=== PATIENT | female | born 1950 ===

== ENCOUNTER 2017-02-18 12:55 | Emergency (ER) | payer MEDICARE, MEDICAID ==
[2017-02-18 12:55] VITALS: PULSE 88
[2017-02-18 13:05] VITALS: BMI 23.8
[2017-02-18 13:07] VITALS: TEMP 98.1; O2SAT 98
--- NOTE | 2017-02-18 13:33 | ED PDOC ---
Arrival/HPI - History of Present Illness Time/Duration: < month Symptom Onset: Gradual Symptom Course: Unchanged Severity Level: Mild Activities at Onset: Light Context: Home <Ivana Chavez - Last Filed: 02/18/17 15:07> - General Historian: Patient <Arley Husainystal - Last Filed: 02/18/17 15:12> - General Chief Complaint: Lower Extremity Problem/Injury Time Seen by Provider: 02/18/17 13:12 - History of Present Illness Narrative History of Present Illness (Text): 02/18/17 13:30 This is a 66Y F with PMH HTN, Lupus, CKD, L DVT who was sent to ED by PMD Dr. Escalante for R leg pain x 2 weeks. Patient reports her R lower calf has been hurting for 2 weeks. It is worse with walking, but denies having any trauma. She reports erythema in the R mid calf, but denies SOB, CP, fever, chills, n/v/d , or vision changes. She is currently on Coumadin for her history of L leg DVT. (Kelsi Husain) Modifying Factors (Text): pain worse with walking (Ivana Chavez) Past Medical History - Provider Review Nursing Documentation Reviewed: Yes - Travel History If Yes, travel location?: [place] - Infectious Disease Hx of Infectious Diseases: None - Tetanus Immunization Tetanus Immunization: Unknown - Cardiac Hx Cardiac Disorders: Yes Hx Hypertension: Yes - Pulmonary Hx Respiratory Disorders: Yes Hx Asthma: Yes Hx Chronic Obstructive Pulmonary Disease (COPD): Yes - Neurological Hx Neurological Disorder: No - HEENT Hx HEENT Disorder: Yes (WEARS RX GLASSES) Other/Comment: decreased vision in left eye - Renal Hx Renal Disorder: Yes Hx Renal Failure: Yes - Endocrine/Metabolic Hx Endocrine Disorders: Yes Hx Hypothyroidism: Yes Hx Systemic Lupus Erythematosus: Yes - Hematological/Oncological Hx Blood Disorders: No - Integumentary Hx Dermatological Disorder: Yes - Musculoskeletal/Rheumatological Hx Musculoskeletal Disorders: Yes Hx Falls: Yes - Gastrointestinal Hx Gastrointestinal Disorders: Yes Hx Gastroesophageal Reflux: Yes Hx Pancreatitis: Yes - Genitourinary/Gynecological Hx Genitourinary Disorders: No - Psychiatric Hx Psychophysiologic Disorder: Yes Hx Anxiety: Yes Hx Substance Use: No - Surgical History Hx Cholecystectomy: Yes Hx Valve Replacement: Yes ("pericardial window") Other/Comment: bilateral breast lift - Anesthesia Hx Anesthesia: Yes Hx Anesthesia Reactions: No Hx Malignant Hyperthermia: No - Suicidal Assessment Feels Threatened In Home Enviroment: No <Kelsi Husain - Last Filed: 02/18/17 15:12> Family/Social History - Physician Review Nursing Documentation Reviewed: Yes Family/Social History: CAD/DC Smoking Status: Never Smoked Hx Alcohol Use: No Hx Substance Use: No Hx Substance Use Treatment: No <Kelsi Husain - Last Filed: 02/18/17 15:12> Allergies/Home Meds <Ivana Chavez - Last Filed: 02/18/17 15:07> <Kelsi Husain - Last Filed: 02/18/17 15:12> Allergies/Adverse Reactions: Allergies ciprofloxacin [From Cipro] Allergy (Verified 02/18/17 13:05) ANAPHYLAXIS ciprofloxacin HCl [From Cipro] Allergy (Verified 02/18/17 13:05) ANAPHYLAXIS IV Contrast Allergy (Uncoded 02/18/17 13:05) ANAPHYLAXIS Home Medications: Home Meds Medication Instructions Recorded Confirmed Digoxin [Lanoxin] 1 dose PO DAILY 11/08/15 09/13/16 Levothyroxine [Synthroid] 50 mcg PO DAILY 11/08/15 09/13/16 Lipase/Protease/Amylase [Creon Dr 1 tab PO TID 11/08/15 09/13/16 12,000 Units Capsule] Magnesium Oxide 500 mg PO DAILY 11/08/15 09/13/16 Omeprazole [Prilosec] 40 mg PO DAILY 11/08/15 09/13/16 Alendronate [Fosamax] 35 mg PO ONCE 04/29/16 09/13/16 Potassium Chloride [Klor-Con 10] 10 meq PO TID 04/29/16 09/13/16 Prednisone [Laura] 5 mg PO DAILY 04/29/16 09/13/16 Warfarin [Coumadin] 2.5 mg PO DAILY 04/29/16 09/13/16 amLODIPine [Norvasc] 10 mg PO DAILY 04/29/16 09/13/16 tiZANidine [Zanaflex] 2 mg PO PRN PRN 04/29/16 09/13/16 Review of Systems - Physician Review All systems were reviewed & negative as marked: Yes - Review of Systems Constitutional: Normal. absent: Fatigue Eyes: Normal. absent: Vision Changes Respiratory: Normal. absent: SOB, Cough, Wheezing Cardiovascular: Normal. absent: Chest Pain, Palpitations Gastrointestinal: Normal. absent: Abdominal Pain, Stool Changes, Nausea, Vomiting Genitourinary Female: Normal. absent: Dysuria, Frequency Musculoskeletal: Other (R leg pain ). absent: Arthralgias, Back Pain, Joint Swelling Skin: Normal. absent: Rash, Pruritis, Skin Lesions Neurological: Normal. absent: Headache, Dizziness <Kelsi Husain - Last Filed: 02/18/17 15:12> Physical Exam <Ivana Chavez - Last Filed: 02/18/17 15:07> Vital Signs Reviewed: Yes Temperature: Afebrile Blood Pressure: Hypertensive Pulse: Regular Respiratory Rate: Normal Appearance: Positive for: Well-Appearing, Non-Toxic, Comfortable Pain Distress: None Mental Status: Positive for: Alert and Oriented X 3 - Systems Exam Head: Present: Atraumatic, Normocephalic Mouth: Present: Moist Mucous Membranes Neck: Present: Normal Range of Motion Respiratory/Chest: Present: Clear to Auscultation, Good Air Exchange. No: Respiratory Distress, Accessory Muscle Use Cardiovascular: Present: Regular Rate and Rhythm, Normal S1, S2. No: Murmurs Abdomen: Present: Normal Bowel Sounds. No: Tenderness, Distention, Peritoneal Signs Back: Present: Normal Inspection Upper Extremity: Present: Normal Inspection. No: Cyanosis, Edema Lower Extremity: Present: Normal Inspection (on L leg), NORMAL PULSES, Erythema (Mid R calf ), Deformity (R mid calf superficial vein). No: Edema, CALF TENDERNESS Neurological: Present: GCS=15, CN II-XII Intact, Speech Normal Skin: Present: Warm, Dry, Normal Color. No: Rashes Psychiatric: Present: Alert, Oriented x 3, Normal Insight, Normal Concentration <Kelsi Husain - Last Filed: 02/18/17 15:12> Vital Signs Temp Pulse Resp BP Pulse Ox 02/18/17 13:06 98.1 F 87 16 157/83 H 98 Medical Decision Making <Ivana Chavez - Last Filed: 02/18/17 15:07> Re-evaluation Time: 15:00 Reassessment Condition: Improved - Lab Interpretations I have reviewed the lab results: Yes Interpretation: No sign. chg./baseline - RAD Interpretation Assurance Senior Manager: ED Physician <Kelsi Husain - Last Filed: 02/18/17 15:12> ED Course and Treatment: In agreement with resident note, which includes further HPI details. Patient was seen and evaluated with resident, came up with plan and treatment together. (Ivana Chavez) 02/18/17 13:37 Impression: This is a 66Y F with PMH HTN, Lupus, L leg DVT, CKD here for R leg pain x 2 weeks. DDX: R DVT, thrombophlebitis, venous insufficiency Plan: -- Duplex U/S -- Pt/PTT, INR -- Tibia/fibula XR --Reassess Prior Visits: Notes and results from previous visits were reviewed. Progress Note: XR tibia/fibula negative for fracture. Preliminary U/S showed no evidence of DVT. INR 2.1. Spoke with Dr. Escalante who reports patient should make and appointment to see him on . Discharge Instructions: Re-evaluation. Patient feels better. Discussed results and plan with patient who expresses understanding. All questions answered and there is agreement with the plan to discharge home with instructions. Patient stable for discharge. Return if symptoms persist or worsen. (Kelsi Husain) - Lab Interpretations Lab Results: Lab Results 02/18/17 14:30: PT 22.7 H, INR 2.10 H, APTT 36.6 H - RAD Interpretation Narrative RAD Interpretations (Text): 02/18/17 14:47 U/S negative for DVT. XR of tibia/fibula negative for fracture. Please see full report for more details. (Kelsi Husain) Radiology Orders: 02/18/17 13:20 TIBIA FIBULA RIGHT [RAD] Stat DUPLEX LOWER EXTRM VEIN RIGHT [US] Stat Disposition/Present on Arrival <Ivana Chavez - Last Filed: 02/18/17 15:07> - Present on Arrival Any Indicators Present on Arrival: No History of DVT/PE: Yes History of Uncontrolled Diabetes: No Urinary Catheter: No History of Decub. Ulcer: No History Surgical Site Infection Following: None - Disposition Have Diagnosis and Disposition been Completed?: Yes Disposition Time: 15:05 Patient Plan: Discharge <Kelsi Husain - Last Filed: 02/18/17 15:12> - Disposition Diagnosis: Right leg pain Disposition: HOME/ ROUTINE Patient Problems: Current Active Problems Problem Status Onset Right leg pain Acute Condition: GOOD Discharge Instructions (ExitCare): Varicose Veins (ED), Deep Venous Thrombosis (GEN) Print Language: FRISIAN Additional Instructions: Ms. Schuler, thank you for letting us take care of you today. Your provider was Dr. Husain and Dr. Chavez. You were treated for L leg pain. The emergency medical care you received today was directed at your acute symptoms. If you were prescribed any medication, please fill it and take as directed. It may take several days for your symptoms to resolve. Return to the Emergency Department if your symptoms worsen, do not improve, or if you have any other problems. Please follow up with Dr. Escalatne on . Call Lary at the office to make an appointment. Bring any paperwork you were given at discharge with you along with any medications you are taking to your follow up visit. Our treatment cannot replace ongoing medical care by a primary care provider (PCP) outside of the emergency department. Thank you for allowing the [facility] team to be part of your care today. If you had an X-Ray or CT scan: A Radiologist will review the ED reading if any change in treatment is needed we will contact you. Referrals: Cathy Escalante MD [Primary Care Provider] - Follow up with primary
--- NOTE | 2017-02-18 14:54 | RAD ---
PROCEDURE: Radiographs of the right tibia and fibula. HISTORY: RLE lump on the medial side mid shaft COMPARISON: None available. TECHNIQUE: Frontal and lateral views obtained. FINDINGS: BONES: No fracture or destructive lesion. JOINT SPACES: Unremarkable. OTHER FINDINGS: None. IMPRESSION: Unremarkable radiographs of the right tibia and fibula.
[2017-02-18 14:56] LABS: INR 2.1 (0.93-1.08); PARTIAL THROMBOPLASTIN TIME 36.6 Seconds (23.7-30.8)
[2017-02-18 15:28] VITALS: BP 136/69; PULSE 76; RESP 18
--- NOTE | 2017-02-18 16:06 | US ---
PROCEDURE: Right lower extremity venous US HISTORY: Leg pain and swelling. Evaluate for DVT. PHYSICIAN(S): Christopher Mitchell M.D. TECHNIQUE: Duplex sonography and color-flow Doppler with graded compression were used to evaluate the deep venous system of the right lower extremity. FINDINGS: The visualized deep venous system of the right lower extremity is sonographically normal and compressible. Normal waveforms and augmentation are seen. There is no sonographic evidence for deep venous thrombosis in the visualized segments of the right lower extremity. IMPRESSION: 1. No sonographic evidence for deep venous thrombosis in the visualized segments of the right lower extremity.
== END 2017-02-18 15:30 | disposition home or self-care (01) ==
LOC: ED 12:55
DX: M79.604 Pain in right leg (principal); I12.9 Hypertensive chronic kidney disease with stage 1 through stage 4 chronic kidney disease, or unspecified chronic kidney disease; N18.9 Chronic kidney disease, unspecified; M32.9 Systemic lupus erythematosus, unspecified

== ENCOUNTER 2017-06-09 13:50 | Inpatient (IN) | payer MEDICARE, MEDICAID ==
[2017-06-09 13:50] VITALS: BMI 23.8
[2017-06-09] MEDS ORDERED: Albuterol-Ipratrop 3 mg / 0.5 (3 ml) UD IH STA (14:26)
--- NOTE | 2017-06-09 14:38 | ED PDOC ---
Arrival/HPI <Gemini Roberts - Last Filed: 06/09/17 15:58> - General Historian: Patient - History of Present Illness Time/Duration: < week (4 days ) Symptom Onset: Gradual Symptom Course: Unchanged Quality: Aching Severity Level: Moderate Activities at Onset: Rest Context: Home <Kelsi Husain - Last Filed: 06/09/17 17:16> - General Chief Complaint: Cough, Cold, Congestion Time Seen by Provider: 06/09/17 14:15 - History of Present Illness Narrative History of Present Illness (Text): 06/09/17 14:43 This is a 66Y F with PMH HTN, Lupus, CKD, DVT, asthma and hypothyroidism here for cough and congestion x 4 days. She reports the cough is constant and coughs up clear and brown colored mucus. She also has subjective fevers and fatigue. She denies runny nose, sore throat, facial pain, ear pain or recent travel. She reports her sister was sick last week as well and they both have not had their flu shot. The patient has been using lemon and honey to help her cough. She does not know what makes it worse. She went to have her INR checked today and went home and continued to feel sick and decided to come the ED. Her PMD is Dr. Escalante who she called and he told her to come to the Ed. She has an appointment to see him tomorrow. (Kelsi Husain) Past Medical History - Provider Review Nursing Documentation Reviewed: Yes - Travel History Have you recently traveled outside [place] w/in the past 3 mons?: No - Infectious Disease Hx of Infectious Diseases: None - Tetanus Immunization Tetanus Immunization: Unknown - Cardiac Hx Cardiac Disorders: Yes Hx Hypertension: Yes - Pulmonary Hx Respiratory Disorders: Yes Hx Asthma: Yes Hx Chronic Obstructive Pulmonary Disease (COPD): Yes - Neurological Hx Neurological Disorder: No - HEENT Hx HEENT Disorder: Yes (WEARS RX GLASSES) Other/Comment: decreased vision in left eye - Renal Hx Renal Disorder: Yes Hx Renal Failure: Yes - Endocrine/Metabolic Hx Endocrine Disorders: Yes Hx Hypothyroidism: Yes Hx Systemic Lupus Erythematosus: Yes - Hematological/Oncological Hx Blood Disorders: No - Integumentary Hx Dermatological Disorder: Yes - Musculoskeletal/Rheumatological Hx Musculoskeletal Disorders: Yes Hx Falls: Yes - Gastrointestinal Hx Gastrointestinal Disorders: Yes Hx Gastroesophageal Reflux: Yes Hx Pancreatitis: Yes - Genitourinary/Gynecological Hx Genitourinary Disorders: No - Psychiatric Hx Psychophysiologic Disorder: Yes Hx Anxiety: Yes Hx Substance Use: No - Surgical History Hx Cholecystectomy: Yes Hx Valve Replacement: Yes ("pericardial window") Other/Comment: bilateral breast lift - Anesthesia Hx Anesthesia: Yes Hx Anesthesia Reactions: No Hx Malignant Hyperthermia: No - Suicidal Assessment Feels Threatened In Home Enviroment: No <Kelsi Husain - Last Filed: 06/09/17 17:16> Family/Social History - Physician Review Nursing Documentation Reviewed: Yes Family/Social History: Hypertension Smoking Status: Never Smoked Hx Alcohol Use: No Hx Substance Use: No Hx Substance Use Treatment: No <Kelsi Husain - Last Filed: 06/09/17 17:16> Allergies/Home Meds <Gemini Roberts - Last Filed: 06/09/17 15:58> <Kelsi Husain - Last Filed: 06/09/17 17:16> Allergies/Adverse Reactions: Allergies ciprofloxacin [From Cipro] Allergy (Verified 06/09/17 14:01) ANAPHYLAXIS ciprofloxacin HCl [From Cipro] Allergy (Verified 06/09/17 14:01) ANAPHYLAXIS IV Contrast Allergy (Uncoded 06/09/17 14:01) ANAPHYLAXIS Home Medications: Home Meds Medication Instructions Recorded Confirmed Levothyroxine [Synthroid] 50 mcg PO DAILY 11/08/15 06/09/17 Lipase/Protease/Amylase [Creon Dr 1 tab PO TID 11/08/15 06/09/17 12,000 Units Capsule] Magnesium Oxide 500 mg PO DAILY 11/08/15 06/09/17 Omeprazole [Prilosec] 40 mg PO DAILY 11/08/15 06/09/17 Alendronate [Fosamax] 70 mg PO ONCE 04/29/16 06/09/17 Potassium Chloride [Klor-Con 10] 10 tab-cap PO TID 04/29/16 06/09/17 Prednisone [Laura] 5 mg PO DAILY 04/29/16 06/09/17 Warfarin [Coumadin] 5 mg PO DAILY 04/29/16 06/09/17 amLODIPine [Norvasc] 10 mg PO DAILY 04/29/16 06/09/17 tiZANidine [Zanaflex] 2 mg PO PRN PRN 04/29/16 06/09/17 Digoxin [Digitek] 125 mcg PO DAILY 06/09/17 06/09/17 Gabapentin [Neurontin] 300 mg PO DAILY 06/09/17 06/09/17 tiZANidine [Zanaflex] 2 mg PO HS 06/09/17 06/09/17 Review of Systems - Physician Review All systems were reviewed & negative as marked: Yes - Review of Systems Constitutional: Fatigue, Fevers Eyes: absent: Vision Changes ENT: Normal. absent: Hearing Changes, Sore Throat, Rhinorrhea Respiratory: Cough. absent: SOB, Sputum, Wheezing Cardiovascular: Normal Gastrointestinal: Normal. absent: Abdominal Pain, Diarrhea, Nausea, Vomiting Genitourinary Female: Normal. absent: Dysuria, Frequency, Hematuria <Kelsi Husain - Last Filed: 06/09/17 17:16> Physical Exam <Gemini Roberts - Last Filed: 06/09/17 15:58> Vital Signs Reviewed: Yes Temperature: Febrile Blood Pressure: Normal Pulse: Tachycardic Respiratory Rate: Normal Appearance: Positive for: Well-Appearing, Non-Toxic, Comfortable Pain Distress: None Mental Status: Positive for: Alert and Oriented X 3 - Systems Exam Head: Present: Atraumatic, Normocephalic Pupils: Present: PERRL Extroacular Muscles: Present: EOMI Conjunctiva: Present: Normal Mouth: Present: Moist Mucous Membranes Pharnyx: Present: ERYTHEMA (mild with clear mucus in oropharynx ). No: EXUDATE , TONSILS ENLARGED, Uvular Deviation Neck: Present: Normal Range of Motion Respiratory/Chest: Present: Clear to Auscultation, Good Air Exchange. No: Respiratory Distress, Accessory Muscle Use Cardiovascular: Present: Regular Rate and Rhythm, Normal S1, S2. No: Murmurs Abdomen: Present: Normal Bowel Sounds. No: Tenderness, Distention, Peritoneal Signs Back: Present: Normal Inspection Upper Extremity: Present: Normal Inspection. No: Cyanosis, Edema Lower Extremity: Present: Normal Inspection. No: Edema Neurological: Present: GCS=15, CN II-XII Intact, Speech Normal Skin: Present: Warm, Dry, Normal Color. No: Rashes Psychiatric: Present: Alert, Oriented x 3, Normal Insight, Normal Concentration <Kelsi Husain - Last Filed: 06/09/17 17:16> Vital Signs Temp Pulse Resp BP Pulse Ox 06/09/17 15:51 100 F H 97 H 16 125/66 96 06/09/17 13:54 100.6 F H 99 H 18 143/76 95 Medical Decision Making <Gemini Roberts - Last Filed: 06/09/17 15:58> Re-evaluation Time: 15:15 Reassessment Condition: Improving,but remains with symptoms - Lab Interpretations I have reviewed the lab results: Yes Interpretation: All labs normal (elevated WBC) <Arley Husainystal - Last Filed: 06/09/17 17:16> ED Course and Treatment: A 66 year old female with cough and congestion. In agreement with resident note , which includes further HPI details. Patient was seen and evaluated with resident, came up with plan and treatment together. (Gemini Roberts) 06/09/17 14:55 Impression: This is a 66Y F with PMH HTN, Lupus, CKD, DVT, asthma and hypothyroidism here for cough and congestion x 4 days. Differential Diagnosis included but are not limited to: Bronchitis v. pneumonia v. influenza Plan: -- CBC, CMP, Influenza, U/A, Blood cultre/Urine Cultures, VBG -- CXR -- Pietro Douglas -- NS bolus -- Reassess and disposition Progress Notes: 06/09/17 15:18 Re-evaluation. Patient feels improved, but still fatigued. Discussed results and plan to admit with patient who expresses understanding. All questions answered and there is agreement with the plan. CBC showed elevated WBC. Lactate within normal limits. Influenza negative. INR subtherapeutic. U/A pending. Patient urinated in cup, but threw it down sink. Spoke with Dr. Escalante who would like this patient to be admitted for early pneumonia v. bronchitis with immunocompromised state secondary to lupus and chronic steroid use. Patient will be admitted under Dr. Reyes who is covering his service. Spoke with Dr. Reyes who accepted the patient. Patient given IV Rocephin and Zithromax. CXR Portable HISTORY: cough COMPARISON: 07/11/2016. FINDINGS: LUNGS: The lungs are well inflated. There are chronic changes in both lungs. No focal consolidation. PLEURA: No significant pleural effusion identified, no pneumothorax apparent. CARDIOVASCULAR: Normal. OSSEOUS STRUCTURES: No significant abnormalities. VISUALIZED UPPER ABDOMEN: Normal. OTHER FINDINGS: There are multiple surgical clips in the right axilla. IMPRESSION: Chronic changes in both lungs. No active pulmonary disease. (Kelsi Husain) - Lab Interpretations Lab Results: 06/09/17 14:30 06/09/17 14:45 Lab Results 06/09/17 14:52: Influenza Typ A,B (EIA) Negative for flu a/b 06/09/17 14:45: Sodium 138, Chloride 103, Potassium 4.0, Carbon Dioxide 25, Anion Gap 14, BUN 30 H, Creatinine 1.3, Est GFR ( Amer) 50, Est GFR (Non- Af Amer) 41, Random Glucose 90, Calcium 8.7, Total Bilirubin 0.6, AST 40 H, ALT 43, Alkaline Phosphatase 89, Total Protein 7.7, Albumin 3.6, Globulin 4.2, Albumin/Globulin Ratio 0.9 L 06/09/17 14:30: PT 17.8 H, INR 1.65 H 06/09/17 14:30: WBC 12.7 H D, RBC 3.70, Hgb 11.0 L, Hct 34.1 L, MCV 92.2, MCH 29.7, MCHC 32.3, RDW 14.3, Plt Count 222, MPV 9.8, Gran % 66.4, Lymph % (Auto) 21.8 L, Beadle % (Auto) 11.2 H, Eos % (Auto) 0.5 L, Baso % (Auto) 0.1, Gran # 8.47 H, Lymph # 2.8, Beadle # 1.4 H, Eos # 0.1, Baso # 0.01 06/09/17 14:05: pO2 45, VBG pH 7.44 H, VBG pCO2 40.0, VBG HCO3 27.2, VBG Total CO2 28.4 H, VBG O2 Sat (Calc) 86.1 H, VBG Base Excess 2.8 H, VBG Potassium 4.3, Sodium 136.0, Chloride 105.0, Glucose 96, Lactate 0.9, FiO2 21.0, Venous Blood Potassium 4.3 - RAD Interpretation Radiology Orders: 09/18/17 14:26 CHEST PORTABLE [RAD] Stat - Medication Orders Current Medication Orders: Discontinued Medications Albuterol/Ipratropium (Duoneb 3 Mg/0.5 Mg (3 Ml) Ud) 3 ml IH STAT STA Stop: 06/09/17 14:27 Last Admin: 06/09/17 14:56 Dose: 3 ml Benzonatate (Tessalon Perles) 100 mg PO ONCE STA Stop: 06/09/17 14:27 Last Admin: 06/09/17 14:56 Dose: 100 mg Sodium Chloride (Sodium Chloride 0.9%) 500 mls @ 999 mls/hr IV .Q31M STA Stop: 06/09/17 15:18 Last Admin: 06/09/17 14:57 Dose: 999 mls/hr Ceftriaxone Sodium (Rocephin 1 Gram Ivpb) 1 gm in 100 mls @ 200 mls/hr IVPB STAT STA PRN Reason: Protocol Stop: 06/09/17 16:12 Last Admin: 06/09/17 15:51 Dose: 200 mls/hr Azithromycin (Zithromax 500mg In Ns) 500 mg in 250 mls @ 167 mls/hr IVPB STAT STA PRN Reason: Protocol Stop: 06/09/17 17:12 Last Admin: 06/09/17 16:28 Dose: 167 mls/hr - PA / PROPOSITION PLAYER / Resident Statement MD/DO has reviewed & agrees with the documentation as recorded. MD/ has examined the patient and agrees with the treatment plan. - Scribe Statement The provider has reviewed the documentation as recorded by the Scribe <Gemini Roberts - Last Filed: 06/09/17 15:58> <Kelsi Husain - Last Filed: 06/09/17 17:16> - Scribe Statement Galina Noland Provider Scribe Attestation: All medical record entries made by the Scribe were at my direction and personally dictated by me. I have reviewed the chart and agree that the record accurately reflects my personal performance of the history, physical exam, medical decision making, and the department course for this patient. I have also personally directed, reviewed, and agree with the discharge instructions and disposition. (Gemini Roberts) Disposition/Present on Arrival <Gemini Roberts - Last Filed: 06/09/17 15:58> - Present on Arrival Any Indicators Present on Arrival: Yes History of DVT/PE: Yes History of Uncontrolled Diabetes: No Urinary Catheter: No History of Decub. Ulcer: No History Surgical Site Infection Following: None - Disposition Have Diagnosis and Disposition been Completed?: Yes Disposition Time: 15:45 Patient Plan: Admission <Kelsi Husain - Last Filed: 06/09/17 17:16> - Disposition Diagnosis: Cough, Leukocytosis Patient Problems: Current Active Problems Problem Status Onset Cough Acute Leukocytosis Acute Condition: FAIR
[2017-06-09] MEDS ORDERED: Sodium Chloride 0.9% 500 ML IV STA (14:48)
[2017-06-09 15:14] LABS: BASO # 0.01 K/mm3 (0.0-2.0); BASO % 0.1 % (0.0-3.0); EOS # 0.1 (0.0-0.7); EOS % 0.5 % (1.5-5.0); GRAN # 8.47 (1.4-6.5); GRAN % 66.4 % (50.0-68.0); HEMATOCRIT 34.1 % (36.0-48.0); LYMPH # 2.8 (1.2-3.4); LYMPH % 21.8 % (22.0-35.0); MEAN CELL VOLUME 92.2 fl (80.0-105.0); MEAN CORPUSCULAR HEMOGLOBIN 29.7 pg (25.0-35.0); MEAN CORPUSCULAR HGB CONC 32.3 g/dl (31.0-37.0); MEAN PLATELET VOLUME 9.8 fl (7.0-11.0); MONO # 1.4 (0.1-0.6); MONO % 11.2 % (1.0-6.0); RED CELL DISTRIBUTION WIDTH 14.3 % (11.5-14.5); WHITE BLOOD COUNT 12.7 10^3/ul (4.5-11.0)
[2017-06-09 15:15] LABS: VENOUS BLOOD GAS BASE EXCESS 2.8 mmol/L (0.0-2.0); VENOUS BLOOD PH 7.44 (7.32-7.43)
[2017-06-09 15:24] LABS: ALB/GLOB RATIO 0.9 (1.1-1.8); BILIRUBIN,TOTAL 0.6 mg/dL (0.2-1.3); CALCIUM 8.7 mg/dL (8.4-10.5); TOTAL PROTEIN 7.7 g/dL (5.8-8.3)
--- NOTE | 2017-06-09 15:25 | RAD ---
HISTORY: cough COMPARISON: 07/11/2016. FINDINGS: LUNGS: The lungs are well inflated. There are chronic changes in both lungs. No focal consolidation. PLEURA: No significant pleural effusion identified, no pneumothorax apparent. CARDIOVASCULAR: Normal. OSSEOUS STRUCTURES: No significant abnormalities. VISUALIZED UPPER ABDOMEN: Normal. OTHER FINDINGS: There are multiple surgical clips in the right axilla. IMPRESSION: Chronic changes in both lungs. No active pulmonary disease.
[2017-06-09] MEDS ORDERED: cefTRIAXone 1 gm 1 GM/100 ML BAG IVPB STA (15:43)
[2017-06-09] MEDS ORDERED: Azithromycin 500MG/NS 250ml 500 MG/250 ML BAG IVPB STA (15:43)
[2017-06-09 17:04] LABS: INR 1.65 (0.93-1.08)
[2017-06-09 17:36] LABS: PH,URINE 6.5 (4.7-8.0); URINE BILIRUBIN NEGATIVE (NEGATIVE); URINE BLOOD TRACE-INTACT (NEGATIVE); URINE GLUCOSE (UA) NEGATIVE (NEGATIVE); URINE KETONE NEGATIVE (NEGATIVE); URINE LEUKOCYTE ESTERASE TRACE Leu/uL (NEGATIVE); URINE PROTEIN NEGATIVE mg/dL (<30 mg/dL); URINE UROBILINOGEN 0.2 E.U./dL (<1 E.U./dL)
[2017-06-09 17:38] LABS: URINE APPEARANCE CLEAR (CLEAR); URINE COLOR STRAW (YELLOW)
[2017-06-09 17:51] LABS: URINE BACTERIA SMALL (NEG); URINE EPITHELIAL CELLS 0 - 2 /hpf (0-5); URINE RBC 0 - 2 /hpf (0-2); URINE WBC 0 - 2 /hpf (0-6)
[2017-06-10] MEDS ORDERED: cefTRIAXone 1 gm 1 GM/100 ML BAG IVPB ONE (05:44)
[2017-06-10] MEDS ORDERED: cefTRIAXone 1 gm 1 GM/100 ML BAG IVPB STA (05:45)
[2017-06-10 05:53] LABS: HEMATOCRIT 32.3 % (36.0-48.0); MEAN CELL VOLUME 91.2 fl (80.0-105.0); MEAN CORPUSCULAR HEMOGLOBIN 29.4 pg (25.0-35.0); MEAN CORPUSCULAR HGB CONC 32.2 g/dl (31.0-37.0); MEAN PLATELET VOLUME 10.1 fl (7.0-11.0); RED CELL DISTRIBUTION WIDTH 14.4 % (11.5-14.5); WHITE BLOOD COUNT 15.1 10^3/ul (4.5-11.0)
[2017-06-10 07:28] LABS: ALB/GLOB RATIO 0.7 (1.1-1.8); BILIRUBIN,TOTAL 0.6 mg/dL (0.2-1.3); CALCIUM 8.5 mg/dL (8.4-10.5); MAGNESIUM 1.8 mg/dL (1.7-2.2); PHOSPHOROUS 3.5 mg/dL (2.5-4.5); POTASSIUM 4.2 mmol/L (3.6-5.0); TOTAL PROTEIN 7.3 g/dL (5.8-8.3)
[2017-06-10] MEDS ORDERED: Albuterol-Ipratrop 3 mg / 0.5 (3 ml) UD IH PRN (08:49)
[2017-06-10] MEDS: MethylPREDNISolone 40 mg Vial IVP SCH ×2 (09:40→22:07)
[2017-06-10] MEDS: cefTRIAXone 1 gm 1 GM/100 ML BAG IVPB SCH (09:41)
[2017-06-10] MEDS: Amylase/Lipase/Protease 5,000 U ECC PO SCH ×3 (09:41→18:41)
[2017-06-10] MEDS: Levothyroxine 50 MCG TAB PO SCH (09:41)
[2017-06-10] MEDS: Digoxin 125 mcg (0.125 mg) Tab PO SCH (09:42)
[2017-06-10] MEDS: Azithromycin 500MG/NS 250ml 500 MG/250 ML BAG IVPB SCH (09:43)
--- NOTE | 2017-06-10 12:57 | CON ---
PULMONARY CONSULTATION DATE: 06/10/2017 REFERRING PHYSICIAN: Stalin Reyes MD REASON FOR CONSULTATION: Asthma. HISTORY OF PRESENT ILLNESS: The patient is a [id number], with past medical history significant for asthma, systemic lupus erythematosus, hypertension, chronic kidney disease, deep venous thrombosis in the past, and pancreatitis in the past, who presents to [facility] with increasing shortness of breath at rest, dyspnea on exertion, cough, and sputum production for the past 4 days. There is no history of chest pain, coughing up of blood, or chest pain - may worse with deep respirations. The patient did present to the emergency room with fevers. No history of chills or infectious exposure. No history of night sweats, weight loss or appetite change prior to the above events. No history of leg or calf pains. No history of syncope or diaphoresis. No history of recent travel or trauma. REVIEW OF SYSTEMS: No history of nausea, vomiting or diarrhea. No acute urinary symptoms. No new neurologic or musculoskeletal complaints. Rest of the review of systems is negative. ALLERGIES: CIPROFLOXACIN AND IV DYE. SOCIAL HISTORY: Negative for tobacco. Negative for alcohol. FAMILY HISTORY: No inheritable diseases. HOME MEDICATIONS: Include Zanaflex, Norvasc, Coumadin, prednisone, Prilosec, Synthroid, Advair, Fosamax, Neurontin, and Digitek. PHYSICAL EXAMINATION: GENERAL: The patient is not short of breath at rest. She is not using accessory muscles for breathing. VITAL SIGNS: Temperature is 102.2, pulse 93, respirations 18/20, and blood pressure 130/69. Oxygen saturation on room air is 95% to 96%. HEENT: Normocephalic and atraumatic. NECK: No JVD. CARDIOVASCULAR: Systolic ejection murmur at the lower left sternal border. No S3 or gallop. LUNGS: Decreased breath sounds at the bases. Scattered bilateral rhonchi and wheezing are appreciated. EXTREMITIES: No clubbing, cyanosis, or edema. Calves are nontender to palpation. GASTROINTESTINAL: Abdomen is soft, nontender, and nondistended. Bowel sounds are positive. SKIN: No acute rash. NEUROLOGIC: Limited at the present time. PERTINENT LABORATORY DATA: Chest x-ray was done yesterday and reviewed. There are chronic changes noted. CBC: White count 15.1, hemoglobin 10.4, hematocrit 32.3, and platelets of 226. INR 1.65. Complete metabolic profile: BUN 26 and AST 39. Rest of the metabolic profile is within normal limits. Urine leukocyte esterase - trace. IMPRESSION: 1. Acute bronchitis. 2. Asthma. 3. Fevers. 4. Lupus. 5. Mild anemia. PLAN: The patient presents to [facility] with a 4-day history of worsening pulmonary symptoms. In addition, the patient also presented with fevers. She was thus admitted for additional evaluation. I did review the chest x-ray as above. The chest x-ray only shows chronic changes. A CAT scan of the chest has been ordered for closer evaluation. I will check that when feasible. The patient has been pancultured and started on appropriate antibiotic therapy. Dr. Woods (infectious disease) has been called on the case for evaluation. On physical exam, the patient is in [id number] bronchospasm. I will increase the nebulizer treatments and start low-dose intravenous steroids this morning. I have also started inhaled Pulmicort. Repeat a.m. labs are pending. The patient does state she is feeling this morning, and is actually asking to go home. Additional pulmonary intervention will be based on the clinical status of the patient, as well as the above results. I did discuss the above with Dr. Reyes at length. Thank you very much for this pulmonary consultation. Cornell Silva MD ROBIN
--- NOTE | 2017-06-10 13:29 | CT ---
PROCEDURE: CT chest dated 06/10/2017 HISTORY: Elevated white blood cell count. Cough. COMPARISON: Comparison made with chest radiograph 06/09/2017. Comparison also made with CT scan of the thoracic spine dated 03/04/2016 which partially imaged both lung winters. Comparison also made with CT scan of the abdomen and pelvis dated 11/25/2014. TECHNIQUE: Contiguous axial images were obtained through the chest without intravenous contrast enhancement. Sagittal and coronal reconstructions were performed. Radiation dose (DLP): 210.95 mGy-cm. This CT exam was performed using one or more of the following dose reduction techniques: Automated exposure control, adjustment of the mA and/or kV according to patient size, and/or use of iterative reconstruction technique. FINDINGS: LUNGS: There are peripheral small cystic changes and scarring seen in the right upper and right lower lobes. . Rule out idiopathic pulmonary fibrosis Additionally,, there also appears to be some areas of cylindrical and questionable concomitant cystic bronchiectatic changes both lung bases right greater than left. . Chronic areas of atelectasis and or scarring both lung bases. There are areas of patchy opacity seen in the left lower, including the lingular region and left upper lobes which could represent pneumonitis versus developing alveolar-type infiltrates periods. Some vague at similar changes seen in the region of the right middle lobe. MEDIASTINUM: The heart size is upper limits of normal/mildly enlarged. There are coronary artery calcifications. Dense mitral valve calcification. No significant pericardial effusion. . Partially calcified atherosclerotic plaque seen along the aortic arch proximal great vessels. Ascending thoracic aorta measures approximately 3.2 cm and descending thoracic aorta measures approximately 2.56 cm. Pulmonary trunk measures approximately 3.3 cm; rule out underlying mild pulmonary arterial hypertension. There are several on mediastinal lymph nodes, the largest in the right paratracheal region measuring 17.6 mm though this does contain fatty eccentric center. Evaluation or hilar adenopathy is limited due to the lack of circulating intravenous contrast material. PLEURA: No evidence of pneumothorax or significant effusion. BONES: Chronic anterior wedge deformity T8 segment. There also appears to be some mild superior endplate deformity T9 segment with areas of sclerosis nonspecific. UPPER ABDOMEN: Metallic clips gallbladder fossa consistent with prior cholecystectomy unchanged. Small to medium size hiatal hernia with slight wall thickening of the distal esophagus likely to protrusion of gastric mucosa. OTHER FINDINGS: Central airways are midline patent. No large endoluminal lesions are identified. IMPRESSION: There are predominately peripheral cystic changes seen in the right upper ; rule out idiopathic pulmonary fibrosis. There are also cystic changes seen in the right lower lobes as well as left lung base consistent with a combination of cylindrical and cystic bronchiectasis. . There are also areas of chronic atelectasis and or scarring both lung bases. Patchy somewhat translucent opacity seen in the left lower and left upper lobes as well as to a lesser degree right middle lobe region. Findings may represent areas of pneumonitis versus developing alveolar-type infiltrates. Clinical correlation recommended. Small hiatal hernia with slight wall thickening of the distal esophagus as above. Postcholecystectomy changes. Mildly prominent pulmonary trunk ; rule out underlying mild pulmonary arterial hypertension. .
--- NOTE | 2017-06-10 13:53 | CP.PCM.CON ---
History of Present Illness - History of Present Illness History of Present Illness: 66 year old female with PMH of HTN, SLE, chronic renal failure, history of DVT, hypothyroidism, COPD, GERD, anxiety disorder, S/P cholecystectomy, S/P breast surgery came in to [facility] [place] because of worsening cough and chest tightness and congestion for the past 4 days, associated with cough productive of clear phlegm. The patient has also been having generalized weakness. She states that she was exposed to her sister who was apparently sick with cough and colds last week. She denies insect bites, no trips to outdoors in the past month, no animal contacts. She denies rhinorrhea, no sore throat, no body aches , no nausea or vomiting, no diarrhea, no dysuria, no abdominal pain, no dysphagia. She called her PMD who told her to go to the ER. Infectious diseases consult is requested to further evaluate and manage. The patient states she has not been in a hospital nor got antibiotics for the past 3 months. Review of Systems - Review of Systems All systems: reviewed and no additional remarkable complaints except (as per HPI ) Past Patient History - Infectious Disease Hx of Infectious Diseases: None - Tetanus Immunizations Tetanus Immunization: Unknown - Past Social History Smoking Status: Former Smoker - CARDIAC Hx Cardiac Disorders: Yes Hx Hypertension: Yes - PULMONARY Hx Respiratory Disorders: Yes Hx Asthma: Yes Hx Chronic Obstructive Pulmonary Disease (COPD): Yes - NEUROLOGICAL Hx Neurological Disorder: No - HEENT Hx HEENT Problems: Yes (WEARS RX GLASSES) Other/Comment: decreased vision in left eye - RENAL Hx Chronic Kidney Disease: Yes Hx Renal Failure: Yes - ENDOCRINE/METABOLIC Hx Endocrine Disorders: Yes Hx Hypothyroidism: Yes Hx Systemic Lupus Erythematosus: Yes - HEMATOLOGICAL/ONCOLOGICAL Hx Blood Disorders: No - INTEGUMENTARY Hx Dermatological Problems: Yes - MUSCULOSKELETAL/RHEUMATOLOGICAL Hx Musculoskeletal Disorders: Yes Hx Falls: Yes - GASTROINTESTINAL Hx Gastrointestinal Disorders: Yes Hx Gastroesophageal Reflux: Yes Hx Pancreatitis: Yes - GENITOURINARY/GYNECOLOGICAL Hx Genitourinary Disorders: No - PSYCHIATRIC Hx Psychophysiologic Disorder: Yes Hx Anxiety: Yes - SURGICAL HISTORY Hx Cholecystectomy: Yes Hx Valve Replacement: Yes ("pericardial window") Other/Comment: bilateral breast lift - ANESTHESIA Hx Anesthesia: Yes Hx Anesthesia Reactions: No Hx Malignant Hyperthermia: No Meds Allergies/Adverse Reactions: Allergies Allergy/AdvReac Type Severity Reaction Status Date / Time ciprofloxacin [From Cipro] Allergy ANAPHYLAXIS Verified 06/09/17 14:01 ciprofloxacin HCl Allergy ANAPHYLAXIS Verified 06/09/17 14:01 [From Cipro] IV Contrast Allergy ANAPHYLAXIS Uncoded 06/09/17 14:01 - Medications Medications: Current Medications Albuterol/Ipratropium (Duoneb 3 Mg/0.5 Mg (3 Ml) Ud) 3 ml IH [id number] TESHA Albuterol/Ipratropium (Duoneb 3 Mg/0.5 Mg (3 Ml) Ud) 3 ml IH Q2H PRN PRN Reason: Shortness of Breath Alendronate Sodium (Fosamax) 70 mg PO ONCE [facility] Last Admin: 06/09/17 22:06 Dose: Not Given Amlodipine Besylate (Norvasc) 10 mg PO DAILY TESHA Amylase (Pancrease 51997 U-5000 [id number] U) 5,000 u PO WM TESHA Benzonatate (Tessalon Perles) 100 mg PO TID TESHA Budesonide (Pulmicort Respules) 0.5 mg IH [id number] TESHA Cyclosporine (Sandimmune) 100 mg PO DAILY TESHA Digoxin (Lanoxin) 0.125 mg PO DAILY TESHA Gabapentin (Neurontin) 300 mg PO DAILY TESHA PRN Reason: Protocol Ceftriaxone Sodium (Rocephin 1 Gram Ivpb) 1 gm in 100 mls @ 100 mls/hr IVPB DAILY TESHA PRN Reason: Protocol Azithromycin (Zithromax 500mg In Ns) 500 mg in 250 mls @ 167 mls/hr IVPB DAILY TESHA PRN Reason: Protocol Levothyroxine Sodium (Synthroid) 50 mcg PO DAILY [facility] Methylprednisolone (Solu-Medrol) 40 mg IVP Q12 TESHA Tizanidine HCl (Zanaflex) 2 mg PO HS [facility] Last Admin: 06/09/17 22:07 Dose: 2 mg Warfarin Sodium (Coumadin) 6 mg PO HS TESHA PRN Reason: Protocol Last Admin: 06/09/17 22:06 Dose: 6 mg Physical Exam - Constitutional Appears: Non-toxic, No Acute Distress - Head Exam Head Exam: NORMAL INSPECTION - ENT Exam ENT Exam: Mucous Membranes Moist - Neck Exam Neck exam: Negative for: Lymphadenopathy, Meningismus - Respiratory Exam Respiratory Exam: Decreased Breath Sounds, Rhonchi (scattered, left greater than right) - Cardiovascular Exam Cardiovascular Exam: +S1, +S2 - GI/Abdominal Exam GI & Abdominal Exam: Soft. absent: Tenderness Results - Vital Signs Recent Vital Signs: Last Vital Signs Temp 102.2 F H 06/10/17 07:27 Pulse 93 H 06/10/17 07:27 Resp 20 06/10/17 07:27 BP 130/69 06/10/17 07:27 Pulse Ox 95 06/10/17 07:27 - Labs Result Diagrams: 06/10/17 05:30 06/10/17 05:30 Assessment & Plan - Assessment and Plan (Free Text) Plan: Assessment systemic inflammatory Response syndrome, R/O sepsis due to left-sided pneumonia , community-acquired HTN SLE chronic renal failure history of DVT hypothyroidism COPD GERD anxiety disorder S/P cholecystectomy S/P breast surgery Plan Started patient on Rocephin and Zithromax pending blood cx, sputum cx, PCT; reviewed CT chest which shows possible developing pneumonitis on top of chronic bronchiectasis will monitor clinically and trend WBC count
[2017-06-10] MEDS ORDERED: Albuterol-Ipratrop 3 mg / 0.5 (3 ml) UD IH SCH (14:00)
[2017-06-10] MEDS: Albuterol-Ipratrop 3 mg / 0.5 (3 ml) UD IH SCH ×2 (14:03→19:58)
[2017-06-10] MEDS: Budesonide 0.5 mg/2 ml Inhal Susp UD IH SCH (19:58)
[2017-06-11] MEDS: Albuterol-Ipratrop 3 mg / 0.5 (3 ml) UD IH SCH ×4 (01:01→19:50)
--- NOTE | 2017-06-11 01:57 | HP ---
HISTORY OF PRESENT ILLNESS: This is a 66-year-old female who is coming into the hospital with complaints of cough, congestion. She says that she started having some of these symptoms few days ago, approximately 5 days ago. She said yesterday she started having a fever, she measured it and it was 102 degrees. She has a history of lupus and has been on immunosuppression therapy with prednisone and cyclosporine. She also has a history of hypothyroidism, COPD, anxiety, GERD. The patient is having cough and said that she has been coughing. She was supposed to see Dr. Escalante, her primary care doctor, but her symptoms worsened, so she came into the ER for further evaluation. She has not recently had any antibiotics in the last few months nor has she been in a healthcare facility. She said when she had the fever she had chills. She has no dysuria or frequency. No nocturia. No weakness in the arms or the legs. No swelling in the joints of the hands, fingers, knees, elbows. REVIEW OF SYSTEMS: All other review of symptoms are within normal limits except as mentioned. ALLERGIES: CIPRO. HOME MEDICATIONS: The patient's home medications have been reviewed on the NOV. SOCIAL HISTORY: She never smoked. She denies any drugs or alcohol. FAMILY HISTORY: Noncontributory. PAST MEDICAL HISTORY: 1. Lupus. 2. Atrial fibrillation. 3. Hypertension. 4. Hypothyroidism. 5. Pancreatitis. PAST SURGICAL HISTORY: Cholecystectomy. PHYSICAL EXAMINATION: VITAL SIGNS: Temperature is 102.2, pulse is 93, blood pressure is 130/69, respirations 20 and O2 saturation 95%. Height is 5 feet 2 inches. Weight is 130 pounds, BMI is 23.8. GENERAL: The patient lying in bed, uncomfortable, and in no acute distress. HEENT: Atraumatic and normocephalic. Anicteric sclerae. Moist mucosa. Brinnon conjunctivae. No oral lesions. NECK: No JVD, anterior and posterior adenopathy, thyromegaly, or bruits. CARDIOVASCULAR: S1 and S2 regular. No murmur, rubs, or gallop. LUNGS: Good bilateral air entry, bilateral rhonchi. No rales or wheezing. ABDOMEN: Bowel sounds are positive. Soft, nontender and nondistended. No hepatosplenomegaly. No rebound and no guarding. EXTREMITIES: No cyanosis, clubbing, or edema. NEUROLOGIC: No facial asymmetry. Tongue is midline. No uvula deviation. Power is 5/5 upper extremity and lower extremity. Sensation intact in upper extremity and lower extremity. PSYCHIATRIC: She is awake, alert and oriented x3. No anxiety or depression. She has normal affect. GENITOURINARY: No CVA tenderness. VASCULAR: 2+ pulses in the carotid pulses and pedal pulses. SKIN: No erythema or nodules. SPINE: Shows normal curvature. EXTREMITIES: No Cyanosis and clubbing, no edema. LABORATORY DATA: White count of 12.7, repeat is 16.1; hemoglobin 10.4. INR is 1.65. Chemistry shows sodium 138, potassium is 4.0. Procalcitonin is 0.34. Urine shows nitrites are negative, bilirubin is negative. Serology done shows influenza that is negative. The patient's chest x-ray done shows no significant abnormalities and there are scar changes in both lungs winters. She had CT of the chest done, shows there are predominantly peripheral cystic changes in the right upper lung lesions, there is possible finding of cystic bronchiectasis. Rest of the CAT scan was reviewed. ASSESSMENT: 1. Systemic inflammatory response syndrome. 2. Hypertension. 3. Systemic lupus erythematosus. 4. Gastroesophageal reflux disease. 5. Anxiety. 6. Bronchitis. 7. Fevers. 8. Deep venous thrombosis, on anticoagulation. 9. Chronic kidney disease, stage III. PLAN: The patient is going to be admitted to the hospital. Blood cultures have been negative. She has high fevers. At this point, it is unclear what the etiology of the fevers is. I will get Dr. Silva to evaluate the patient, I did speak to Dr. Silva about this case. I will also get infectious disease evaluation. She is subtherapeutic on her INR. I will increase her Coumadin. I will also get renal consult with Dr. Tim, he is well-known to her. The patient's creatinine is at 1.3. She is on Neurontin for neuropathy. She is on Norvasc for hypertension. The patient is receiving Rocephin for antibiotics, she is going to continue with her cyclosporine and her steroids. The patient is on Zithromax for antibiotics as well. She is receiving oxygen therapy. She is going to need physical therapy. I did speak to Dr. Escalante regarding the case to update him that the patient is going to get repeat blood work tomorrow. Her white count remains elevated, concerned about sepsis; however, her procalcitonin level is low. Stalin Reyes MD
[2017-06-11 06:59] LABS: HEMATOCRIT 34.5 % (36.0-48.0); MEAN CELL VOLUME 91.8 fl (80.0-105.0); MEAN CORPUSCULAR HEMOGLOBIN 29.8 pg (25.0-35.0); MEAN CORPUSCULAR HGB CONC 32.5 g/dl (31.0-37.0); MEAN PLATELET VOLUME 10.1 fl (7.0-11.0); RED CELL DISTRIBUTION WIDTH 14.2 % (11.5-14.5); WHITE BLOOD COUNT 15.9 10^3/ul (4.5-11.0)
[2017-06-11 07:00] LABS: ALB/GLOB RATIO 0.8 (1.1-1.8); BILIRUBIN,TOTAL 0.2 mg/dL (0.2-1.3); CALCIUM 8.7 mg/dL (8.4-10.5); MAGNESIUM 2.2 mg/dL (1.7-2.2); POTASSIUM 3.9 mmol/L (3.6-5.0)
[2017-06-11] MEDS: Budesonide 0.5 mg/2 ml Inhal Susp UD IH SCH ×2 (07:17→19:50)
[2017-06-11 08:05] VITALS: RESP 20
--- NOTE | 2017-06-11 08:27 | PN ---
DATE: 06/11/2017 SUBJECTIVE: The patient appears comfortable this morning. She is not short of breath at rest. PHYSICAL EXAMINATION VITAL SIGNS: Temperature is 98.8, pulse 80, respirations 18, blood pressure 112/62, oxygen saturation on room air is 96%. HEENT: Normocephalic, atraumatic. NECK: No JVD. CARDIOVASCULAR: Systolic ejection murmur at the lower left sternal border. No S3 gallop. LUNGS: Improved breath sounds at the bases. Much less rhonchi, much less wheezing. EXTREMITIES: No clubbing, cyanosis, or edema. Calves are nontender to palpation. GI: Abdomen is soft, nontender, nondistended. Bowel sounds are positive. SKIN: No acute rash. NEUROLOGIC: Limited at the present time. PERTINENT LABORATORY DATA: CAT scan of the chest was done yesterday and reviewed. There is a patchy infiltrate noted in the left lower lobe. There are also chronic appearing fibrotic changes, as well as bronchiectatic changes at the lower lobes. IMPRESSION: 1. Left lower lobe pneumonia. 2. Acute bronchitis. 3. Asthma. 4. Lupus. 5. Mild anemia. PLAN: The patient appears much more comfortable this morning. She is not short of breath at rest. Her cough is much less. She does state to feeling much better overall. I did review the CAT scan of the chest - as above. There are chronic appearing fibrotic changes, as well as bronchiectasis at the lower lobes; however, there is a small patchy infiltrate noted in the left lower lobe - consistent with pneumonia. Berger cultures are pending. I would continue the current antibiotic therapy for now. Temperatures are resolving. Repeat a.m. labs are pending. Cultures are so far negative. On physical exam, there is significantly less bronchospasm noted. I will continue the current nebulizer treatments and decrease the intravenous steroids this morning. Clinical status of the patient is definitely improved. I will discuss the above the Dr. Reyes. Cornell Silva MD ROBIN
--- NOTE | 2017-06-11 08:28 | PN ---
SUBJECTIVE: The patient has no complaint of any chest pain or shortness of breath. She just continues to have a cough, and she does have congestion. PHYSICAL EXAMINATION VITAL SIGNS: Temperature is 98.8, pulse of 80, blood pressure is 112/62, and respiration 22. GENERAL: The patient is lying in bed, flat, comfortable. HEENT: No oral lesion. Anicteric sclerae. Moist mucosa. NECK: No JVD, adenopathy, or thyromegaly. CARDIOVASCULAR: S1 and S2, regular. No murmurs, rubs, or gallops. LUNGS: Clear to auscultation bilaterally. No wheeze, rales, or rhonchi. ABDOMEN: Bowel sounds are positive, soft, nontender, and nondistended. EXTREMITIES: No cyanosis, clubbing, or edema. LABORATORY DATA: Labs have been reviewed. ASSESSMENT: 1. Sepsis. 2. Hypertension. 3. Systemic lupus erythematosus. 4. Gastroesophageal reflux disease. 5. Anxiety. 6. Bronchitis. 7. Fevers. 8. Deep venous thrombosis, on anticoagulation. 9. Chronic kidney disease, stage III. PLAN: The patient is currently comfortable. She is on Coumadin for DVT. She is on nebulizer treatments for her cough and congestion. She is on Neurontin for neuropathy. She is on amlodipine for her hypertension. The patient is on Rocephin and Zithromax for antibiotics. She is on Synthroid for hypothyroidism. She is also getting cough medications of Tessalon Perles. She is on oxygen. She is going to continue with her regular diet. She was seen by physical therapy yesterday. She was able to ambulate fairly well. Recommendation is discharge home once the patient's medical issues are improved. Stalin Reyes MD
[2017-06-11] MEDS: Amylase/Lipase/Protease 5,000 U ECC PO SCH ×3 (08:36→16:46)
[2017-06-11] MEDS ORDERED: Sodium Chloride 0.9% 1,000 ML IV SCH (09:30)
[2017-06-11] MEDS: Digoxin 125 mcg (0.125 mg) Tab PO SCH (09:44)
[2017-06-11] MEDS: cefTRIAXone 1 gm 1 GM/100 ML BAG IVPB SCH ×2 (09:46→10:47)
[2017-06-11] MEDS: Azithromycin 500MG/NS 250ml 500 MG/250 ML BAG IVPB SCH (09:48)
[2017-06-11] MEDS: Levothyroxine 50 MCG TAB PO SCH (09:48)
[2017-06-11] MEDS: MethylPREDNISolone 40 mg Vial IVP SCH ×2 (10:01→21:13)
[2017-06-11] MEDS: Pantoprazole 40 mg EC Tab PO SCH (10:44)
--- NOTE | 2017-06-11 12:34 | CP.PCM.PN ---
Subjective - Date & Time of Evaluation Date of Evaluation: 06/11/17 Time of Evaluation: 11:55 - Subjective Subjective: Feeling better, still with cough but better, no fevers overnight, breathing better. Objective - Vital Signs/Intake and Output Vital Signs (last 24 hours): Temp Pulse Resp BP Pulse Ox 98 F 89 20 121/64 96 06/11/17 08:03 06/11/17 08:03 06/11/17 08:03 06/11/17 09:46 06/11/17 08:03 Intake and Output: 06/11/17 06/11/17 06:59 18:59 Intake Total 900 Balance 900 - Medications Medications: Current Medications Albuterol/Ipratropium (Duoneb 3 Mg/0.5 Mg (3 Ml) Ud) [id number] [facility] Last Admin: 06/11/17 07:17 Dose: 3 ml Albuterol/Ipratropium (Duoneb 3 Mg/0.5 Mg (3 Ml) Ud) 3 ml IH Q2H PRN PRN Reason: Shortness of Breath Alendronate Sodium (Fosamax) 70 mg PO Q7D@0600 [facility] Last Admin: 06/11/17 06:18 Dose: 70 mg Amlodipine Besylate (Norvasc) [address] [facility] Last Admin: 06/11/17 09:46 Dose: 10 mg Amylase (Pancrease 71833 U-5000 [id number] U) 5,[address] [facility] Last Admin: 06/11/17 08:36 Dose: 5,000 u Benzonatate (Tessalon Perles) [address] [facility] Last Admin: 06/11/17 09:48 Dose: 100 mg Budesonide (Pulmicort Respules) 0.[id number] [facility] Last Admin: 06/11/17 07:17 Dose: 0.5 mg Cyclosporine (Sandimmune) [address] [facility] Last Admin: 06/11/17 09:47 Dose: 100 mg Digoxin (Lanoxin) 0.[address] [facility] Last Admin: 06/11/17 09:44 Dose: 0.125 mg Gabapentin (Neurontin) [address] [facility] PRN Reason: Protocol Last Admin: 06/11/17 09:52 Dose: 300 mg Azithromycin (Zithromax 500mg In Ns) 500 mg in 250 mls @ 167 mls/hr IVPB DAILY [facility] PRN Reason: Protocol Last Admin: 06/11/17 09:48 Dose: 167 mls/hr Sodium Chloride (Sodium Chloride 0.9%) 1,000 mls @ 75 mls/hr IV .[id number] [facility] Last Admin: 06/11/17 09:43 Dose: 75 mls/hr Cefepime HCl (Maxipime 2gm) 2 gm in 100 mls @ 100 mls/hr IVPB Q12 [facility] PRN Reason: Protocol Stop: 06/16/17 10:46 Levothyroxine Sodium (Synthroid) [address] [facility] Last Admin: 06/11/17 09:48 Dose: 50 mcg Methylprednisolone (Solu-Medrol) [address] [facility] Last Admin: 06/11/17 10:01 Dose: 30 mg Pantoprazole Sodium (Protonix Ec Tab) 40 mg PO 0600 [facility] Tizanidine HCl (Zanaflex) [address] [facility] Last Admin: 06/10/17 22:07 Dose: 2 mg Warfarin Sodium (Coumadin) [address] [facility] PRN Reason: Protocol Last Admin: 06/10/17 22:06 Dose: 6 mg - Labs Labs: 06/11/17 06:30 06/11/17 06:30 PT 17.8 Seconds (9.9-11.8) H 06/09/17 14:30 INR 1.65 (0.93-1.08) H 06/09/17 14:30 - Constitutional Appears: Non-toxic, No Acute Distress - Head Exam Head Exam: NORMAL INSPECTION - ENT Exam ENT Exam: Mucous Membranes Moist - Neck Exam Neck Exam: absent: Meningismus - Respiratory Exam Respiratory Exam: Decreased Breath Sounds - Cardiovascular Exam Cardiovascular Exam: +S1, +S2 - GI/Abdominal Exam GI & Abdominal Exam: Soft. absent: Tenderness Assessment and Plan - Assessment and Plan (Free Text) Plan: Assessment sepsis due to left lower lobe pneumonia, community-acquired with chronic bronchiectasis HTN SLE chronic renal failure history of DVT hypothyroidism COPD GERD anxiety disorder S/P cholecystectomy S/P breast surgery Plan will change Rocephin to Cefepime (because of the bronchiectasis) and Zithromax ( day 2); cultures are negative so far; reviewed CT chest which shows possible developing pneumonitis on top of chronic bronchiectasis on the left side will continue to monitor clinically and trend WBC count Reviewed Dr. Silva's note
[2017-06-11] MEDS: Cefepime IV 2 gm in NS 2 GM/100 ML BAG IVPB SCH ×2 (13:24→21:12)
[2017-06-11] MEDS ORDERED: Alum-Mag Hydrox-Simethicone Susp (30 mL) PO PRN (22:18)
[2017-06-12] MEDS ORDERED: Alum-Mag Hydrox-Simethicone Susp (30 mL) PO SCH
[2017-06-12] MEDS: Albuterol-Ipratrop 3 mg / 0.5 (3 ml) UD IH SCH ×3 (01:07→14:02)
--- NOTE | 2017-06-12 02:43 | CON ---
DATE: 06/11/2017 REASON FOR CONSULTATION Acute kidney injury superimposed on chronic renal disease stage III, cough, shortness of breath. HISTORY OF PRESENT ILLNESS: A 66-year-old lady known to us from outpatient followup, hospital evaluations, presented to the emergency room yesterday with complaints of cough of 5 days' duration, associated with shortness of breath. Associated with clear phlegm. Low-grade fever at home. Although the patient reports that the temperature was 102 at home, she had a CT scan of the chest done in the emergency room. She does have bronchiectasis. There was a questionable pneumonitis/new alveolar infiltrate on the left side, hence the patient is admitted for pneumonia. She was also found to have an elevated creatinine. Her baseline creatinine is around 1.3 to 1.4. Her creatinine was found to be 1.7. PAST MEDICAL AND SURGICAL HISTORY: SLE, lupus nephritis, chronic kidney disease stage III, chronic immunosuppression, hypothyroidism, COPD, GERD, elevated LFTs intermittently, history of DVT, asthma, anemia, compression fractures. FAMILY HISTORY: Noncontributory. SOCIAL HISTORY: No smoking, no alcohol use, no IV drug abuse. ALLERGIES: CIPRO AND IV CONTRAST. MEDICATIONS AT HOME: Cyclosporine 100 mg daily, amlodipine 10 mg, Coumadin 5 mg, prednisone 5 mg, potassium 10 mEq t.i.d., Prilosec 40 mg, magnesium oxide 500 mg, Synthroid 50 mcg, Fosamax 70 mg, Zanaflex, Neurontin, and Digitek. REVIEW OF SYSTEMS: All systems are reviewed, pertinent positives as mentioned in the history of presenting illness, rest unremarkable. PHYSICAL EXAMINATION: GENERAL: An elderly lady, sitting in chair in mild distress. VITAL SIGNS: Blood pressure 121/64, heart rate 89, respiratory rate 20, temperature 98.4. HEENT: Normocephalic, atraumatic. NECK: Supple, no JVD. LUNGS: Bilateral rhonchi, inspiratory and expiratory wheeze, left mid zone, CARDIAC: S1, S2. Regular rate and rhythm, positive murmur, no rub. ABDOMEN: Obese, distended, soft, nontender. Bowel sounds present. EXTREMITIES: No lower extremity edema. INTAKE AND OUTPUT: Not charted. LABORATORY DATA: WBC 15.9, hemoglobin 11, hematocrit 34.5, and platelets 244. Sodium 145, potassium 3.9, chloride 108, CO2 of 24, BUN 40, creatinine 1.7, glucose 183, calcium 8.7, and albumin is 3.5. ASSESSMENT AND PLAN 1. Bronchitis versus left pneumonia. 2. Acute kidney injury superimposed on chronic kidney disease stage II/III. 3. Immunosuppressed state. 4. Lupus nephritis class 5. 5. Hypertension. 6. History of deep vein thrombosis. 7. Chronic anemia. PLAN 1. Push p.o. fluids. 2. Antibiotics as per ID recommendations. 3. Dose all antibiotics for creatinine clearance 30 to 50 mL per minute. 4. Monitor daily electrolytes. Thank you for the courtesy of this consultation. We will follow this patient closely with you. Beba Cintron MD
[2017-06-12] MEDS: Pantoprazole 40 mg EC Tab PO SCH (05:34)
[2017-06-12 07:22] LABS: HEMATOCRIT 32.7 % (36.0-48.0); MEAN CELL VOLUME 90.8 fl (80.0-105.0); MEAN PLATELET VOLUME 10.1 fl (7.0-11.0); RED CELL DISTRIBUTION WIDTH 14.1 % (11.5-14.5); WHITE BLOOD COUNT 22.1 10^3/ul (4.5-11.0)
[2017-06-12 07:28] LABS: INR 3.35 (0.93-1.08)
[2017-06-12 07:43] LABS: ALB/GLOB RATIO 0.8 (1.1-1.8); BILIRUBIN,TOTAL 0.2 mg/dL (0.2-1.3); CALCIUM 8.1 mg/dL (8.4-10.5); POTASSIUM 3.6 mmol/L (3.6-5.0); TOTAL PROTEIN 7.2 g/dL (5.8-8.3)
[2017-06-12 07:52] VITALS: BP 119/65; PULSE 79; TEMP 97.9; O2SAT 97
[2017-06-12] MEDS: Amylase/Lipase/Protease 5,000 U ECC PO SCH ×2 (08:02→11:36)
[2017-06-12] MEDS: Budesonide 0.5 mg/2 ml Inhal Susp UD IH SCH (08:29)
--- NOTE | 2017-06-12 09:12 | PN ---
HISTORY OF PRESENT ILLNESS: The patient is a 66-year-old female, admitted with cough, shortness of breath. She was found to have left lower lobe pneumonia with high fever 102. She has lupus, has been on immunosuppression with prednisone and cyclosporine. History of hypothyroidism, COPD, GERD. She has also leukocytosis on admission. Leukocytosis is progressively increasing. White count is 22,000 now, despite being on antibiotic for few days. REVIEW OF SYSTEMS: As per HPI. Rest of 12-point review of systems reviewed and negative. ALLERGIES: CIPRO. HOME MEDICATIONS: Reviewed. SOCIAL HISTORY: Never smoked. No history of alcohol abuse. FAMILY HISTORY: Noncontributory. PAST MEDICAL HISTORY: Lupus, atrial fibrillation, hypertension, hypothyroidism, and acute pancreatitis. PAST SURGICAL HISTORY: Cholecystectomy. PHYSICAL EXAMINATION GENERAL: Comfortable in bed, in no acute distress. VITAL SIGNS: Afebrile, temperature 98.5, heart rate is 80 per minute, blood pressure 130/50. HEENT: Normal. NECK: Supple. No lymphadenopathy. CHEST: Air entry present and equal bilaterally. No added sound. CARDIOVASCULAR: S1, S2 normal. No murmur. No gallop. ABDOMEN: Soft, nontender. No hepatosplenomegaly. EXTREMITIES: No edema. SPINE: Nontender. SKIN: No petechiae. No rash. LABORATORY DATA: White count 22,000, hemoglobin 10.8, hematocrit 32.7, platelets 280. Sodium 144, potassium 3.6, creatinine 1.6. Urine, trace leukocyte esterase. MEDICATIONS: DuoNeb p.r.n., Fosamax 70 mg daily, Norvasc 10 mg daily, pancreatic enzymes, Zithromax, cefepime, cyclosporine 100 mg daily, digoxin 0.125 mg daily, gabapentin 100 mg daily, Synthroid 50 mcg daily, Protonix 40 mg daily, IV fluids, and Coumadin 6 mg daily. ASSESSMENT AND PLAN: 1. Leukocytosis. 2. Anemia. 3. Left lower lobe pneumonia. 4. Chronic kidney disease. 5. Coagulopathy, elevated PT/INR. 6. Lupus. PLAN: INR is elevated 3.5. We will hold Coumadin. White count is elevated 22,000. Despite being on antibiotic, on admission it was 12,000. I will send and peripheral blood, and we will see are able to rule out chronic leukemia/lymphoma. She has been on immunosuppressive agent for lupus which increases the risk for non-Hodgkin lymphoma. We will continue IV antibiotic as per ID. Zithromax and meropenem. She is on prednisone 40 mg daily and cyclosporine. We will continue that. Continue cardiac medication, Norvasc. Continue pancreatic enzymes. Grace Martinez MD
--- NOTE | 2017-06-12 09:34 | PN ---
DATE: 06/12/2017 PULMONARY PROGRESS NOTE SUBJECTIVE: The patient appears very comfortable this morning. She is not short of breath at rest. PHYSICAL EXAMINATION VITAL SIGNS: Temperature is 98.4 pulse is 89, respirations are 18, and blood pressure is 132/58. Oxygen saturation on room air is 96%. HEENT: Normocephalic and atraumatic. NECK: No JVD. CARDIOVASCULAR: Systolic ejection murmur at the lower left sternal border. No S3 gallop. LUNGS: Very minimal/less rhonchi. Very minimal/less wheezing. EXTREMITIES: No clubbing, cyanosis, or edema. Calves are nontender to palpation. GASTROINTESTINAL: Abdomen is soft, nontender, and nondistended. Bowel sounds are positive. SKIN: No acute rash. NEUROLOGIC: Limited at the present time. IMPRESSION: 1. Left lower lobe pneumonia. 2. Acute bronchitis. 3. Asthma. 4. Lupus. 5. Mild anemia. PLAN: The patient appears very comfortable this morning. She is not short of breath at rest. The patient states her cough is much, much less. She also states to feeling much better overall. On physical exam, her bronchospasm is significantly less. I will continue with the current nebulizer treatments and change to oral steroids this morning. The patient remains on intravenous antibiotic therapy. Input by Dr. Parsons (infectious disease) is noted. The temperatures have now fully resolved. Repeat a.m. labs are pending. Clinical status of the patient is significantly improved overall. I will discuss the above with the attending physician. Cornell Silva MD MTDD
[2017-06-12] MEDS: Digoxin 125 mcg (0.125 mg) Tab PO SCH (09:51)
[2017-06-12] MEDS: Levothyroxine 50 MCG TAB PO SCH (09:53)
[2017-06-12] MEDS: Azithromycin 500MG/NS 250ml 500 MG/250 ML BAG IVPB SCH (09:53)
[2017-06-12 10:00] VITALS: PULSE 79
--- NOTE | 2017-06-12 13:30 | CP.PCM.PN ---
Subjective - Date & Time of Evaluation Date of Evaluation: 06/12/17 Time of Evaluation: 11:50 - Subjective Subjective: Comfortably eating her lunch, breathing much better, cough has improved, no fevers overnight. Objective - Vital Signs/Intake and Output Vital Signs (last 24 hours): Temp Pulse Resp BP Pulse Ox 97.9 F 79 20 119/65 97 06/12/17 07:30 06/12/17 07:30 06/12/17 07:30 06/12/17 09:51 06/12/17 07:30 Intake and Output: 06/12/17 06/12/17 06:59 18:59 Intake Total 880 Balance 880 - Medications Medications: Current Medications Al Hydrox/Mg Hydrox/Simethicone (Maalox Plus 30 Ml) 30 ml PO Q6 PRN PRN Reason: Heartburn Last Admin: 06/11/17 22:27 Dose: 30 ml Albuterol/Ipratropium (Duoneb 3 Mg/0.5 Mg (3 Ml) Ud) 3 ml IH [id number] [facility] Last Admin: 06/12/17 08:29 Dose: 3 ml Albuterol/Ipratropium (Duoneb 3 Mg/0.5 Mg (3 Ml) Ud) 3 ml IH Q2H PRN PRN Reason: Shortness of Breath Alendronate Sodium (Fosamax) 70 mg PO Q7D@0600 [facility] Last Admin: 06/11/17 06:18 Dose: 70 mg Amlodipine Besylate (Norvasc) 10 mg PO DAILY [facility] Last Admin: 06/12/17 09:51 Dose: 10 mg Amylase (Pancrease 22272 U-5000 [id number] U) 5,000 u PO WM [facility] Last Admin: 06/12/17 08:02 Dose: 5,000 u Benzonatate (Tessalon Perles) 100 mg PO TID [facility] Last Admin: 06/12/17 09:53 Dose: 100 mg Budesonide (Pulmicort Respules) 0.5 mg IH [id number] [facility] Last Admin: 06/12/17 08:29 Dose: 0.5 mg Cyclosporine (Sandimmune) 100 mg PO DAILY [facility] Last Admin: 06/12/17 09:52 Dose: 100 mg Digoxin (Lanoxin) 0.125 mg PO DAILY [facility] Last Admin: 06/12/17 09:51 Dose: 0.125 mg Gabapentin (Neurontin) 300 mg PO DAILY [facility] PRN Reason: Protocol Last Admin: 06/12/17 09:51 Dose: 300 mg Azithromycin (Zithromax 500mg In Ns) 500 mg in 250 mls @ 167 mls/hr IVPB DAILY [facility] PRN Reason: Protocol Last Admin: 06/12/17 09:53 Dose: 167 mls/hr Sodium Chloride (Sodium Chloride 0.9%) 1,000 mls @ 75 mls/hr IV .[id number] [facility] Last Admin: 06/11/17 09:43 Dose: 75 mls/hr Cefepime HCl (Maxipime 2gm) 2 gm in 100 mls @ 100 mls/hr IVPB Q12 [facility] PRN Reason: Protocol Stop: 06/16/17 10:46 Last Admin: 06/11/17 21:12 Dose: 100 mls/hr Levothyroxine Sodium (Synthroid) 50 mcg PO DAILY [facility] Last Admin: 06/12/17 09:53 Dose: 50 mcg Pantoprazole Sodium (Protonix Ec Tab) 40 mg PO 0600 [facility] Last Admin: 06/12/17 05:34 Dose: 40 mg Prednisone (Prednisone Tab) 40 mg PO DAILY [facility] Last Admin: 06/12/17 09:52 Dose: 40 mg Tizanidine HCl (Zanaflex) 2 mg PO HS [facility] Last Admin: 06/11/17 21:13 Dose: 2 mg - Labs Labs: 06/12/17 07:15 06/12/17 07:15 PT 36.2 Seconds (9.9-11.8) H* 06/12/17 07:15 INR 3.35 (0.93-1.08) H 06/12/17 07:15 - Constitutional Appears: Non-toxic, No Acute Distress - Head Exam Head Exam: NORMAL INSPECTION - ENT Exam ENT Exam: Mucous Membranes Moist - Neck Exam Neck Exam: absent: Meningismus - Respiratory Exam Respiratory Exam: Decreased Breath Sounds - Cardiovascular Exam Cardiovascular Exam: +S1, +S2 - GI/Abdominal Exam GI & Abdominal Exam: Soft. absent: Tenderness Assessment and Plan - Assessment and Plan (Free Text) Plan: Assessment sepsis due to left lower lobe pneumonia, community-acquired with chronic bronchiectasis, clinically improving HTN SLE chronic renal failure history of DVT hypothyroidism COPD GERD anxiety disorder S/P cholecystectomy S/P breast surgery Plan on Cefepime and Zithromax (day 3); cultures are negative; reviewed CT chest which shows possible developing pneumonitis on top of chronic bronchiectasis on the left side WBC count is increased because of steroids when ready for discharge, the patient can be switched to PO Cefpodoxime and PO zithromax for another 3-5 days, as well as PO steroids Reviewed Dr. Silva's note
--- NOTE | 2017-06-12 18:49 | PN ---
DATE: 06/12/2017 SUBJECTIVE: The patient is seen sitting in chair. She is awake and alert. She still has some cough. She has some shortness of breath. She denies any fever or chills. PHYSICAL EXAMINATION: GENERAL: Elderly lady sitting in chair. VITAL SIGNS: Blood pressure 119/65, heart rate 79, respiratory rate 20, temperature 97.9. HEENT: Normocephalic, atraumatic. NECK: Supple, no JVD. LUNGS: Bilateral rhonchi, bilaterally inspiratory wheeze, scattered crackles. CARDIAC: S1 and S2, regular rate and rhythm. No murmur, no rub. ABDOMEN: Soft, nondistended, nontender. Bowel sounds present. EXTREMITIES: No lower extremity edema. INTAKE AND OUTPUT: 960/not charted. LABORATORY DATA: WBC 22, hemoglobin 10.8, hematocrit 32.7, platelets 280. ESR 119. Sodium 144, potassium 3.6, chloride 112, CO2 of 19, BUN 51, creatinine 1.6, glucose 142, calcium 8.1, albumin 3.1, corrected calcium is 8.7. Urine culture, no growth. Blood culture, no growth. CURRENT MEDICATIONS: DuoNeb, Fosamax, digoxin, Maalox, cefepime 2 g q. 12, Neurontin, amlodipine 10, Pancrease, prednisone 40, Protonix, Sandimmune 100, normal saline at 75, Synthroid, Zanaflex, Zithromax. ASSESSMENT: 1. Sepsis/pneumonia. 2. Acute kidney injury superimposed on chronic kidney disease stage III. 3. Lupus nephritis class V. 4. Hypertension. 5. History of deep venous thrombosis. 6. History of bronchiectasis. PLAN: 1. Renal function is somewhat better. 2. Antibiotics as per ID recommendations. 3. Elevated WBC count likely secondary to steroids. 4. Close monitoring required. Beba Cintron MD
== END 2017-06-12 17:19 | disposition home or self-care (01) | DRG 871 ==
LOC: ED 13:50 → ERH 15:44 → 5RNO 18:44 → OBSVTOIN 06-10 08:28 → 5RNO 06-11 17:48
PROVIDERS: ADMIT Internal Medicine Nephrology; ATTEND Internal Medicine Nephrology
DX: A41.9 Sepsis, unspecified organism (principal); J18.9 Pneumonia, unspecified organism; D68.9 Coagulation defect, unspecified; N17.9 Acute kidney failure, unspecified; N18.3 Chronic kidney disease, stage 3 (moderate); J47.0 Bronchiectasis with acute lower respiratory infection; D89.9 Disorder involving the immune mechanism, unspecified; J44.0 Chronic obstructive pulmonary disease with (acute) lower respiratory infection; M32.14 Glomerular disease in systemic lupus erythematosus; I48.91 Unspecified atrial fibrillation; I12.9 Hypertensive chronic kidney disease with stage 1 through stage 4 chronic kidney disease, or unspecified chronic kidney disease; E03.9 Hypothyroidism, unspecified; F41.9 Anxiety disorder, unspecified; H54.7 Unspecified visual loss; D64.9 Anemia, unspecified; J20.9 Acute bronchitis, unspecified; K21.9 Gastro-esophageal reflux disease without esophagitis; Z79.01 Long term (current) use of anticoagulants; Z79.83 Long term (current) use of bisphosphonates; Z79.899 Other long term (current) drug therapy; Z86.718 Personal history of other venous thrombosis and embolism; Z87.891 Personal history of nicotine dependence; Z90.49 Acquired absence of other specified parts of digestive tract; Z95.2 Presence of prosthetic heart valve; Z87.19 Personal history of other diseases of the digestive system; Z87.892 Personal history of anaphylaxis; Z88.1 Allergy status to other antibiotic agents; Z91.041 Radiographic dye allergy status; R00.0 Tachycardia, unspecified; R40.2412 Glasgow coma scale score 13-15, at arrival to emergency department; Z79.52 Long term (current) use of systemic steroids

== ENCOUNTER 2017-11-04 14:13 | Emergency (ER) | payer MEDICARE, MEDICAID ==
[2017-11-04 14:14] VITALS: PULSE 74
[2017-11-04 14:27] VITALS: RESP 18; BMI 23.6
--- NOTE | 2017-11-04 14:40 | ED PDOC ---
Arrival/HPI - General Time Seen by Provider: 11/04/17 14:19 Historian: Patient - History of Present Illness Narrative History of Present Illness (Text): 11/04/17 14:30 A 67 year old female, whose past medical history includes hypertension, Lupus, CKD, DVT on Coumadin, asthma, and hypothyroidism, presents to the emergency department complaining of neck pain for few weeks. Patient reports she has been going to therapy for neck and back. Notes buying neck brace as recommended by her PMD. Denies any fall or trauma. Patient denies any other symptomatic complaints. PMD: Dr. Escalante Time/Duration: Other (few weeks) Symptom Onset: Gradual Symptom Course: Unchanged Past Medical History - Provider Review Nursing Documentation Reviewed: Yes - Infectious Disease Hx of Infectious Diseases: None - Tetanus Immunization Tetanus Immunization: Unknown - Cardiac Hx Cardiac Disorders: Yes Hx Heart Murmur: Yes Hx Hypertension: Yes Hx Peripheral Edema: Yes - Pulmonary Hx Respiratory Disorders: Yes Hx Asthma: Yes Hx Pneumonia: Yes - Neurological Hx Neurological Disorder: No - HEENT Hx HEENT Disorder: Yes (WEARS RX GLASSES) Other/Comment: decreased vision in left eye - Renal Hx Renal Disorder: Yes Hx Kidney Stones: Yes Hx Renal Failure: Yes - Endocrine/Metabolic Hx Endocrine Disorders: Yes Hx Hypothyroidism: Yes - Hematological/Oncological Hx Blood Disorders: No - Integumentary Hx Dermatological Disorder: Yes - Musculoskeletal/Rheumatological Hx Musculoskeletal Disorders: Yes Hx Arthritis: Yes Hx Falls: No - Gastrointestinal Hx Gastrointestinal Disorders: Yes Hx Gastroesophageal Reflux: Yes - Genitourinary/Gynecological Hx Genitourinary Disorders: No - Psychiatric Hx Psychophysiologic Disorder: Yes Hx Anxiety: Yes Hx Substance Use: No - Surgical History Hx Cholecystectomy: Yes Hx Valve Replacement: Yes ("pericardial window") Other/Comment: bilateral breast lift - Anesthesia Hx Anesthesia: Yes Hx Anesthesia Reactions: No Hx Malignant Hyperthermia: No - Suicidal Assessment Feels Threatened In Home Enviroment: No Family/Social History - Physician Review Nursing Documentation Reviewed: Yes Family/Social History: No Known Family HX Smoking Status: Former Smoker Hx Alcohol Use: No Hx Substance Use: No Hx Substance Use Treatment: No Allergies/Home Meds Allergies/Adverse Reactions: Allergies ciprofloxacin [From Cipro] Allergy (Verified 07/28/17 15:35) ANAPHYLAXIS ciprofloxacin HCl [From Cipro] Allergy (Verified 07/28/17 15:35) ANAPHYLAXIS IV Contrast Allergy (Uncoded 07/28/17 15:35) ANAPHYLAXIS Home Medications: Home Meds Medication Instructions Recorded Confirmed Levothyroxine [Synthroid] 50 mcg PO DAILY 11/08/15 07/29/17 Lipase/Protease/Amylase [Creon Dr 1 tab PO TID 11/08/15 07/28/17 12,000 Units Capsule] Magnesium Oxide 500 mg PO DAILY 11/08/15 07/29/17 Omeprazole [Prilosec] 40 mg PO DAILY 11/08/15 07/28/17 Potassium Chloride [Klor-Con 10] 10 tab-cap PO TID 04/29/16 07/29/17 Prednisone [Laura] 5 mg PO DAILY 04/29/16 07/29/17 Warfarin [Coumadin] 5 mg PO DAILY 04/29/16 07/28/17 amLODIPine [Norvasc] 10 mg PO DAILY 04/29/16 07/29/17 Digoxin [Digitek] 125 mcg PO DAILY 06/09/17 07/29/17 Gabapentin [Neurontin] 300 mg PO DAILY 06/09/17 07/29/17 tiZANidine [Zanaflex] 2 mg PO HS 06/09/17 07/28/17 Review of Systems - Physician Review All systems were reviewed & negative as marked: Yes - Review of Systems Constitutional: absent: Fevers, Night Sweats, Other (denies fall/trauma) Gastrointestinal: absent: Nausea, Vomiting Musculoskeletal: Neck Pain Physical Exam Vital Signs Reviewed: Yes Vital Signs Temp Pulse Resp BP Pulse Ox 11/04/17 14:26 97.3 F L 79 18 175/85 H 95 Temperature: Afebrile Blood Pressure: Hypertensive Pulse: Regular Respiratory Rate: Normal Appearance: Positive for: Well-Appearing Pain Distress: None Mental Status: Positive for: Alert and Oriented X 3 - Systems Exam Head: Present: Atraumatic, Normocephalic Pupils: Present: PERRL Extroacular Muscles: Present: EOMI Conjunctiva: Present: Normal Mouth: Present: Moist Mucous Membranes Neck: Present: Paraspinal Tenderness (para-cervical tenderness) Respiratory/Chest: Present: Clear to Auscultation, Good Air Exchange. No: Respiratory Distress, Accessory Muscle Use Cardiovascular: Present: Regular Rate and Rhythm, Normal S1, S2. No: Murmurs Abdomen: Present: Normal Bowel Sounds. No: Tenderness, Distention, Peritoneal Signs Back: Present: Normal Inspection Upper Extremity: Present: Normal Inspection. No: Cyanosis, Edema Lower Extremity: Present: Normal Inspection. No: Edema Neurological: Present: GCS=15, CN II-XII Intact, Speech Normal Skin: Present: Warm, Dry, Normal Color. No: Rashes Psychiatric: Present: Alert, Oriented x 3, Normal Insight, Normal Concentration Medical Decision Making ED Course and Treatment: 11/04/17 14:33 Impression: 66 year old female with neck pain. Physical exam shows para- cervical tenderness. Plan: -- Cervical Spinal MRI -- Labs -- Reassess and disposition Prior Visits: Notes and results from previous visits were reviewed. Patient was last seen in the emergency department on 07/28/2017 for atraumatic left leg swelling with no pain. Patient was admitted. Progress Notes: 11/04/17 15:02 Case discussed with neurologist, whom requests MRI be ordered for patient. 11/04/2017 16:44 Cervical Spinal MRI FINDINGS: There is degenerative 2 mm retrolisthesis of C4 on C5, 3 mm retrolisthesis of C5 on C6 and 3 mm retrolisthesis of C6 on C7. There is reversal of normal cervical lordosis with mild cervical kyphosis. There is no acute fracture. Bone marrow signal is within normal limits. The craniocervical junction is normal. The atlantoaxial joint is normal. 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 C2-C3: Disc osteophyte complex without neural foraminal or spinal canal stenosis. C3-C4: Broad-based disc osteophyte complex, small central disc protrusion and mild facet arthropathy result in mild neural foraminal narrowing. Mild spinal canal stenosis. C4-C5: Broad-based central disc protrusion indents the ventral cord with resultant mild spinal canal stenosis. Mild right and moderate left facet arthropathy contribute to mild neural foraminal narrowing. C5-C6: Right posterolateral and foraminal disc protrusion in conjunction with mild ligamentum flavum infolding result in moderate spinal canal stenosis. Moderate bilateral facet arthropathy contribute to severe right and moderate left neural foraminal narrowing. C6-C7: Broad-based disc osteophyte complex with asymmetric left uncovertebral joint hypertrophy result in severe left bony neural foraminal narrowing and mild spinal canal stenosis. Interval improvement in the central disc protrusion since the prior examination. C7-T1: No disc herniation, spinal canal stenosis or neural foraminal narrowing. OTHER FINDINGS: None. IMPRESSION: 1. Multilevel degenerative disc disease superimposed on a congenitally narrow spinal canal, worse C4-5 with a broad-based central disc protrusion which indents the ventral cord with resultant mild spinal canal stenosis and mild neural foraminal narrowing. 2. At C5-6 a right posterolateral and foraminal disc protrusion, severe right and moderate left neural foraminal narrowing and moderate spinal canal stenosis. 3. At C6-7, broad-based disc osteophyte complex and asymmetric left uncovertebral joint hypertrophy resulting in severe left neural foraminal narrowing and mild spinal canal stenosis. Dictator: Radha Reyes MD 11/04/17 16:48 Discussed with neurologist, who recommends SOLU-Medrol and Gabapentin. - Lab Interpretations Lab Results: 11/04/17 15:21 11/04/17 15:21 Lab Results 11/04/17 15:21: Sodium 143, Potassium 4.0, Chloride 107, Carbon Dioxide 25, Anion Gap 14, BUN 42 H, Creatinine 1.3 H, Est GFR ( Amer) 50, Est GFR ( Non-Af Amer) 41, Random Glucose 89, Calcium 9.5, Total Bilirubin 0.3, AST 36, ALT 29, Alkaline Phosphatase 75, Total Protein 8.6 H, Albumin 3.9, Globulin 4.7 , Albumin/Globulin Ratio 0.8 L 11/04/17 15:21: PT 20.0 H, INR 1.73 H, APTT 34.7 11/04/17 15:21: WBC 10.1 D, RBC 3.82, Hgb 11.4 L, Hct 36.1, MCV 94.5, MCH 29.8 , MCHC 31.6, RDW 14.5, Plt Count 271, MPV 10.0, Gran % 55.6, Lymph % (Auto) 34.7 , Morrill % (Auto) 8.4 H, Eos % (Auto) 1.1 L, Baso % (Auto) 0.2, Gran # 5.63, Lymph # (Auto) 3.5 H, Morrill # (Auto) 0.9 H, Eos # (Auto) 0.1, Baso # (Auto) 0.02 I have reviewed the lab results: Yes - RAD Interpretation Radiology Orders: 11/04/17 14:58 SPINAL CANAL CERVICAL W/O CONT [MRI] Stat - Medication Orders Current Medication Orders: Methylprednisolone (Solu-Medrol) 250 mg IVP STAT STA Stop: 11/04/17 16:48 - Scribe Statement The provider has reviewed the documentation as recorded by the Biancaibe Megan Espinoza Provider Scribe Attestation: All medical record entries made by the Scribe were at my direction and personally dictated by me. I have reviewed the chart and agree that the record accurately reflects my personal performance of the history, physical exam, medical decision making, and the department course for this patient. I have also personally directed, reviewed, and agree with the discharge instructions and disposition. Disposition/Present on Arrival - Present on Arrival History of DVT/PE: No History of Uncontrolled Diabetes: No Urinary Catheter: No History Surgical Site Infection Following: None - Disposition Diagnosis: Cervical stenosis of spinal canal Patient Problems: Current Active Problems Problem Status Onset Cervical stenosis of spinal canal Acute Discharge Instructions (ExitCare): Cervical Sprain (ED) Additional Instructions: follow up with your neurologist. return to er with worsening symptoms or concerns Prescriptions: Gabapentin 300 mg PO DAILY #10 capsule Referrals: Cathy Escalante MD [Primary Care Provider] - Follow up with primary Connor Pinedo MD [Staff Provider] - Follow up with primary
[2017-11-04 15:39] LABS: BASO # 0.02 K/mm3 (0.0-2.0); BASO % 0.2 % (0.0-3.0); EOS # 0.1 (0.0-0.7); EOS % 1.1 % (1.5-5.0); GRAN # 5.63 (1.4-6.5); GRAN % 55.6 % (50.0-68.0); HEMOGLOBIN 11.4 g/dL (12.0-16.0); LYMPH # 3.5 (1.2-3.4); LYMPH % 34.7 % (22.0-35.0); MEAN CELL VOLUME 94.5 fl (80.0-105.0); MEAN CORPUSCULAR HEMOGLOBIN 29.8 pg (25.0-35.0); MEAN CORPUSCULAR HGB CONC 31.6 g/dl (31.0-37.0); MONO # 0.9 (0.1-0.6); MONO % 8.4 % (1.0-6.0); RBC 3.82 10^6/uL (3.5-6.1); RED CELL DISTRIBUTION WIDTH 14.5 % (11.5-14.5); WHITE BLOOD COUNT 10.1 10^3/ul (4.5-11.0)
[2017-11-04 15:47] LABS: ALB/GLOB RATIO 0.8 (1.1-1.8); ALBUMIN 3.9 g/dL (3.0-4.8); CALCIUM 9.5 mg/dL (8.4-10.5)
[2017-11-04 15:59] LABS: INR 1.73 (0.93-1.08); PARTIAL THROMBOPLASTIN TIME 34.7 Seconds (25.1-36.5)
--- NOTE | 2017-11-04 16:45 | MRI ---
PROCEDURE: MR CERVICAL SPINE WITHOUT CONTRAST HISTORY: Neck pain COMPARISON: 07/15/2013. TECHNIQUE: Multiecho multiplanar sequences were performed through the cervical spine without the use of intravenous contrast. FINDINGS: There is degenerative 2 mm retrolisthesis of C4 on C5, 3 mm retrolisthesis of C5 on C6 and 3 mm retrolisthesis of C6 on C7. There is reversal of normal cervical lordosis with mild cervical kyphosis. There is no acute fracture. Bone marrow signal is within normal limits. The craniocervical junction is normal. The atlantoaxial joint is normal. 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 C2-C3: Disc osteophyte complex without neural foraminal or spinal canal stenosis. C3-C4: Broad-based disc osteophyte complex, small central disc protrusion and mild facet arthropathy result in mild neural foraminal narrowing. Mild spinal canal stenosis. C4-C5: Broad-based central disc protrusion indents the ventral cord with resultant mild spinal canal stenosis. Mild right and moderate left facet arthropathy contribute to mild neural foraminal narrowing. C5-C6: Right posterolateral and foraminal disc protrusion in conjunction with mild ligamentum flavum infolding result in moderate spinal canal stenosis. Moderate bilateral facet arthropathy contribute to severe right and moderate left neural foraminal narrowing. C6-C7: Broad-based disc osteophyte complex with asymmetric left uncovertebral joint hypertrophy result in severe left bony neural foraminal narrowing and mild spinal canal stenosis. Interval improvement in the central disc protrusion since the prior examination. C7-T1: No disc herniation, spinal canal stenosis or neural foraminal narrowing. OTHER FINDINGS: None. IMPRESSION: 1. Multilevel degenerative disc disease superimposed on a congenitally narrow spinal canal, worse C4-5 with a broad-based central disc protrusion which indents the ventral cord with resultant mild spinal canal stenosis and mild neural foraminal narrowing. 2. At C5-6 a right posterolateral and foraminal disc protrusion, severe right and moderate left neural foraminal narrowing and moderate spinal canal stenosis. 3. At C6-7, broad-based disc osteophyte complex and asymmetric left uncovertebral joint hypertrophy resulting in severe left neural foraminal narrowing and mild spinal canal stenosis.
[2017-11-04 18:22] VITALS: BP 137/88; PULSE 80; TEMP 98; O2SAT 99
--- NOTE | 2017-11-04 18:25 | CON ---
DATE: 11/04/2017 NEUROLOGY CONSULT CHIEF COMPLAINT: Neck pain and burning pain in both hands. HISTORY OF PRESENT ILLNESS: This is a 67-year-old woman with past medical history of hypertension, lupus, CKD, DVT, on Coumadin, as well as hypothyroidism, presented from her PMD's office in the neck brace because she is having neck pain. At the same time, she said she was having burning pain of both hands. She denied any neck pain radiating down to both arms, but she says she has been feels that her hands are a little bit weaker and have been more burning sensation. She also has some mild burning sensation of her feet. In the past, she has had an MRI of her lower lumbar area on 01/24/2015, which showed chronic mild compression fracture deformity at L1, severe central canal stenosis at L2-L3 and [id number] central canal stenosis at L3-L4 and L4-L5 in which she does complain of chronic low back pain in addition to that. I examined her and she is hyporeflexic on examination in terms of her upper extremities as well as her lower extremities at bedside before she was going into the MRI machine. She is currently in the MRI machine and recommend for her scan should be followed up. No problems from her bowel and bladder. No double vision. PAST MEDICAL HISTORY: History of lupus, CKD, hypertension, DVT, on Coumadin, as well as hypothyroidism. REVIEW OF SYSTEMS: A 14-point review of systems is negative except as per the HPI. ALLERGIES: CIPROFLOXACIN AND IV CONTRAST. MEDICATIONS: Reviewed by nursing reconciliation sheet. SOCIAL HISTORY: No illicit drug use, smoking or EtOH abuse. PHYSICAL EXAMINATION: GENERAL: The patient is sitting up in bed, in no acute distress. VITAL SIGNS: Temperature 97.2, pulse rate 79, blood pressure ____/85, respiratory rate 18, oxygen saturation 95% by room air. HEENT: Atraumatic, normocephalic. PERRLA. Extraocular muscles intact. NECK: Supple. No JVD, no adenopathy noted. LUNGS: Clear to auscultation. No adventitious sounds. HEART: S1 and S2. Normal rate and rhythm. No murmurs, rubs, or gallops. ABDOMEN: Soft, nontender, and nondistended. Bowel sounds are present. EXTREMITIES: No clubbing. No cyanosis. Peripheral pulses 2+ felt bilaterally. NEUROLOGIC: The patient is alert and oriented to person and place. Cranial nerves II through XII intact. Motor exam: Moves all extremities equally. No pronator drift seen. 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 Lower extremity is 5/5 as well. Sensory exam: Decreased to light touch and pinprick up to the calves bilaterally. Decreased vibration of the toes. DTRs are hyporeflexic at both biceps, triceps and brachioradialis as well as the patella. No coolness seen on the lower extremities. Coordination: [id number] intact. Gait is deferred for now. LABORATORY DATA: Sodium is 143, potassium 4, chloride 107, carbon dioxide 25, BUN of 42, creatinine 1.2, random glucose of 89. ASSESSMENT AND PLAN: 1. This is a 67-year-old woman with history of lupus, hypertension, chronic kidney disease, deep venous thrombosis, on Coumadin, history of lupus nephritis, asthma, hypothyroidism, complaining of neck pain for the past couple of weeks. She denies any neck pain radiating down her arms, but does have burning sensation of both her right hand. 2. She also has burning and numbness of her feet as well as chronic low back pain. She has chronic severe central canal stenosis at L2 to L5. Currently, she is hyperreflexic on neuro examination in her upper extremities as well as her patella. Therefore, she has been sent for an MRI of the cervical spine to rule out any cervical pathology causing hyperreflexia and neck pain. At this time, we will also recommend may be a x 1 dose to calm down the burning sensation of the hands for an antiinflammatory effect. 3 Await for the result of the MRI cervical spine. 4 She is to continue with cervical collar. 5. Possibly a neurosurgical consult if the MRI of the brain is positive for anything acute. At this time, continue current present medical management. Thank you for this consult. Connor Pinedo MD
== END 2017-11-04 18:25 | disposition home or self-care (01) ==
LOC: ED 14:13
DX: M48.02 Spinal stenosis, cervical region (principal); I12.9 Hypertensive chronic kidney disease with stage 1 through stage 4 chronic kidney disease, or unspecified chronic kidney disease; N18.9 Chronic kidney disease, unspecified; Z86.718 Personal history of other venous thrombosis and embolism; Z79.01 Long term (current) use of anticoagulants; Z87.891 Personal history of nicotine dependence
CPT/HCPCS: 72141; 80053; 85025; 85610; 85730; 96374; 99283; J2930

== ENCOUNTER 2017-12-08 11:42 | Inpatient (IN) | payer MEDICARE, MEDICAID ==
[2017-12-08 11:43] VITALS: BMI 23.6
[2017-12-08] MEDS ORDERED: Sodium Chloride 0.9% 500 ML IV STA (12:26)
[2017-12-08] MEDS ORDERED: cefTRIAXone 1 gm 1 GM/100 ML BAG IVPB STA (12:41)
[2017-12-08] MEDS ORDERED: Cefepime IV 2 gm in NS 2 GM/100 ML BAG IVPB STA (12:49)
--- NOTE | 2017-12-08 12:59 | ED PDOC ---
Arrival/HPI - General Historian: Patient, Spouse <Venancio Silva - Last Filed: 12/08/17 14:35> <MaurizioGennaro valles - Last Filed: 12/08/17 14:46> - General Chief Complaint: Flu-like Symptoms Time Seen by Provider: 12/08/17 11:48 - History of Present Illness Narrative History of Present Illness (Text): 12/08/17 12:54 Patient is a 67F with a PMH of Lupus, CHF, CKD, DVT on coumadin, hyperthyroid who comes in with a CC of SOB, cough, OSMAN, diarrhea and loss of appetite since Friday. She states that on Friday she started to feel ill. She became progressively worse and started to lose her appetite over the weekend. Today she had two episodes of diarrhea and became very lethargic and tired so she decided to come tot he ED. Nothing makes it better or worse. She denies any abdominal pain. She denies any radiation. She denies any swelling however she has had a nonproductive cough since Friday. She is also complaining of body aches (Venancio Silva) Past Medical History - Infectious Disease Hx of Infectious Diseases: None - Tetanus Immunization Tetanus Immunization: Unknown - Reproductive Menopause: Yes - Cardiac Hx Cardiac Disorders: Yes Hx Heart Murmur: Yes Hx Hypertension: Yes Hx Peripheral Edema: Yes - Pulmonary Hx Respiratory Disorders: Yes Hx Asthma: Yes Hx Pneumonia: Yes - Neurological Hx Neurological Disorder: No - HEENT Hx HEENT Disorder: Yes (WEARS RX GLASSES) Other/Comment: decreased vision in left eye - Renal Hx Renal Disorder: Yes Hx Kidney Stones: Yes Hx Renal Failure: Yes - Endocrine/Metabolic Hx Endocrine Disorders: Yes Hx Hypothyroidism: Yes - Hematological/Oncological Hx Blood Disorders: No - Integumentary Hx Dermatological Disorder: Yes - Musculoskeletal/Rheumatological Hx Musculoskeletal Disorders: Yes Hx Arthritis: Yes Hx Falls: No - Gastrointestinal Hx Gastrointestinal Disorders: Yes Hx Gastroesophageal Reflux: Yes - Genitourinary/Gynecological Hx Genitourinary Disorders: No - Psychiatric Hx Psychophysiologic Disorder: Yes Hx Anxiety: Yes Hx Substance Use: No - Surgical History Hx Cholecystectomy: Yes Hx Valve Replacement: Yes ("pericardial window") Other/Comment: bilateral breast lift - Anesthesia Hx Anesthesia: Yes Hx Anesthesia Reactions: No Hx Malignant Hyperthermia: No - Suicidal Assessment Feels Threatened In Home Enviroment: No <Venancio Silva - Last Filed: 12/08/17 14:35> Family/Social History Family/Social History: Unknown Family HX Smoking Status: Former Smoker Hx Alcohol Use: No Hx Substance Use: No Hx Substance Use Treatment: No <Venancio Silva - Last Filed: 12/08/17 14:35> Allergies/Home Meds <Venancio Silva - Last Filed: 12/08/17 14:35> <MaurizioJesse valleso Horacio - Last Filed: 12/08/17 14:46> Allergies/Adverse Reactions: Allergies ciprofloxacin [From Cipro] Allergy (Verified 12/08/17 12:18) ANAPHYLAXIS ciprofloxacin HCl [From Cipro] Allergy (Verified 12/08/17 12:18) ANAPHYLAXIS IV Contrast Allergy (Uncoded 07/28/17 15:35) ANAPHYLAXIS Home Medications: Home Meds Medication Instructions Recorded Confirmed Levothyroxine [Synthroid] 50 mcg PO DAILY 11/08/15 07/29/17 Lipase/Protease/Amylase [Creon Dr 1 tab PO TID 11/08/15 07/28/17 12,000 Units Capsule] Magnesium Oxide 500 mg PO DAILY 11/08/15 07/29/17 Omeprazole [Prilosec] 40 mg PO DAILY 11/08/15 07/28/17 Potassium Chloride [Klor-Con 10] 10 tab-cap PO TID 04/29/16 07/29/17 Prednisone [Laura] 5 mg PO DAILY 04/29/16 07/29/17 Warfarin [Coumadin] 5 mg PO DAILY 04/29/16 07/28/17 amLODIPine [Norvasc] 10 mg PO DAILY 04/29/16 07/29/17 Digoxin [Digitek] 125 mcg PO DAILY 06/09/17 07/29/17 Gabapentin [Neurontin] 300 mg PO DAILY 06/09/17 07/29/17 tiZANidine [Zanaflex] 2 mg PO HS 06/09/17 07/28/17 Review of Systems - Review of Systems Constitutional: Fatigue, Fevers Eyes: Normal ENT: Normal Respiratory: SOB, Cough. absent: Sputum, Wheezing Cardiovascular: Chest Pain. absent: Palpitations, Edema, Calf Pain, Orthopnea, Syncope Gastrointestinal: Diarrhea (nonbloody). absent: Abdominal Pain, Nausea, Vomiting Genitourinary Female: Normal Musculoskeletal: Normal Skin: Normal Neurological: Normal Endocrine: Normal Hemo/Lymphatic: Normal Psychiatric: Normal <JoselucasVenancio moody - Last Filed: 12/08/17 14:35> Physical Exam Temperature: Febrile Blood Pressure: Normal Pulse: Tachycardic Respiratory Rate: Normal Appearance: Positive for: Ill-Appearing - Systems Exam Head: Present: Atraumatic, Normocephalic. No: Tenderness, Contusion, Swelling, Ecchymosis, Abrasion, Laceration Pupils: Present: PERRL Extroacular Muscles: Present: EOMI Conjunctiva: Present: Normal. No: Injected, Icteric Mouth: Present: Dry Pharnyx: Present: Normal Nose (External): Present: Atraumatic Nose (Internal): Present: Normal Inspection Neck: Present: Normal Range of Motion Respiratory/Chest: Present: Clear to Auscultation, Good Air Exchange, Rhonchi ( bilateral lower lobes). No: Respiratory Distress, Accessory Muscle Use, Wheezes , Decreased Breath Sounds, Rales, Retracting, Tachypneic, Tender to Palpation Cardiovascular: Present: Regular Rate and Rhythm, Murmurs (systolic murmur hear best over the aortic area), Normal S1, S2, Tachycardic. No: Irregular Rhythm, Bradycardic, Rub, Gallop Abdomen: Present: Normal Bowel Sounds. No: Tenderness, Distention, Peritoneal Signs Upper Extremity: Present: Normal Inspection. No: Edema Lower Extremity: Present: Normal Inspection. No: Edema Neurological: Present: GCS=15, CN II-XII Intact, Speech Normal Skin: Present: Warm, Dry, Normal Color. No: Rashes Psychiatric: Present: Alert, Oriented x 3, Normal Insight, Normal Concentration <Venancio Silva - Last Filed: 12/08/17 14:35> Vital Signs Temp Pulse Resp BP Pulse Ox 12/08/17 12:22 101.8 F H 98 H 18 127/75 99 12/08/17 12:15 101.8 F H 98 H 18 127/75 98 Medical Decision Making <DavidefransiscoVenancio - Last Filed: 12/08/17 14:35> - Critical Care Critical Care Minutes: 30 minutes <Gennaro Gotti - Last Filed: 12/08/17 14:46> ED Course and Treatment: 12/08/17 14:28 In agreement with resident note, which includes further HPI details. Patient was seen and evaluated with resident, came up with plan and treatment together. Patient is a 67 year old female complaining of shortness of breath, cough, headache, diarrhea, and loss of appetite for four days. Lungs: lower lungs with rhonchi vs rales, mild tachpnea, no respiratory distress , good air entry Legs: no lower extremity edema Differential Diagnosis included but are not limited to: Pneumonia vs Viral Syndrome vs CHF Progress Notes: 12/08/17 14:28 Patient's elevated temperature treated with tylenol. CXR shows RLL PNA and treated with Cefepime IV and Azithromycin. Troponin 0.03. BNP elevated at 5000' s which is more then previous. Will tx with lasix. Renal function at baseline. Influenza negative. Case discussed with Dr. Escalante and will admit to Telemetry for CHF and Pneumonia.. He requested Dr. Parsons for infectious disease, Dr. Silva for Pulmonary, Dr. Tim for Renal, and Dr. Harvey for Cardiology. (Gennaro Gotti) - Lab Interpretations Lab Results: 12/08/17 13:20 12/08/17 13:20 Lab Results 12/08/17 13:20: Digoxin 0.9 12/08/17 13:20: TSH 3rd Generation 0.93 12/08/17 13:20: PT 20.3 H, INR 1.77 H, APTT 33.0 12/08/17 13:20: Sodium 135, Potassium 4.0, Chloride 101, Carbon Dioxide 23, Anion Gap 15, BUN 29 H, Creatinine 1.6 H, Est GFR ( Amer) 39, Est GFR ( Non-Af Amer) 32, Random Glucose 103, Calcium 8.8, Phosphorus 3.4, Magnesium 1.9 , Total Bilirubin 1.2, AST 32, ALT 26, Alkaline Phosphatase 81, Troponin I 0.03 D, NT-Pro-B Natriuret Pep 5470 H, Total Protein 7.4, Albumin 3.2, Globulin 4.2 , Albumin/Globulin Ratio 0.8 L 12/08/17 13:20: WBC 27.4 H* D, RBC 3.45 L, Hgb 10.2 L, Hct 30.9 L, MCV 89.6 D, MCH 29.6, MCHC 33.0, RDW 14.6 H, Plt Count 211, MPV 9.8, Gran % 83.6 H, Lymph % (Auto) 8.3 L, [place] % (Auto) 8.0 H, Eos % (Auto) 0.0 L, Baso % (Auto) 0.1, Gran # 22.85 H, Lymph # (Auto) 2.3, [place] # (Auto) 2.2 H, Eos # (Auto) 0.0, Baso # ( Auto) 0.02 12/08/17 13:17: Influenza Typ A,B (EIA) Negative for flu a/b - RAD Interpretation Radiology Orders: 12/08/17 12:26 CHEST PORTABLE [RAD] Stat - Medication Orders Current Medication Orders: Arformoterol Tartrate (Brovana) 15 mcg IH [id number] TESHA Budesonide (Pulmicort Respules) 0.5 mg IH [id number] TESHA Discontinued Medications Acetaminophen (Tylenol 325mg Tab) 650 mg PO STAT STA Stop: 12/08/17 12:39 Last Admin: 12/08/17 13:16 Dose: 650 mg MAR Pain/Vitals Document 12/08/17 13:16 LA (Rec: 12/08/17 13:17 LA [id number]) Pain Reassessment Is This A Pain ReAssessment? No Sleep Is patient sleeping during reassessment? No Presence of Pain Presence of Pain No Furosemide (Lasix) 20 mg IVP STAT STA Stop: 12/08/17 14:14 Azithromycin (Zithromax 500mg In Ns) 500 mg in 250 mls @ 167 mls/hr IVPB STAT STA PRN Reason: Protocol Stop: 12/08/17 14:10 Cefepime HCl (Maxipime 2gm) 2 gm in 100 mls @ 100 mls/hr IVPB STAT STA PRN Reason: Protocol Stop: 12/08/17 13:48 Last Admin: 12/08/17 13:18 Dose: 100 mls/hr eMAR Start Stop Document 12/08/17 13:18 LA (Rec: 12/08/17 13:18 LA [id number]) Intravenous Solution Start Date 12/08/17 Start Time 13:18 - PA / PEDIATRIC PHYSICAL THERAPIST / Resident Statement MARQUES has reviewed & agrees with the documentation as recorded. MD/DO has examined the patient and agrees with the treatment plan. <Venancio Silva - Last Filed: 12/08/17 14:35> Disposition/Present on Arrival - Present on Arrival Any Indicators Present on Arrival: No History of DVT/PE: No History of Uncontrolled Diabetes: No Urinary Catheter: No History of Decub. Ulcer: No History Surgical Site Infection Following: None - Disposition Have Diagnosis and Disposition been Completed?: Yes Disposition Time: 14:36 Patient Plan: Telemetry <Venancio Silva - Last Filed: 12/08/17 14:35> - Present on Arrival Any Indicators Present on Arrival: Yes - Disposition Have Diagnosis and Disposition been Completed?: Yes Patient Plan: Admission, Telemetry <Gennaro Gotti - Last Filed: 12/08/17 14:46> - Disposition Diagnosis: Pneumonia, Sepsis, CHF (congestive heart failure) Patient Problems: Current Active Problems Problem Status Onset CHF (congestive heart failure) Acute Pneumonia Acute Sepsis Acute Condition: GUARDED - Notes Notes (Text): 12/08/17 14:36 1. Sepsis 2/2 to pneumonia 2. Acute CHF exacerbation -Admit to tele -Depending on VBG results, patient will need fluids 30ml/kg -Continue maxipime and azithromycin, test for atypicals -Follow up VBG in 3 hours -Repeat CXR (Venancio Silva)
--- NOTE | 2017-12-08 13:01 | RAD ---
HISTORY: SOB COMPARISON: 07/28/2017 FINDINGS: LUNGS: There is a minimal patchy infiltrate at the right lung base PLEURA: No significant pleural effusion identified, no pneumothorax apparent. CARDIOVASCULAR: Normal. OSSEOUS STRUCTURES: No significant abnormalities. VISUALIZED UPPER ABDOMEN: Normal. OTHER FINDINGS: None. IMPRESSION: Minimal patchy infiltrate at the right lung base. This could represent an early pneumonia
[2017-12-08 13:35] LABS: BASO # 0.02 K/mm3 (0.0-2.0); BASO % 0.1 % (0.0-3.0); GRAN # 22.85 (1.4-6.5); GRAN % 83.6 % (50.0-68.0); HEMOGLOBIN 10.2 g/dL (12.0-16.0); LYMPH # 2.3 (1.2-3.4); LYMPH % 8.3 % (22.0-35.0); MEAN CELL VOLUME 89.6 fl (80.0-105.0); MEAN CORPUSCULAR HEMOGLOBIN 29.6 pg (25.0-35.0); MEAN PLATELET VOLUME 9.8 fl (7.0-11.0); MONO # 2.2 (0.1-0.6); RBC 3.45 10^6/uL (3.5-6.1); RED CELL DISTRIBUTION WIDTH 14.6 % (11.5-14.5)
[2017-12-08 13:39] LABS: WHITE BLOOD COUNT 27.4 10^3/ul (4.5-11.0)
[2017-12-08 13:49] LABS: INR 1.77 (0.93-1.08); PROTHROMBIN TIME 20.3 SECONDS (9.4-12.5)
[2017-12-08 13:56] LABS: ALB/GLOB RATIO 0.8 (1.1-1.8); ALBUMIN 3.2 g/dL (3.0-4.8); CALCIUM 8.8 mg/dL (8.4-10.5)
[2017-12-08 14:05] LABS: TROPONIN I 0.03 ng/mL
[2017-12-08] MEDS ORDERED: Sodium Chloride 0.9% 1,000 ML IV STA (14:07)
[2017-12-08 14:50] LABS: VENOUS BLOOD GAS BASE EXCESS 1.6 mmol/L (0.0-2.0); VENOUS BLOOD GAS PO2 161 mm/Hg (30-55); VENOUS BLOOD PH 7.48 (7.32-7.43)
--- NOTE | 2017-12-08 15:28 | CARD ---
APPROVED REPORT EKG Measurement Heart [id number] TX [id number] <Conclusion> Normal sinus rhythm Inferior infarct, age undetermined Abnormal ECG
[2017-12-08] MEDS: Azithromycin 500MG/NS 250ml 500 MG/250 ML BAG IVPB STA ×2 (16:50→17:30)
--- NOTE | 2017-12-08 17:10 | CP.PCM.CON ---
History of Present Illness - History of Present Illness History of Present Illness: 67 year old female with PMH of HTN, SLE, chronic renal failure, history of DVT, hypothyroidism, COPD, GERD, anxiety disorder, S/P cholecystectomy, S/P breast surgery came in to [facility] complaining of cough, shortness of breath for about 2-3 days, associated with muscle aches and rhinorrhea. She denies headache or dizziness, no sore throat, no nausea or vomiting, no chest pain, no abdominal pain, no diarrhea, no dysuria. In the ED, CXR is showing right lower lobe infiltration. She was also noted to have fever in the ED. She states that she got her Influenza vaccination for this season. She does not recall specific contacts but she was recently in the hospital about 2 months ago for cough as well. Infectious Diseases consult is requested to further evaluate and manage. Review of Systems - Review of Systems All systems: reviewed and no additional remarkable complaints except (as per HPI ) Past Patient History - Infectious Disease Hx of Infectious Diseases: None - Tetanus Immunizations Tetanus Immunization: Unknown - Past Social History Smoking Status: Former Smoker - CARDIAC Hx Cardiac Disorders: Yes Hx Heart Murmur: Yes Hx Hypertension: Yes Hx Peripheral Edema: Yes - PULMONARY Hx Respiratory Disorders: Yes Hx Asthma: Yes Hx Pneumonia: Yes - NEUROLOGICAL Hx Neurological Disorder: No - HEENT Hx HEENT Problems: Yes (WEARS RX GLASSES) Other/Comment: decreased vision in left eye - RENAL Hx Chronic Kidney Disease: Yes Hx Kidney Stones: Yes Hx Renal Failure: Yes - ENDOCRINE/METABOLIC Hx Endocrine Disorders: Yes Hx Hypothyroidism: Yes - HEMATOLOGICAL/ONCOLOGICAL Hx Blood Disorders: No - INTEGUMENTARY Hx Dermatological Problems: Yes - MUSCULOSKELETAL/RHEUMATOLOGICAL Hx Musculoskeletal Disorders: Yes Hx Arthritis: Yes Hx Falls: No - GASTROINTESTINAL Hx Gastrointestinal Disorders: Yes Hx Gastroesophageal Reflux: Yes - GENITOURINARY/GYNECOLOGICAL Hx Genitourinary Disorders: No - PSYCHIATRIC Hx Psychophysiologic Disorder: Yes Hx Anxiety: Yes Hx Substance Use: No - SURGICAL HISTORY Hx Cholecystectomy: Yes Hx Valve Replacement: Yes ("pericardial window") Other/Comment: bilateral breast lift - ANESTHESIA Hx Anesthesia: Yes Hx Anesthesia Reactions: No Hx Malignant Hyperthermia: No Meds Allergies/Adverse Reactions: Allergies Allergy/AdvReac Type Severity Reaction Status Date / Time ciprofloxacin [From Cipro] Allergy ANAPHYLAXIS Verified 12/08/17 12:18 ciprofloxacin HCl Allergy ANAPHYLAXIS Verified 12/08/17 12:18 [From Cipro] IV Contrast Allergy ANAPHYLAXIS Uncoded 07/28/17 15:35 - Medications Medications: Current Medications Arformoterol Tartrate (Brovana) 15 mcg IH [id number] TESHA Budesonide (Pulmicort Respules) 0.5 mg IH [id number] TESHA Physical Exam - Constitutional Appears: No Acute Distress, Other (ill-appearing) - Head Exam Head Exam: NORMAL INSPECTION - ENT Exam ENT Exam: Mucous Membranes Moist - Neck Exam Neck exam: Negative for: Meningismus - Respiratory Exam Respiratory Exam: Decreased Breath Sounds, Rales (at the bases), Wheezes ( expiratory, also at the bases) - Cardiovascular Exam Cardiovascular Exam: +S1, +S2 - GI/Abdominal Exam GI & Abdominal Exam: Soft. absent: Tenderness Results - Vital Signs Recent Vital Signs: Last Vital Signs Temp 100.2 F H 12/08/17 14:56 Pulse 86 12/08/17 14:56 Resp 18 12/08/17 14:56 BP 125/69 12/08/17 14:56 Pulse Ox 99 12/08/17 14:56 - Labs Result Diagrams: 12/08/17 13:20 12/08/17 13:20 Labs: Laboratory Results - last 24 hr 12/08/17 14:45 pO2 161 H VBG pH 7.48 H VBG pCO2 33.0 L VBG HCO3 24.6 VBG Total CO2 25.6 VBG O2 Sat (Calc) 98.4 H VBG Base Excess 1.6 VBG Potassium 3.9 Sodium 135.0 Chloride 105.0 Glucose 106 H Lactate 1.1 FiO2 21.0 Venous Blood Potassium 3.9 Assessment & Plan - Assessment and Plan (Free Text) Plan: Assessment severe sepsis with acute renal failure due to right lower lobe healthcare- associated pneumonia with possible gram positive cocci and/or gram negative bacilli and/or atypical organisms, R/O Influenza history of sepsis due to left lower lobe pneumonia, community-acquired chronic bronchiectasis HTN SLE chronic renal failure history of DVT hypothyroidism COPD GERD anxiety disorder S/P cholecystectomy S/P breast surgery Plan started patient on Zyvox, Merrem and Doxycycline pending blood cx, sputum cx, PCT, urine Legionella Ag; reviewed CXR will monitor clinically
[2017-12-08] MEDS: Oseltamivir 6 MG/ML PO SCH (17:51)
[2017-12-08] MEDS ORDERED: Arformoterol 15 mcg/2 ml Inh Sol IH SCH (20:00)
[2017-12-08 20:21] LABS: ARTERIAL BLOOD GAS HCO3 22.6 mmol/L (21-28); ARTERIAL BLOOD GAS PCO2 27 mm/Hg (35-45); ARTERIAL BLOOD GAS PH 7.53 (7.35-7.45); ARTERIAL BLOOD GAS TCO2 23.4 mmol.L (22-28)
--- NOTE | 2017-12-08 20:29 | CP.PCM.CON ---
<Sancho Brown - Last Filed: 12/08/17 20:24> History of Present Illness - History of Present Illness History of Present Illness: 67 year old female with PMH of HTN, SLE, A-fib on coumadin, CHF, chronic renal failure, history of DVT, hypothyroidism, COPD, GERD, and anxiety disorder initially presented to the hospital for 3 day history of shortness of breath. Patient states she has become progressively worse. Patient called her PMD and she was advised to come to the hospital. At home, she had a temperature of 101 F. In addition, she admits to nonproductive cough and several bouts of nonbloody diarrhea. Patient denies any sick contacts. Patient also admits to headache, fatigue, and myalgias. Currently denies chest pain, shortness of breath, nausea, vomiting, chills, headache. PMH: HTN, SLE, A-fib on coumadin, CHF, chronic renal failure, history of DVT, hypothyroidism, COPD, GERD, and anxiety disorder initially Family Hx: Noncontributory Surgical Hx: Appendectomy Social hx: Denies alcohol, tobacco, or illicit drug use Allergies: NKDA Medications: Reviewed, as per MAR Review of Systems - Review of Systems Review of Systems: 12 point ROS as per HPI, otherwise negative Past Patient History - Infectious Disease Hx of Infectious Diseases: None - Tetanus Immunizations Tetanus Immunization: Unknown - Past Social History Smoking Status: Former Smoker - CARDIAC Hx Cardiac Disorders: Yes Hx Heart Murmur: Yes Hx Hypertension: Yes Hx Peripheral Edema: Yes - PULMONARY Hx Respiratory Disorders: Yes Hx Asthma: Yes Hx Pneumonia: Yes - NEUROLOGICAL Hx Neurological Disorder: No - HEENT Hx HEENT Problems: Yes (WEARS RX GLASSES) Other/Comment: decreased vision in left eye - RENAL Hx Chronic Kidney Disease: Yes Hx Kidney Stones: Yes Hx Renal Failure: Yes - ENDOCRINE/METABOLIC Hx Endocrine Disorders: Yes Hx Hypothyroidism: Yes - HEMATOLOGICAL/ONCOLOGICAL Hx Blood Disorders: No - INTEGUMENTARY Hx Dermatological Problems: Yes - MUSCULOSKELETAL/RHEUMATOLOGICAL Hx Musculoskeletal Disorders: Yes Hx Arthritis: Yes Hx Falls: No - GASTROINTESTINAL Hx Gastrointestinal Disorders: Yes Hx Gastroesophageal Reflux: Yes - GENITOURINARY/GYNECOLOGICAL Hx Genitourinary Disorders: No - PSYCHIATRIC Hx Psychophysiologic Disorder: Yes Hx Anxiety: Yes Hx Substance Use: No - SURGICAL HISTORY Hx Cholecystectomy: Yes Hx Valve Replacement: Yes ("pericardial window") Other/Comment: bilateral breast lift - ANESTHESIA Hx Anesthesia: Yes Hx Anesthesia Reactions: No Hx Malignant Hyperthermia: No Meds Allergies/Adverse Reactions: Allergies Allergy/AdvReac Type Severity Reaction Status Date / Time ciprofloxacin [From Cipro] Allergy ANAPHYLAXIS Verified 12/08/17 18:33 ciprofloxacin HCl Allergy ANAPHYLAXIS Verified 12/08/17 18:33 [From Cipro] IV Contrast Allergy ANAPHYLAXIS Uncoded 12/08/17 18:33 - Medications Medications: Current Medications Acetaminophen (Tylenol 325mg Tab) 650 mg PO Q4H PRN PRN Reason: temp greater than 101 Last Admin: 12/08/17 19:20 Dose: 650 mg Amlodipine Besylate (Norvasc) 10 mg PO DAILY [facility] Arformoterol Tartrate (Brovana) 15 mcg IH [id number] [facility] Budesonide (Pulmicort Respules) 0.5 mg IH [id number] [facility] Digoxin (Digoxin) 0.125 mg PO DAILY [facility] Gabapentin (Neurontin) 300 mg PO DAILY [facility] PRN Reason: Protocol Meropenem (Merrem Iv 1 Gm Premix) 50 mls @ 100 mls/hr IVPB Q12 [facility] PRN Reason: Protocol Doxycycline Hyclate 100 mg/ (Sodium Chloride) 100 mls @ 100 mls/hr IVPB Q12 [facility] PRN Reason: Protocol Linezolid (Zyvox 600mg/300ml D5w) 600 mg in 300 mls @ 200 mls/hr IVPB Q12 [facility] PRN Reason: Protocol Stop: 12/15/17 15:11 Levothyroxine Sodium (Synthroid) 50 mcg PO DAILY [facility] Cyclosporine, Modified [Neoral] 100 Mg 100 mg PO DAILY [facility] Lipase/Protease/Amylase [Creon Dr 12 ,000 Units Capsule] 1 tab PO TID [facility] Oseltamivir Phosphate (Tamiflu Susp) 30 mg PO DAILY [facility] PRN Reason: Protocol Last Admin: 12/08/17 17:51 Dose: 30 mg Pantoprazole Sodium (Protonix Ec Tab) 40 mg PO ACB [facility] Prednisone (Prednisone Tab) 5 mg PO DAILY [facility] Warfarin Sodium (Coumadin) 5 mg PO DAILY [facility] PRN Reason: Protocol Last Admin: 12/08/17 17:52 Dose: 5 mg Physical Exam - Constitutional Appears: Non-toxic, No Acute Distress - Head Exam Head Exam: ATRAUMATIC, NORMAL INSPECTION, NORMOCEPHALIC - Eye Exam Eye Exam: EOMI, Normal appearance - ENT Exam ENT Exam: Mucous Membranes Dry - Respiratory Exam Respiratory Exam: Decreased Breath Sounds (B/l bases), NORMAL BREATHING PATTERN. absent: Rales, Rhonchi, Wheezes - Cardiovascular Exam Cardiovascular Exam: RRR, +S1, +S2 - GI/Abdominal Exam GI & Abdominal Exam: Normal Bowel Sounds, Soft. absent: Tenderness - Extremities Exam Extremities exam: Positive for: normal inspection. Negative for: calf tenderness, pedal edema - Neurological Exam Neurological exam: Alert, CN II-XII Intact, Oriented x3 - Psychiatric Exam Psychiatric exam: Normal Affect, Normal Mood - Skin Skin Exam: Dry, Normal Color, Warm Results - Vital Signs Recent Vital Signs: Last Vital Signs Temp 102.2 F H 12/08/17 19:20 Pulse 94 H 12/08/17 17:57 Resp 19 12/08/17 17:57 BP 137/84 12/08/17 17:57 Pulse Ox 95 12/08/17 17:57 - Labs Result Diagrams: 12/08/17 13:20 12/08/17 13:20 Labs: Laboratory Results - last 24 hr 12/08/17 12/08/17 14:45 20:15 pCO2 27 L pO2 161 H 64.0 L HCO3 22.6 ABG pH 7.53 H ABG Total CO2 23.4 ABG O2 Saturation 95.0 ABG Base Excess 1.1 ABG Potassium 3.5 L VBG pH 7.48 H VBG pCO2 33.0 L VBG HCO3 24.6 VBG Total CO2 25.6 VBG O2 Sat (Calc) 98.4 H VBG Base Excess 1.6 VBG Potassium 3.9 Sodium 135.0 136.0 Chloride 105.0 107.0 Glucose 106 H 104 Lactate 1.1 0.9 FiO2 21.0 21.0 Arterial Blood Potassium 3.5 L Venous Blood Potassium 3.9 Assessment & Plan - Assessment and Plan (Free Text) Plan: 67 year old female with PMH of HTN, SLE, A-fib on coumadin, CHF, chronic renal failure, history of DVT, hypothyroidism, COPD, GERD, and anxiety disorder presents with severe sepsis secondary to HCAP. ABG with lactate drawn demonstrated a respiratory alkalosis with a normal lactate. Patient is currently alert and hemodynamically stable at this time. She does not require ICU level of care. Continue current medical regimen with the following recommendations. Recommendations: Incentive Spirometry Chest PT Solumedrol 20 q12 Duonebs PRN Continue Merrem, Linezolid, Doxycycline, and Tamiflu Gentle hydration with NS @ 75 Urinalysis Stephanie, PGY-2 <Jeff Livingston Q - Last Filed: 12/08/17 22:08> Meds - Medications Medications: Current Medications Acetaminophen (Tylenol 325mg Tab) 650 mg PO Q4H PRN PRN Reason: temp greater than 101 Last Admin: 12/08/17 19:20 Dose: 650 mg Amlodipine Besylate (Norvasc) 10 mg PO DAILY [facility] Arformoterol Tartrate (Brovana) 15 mcg IH [id number] [facility] Last Admin: 12/08/17 20:58 Dose: 15 mcg Budesonide (Pulmicort Respules) 0.5 mg IH [id number] [facility] Last Admin: 12/08/17 20:58 Dose: 0.5 mg Digoxin (Digoxin) 0.125 mg PO DAILY [facility] Gabapentin (Neurontin) 300 mg PO DAILY [facility] PRN Reason: Protocol Guaifenesin/Dextromethorphan (Robitussin Dm) 15 ml PO Q4H PRN PRN Reason: Cough Meropenem (Merrem Iv 1 Gm Premix) 50 mls @ 100 mls/hr IVPB Q12 [facility] PRN Reason: Protocol Doxycycline Hyclate 100 mg/ (Sodium Chloride) 100 mls @ 100 mls/hr IVPB Q12 [facility] PRN Reason: Protocol Linezolid (Zyvox 600mg/300ml D5w) 600 mg in 300 mls @ 200 mls/hr IVPB Q12 [facility] PRN Reason: Protocol Stop: 12/15/17 15:11 Levothyroxine Sodium (Synthroid) 50 mcg PO DAILY [facility] Cyclosporine, Modified [Neoral] 100 Mg 100 mg PO DAILY [facility] Lipase/Protease/Amylase [Creon Dr 12 ,000 Units Capsule] 1 tab PO TID [facility] Oseltamivir Phosphate (Tamiflu Susp) 30 mg PO DAILY [facility] PRN Reason: Protocol Last Admin: 12/08/17 17:51 Dose: 30 mg Pantoprazole Sodium (Protonix Ec Tab) 40 mg PO ACB [facility] Prednisone (Prednisone Tab) 5 mg PO DAILY [facility] Warfarin Sodium (Coumadin) 5 mg PO DAILY [facility] PRN Reason: Protocol Last Admin: 12/08/17 17:52 Dose: 5 mg Results - Vital Signs Recent Vital Signs: Last Vital Signs Temp 102.2 F H 12/08/17 21:20 Pulse 94 H 12/08/17 21:20 Resp 19 12/08/17 21:20 BP 137/84 12/08/17 21:20 Pulse Ox 95 12/08/17 17:57 - Labs Result Diagrams: 12/08/17 13:20 12/08/17 13:20 Labs: Laboratory Results - last 24 hr 12/08/17 12/08/17 12/08/17 14:45 20:15 20:29 pCO2 27 L pO2 161 H 64.0 L HCO3 22.6 ABG pH 7.53 H ABG Total CO2 23.4 ABG O2 Saturation 95.0 ABG Base Excess 1.1 ABG Potassium 3.5 L VBG pH 7.48 H VBG pCO2 33.0 L VBG HCO3 24.6 VBG Total CO2 25.6 VBG O2 Sat (Calc) 98.4 H VBG Base Excess 1.6 VBG Potassium 3.9 Sodium 135.0 136.0 Chloride 105.0 107.0 Glucose 106 H 104 Lactate 1.1 0.9 FiO2 21.0 21.0 Lactate Dehydrogenase Total Creatine Kinase Troponin I TSH 3rd Generation 0.84 Arterial Blood Potassium 3.5 L Venous Blood Potassium 3.9 12/08/17 20:29 pCO2 pO2 HCO3 ABG pH ABG Total CO2 ABG O2 Saturation ABG Base Excess ABG Potassium VBG pH VBG pCO2 VBG HCO3 VBG Total CO2 VBG O2 Sat (Calc) VBG Base Excess VBG Potassium Sodium Chloride Glucose Lactate FiO2 Lactate Dehydrogenase 420 Total Creatine Kinase 140 Troponin I 0.04 D TSH 3rd Generation Arterial Blood Potassium Venous Blood Potassium Attending/Attestation - Attestation I have personally seen and examined this patient.: Yes I have fully participated in the care of the patient.: Yes I have reviewed all pertinent clinical information: Yes
[2017-12-08 20:58] LABS: TROPONIN I 0.04 ng/mL
[2017-12-08] MEDS: Budesonide 0.5 mg/2 ml Inhal Susp UD IH SCH (20:58)
[2017-12-08] MEDS: Arformoterol 15 mcg/2 ml Inh Sol IH SCH (20:58)
[2017-12-08] MEDS ORDERED: Influenza Vaccine 60 mcg/0.5 mL SYR (4YR UP) IM ONE (21:44)
[2017-12-08] MEDS ORDERED: Pneumococcal 23-Valent Vaccine IM ONE (21:44)
[2017-12-08] MEDS: Meropenem IV 1 gm in NS 50 ML IVPB SCH (22:17)
[2017-12-08] MEDS: Linezolid 600 mg in D5W 300 ml 600 MG/300 ML BAG IVPB SCH (22:19)
[2017-12-08] MEDS: guaiFENesin DM 200 mg-20 mg/10 ml UD PO PRN (23:50)
[2017-12-09 02:29] LABS: TROPONIN I 0.04 ng/mL
[2017-12-09 06:31] LABS: BASO # 0.01 K/mm3 (0.0-2.0); EOS # 0.1 (0.0-0.7); EOS % 0.2 % (1.5-5.0); GRAN # 21.97 (1.4-6.5); GRAN % 88.7 % (50.0-68.0); HEMOGLOBIN 9.9 g/dL (12.0-16.0); LYMPH # 1.3 (1.2-3.4); LYMPH % 5.4 % (22.0-35.0); MEAN CORPUSCULAR HGB CONC 32.2 g/dl (31.0-37.0); MONO # 1.4 (0.1-0.6); MONO % 5.7 % (1.0-6.0); RBC 3.41 10^6/uL (3.5-6.1); RED CELL DISTRIBUTION WIDTH 14.6 % (11.5-14.5); WHITE BLOOD COUNT 24.8 10^3/ul (4.5-11.0)
[2017-12-09 06:58] LABS: ALB/GLOB RATIO 0.7 (1.1-1.8); CALCIUM 8.3 mg/dL (8.4-10.5); INR 1.91 (0.93-1.08); PROTHROMBIN TIME 22.2 SECONDS (9.4-12.5)
[2017-12-09 07:02] LABS: T3 UPTAKE 54.9 % (23.0-41.0); T4 5.6 ug/dL (5.5-11.0)
[2017-12-09] MEDS: Budesonide 0.5 mg/2 ml Inhal Susp UD IH SCH ×2 (08:05→19:57)
[2017-12-09] MEDS: Arformoterol 15 mcg/2 ml Inh Sol IH SCH ×2 (08:05→19:57)
[2017-12-09] MEDS: Pantoprazole 40 mg EC Tab PO SCH (08:15)
[2017-12-09] MEDS: Linezolid 600 mg in D5W 300 ml 600 MG/300 ML BAG IVPB SCH ×2 (10:00→23:50)
[2017-12-09] MEDS ORDERED: Non Formulary Medication (Prednisone [Rayos] 5 MG) PO SCH (10:00)
[2017-12-09] MEDS ORDERED: CYCLOSPORINE MODIFIED 100 MG PO SCH (10:00)
[2017-12-09] MEDS: Digoxin 125 mcg (0.125 mg) Tab PO SCH (10:40)
[2017-12-09] MEDS: Oseltamivir 6 MG/ML PO SCH (10:40)
[2017-12-09] MEDS: Meropenem IV 1 gm in NS 50 ML IVPB SCH ×3 (10:41→23:19)
[2017-12-09] MEDS: AMYLASE PO SCH ×3 (10:42→18:49)
[2017-12-09] MEDS: LIPASE PO SCH ×3 (10:42→18:49)
[2017-12-09] MEDS: PROTEASE PO SCH ×3 (10:42→18:49)
--- NOTE | 2017-12-09 11:34 | CON ---
DATE: 12/09/2017 CONSULTATION INDICATIONS: Shortness of breath, pneumonia. HISTORY OF PRESENT ILLNESS: This is a 67-year-old woman admitted through the emergency room yesterday with sure history of shortness of breath, cough, headache, fever, diarrhea. She had a temperature to 101, 102 range and felt very ill. She was found to have a right lower lobe pneumonia on her chest x-ray. She was admitted to telemetry. This morning, she feels better. There is no chest pain, orthopnea, PND, syncope, palpitation, edema, claudication, hemoptysis, abdominal pain or melena. PAST MEDICAL HISTORY: Notable for a lupus and chronic kidney disease. She has a history of DVT; paroxysmal atrial fibrillation, on warfarin; hypothyroidism; GERD; COPD; appendectomy and pancreatitis. There is a history of a pericardiac effusion, which was drained. There is no history of myocardial infarction, congestive heart failure, stroke, TIA or diabetes. MEDICATIONS AT THE TIME OF ADMISSION: Include Advair, warfarin, Creon, digoxin, Fosamax, potassium chloride, mag ox, Neoral, Neurontin, Norvasc, Prilosec. MEDICATION ALLERGIES: INCLUDE CIPRO AND IV CONTRAST. SOCIAL HISTORY: She lives at home. She does not smoke. She does not drink alcohol significantly. REVIEW OF SYSTEMS: Ten-point review of systems otherwise unremarkable except as noted above. FAMILY HISTORY: Noncontributory. PHYSICAL EXAMINATION: GENERAL: She is a well-developed woman, lying in bed on telemetry. Her son is at the bedside. VITAL SIGNS: Unremarkable. She is in sinus rhythm at 70 beats per minute; temperature was 102.2, currently 98.8; blood pressure 103/50; respirations 18-19; O2 sat 93-98% on nasal cannula. HEENT: Revealed no neck vein distention, thyromegaly, carotid bruits. Mucous membranes moist. Conjunctivae pink. NECK: Supple. LUNGS: Lung winters clear with scattered rhonchi at the right base. HEART: Examination of the heart revealed a regular rhythm with normal first and second heart sounds. There is a systolic murmur heard along the sternal border. ABDOMEN: Soft. Bowel sounds are present. No mass, organomegaly, tenderness, rebound, guarding, CVA tenderness. No palpable abdominal aortic aneurysm. EXTREMITIES: Revealed no cyanosis, clubbing or edema. NEUROLOGIC: Awake, alert and oriented. SKIN: Warm and dry. No rash or cellulitis. PSYCHIATRIC: Normal as to mood and affect. LABORATORY DATA AND IMAGING: The chest x-ray shows minimal patchy infiltrate at the right base. This could represent an early pneumonia. EKG demonstrates regular sinus rhythm, inferior [place], poor R-wave progression. Nonspecific ST-wave changes. No change from a prior EKG. White count 24,800, hemoglobin 9.9, hematocrit 30.7, platelet count 219,000. PT 22.2, INR 1.91. Blood gases are noted. Electrolytes are normal. BUN 29, creatinine 1.6. Repeat creatinine 2.0 this morning. Troponins x3 sets are negative. BNP 5470. TSH is normal. T4 is normal. Dig is 0.9. Influenza is negative. IMPRESSION: Vicky Schuler is a 67-year-old woman with a febrile illness including shortness of breath, cough and diarrhea. This may represent pneumonia/sepsis versus a viral syndrome. She is admitted to telemetry. She has been cultured. She is being seen by Infectious Disease and by Pulmonary as well as by Renal. She is getting antibiotics. I will continue cardiac medications including amlodipine and digoxin. Warfarin can be given by INRs on a daily basis. I would hold Lasix. Monitor inputs and outputs. Check stool for occult blood. Review old records. I will get an echocardiogram given her history of a prior pericardial effusion and to evaluate current left ventricular function and the systolic murmur. I will follow along with you. I will make additional recommendations based on her clinical course. Sukhdev Harvey MD ROBIN
--- NOTE | 2017-12-09 14:33 | CP.PCM.PN ---
Subjective - Date & Time of Evaluation Date of Evaluation: 12/09/17 Time of Evaluation: 10:40 - Subjective Subjective: Still with cough, breathing is a little better, last nigh still had fever and chills but none this morning. Objective - Vital Signs/Intake and Output Vital Signs (last 24 hours): Temp Pulse Resp BP Pulse Ox 98.8 F 96 H 18 119/59 L 98 12/09/17 06:00 12/09/17 12:00 12/09/17 12:00 12/09/17 12:00 12/09/17 06:00 Intake and Output: 12/09/17 12/09/17 06:59 18:59 Intake Total 840 Output Total 2 Balance 838 - Medications Medications: Current Medications Acetaminophen (Tylenol 325mg Tab) 650 mg PO Q4H PRN PRN Reason: temp greater than 101 Last Admin: 12/08/17 23:50 Dose: 650 mg Amlodipine Besylate (Norvasc) 10 mg PO DAILY [facility] Last Admin: 12/09/17 10:40 Dose: 10 mg Arformoterol Tartrate (Brovana) 15 mcg IH [id number] [facility] Last Admin: 12/09/17 08:05 Dose: 15 mcg Budesonide (Pulmicort Respules) 0.5 mg IH [id number] [facility] Last Admin: 12/09/17 08:05 Dose: 0.5 mg Digoxin (Digoxin) 0.125 mg PO DAILY [facility] Last Admin: 12/09/17 10:40 Dose: 0.125 mg Gabapentin (Neurontin) 300 mg PO DAILY [facility] PRN Reason: Protocol Last Admin: 12/09/17 10:39 Dose: 300 mg Guaifenesin/Dextromethorphan (Robitussin Dm) 15 ml PO Q4H PRN PRN Reason: Cough Last Admin: 12/08/17 23:50 Dose: 15 ml Meropenem (Merrem Iv 1 Gm Premix) 50 mls @ 100 mls/hr IVPB Q12 [facility] PRN Reason: Protocol Last Admin: 12/09/17 10:41 Dose: 100 mls/hr Doxycycline Hyclate 100 mg/ (Sodium Chloride) 100 mls @ 100 mls/hr IVPB Q12 [facility] PRN Reason: Protocol Last Admin: 12/09/17 10:42 Dose: 100 mls/hr Linezolid (Zyvox 600mg/300ml D5w) 600 mg in 300 mls @ 200 mls/hr IVPB Q12 [facility] PRN Reason: Protocol Stop: 12/15/17 15:11 Last Admin: 12/08/17 22:19 Dose: 200 mls/hr Levothyroxine Sodium (Synthroid) 50 mcg PO DAILY [facility] Cyclosporine, Modified [Neoral] 100 Mg 100 mg PO DAILY [facility] Last Admin: 12/09/17 10:43 Dose: Not Given Lipase/Protease/Amylase [Amari Kramer 12 ,000 Units Capsule] 1 tab PO TID [facility] Last Admin: 12/09/17 10:42 Dose: Not Given Oseltamivir Phosphate (Tamiflu Susp) 30 mg PO DAILY [facility] PRN Reason: Protocol Last Admin: 12/09/17 10:40 Dose: 30 mg Pantoprazole Sodium (Protonix Ec Tab) 40 mg PO ACB [facility] Last Admin: 12/09/17 08:15 Dose: 40 mg Prednisone (Prednisone Tab) 5 mg PO DAILY [facility] Last Admin: 12/09/17 10:40 Dose: 5 mg Warfarin Sodium (Coumadin) 5 mg PO DAILY [facility] PRN Reason: Protocol Last Admin: 12/09/17 10:39 Dose: 5 mg - Labs Labs: 12/09/17 05:30 12/09/17 05:30 PT 22.2 SECONDS (9.4-12.5) H 12/09/17 05:30 INR 1.91 (0.93-1.08) H 12/09/17 05:30 APTT 33.0 Seconds (25.1-36.5) 12/08/17 13:20 - Constitutional Appears: Chronically Ill - Head Exam Head Exam: NORMAL INSPECTION - ENT Exam ENT Exam: Mucous Membranes Moist - Neck Exam Neck Exam: absent: Meningismus - Respiratory Exam Respiratory Exam: Decreased Breath Sounds - Cardiovascular Exam Cardiovascular Exam: +S1, +S2 - GI/Abdominal Exam GI & Abdominal Exam: Soft. absent: Tenderness Assessment and Plan - Assessment and Plan (Free Text) Plan: Assessment severe sepsis with acute renal failure due to right lower lobe healthcare- associated pneumonia with possible gram positive cocci and/or gram negative bacilli and/or atypical organisms, R/O Influenza history of sepsis due to left lower lobe pneumonia, community-acquired chronic bronchiectasis HTN SLE chronic renal failure history of DVT hypothyroidism COPD GERD anxiety disorder S/P cholecystectomy S/P breast surgery Plan continue Zyvox, Merrem and Doxycycline day 2; blood cx are negative, follow up sputum cx; PCT is elevated; follow up urine Legionella Ag; reviewed CXR will continue to monitor clinically discussed with Dr. Escalante
--- NOTE | 2017-12-09 16:39 | CON ---
DATE: 12/09/2017 PULMONARY CONSULTATION REFERRING PHYSICIAN: Dr. Cathy Escalante. REASON FOR CONSULTATION: Pneumonia. HISTORY OF PRESENT ILLNESS: The patient is a 67-year-old female, with past medical history significant for systemic lupus erythematosus, asthma, chronic kidney disease, deep venous thrombosis in the past (on Coumadin), thyroid disease, who presents to [facility] with main complaints of increasing shortness of breath at rest, dyspnea on exertion, cough and sputum production for the past four days. There is no history of chest pain, coughing up of blood, or chest pain - made worse with deep respirations. The patient did present to the hospital with fevers. No history of chills or infectious exposure. No history of night sweats, weight loss or appetite change prior to the above events. No history of leg or calf pains. No history of syncope or diaphoresis. No history of recent travel or trauma. REVIEW OF SYSTEMS: The patient has had diarrhea at home. No acute urinary symptoms. No new musculoskeletal complaints. Rest of the review of systems is negative. ALLERGIES: CIPROFLOXACIN AND IV DYE. SOCIAL HISTORY: Positive for tobacco, negative for alcohol. FAMILY HISTORY: No inheritable diseases. HOME MEDICATIONS: Include Advair, Digitek, Fosamax, Norvasc, Coumadin, Prilosec, Synthroid, Neurontin, Zanaflex, cyclosporine. SUBJECTIVE: The patient is not short of breath at rest. She is not using accessory muscles for breathing. PHYSICAL EXAMINATION VITAL SIGNS: Temperature is 98.8, pulse 70, respirations 19, blood pressure 103/50. Oxygen saturation on nasal cannula is 98%. HEENT: Normocephalic, atraumatic. NECK: No JVD. CARDIOVASCULAR: Systolic ejection murmur at the lower left sternal border. No S3 gallop. LUNGS: Crackles noted at the right base/right lower lobe. Minimal bilateral rhonchi. No wheezing. EXTREMITIES: No clubbing, cyanosis or edema. Calves are nontender to palpation. GASTROINTESTINAL: Abdomen is soft, nontender and nondistended. Bowel sounds are positive. SKIN: No acute rash. NEUROLOGIC: Exam limited at the present time. PERTINENT LABORATORY DATA: Chest x-ray was done yesterday and reviewed. There is a small patchy infiltrate at the medial right lung base. CBC: White count 24,800; hemoglobin 9.9; hematocrit 30.7; platelets of 219,000. Complete metabolic profile: BUN 29, creatinine 1.6. B-type natriuretic peptide 5470. Rest of the metabolic profiles within normal limits. IMPRESSION 1. Right lower lobe pneumonia. 2. Sepsis syndrome. 3. Acute bronchitis. 4. Asthma. 5. Systemic lupus erythematosus. PLAN: The patient presents to [facility] with a four-day history of worsening pulmonary symptoms. I did review the chest x-ray as above. There is a new patchy infiltrate noted at the medial right lung base. Berger cultures have been ordered and will be analyzed when feasible. The patient has been started on antibiotic therapy - as per Infectious Disease. Temperatures are decreasing. On physical exam, there is no significant bronchospasm noted. In addition, there is no significant alveolar-arterial gradient. Oxygen saturation on nasal cannula is 98%. I will continue with the current nebulizer treatments and inhaled steroids for now. Repeat morning labs are pending. I would also like to repeat a chest x-ray in a few days - for comparison. Clinical status of the patient is certainly improved - compared to the initial presentation. I will discuss the above with the attending physician. Thank you very much for this pulmonary consultation. Cornell Silva MD MTDD
--- NOTE | 2017-12-09 16:45 | HP ---
HISTORY OF PRESENT ILLNESS: A 67-year-old female presented to [facility] with a 3-day history of cough, malaise, and fever. PAST MEDICAL HISTORY: The patient has a past medical history of lupus nephritis, pneumonia, COPD, hepatopathy, DVT, cholecystectomy, chronic renal insufficiency, hypothyroid disease, osteopenia, paroxysmal AFib. ALLERGIES: CIPRO AND IV CONTRAST. SOCIAL HISTORY: She is a nonsmoker, nondrinker, nondrug user. REVIEW OF SYSTEMS: Multiple systems are reviewed, pertinent findings as noted in the physical exam. PHYSICAL EXAMINATION: VITAL SIGNS: The patient had a temperature of 102, pulse 94, she was tachycardic, blood pressure was 137/84, respiratory rate was 20, oxygen sat was 95% on 2 L. GENERAL: She claimed to have fatigued. NECK: Supple. LUNGS: Showed bibasilar rhonchi, diminished breath sounds. HEART: Rapid regular, S1 and S2 rhythm, with grade 2/6 systolic murmur. ABDOMEN: Soft with positive bowel sounds. EXTREMITIES: No evidence of edema. NEUROLOGIC: She is alert and oriented x3. LABORATORY DATA: She had a WBC of 27.4, RBC 3.45, hemoglobin 10.2, hematocrit 30.9, platelet count was 211. PT was 20.3 with an INR of 1.77, PTT of 33. Lactate was 1.1, follow up with 0.9. Chemistry showed sodium of 135, potassium 4, chloride 101. The BUN was 29, creatinine was 1.6. Calcium 8.8, phosphorus 3.4, magnesium of 1.9. LFTs and alkaline phosphatase were normal. Troponin was 0.03. BNP was 5470. TSH is 0.93. Her digoxin level was 0.9 and her influenza screen was negative. Chest x-ray was reported as right lower lobe infection with infiltrate. Upon arrival to the floor from the emergency room, the patient had some shaking chills with a high fever of 102. Request was made for an ICU evaluation. The patient received Lasix in the emergency room 20 mg. She received Maxipime in the emergency room and she received Zithromax 500 mg in the emergency room. PROBLEM LIST: A 67-year-old female with; 1. Fever, chills, pulmonary infiltrate, pneumonia, sepsis. 2. Renal insufficiency. 3. Lupus nephritis. 4. Hypothyroid disease. 5. History of deep venous thrombosis. 6. History of lumbar disk disease and neuropathy, history of hepatopathy in the past, history of colon polyps in the past, history of GERD. The patient will be evaluated by the night nurse in the ICU. Consults will be requested with Pulmonary, Infectious Disease, and Nephrology. Follow up labs. She had a WBC of 27.4, RBC 3.45, hemoglobin 10.2, hematocrit 30.9, platelet count 211. I will closely monitor the patient and await input from the individual consultants. Cathy Escalante MD
[2017-12-09] MEDS: Levothyroxine 50 MCG TAB PO SCH (16:46)
[2017-12-09] MEDS: Dextrose 5%/0.45% NS 1,000 ML IV SCH (19:14)
--- NOTE | 2017-12-09 23:01 | PN ---
DATE: 12/09/2017 SUBJECTIVE: A 67-year-old female, resting in bed this morning. Nursing staff relates that the patient had a quiet night. OBJECTIVE: GENERAL: She is alert and oriented x3. VITAL SIGNS: Her T-max is 101.5 rectally, her pulse is 86, her blood pressure is 116/65, with respiratory rate of 18. LUNGS: Show bilateral rhonchi with diminished breath sounds at the bases. HEART: In S1 and S2 rhythm. ABDOMEN: Soft, scaphoid with positive bowel sounds. EXTREMITIES: Show no evidence of edema. LABORATORY DATA: Shows a WBC of 24.8, RBC 3.41, hemoglobin 9.9, hematocrit 30.7, platelet count is 219. Her PT is 22.2 with an INR of 1.91. Chemistry showed normal electrolytes. BUN is 32 and the creatinine is 2. Her troponin is 0.04 and 0.04. Urine culture at this time shows no growth. Blood cultures at 24 hours are negative. MEDICATIONS: Patient is currently on doxycycline, meropenem, Tamiflu suspension, and Zyvox. She is also receiving Synthroid for hypothyroid disease too. She has lupus nephritis, on cyclosporine 175 mg daily. She is on Pulmicort and prednisone for her chronic obstructive pulmonary disease along with Brovana. She is being followed by Pulmonary. She is on morphine for a history of deep venous thrombosis. She is on digoxin for history of paroxysmal atrial fibrillation. She is on Creon supplement for history of gallstone disease. ASSESSMENT AND PLAN: Can be started on intravenous fluids with underlying renal disease and acute renal insufficiency. She has labs ordered for tomorrow by Renal. Coagulopathy panel was ordered by Cardiology. She is being followed by Pulmonary, Infectious Disease, Cardiology and Renal. Continue to follow the patient at this time. Further care pending input from the individual consultants. Cathy Escalante MD
[2017-12-09] MEDS: guaiFENesin DM 200 mg-20 mg/10 ml UD PO PRN (23:22)
--- NOTE | 2017-12-10 06:10 | CARD ---
APPROVED REPORT EXAM: Two-dimensional and M-mode echocardiogram with Doppler and color Doppler. INDICATION FEVER,SOB, H/O P EFFUSION 2D DIMENSIONS Left Atrium (2D)4.5 (1.6-4.0cm)IVSd1.6 (0.7-1.1cm) LVDd4.1 (3.9-5.9cm)LVOT Diameter1.7 (1.8-2.4cm) PWd1.4 (0.7-1.1cm)LVDs2.5 (2.5-4.0cm) FS (%) 37.6 %LVEF (%)68.2 (>50%) M-Mode DIMENSIONS Aortic Root3.00 (2.2-3.7cm)Aortic Cusp Exc.0.60 (1.5-2.0cm) Aortic Valve AoV Peak Soqhybkl653.0cm/sAoV VTI90.4cmAO Peak GR.94mmHg LVOT Peak Sslgujuk654.0cm/sLVOT VTI29.70cmAO Mean GR.53mmHg ANSLEY (VMAX)0.17lg1GBU (VTI)0.77ez7TR P 1/2 Turk271pc Mitral Valve MV E Cnjmzkwv125.0cm/sMV E Peak Gr.17mmHgMV A Cgtuergr002.0cm/s MV E Mean Gr.8mmHgMV [id number]/A ratio0.8 MVA (PHT)1.71cm2 TDI Lateral E' Peak V7.31cm/sMedial E' Peak V5.17cm/sE/Lateral E'19.4 E/Medial E'27.5 Pulmonary Valve PV Peak Izuvhhps565.0cm/sPV Peak Grad.6mmHg Tricuspid Valve TR Peak Ctinkfbn168ka/sRAP BSTSRBXL79wtFcPY Peak Gr.46mmHg [id number] LEFT VENTRICLE The left ventricle is normal size. There is moderate concentric left ventricular hypertrophy. The left ventricular function is normal. The left ventricular ejection fraction is within the normal range. There is normal LV segmental wall motion. Tissue Doppler imaging reveals moderate left ventricular diastolic dysfunction. RIGHT VENTRICLE The right ventricle is normal size. The right ventricular systolic function is normal. ATRIA The left atrium is mildly dilated. The right atrium is mildly dilated. The interatrial septum is intact with no evidence for an atrial septal defect. AORTIC VALVE The aortic valve is severely calcified. There is mild aortic regurgitation. There is severe valvular aortic stenosis. MITRAL VALVE Mitral annular calcification is moderate. Calcified mitral apparatus causing mitral stenosis. Mitral regurgitation is mild. There is moderate mitral valve stenosis. TRICUSPID VALVE The tricuspid valve is normal in structure. There is moderate tricuspid regurgitation. PULMONIC VALVE The pulmonary valve is normal in structure. GREAT VESSELS The aortic root is normal in size. The IVC is normal in size and collapses >50% with inspiration. PERICARDIAL EFFUSION There is no pleural effusion. There is no pericardial effusion. <Conclusion> Biarial enlargement. Moderate concentric LVH. Nayeli lLV size and systolic funciton. Severe . Midl AI. Moderate fucntional mitral stenosis due to calcified mitral apparatus. Moderate TR. Mild MR.
[2017-12-10 06:23] LABS: BASO # 0.03 K/mm3 (0.0-2.0); BASO % 0.1 % (0.0-3.0); EOS # 0.2 (0.0-0.7); GRAN # 17.84 (1.4-6.5); GRAN % 85.5 % (50.0-68.0); HEMOGLOBIN 9.7 g/dL (12.0-16.0); LYMPH # 1.1 (1.2-3.4); LYMPH % 5.1 % (22.0-35.0); MEAN CELL VOLUME 89.3 fl (80.0-105.0); MEAN CORPUSCULAR HEMOGLOBIN 29.6 pg (25.0-35.0); MEAN CORPUSCULAR HGB CONC 33.1 g/dl (31.0-37.0); MONO # 1.7 (0.1-0.6); MONO % 8.3 % (1.0-6.0); RBC 3.28 10^6/uL (3.5-6.1); RED CELL DISTRIBUTION WIDTH 14.4 % (11.5-14.5); WHITE BLOOD COUNT 20.9 10^3/ul (4.5-11.0)
[2017-12-10 06:36] LABS: IRON 11 ug/dL (45-180)
[2017-12-10 06:42] LABS: ALB/GLOB RATIO 0.7 (1.1-1.8); ALT/SGPT 21 U/L (7-56); AST/SGOT 49 U/L (14-36); BLOOD UREA NITROGEN 43 mg/dL (7-21); CALCIUM 8.3 mg/dL (8.4-10.5); GFR AFRICAN-AMERICAN 32; GFR NON-AFRICAN AMERICAN 27; INR 2.75 (0.93-1.08); PROTHROMBIN TIME 32.3 SECONDS (9.4-12.5); URIC ACID 9.7 mg/dL (2.5-6.2)
--- NOTE | 2017-12-10 06:43 | CON ---
DATE: 12/09/2017 The patient is admitted for Dr. Cathy Escalante. REFERRING MD: Cathy Escalante MD. REASON FOR CONSULTATION: Evaluation of the patient known to be with a history of lupus nephritis stage V membranous who presents with an elevated BUN and creatinine above baseline levels in the setting of a right lower lobe pneumonia. HISTORY OF PRESENT ILLNESS: The patient is a 67-year-old female with a history of chronic kidney disease stage II. Baseline creatinine in the 1.2, 1.3 range. No proteinuria. Patient is maintained on low-dose prednisone and cyclosporine for treatment of lupus membranous nephritis stage V. History of hypertension, history of DVT, history of a circulating lupus anticoagulant; history of paroxysmal atrial fibrillation, on Coumadin therapy; hyperlipidemia, history of valvular heart disease, /AI/MR/TR/PI. History of elevated liver enzymes, nonspecific and resolved. History of LS spine degenerative disk disease and history of osteoporosis. Patient states for the last 4 days she has had cough with productive sputum. She states decreased appetite with weight loss. She admits to fever and chills. Patient's T-max has been 101.8. Patient is currently receiving antibiotic therapy for her newly diagnosed right lower lobe pneumonia. Of concern from a renal standpoint is a creatinine on admission was 29 and 1.6; today it is 32 and 2.0. Patient states she feels mildly dehydrated. She is not drinking significant amount of fluid. She does remain on prednisone and cyclosporin for her lupus/lupus nephritis with excellent results over the years. We are asked to evaluate the patient for her elevated BUN and creatinine in the setting of a right lower lobe pneumonia. PAST MEDICAL HISTORY: Significant for chronic kidney disease stage II, baseline creatinine 1.2, history of proteinuria secondary to SLE, membranous stage V lupus glomerulonephritis resolved with cyclosporin therapy and low-dose prednisone. History of hypertension. History of DVT, circulating lupus anticoagulant, history of valvular heart disease, /AI/ MR/TR/PI. History of atrial fibrillation on chronic anticoagulation, history of LS spine degenerative disk disease and osteoporosis. MEDICATIONS AT HOME: Include that of Advair Diskus, Digitek, Flomax, Norvasc, Coumadin, prednisone, potassium supplements, Prilosec, magnesium oxide, Creon 12,000 units capsule, Levoxyl, Neurontin, Zanaflex and cyclosporin. ALLERGIES: THE PATIENT IS ALLERGIC TO CIPRO AND IV CONTRAST. MEDICATIONS PRESENTLY IN HOSPITAL: Include that of Brovana, Coumadin, Cyclosporine, digoxin, doxycycline, meropenem, Creon, Neurontin, Norvasc, prednisone, Protonix, Pulmicort Respules, Robitussin DM, Synthroid, Tamiflu, Tylenol and Zyvox. SOCIAL HISTORY: No history of cigarette smoking. No history of alcohol use. FAMILY HISTORY: Negative for chronic kidney disease or lupus. REVIEW OF SYSTEMS: GENERAL: Patient states appetite has been decreased for last 3 to 4 days with perhaps 3 to 4 pounds weight loss, likely secondary to pneumonia. CARDIAC: History of valvular heart disease. Echocardiogram done, results pending. GI: No nausea. No vomiting. No diarrhea. No abdominal pain. No constipation. : History of chronic kidney disease stage II. No history of UTIs. 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 ENDOCRINE: No diabetes. MUSCULOSKELETAL: Low back pain secondary to degenerative disk disease. NEURO: No history of TIA, seizures or syncope. HEME/ONC: History of anemia likely secondary to chronic medical issues. PSYCHIATRIC: History is negative. PHYSICAL EXAMINATION: GENERAL: Patient is currently seen on telemetry. She is sitting up in bed. She states her breathing has been more comfortable post inhalation therapy. She remains on antibiotic therapy. VITAL SIGNS: Blood pressure 116/65, temperature presently 101.4, pulse is 86 and respiratory rate is 18. HEENT: Exam shows her to be normocephalic, atraumatic. Conjunctivae are pale. Sclerae nonicteric. Pupils are equal, reactive to light and accommodation. Extraocular muscles are intact. Posterior pharynx is normal. NECK: Supple. No lymphadenopathy. No bruits. No thyromegaly. No neck vein distention. CHEST: Decreased breath sounds at her right base. Scattered rhonchi. No rales or wheezing. CARDIOVASCULAR: Shows a regular rate and rhythm with holosystolic murmur over the left lower sternal border. /AI/MR/TR/PI. No S3. No S4. ABDOMEN: Soft. Nontender. No masses. No hepatosplenomegaly. Normal bowel sounds. No rebound, no guarding. BACK: No CVAT. No spinal tenderness. EXTREMITIES: Show no cyanosis, clubbing or edema of the lower extremity. Distal lower extremity pulses 2+ bilaterally. NEURO: Shows her to be alert, oriented x3. No gross focal motor or sensory deficits noted. LABORATORY DATA AND IMAGING: Admitting chest x-ray shows right lower lobe infiltrate. Admitting EKG shows a normal sinus rhythm. Echocardiogram was done, results are pending. In the past, patient has had aortic stenosis, aortic insufficiency, mitral regurgitation, tricuspid regurgitation and pulmonic insufficiency. Labs: CBC, white blood cell count currently is 24.8. Hemoglobin down from 10.2 to 9.9. Platelet count is 219,000. Coags: PT today is 23.2 with an INR of 1.99. Blood gas 7.53 with a pCO2 of 27 and a pO2 of 64. Chemistries today showed normal electrolytes. BUN 32 with a creatinine of 2.0 from a BUN of 29 and creatinine of 1.6 on admission. Her baseline creatinine is in the 1.3 range. Calcium is 8.3. Phosphorus 3.4. Magnesium level is 1.9. Liver enzymes remain normal. BNP was 5470 on admission. TSH level was normal. Albumin level was 3.0. Urinalysis is pending. Toxicology, digoxin level was 0.9. Serologies, urine for Legionella is negative. Influenza A and B are negative. ASSESSMENT: 1. Acute renal failure superimposed on chronic kidney disease stage II. Her baseline creatinine is in the 1.2 to 1.3 range, this is likely in the setting of pneumonia, volume depletion, perhaps dehydration. Patient has no evidence for congestive heart failure and I will start the patient on IV fluid hydration. This will likely help improve her BUN and creatinine. Patient does have a history of underlying systemic lupus erythematosus with membranous lupus glomerulonephritis stage V. Patient had been on low-dose prednisone and oral cyclosporin for many years. Her proteinuria had resolved and her renal parameters have remained in the low one range. She will continue these medications. We will continue to monitor labs closely in light of her elevated BUN and creatinine. We will be cautious not to over hydrate her. 2. Right lower lobe pneumonia. Patient is on empiric antibiotic therapy being followed by ID. The patient is seen by Pulmonary. 3. History of systemic lupus erythematosus. Patient follows with Dr. Mann in the outpatient setting. She has membranous stage V lupus glomerulonephritis. She will continue low-dose prednisone and cyclosporin therapy. Cyclosporin levels have always been in the normal range on the present dose. 4. History of chronic anticoagulation secondary to lupus circulating anticoagulant and atrial fibrillation. Patient will continue on Coumadin therapy. Past history of deep vein thrombosis. 5. History of hyperlipidemia. Patient had been on statin therapy in the past. This was discontinued when she had a mild elevation of her liver enzymes. 6. History of valvular heart disease, aortic stenosis, aortic insufficiency, mitral regurgitation, tricuspid regurgitation, pulmonic insufficiency. Repeat echocardiogram is pending, ordered by Dr. Harvey. 7. History of lumbar sacral spine degenerative disk disease. 8. History of hypothyroidism, stable on thyroid replacement therapy. 9. History of osteoporosis. Patient had been on calcium and vitamin D supplementation. PLAN: 1. Continue to monitor the patient on telemetry. 2. We will start the patient on IV fluid hydration in light of her rising BUN and creatinine. 3. Obtain urinalysis. The patient has had no protein on outpatient urine. 4. Continue non-nephrotoxic antibiotic therapy for her likely bacterial right lower lobe pneumonia. 5. Patient was restarted back on cyclosporin in a formulation that is available at the pharmacy. 6. Patient to continue low-dose prednisone. 7. I do not feel that the patient is severely immunocompromised by this regimen that these medications need to be adjusted or discontinued. 8. Accurate I's and O's and daily labs. 9. Continue to monitor PT/INR on a regular basis as the patient is on Coumadin therapy. 10. Continue to follow up with Cardiology, ID and Pulmonary. 11. Case was discussed with Dr. Escalante on the day of admission. Thank you for letting me partake and share in the care of our mutual patient. Nikolai Tim MD MTDLevi
[2017-12-10 06:51] LABS: % IRON SATURATION 5 % (20-55); TOTAL IRON BINDING CAPACITY 227 ug/dL (265-497)
--- NOTE | 2017-12-10 07:44 | PN ---
DATE: PULMONARY NOTE SUBJECTIVE: The patient appears comfortable this morning. She is not short of breath at rest. OBJECTIVE VITAL SIGNS: Temperature is temperature is 101.0, pulse 92, respirations 18, blood pressure 106/53. Oxygen saturation on nasal cannula is 96%. HEENT: Normocephalic, atraumatic. NECK: No JVD. CARDIOVASCULAR: Systolic ejection murmur at the lower left sternal border. No S3 gallop. LUNGS: Crackles noted at the right lower lobe. Mild bilateral rhonchi. No wheezing. EXTREMITIES: No clubbing, cyanosis or edema. Calves are nontender to palpation. GASTROINTESTINAL: Abdomen is soft, nontender and nondistended. Bowel sounds are positive. SKIN: No acute rash. NEUROLOGIC: Exam limited at the present time. PERTINENT LABORATORY DATA: CBC: White count 20.9, hemoglobin 9.7, hematocrit 29.3, platelets of 225,000. IMPRESSION 1. Right lower lobe pneumonia. 2. Sepsis syndrome. 3. Acute bronchitis. 4. Asthma. 5. Systemic lupus erythematosus. PLAN: The patient appears more comfortable this morning. She is not short of breath at rest. She does state to feeling better overall. However, she does admit to a persistent cough. On physical exam, mild bronchospasm remains. I will continue with the current nebulizer treatments, but change to low-dose intravenous steroids this morning. I would continue with the antibiotic coverage as per Infectious Disease. Input by Dr. Parsons is noted. The patient remains with temperatures. However, the leukocytosis is much improved/decreased. Inputs by Renal and Cardiology are also noted. Clinical status of the patient is improved - compared to her initial presentation. However, the patient's overall status/prognosis does remain guarded. I will discuss the above with Dr. Escalante. Cornell Silva MD ROBIN
[2017-12-10] MEDS: Pantoprazole 40 mg EC Tab PO SCH (08:15)
[2017-12-10] MEDS: Arformoterol 15 mcg/2 ml Inh Sol IH SCH ×2 (08:20→19:45)
[2017-12-10] MEDS: Budesonide 0.5 mg/2 ml Inhal Susp UD IH SCH ×2 (08:20→19:45)
[2017-12-10 08:32] LABS: URINE BILIRUBIN NEGATIVE (NEGATIVE); URINE BLOOD NEGATIVE (NEGATIVE); URINE GLUCOSE (UA) NEGATIVE (NEGATIVE); URINE LEUKOCYTE ESTERASE NEGATIVE Leu/uL (NEGATIVE); URINE PROTEIN 30 mg/dL (<30 mg/dL); URINE UROBILINOGEN 0.2 E.U./dL (<1 E.U./dL)
[2017-12-10 08:38] LABS: URINE APPEARANCE SL CLOUDY (CLEAR); URINE COLOR DARK YELLOW (YELLOW)
[2017-12-10 08:41] LABS: URINE RBC 0 - 2 /hpf (0-2)
[2017-12-10 08:42] LABS: URINE AMORPHOUS SEDIMENT FEW; URINE BACTERIA MANY (NEG); URINE COARSE GRANULAR CAST TRACE /hpf (0-2); URINE FINE GRANULAR CAST 0 - 2 /hpf (0-2)
[2017-12-10 08:43] LABS: CREATININE,RANDOM URINE 321 mg/dL; URINE HYALINE CAST 0 - 2 /hpf
[2017-12-10] MEDS: Meropenem IV 1 gm in NS 50 ML IVPB SCH ×2 (09:07→22:27)
[2017-12-10] MEDS: Linezolid 600 mg in D5W 300 ml 600 MG/300 ML BAG IVPB SCH ×2 (09:07→22:30)
[2017-12-10] MEDS: Levothyroxine 50 MCG TAB PO SCH (09:08)
[2017-12-10] MEDS: MethylPREDNISolone 40 mg Vial IVP SCH ×2 (09:08→22:28)
[2017-12-10] MEDS: Digoxin 125 mcg (0.125 mg) Tab PO SCH (09:09)
[2017-12-10] MEDS: LIPASE PO SCH ×3 (09:11→17:23)
[2017-12-10] MEDS: AMYLASE PO SCH ×3 (09:11→17:23)
[2017-12-10] MEDS: PROTEASE PO SCH ×3 (09:11→17:23)
[2017-12-10] MEDS: Dextrose 5%/0.45% NS 1,000 ML IV SCH (09:12)
[2017-12-10] MEDS ORDERED: Potassium Chloride 20 mEq/15 ml LIQ UD PO STA (09:47)
[2017-12-10] MEDS: Oseltamivir 6 MG/ML PO SCH (10:41)
[2017-12-10 12:11] LABS: FOLATE > 20.0 ng/mL
--- NOTE | 2017-12-10 12:53 | PN ---
DATE: 12/10/2017 SUBJECTIVE: The patient is seen lying in bed on telemetry. She is feeling somewhat better. Her cough is improved. Current temperature 99.7. CURRENT MEDICATIONS: Include Brovana, Coumadin, digoxin 0.125 mg daily, doxycycline, Creon, meropenem, Neurontin, Norvasc 10 mg daily, Protonix, Pulmicort inhaler, Robitussin, cyclosporin, Solu-Cortef, Synthroid, Tamiflu and Zyvox. OBJECTIVE: GENERAL: She is a middle-aged woman, who appears comfortable at rest. VITAL SIGNS: Her blood pressure is 106/52 with a pulse of 90 and sinus, respirations are 16, temperature 99.7. HEENT: No JVD. CHEST: Bilateral rhonchi with crackles at the right base. HEART: PMI displaced laterally with a mid peak systolic murmur present at the base. ABDOMEN: Soft, nontender, normoactive bowel sounds. EXTREMITIES: No edema. DIAGNOSTIC DATA: White count 20.9, hemoglobin and hematocrit 9.7 and 29.3 with platelet count of 225,000. INR 2.75, potassium 3.5, BUN and creatinine 43 and 1.9. Echocardiogram reveals moderate concentric LVH with normal LV size and systolic function, biatrial enlargement is noted. Severe aortic stenosis with mitral apparatus calcification with resultant moderate mitral stenosis and moderate tricuspid regurgitation, mild mitral regurgitation. IMPRESSION: 1. Pneumonia, clinically improving. 2. Severe aortic stenosis. 3. Mixed mitral valve disease secondary to calcification. 4. Rest of problems as noted. RECOMMENDATIONS: Continued antibiotic therapy and bronchodilator therapy is advised. The rest of the medications should continue unchanged as well. Eventual evaluation of her valvular heart disease will need to be addressed upon resolution of her current acute illness. We will continue to follow and make further recommendations as appropriate. Ry Arroyo MD
--- NOTE | 2017-12-10 13:51 | PN ---
DATE: SUBJECTIVE: The patient is sitting in the chair in the room. She states that she did not sleep well last night. Her nurses relate that there were no particular problems during the night. PHYSICAL EXAMINATION: VITAL SIGNS: Show a temperature of 100.1, her pulse is 92, her blood pressure is 106/53, respiratory rate is 18, oxygen sat is 96% on room air. LUNGS: Show bibasilar rhonchi with diminished breath sounds. HEART: S1 and S2, grade 3/6 systolic murmur. ABDOMEN: Soft with positive bowel sounds. EXTREMITIES: Show no evidence of edema. LABORATORY DATA: Shows WBC of 20.9, RBC of 3.28, hemoglobin 9.7, hematocrit of 29.3, and platelet count is 225. Her PT is 32.3 with an INR of 2.75. Chemistry shows sodium of 136, potassium 3.5, chloride 102, CO2 of 24. BUN is 43, creatinine is 1.9. Her uric acid is 9.7, calcium is 8.3. Her serum iron is 11, her TIBC is 227, her percent saturation is 5%. Her AST is 49. MEDICATIONS: The patient is currently on Brovana, Coumadin, IV fluids, doxycycline, Creon, meropenem, Neurontin, Norvasc, Protonix, Pulmicort, and Robitussin as well as Sandimmune cyclosporine, Solu-Medrol IV, Synthroid, Tamiflu suspension, Tylenol, and Zyvox. She is currently being followed by Cardiology, Infectious Disease, and pulmonary. She has pneumonia in the right lung, renal insufficiency with an acute exacerbation, lupus nephritis, COPD, hypothyroid disease with history of hepatopathy, anemia iron deficiency, known history of DVTs, and valvular heart disease. She is also being followed by Cardiology. We will check with stool guaiacs, GI followup on the patient. Continue the current management based upon the recommendations of the individual consultants and follow up the patient's labs. Cathy Escalante MD
--- NOTE | 2017-12-10 16:51 | CP.PCM.PN ---
Subjective - Date & Time of Evaluation Date of Evaluation: 12/10/17 Time of Evaluation: 10:20 - Subjective Subjective: Patient still having cough even this morning, still had fevers this morning but no chills or rigors. Objective - Vital Signs/Intake and Output Vital Signs (last 24 hours): Temp Pulse Resp BP Pulse Ox 99.7 F H 92 H 18 106/53 L 96 12/10/17 06:54 12/10/17 06:00 12/10/17 06:00 12/10/17 06:00 12/10/17 06:00 Intake and Output: 12/10/17 12/10/17 06:59 18:59 Intake Total 1580 Balance 1580 - Medications Medications: Current Medications Acetaminophen (Tylenol 325mg Tab) 650 mg PO Q4H PRN PRN Reason: temp greater than 101 Last Admin: 12/10/17 05:54 Dose: 650 mg Amlodipine Besylate (Norvasc) 10 mg PO DAILY [facility] Last Admin: 12/09/17 10:40 Dose: 10 mg Arformoterol Tartrate (Brovana) 15 mcg IH [id number] [facility] Last Admin: 12/10/17 08:20 Dose: 15 mcg Budesonide (Pulmicort Respules) 0.5 mg IH [id number] [facility] Last Admin: 12/10/17 08:20 Dose: 0.5 mg Cyclosporine (Sandimmune) 75 mg PO HS [facility] Last Admin: 12/09/17 23:14 Dose: 75 mg Cyclosporine (Sandimmune) 100 mg PO DAILY [facility] Digoxin (Digoxin) 0.125 mg PO DAILY [facility] Last Admin: 12/09/17 10:40 Dose: 0.125 mg Gabapentin (Neurontin) 300 mg PO DAILY [facility] PRN Reason: Protocol Last Admin: 12/09/17 10:39 Dose: 300 mg Guaifenesin/Dextromethorphan (Robitussin Dm) 15 ml PO Q4H PRN PRN Reason: Cough Last Admin: 12/09/17 23:22 Dose: 15 ml Meropenem (Merrem Iv 1 Gm Premix) 50 mls @ 100 mls/hr IVPB Q12 [facility] PRN Reason: Protocol Last Admin: 12/09/17 23:19 Dose: 100 mls/hr Doxycycline Hyclate 100 mg/ (Sodium Chloride) 100 mls @ 100 mls/hr IVPB Q12 [facility] PRN Reason: Protocol Last Admin: 12/09/17 20:20 Dose: 100 mls/hr Linezolid (Zyvox 600mg/300ml D5w) 600 mg in 300 mls @ 200 mls/hr IVPB Q12 [facility] PRN Reason: Protocol Stop: 12/15/17 15:11 Last Admin: 12/09/17 23:50 Dose: 200 mls/hr Dextrose/Sodium Chloride (Dextrose 5%/0.45% Ns 1000 Ml) 1,000 mls @ 75 mls/hr IV .[id number] [facility] Last Admin: 12/09/17 19:14 Dose: 75 mls/hr Levothyroxine Sodium (Synthroid) 50 mcg PO DAILY [facility] Last Admin: 12/09/17 16:46 Dose: 50 mcg Methylprednisolone (Solu-Medrol) 20 mg IVP Q12 [facility] Lipase/Protease/Amylase [Creon Dr 12 ,000 Units Capsule] 1 tab PO TID [facility] Last Admin: 12/09/17 18:49 Dose: Not Given Oseltamivir Phosphate (Tamiflu Susp) 30 mg PO DAILY [facility] PRN Reason: Protocol Last Admin: 12/09/17 10:40 Dose: 30 mg Pantoprazole Sodium (Protonix Ec Tab) 40 mg PO ACB [facility] Last Admin: 12/10/17 08:15 Dose: 40 mg Warfarin Sodium (Coumadin) 5 mg PO DAILY [facility] PRN Reason: Protocol Last Admin: 12/09/17 10:39 Dose: 5 mg - Labs Labs: 12/10/17 06:00 12/10/17 06:00 PT 32.3 SECONDS (9.4-12.5) H 12/10/17 06:00 INR 2.75 (0.93-1.08) H 12/10/17 06:00 APTT 33.0 Seconds (25.1-36.5) 12/08/17 13:20 - Constitutional Appears: Chronically Ill - Head Exam Head Exam: NORMAL INSPECTION - Neck Exam Neck Exam: absent: Meningismus - Respiratory Exam Respiratory Exam: Decreased Breath Sounds, Rales (at the bases, right greater than left) - Cardiovascular Exam Cardiovascular Exam: +S1, +S2 - GI/Abdominal Exam GI & Abdominal Exam: Soft. absent: Tenderness Assessment and Plan - Assessment and Plan (Free Text) Plan: Assessment severe sepsis with acute renal failure due to right lower lobe healthcare- associated pneumonia with possible gram positive cocci and/or gram negative bacilli and/or atypical organisms, R/O Influenza history of sepsis due to left lower lobe pneumonia, community-acquired chronic bronchiectasis HTN SLE chronic renal failure history of DVT hypothyroidism COPD GERD anxiety disorder S/P cholecystectomy S/P breast surgery Plan continue Zyvox, Merrem and Doxycycline day 3; blood cx are negative, follow up sputum cx; PCT is elevated; follow up urine Legionella Ag; reviewed CXR will continue to monitor clinically patient also on Tamiflu (Day 3) discussed with Dr. Escalante
[2017-12-10] MEDS: POTASSIUM CHLORIDE IV SCH (17:58)
[2017-12-10] MEDS: [UNRECOGNIZED DRUG - OTHER] IV SCH (17:58)
[2017-12-10] MEDS: DEXTROSE IV SCH (17:58)
--- NOTE | 2017-12-10 22:32 | PN ---
DATE: SUBJECTIVE: Patient is currently seen lying comfortable in bed, IV fluids are infusing. She remains on antibiotic therapy for her right lower lobe pneumonia. She continues to have fevers. MEDICATIONS: Medication list reviewed. Patient is on Creon, Brovana, Coumadin, D5 half-normal saline at 75 mL an hour, digoxin, doxycycline, meropenem, Neurontin, Norvasc, Protonix, Pulmicort, Robitussin, cyclosporin, Solu-Medrol, Synthroid, Tamiflu, Tylenol p.r.n. and Zyvox. OBJECTIVE: INTAKE AND OUTPUT: Intake 1580; output, not charted. VITAL SIGNS: Blood pressure 102/61, temperature 98.4 with a T-max of 101 degrees earlier today. Pulse 79. Respiratory rate is 20. HEENT: Shows her to be normocephalic, atraumatic. Conjunctivae are pale. Sclerae are nonicteric. NECK: Supple. No neck vein distention. CHEST: Decreased breath sounds at the right base. Scattered rhonchi. No rales or wheezing. CARDIOVASCULAR: Shows a regular rate and rhythm with /AI/MR/TR/MS/PI. No S3. No S4. ABDOMEN: Soft. Bowel sounds normal. No rebound, no guarding, no masses. BACK: No CVAT. No spinal tenderness. EXTREMITIES: Show no lower extremity cyanosis, clubbing or edema. LABORATORY DATA AND IMAGING STUDIES: CBC today, white blood cell count down to 20.9 from 27.4. Hemoglobin 9.7. Platelet count is 225,000. Coags, PT of 32.3 with an INR of 2.75, on anticoagulation. Chemistries, potassium 3.5, slightly lower today. BUN 43 with a creatinine of 1.9. Again, patient's baseline creatinine is in the 1.2 to 1.3 range. Glucose 94. Uric acid 9.7. Calcium 8.3, phosphorus normal at 3.2, magnesium 1.8. Iron saturations are extremely low at 5%. Mild elevation of her AST at 49. Albumin is 3.0. TSH level was normal. Urine showed a urine sodium of 9 with a urine creatinine of 321 consistent with renal hypoperfusion, fractional excretion of sodium is less than 1%. Microbiology, blood cultures are negative at 48 hours. Urine cultures are negative. ASSESSMENT: 1. Acute renal failure superimposed on chronic kidney disease, patient's fractional excretion of sodium is less than 1%. Urine sodium is low indicative of renal hypoperfusion. I will continue IV fluid hydration, which will likely improve renal perfusion and improve glomerular filtration rate, which would allow the creatinine to fall to normal. 2. Baseline chronic kidney disease, stage II, in the setting of membranous lupus glomerulonephritis , stage V, biopsy proven. Patient responded best to steroids and cyclosporin. She has been maintained on cyclosporin for a lengthy period of time. She had severe, debilitating edema prior to starting cyclosporin. 3. Right lower lobe pneumonia. Patient will continue empiric antibiotic therapy. All cultures are negative. Patient has been seen by Pulmonary and she had been started on steroids, intravenous Solu-Medrol. Renal hypoperfusion. 4. Continue non-nephrotoxic antibiotic therapy for her likely bacterial right lower lobe pneumonia. Influenza titers were negative. 5. Continue patient on cyclosporin at her outpatient dose. Cyclosporin level was pending. 6. Try and taper intravenous steroids back to her low dose p.o. prednisone when okay with Pulmonary. 7. Continue to monitor accurate Is and Os. 8. Continue to follow daily PT/INR. 9. Further Cardiology followup regarding her severe aortic stenosis. 10. We will dose the patient with intravenous Venofer and with her hemoglobin of less than 10, I will give her one dose of Aranesp. Nikolai Tim MD
[2017-12-11] MEDS: guaiFENesin DM 200 mg-20 mg/10 ml UD PO PRN ×3 (00:21→22:51)
--- NOTE | 2017-12-11 05:03 | CON ---
DATE: 12/10/2017 REASON FOR CONSULTATION: History of anemia. HISTORY OF PRESENT ILLNESS: This 67-year-old patient with past medical history of SLE, compression fracture of the spine, history of elevated LFTs, chronic pancreatitis, status post ERCP, sphincterotomy, cholecystectomy, probable lupus pancreatitis, history of fluctuating LFTs in the past, status post liver biopsy. The patient was evaluated in [place] before, history of DVT, on Coumadin, history of hypercoagulable state, AFib, came to the emergency room on 12/08/2017 with shortness of breath, cough. The patient also had some episodes of loose bowel movement, reduced p.o. intake. She was feeling week. The patient was found to have right lower lobe infiltrate pneumonia. Flu test was negative. The patient had a fever of 102. The patient is also immunosuppressed on prednisone.and cyclosporine Now, she is being treated with IV antibiotics, feeling slightly better. The patient was known to be anemic. GI consult was requested to evaluate this. The patient has a history of colon polyps, had multiple polyps removed in 2014, had hemoclips applied before that, had a repeat colonoscopy done in 2015. No polyps were found at that time. She was found to have diverticulosis and hemorrhoids. The patient had a colon polyp, had gastric polyps in the past, had hyperplastic polyp, ulcerated, status post polypectomy, hemoclips applied. The patient was seen in the office last month. The patient was planned to have an elective colonoscopy to further evaluate the anemia. The patient had a history of weight loss, had a CT scan done of the chest, abdomen, and pelvis last month and was found to have only compression fracture. No acute pathology or malignancy, noticed to have only compression fracture of the L3. This admission, the patient's hemoglobin on admission was 10.2, slowly dropped to 9.7. No obvious bleeding per rectum or melena. PAST MEDICAL HISTORY: Other past medical history is significant as above, hyperthyroidism, dyslipidemia, asthma, compression fracture of the spine. SURGICAL HISTORY: Status post cholecystectomy. ALLERGIES: TO CIPRO AND IV CONTRAST. SOCIAL HISTORY: Denies smoking. Denies alcohol. REVIEW OF SYSTEMS: Positive as above. Other systems reviewed, negative. PHYSICAL EXAMINATION: GENERAL: The patient is lying on the bed, not in acute distress. VITAL SIGNS: Pulse 80, respiration is 19, blood pressure 119/56, temperature is 98.1. HEENT: Atraumatic, anicteric. NECK: Supple. HEART: S1 and S2 heard. LUNGS: Bilateral air entry present. Few scattered rhonchi present. There are few crackles present in the right lung base. ABDOMEN: Soft. There is no mass palpable. No tenderness. EXTREMITIES: No edema. No cyanosis. NEUROLOGIC: Alert and oriented. Moves all the extremities. LABORATORY DATA: Hemoglobin 9.7, hematocrit 29.3, WBC is 20.9, platelets 225. Chemistry shows BUN 43, creatinine 1.9. Iron study shows iron 11%, TIBC 27 that is also low, transferrin saturation 12, slightly low. The patient's B12 levels and folate levels were normal. IMPRESSION: 1. This 67-year-old patient was admitted with pneumonia, found to have an anemia with a slight drop in blood count and history of colon polyps before. Gastroenterology consult was requested to further evaluate. This patient had, as an outpatient, CT of the abdomen and pelvis and chest done before. There is no obvious mass lesions noticed. The patient is due to have colonoscopy and endoscopy as an outpatient to further evaluate as the patient did have multiple polyps in the past including tubulovillous adenoma, multiple flat polyps in the right colon; however, the colonoscopy done in 2016 did not reveal any lesions, but in view of this anemia and history of weight loss, In view of immunosuppression it is reasonable to consider colonoscopy. 2. The patient now has been admitted with pneumonia, would not contemplate the risk of any procedure which involved anesthesia, risk of worsening of the pneumonia is also a possibility to be considered unless the patient has an active bleeding or significant drop in blood count. 3. The patient is also on cyclosporin for lupus nephritis and prednisone if she is immunocompromised. The reasonable thing is to wait further to improve clinically from the pneumonia and consider colonoscopy electively. 4. Anemia. The patient is on prednisone. The patient is also on Fosamax. Would continue omeprazole for the time being as the patient is on. Close followup of the hemoglobin and hematocrit. Consider early endoscopic evaluation, colonoscopy once the patient recovers from acute episode, unless there is an active ongoing bleeding, which requires therapeutic intervention. 5. Other comorbidities include paroxysmal atrial fibrillation, history of deep venous thrombosis, pulmonary embolism, history of chronic kidney disease, lupus nephritis. Thank you very much for allowing us to participate in the care of the patient. We will continue to closely follow up her care and suggest further management based on the clinical course. Tiny Vergara MD ROBIN
[2017-12-11] MEDS: DEXTROSE IV SCH ×2 (06:26→16:52)
[2017-12-11] MEDS: [UNRECOGNIZED DRUG - OTHER] IV SCH ×2 (06:26→16:52)
[2017-12-11] MEDS: POTASSIUM CHLORIDE IV SCH ×2 (06:26→16:52)
[2017-12-11 06:53] LABS: BASO # 0.01 K/mm3 (0.0-2.0); BASO % 0.1 % (0.0-3.0); GRAN # 12.43 (1.4-6.5); HEMOGLOBIN 9.8 g/dL (12.0-16.0); LYMPH # 0.8 (1.2-3.4); LYMPH % 5.8 % (22.0-35.0); MEAN CELL VOLUME 88.7 fl (80.0-105.0); MEAN CORPUSCULAR HEMOGLOBIN 29.2 pg (25.0-35.0); MEAN CORPUSCULAR HGB CONC 32.9 g/dl (31.0-37.0); MEAN PLATELET VOLUME 10.3 fl (7.0-11.0); MONO # 0.3 (0.1-0.6); MONO % 2.1 % (1.0-6.0); PLATELET COUNT 259 10^3/uL (120.0-450.0); RBC 3.36 10^6/uL (3.5-6.1); RED CELL DISTRIBUTION WIDTH 14.2 % (11.5-14.5); WHITE BLOOD COUNT 13.5 10^3/ul (4.5-11.0)
[2017-12-11] MEDS: Budesonide 0.5 mg/2 ml Inhal Susp UD IH SCH ×2 (07:24→19:57)
[2017-12-11] MEDS: Arformoterol 15 mcg/2 ml Inh Sol IH SCH ×2 (07:24→19:57)
[2017-12-11] MEDS: Levothyroxine 50 MCG TAB PO SCH (07:39)
[2017-12-11 07:47] LABS: ALB/GLOB RATIO 0.7 (1.1-1.8); ALBUMIN 2.9 g/dL (3.0-4.8); CALCIUM 8.1 mg/dL (8.4-10.5)
[2017-12-11 08:12] LABS: BAND 1 % (0-2); LYMPHOCYTE 9 % (22.0-35.0); MONOCYTE 2 % (1.0-6.0); NEUTROPHIL 88 % (50.0-70.0); PLATELET ESTIMATE NORMAL (NORMAL)
[2017-12-11] MEDS ORDERED: Levothyroxine 50 MCG TAB PO SCH (09:07)
--- NOTE | 2017-12-11 09:44 | CP.PCM.PN ---
Subjective - Date & Time of Evaluation Date of Evaluation: 12/11/17 Time of Evaluation: 07:00 - Subjective Subjective: Stable on 2R. She feels much better. No CP or SOB. V/S noted. RSR PE: Lungs: clear Cor.: MONO Abd.: soft Ext.: no edema Neuro.: alert Labs noted: WBC= 13,500, INR = 2.75, Cr.= 1.6 BC X2 NG at 48 hrs. Echo noted: NL LV with LVH, severe , Mild AI, mild MR, mod functional MS due to MAC, moderate TR, mild.mod PH Objective - Vital Signs/Intake and Output Vital Signs (last 24 hours): Temp Pulse Resp BP Pulse Ox 98.1 F 81 19 126/66 94 L 12/11/17 06:00 12/11/17 06:00 12/11/17 06:00 12/11/17 06:00 12/11/17 06:00 Intake and Output: 12/11/17 12/11/17 06:59 18:59 Intake Total 1830 Output Total 0 Balance 1830 - Medications Medications: Current Medications Acetaminophen (Tylenol 325mg Tab) 650 mg PO Q4H PRN PRN Reason: temp greater than 101 Last Admin: 12/10/17 05:54 Dose: 650 mg Amlodipine Besylate (Norvasc) 10 mg PO DAILY [facility] Last Admin: 12/10/17 09:11 Dose: Not Given Arformoterol Tartrate (Brovana) 15 mcg IH [id number] [facility] Last Admin: 12/11/17 07:24 Dose: 15 mcg Budesonide (Pulmicort Respules) 0.5 mg IH [id number] [facility] Last Admin: 12/11/17 07:24 Dose: 0.5 mg Cyclosporine (Sandimmune) 75 mg PO HS [facility] Last Admin: 12/10/17 22:33 Dose: 75 mg Cyclosporine (Sandimmune) 100 mg PO DAILY [facility] Last Admin: 12/10/17 09:08 Dose: 100 mg Darbepoetin Armando (Aranesp) 60 mcg SC ONCE ONE Stop: 12/11/17 10:01 Digoxin (Digoxin) 0.125 mg PO DAILY [facility] Last Admin: 12/10/17 09:09 Dose: 0.125 mg Gabapentin (Neurontin) 300 mg PO DAILY [facility] PRN Reason: Protocol Last Admin: 12/10/17 09:08 Dose: 300 mg Guaifenesin/Dextromethorphan (Robitussin Dm) 15 ml PO Q4H PRN PRN Reason: Cough Last Admin: 12/11/17 00:21 Dose: 15 ml Meropenem (Merrem Iv 1 Gm Premix) 50 mls @ 100 mls/hr IVPB Q12 [facility] PRN Reason: Protocol Last Admin: 12/10/17 22:27 Dose: 100 mls/hr Doxycycline Hyclate 100 mg/ (Sodium Chloride) 100 mls @ 100 mls/hr IVPB Q12 [facility] PRN Reason: Protocol Last Admin: 12/10/17 22:30 Dose: 100 mls/hr Linezolid (Zyvox 600mg/300ml D5w) 600 mg in 300 mls @ 200 mls/hr IVPB Q12 [facility] PRN Reason: Protocol Stop: 12/15/17 15:11 Last Admin: 12/10/17 22:30 Dose: 200 mls/hr Iron Sucrose 200 mg/ Sodium (Chloride) 110 mls @ 110 mls/hr IVPB QOTHERDAY [facility] Potassium Chloride 15 meq/ (Dextrose/Sodium Chloride) 1,007.5 mls @ 75 mls/hr IV .[id number] [facility] Last Admin: 12/11/17 06:26 Dose: Not Given Levothyroxine Sodium (Synthroid) 50 mcg PO 0600 [facility] Methylprednisolone (Solu-Medrol) 20 mg IVP Q12 [facility] Last Admin: 12/10/17 22:28 Dose: 20 mg Lipase/Protease/Amylase [Creon Dr 12 ,000 Units Capsule] 1 tab PO TID [facility] Last Admin: 12/10/17 17:23 Dose: Not Given Oseltamivir Phosphate (Tamiflu Susp) 30 mg PO DAILY [facility] PRN Reason: Protocol Last Admin: 12/10/17 10:41 Dose: 30 mg Pantoprazole Sodium (Protonix Ec Tab) 40 mg PO ACB [facility] Last Admin: 12/10/17 08:15 Dose: 40 mg Warfarin Sodium (Coumadin) 5 mg PO DAILY [facility] PRN Reason: Protocol Last Admin: 12/10/17 09:08 Dose: 5 mg - Labs Labs: 12/11/17 06:00 12/11/17 06:00 PT 32.3 SECONDS (9.4-12.5) H 12/10/17 06:00 INR 2.75 (0.93-1.08) H 12/10/17 06:00 APTT 33.0 Seconds (25.1-36.5) 12/08/17 13:20 Assessment and Plan - Assessment and Plan (Free Text) Assessment: Dyspnea/Cough/Fever/Diarrhea/OSMAN initially Pneumonia PAF on Eliquis Severe on echo with: Mild AI, Mild MR, Mod functional MS , Moderate TR and Mild/Moderate P Lupus Acute on chronic kidney disease Anemia H/O DVT Hypothyroidism GERD COPD S/P appendectomy H/O pancreatitis Plan: As per ID, Renal, GI, Pulmonary and Dr. Escalante D/C IVF soon OOB as tha/PT Will follow.
[2017-12-11] MEDS: AMYLASE PO SCH ×3 (10:00→17:26)
[2017-12-11] MEDS ORDERED: Darbepoetin Alfa 60 mcg/ml Inj SC ONE (10:00)
[2017-12-11] MEDS: PROTEASE PO SCH ×3 (10:00→17:26)
[2017-12-11] MEDS: LIPASE PO SCH ×3 (10:00→17:26)
--- NOTE | 2017-12-11 10:07 | PN ---
DATE: 12/11/2017 PULMONARY NOTE SUBJECTIVE: The patient appears comfortable this morning. She is not short of breath at rest. She appears much less weak. PHYSICAL EXAMINATION: VITAL SIGNS: Temperature is 98.1, pulse 81, respirations 19, blood pressure 126/66. Oxygen saturation on nasal cannula is 94%. HEENT: Normocephalic, atraumatic. No JVD. CARDIOVASCULAR: Systolic ejection murmur at the lower left sternal border. No S3 gallop. LUNGS: Crackles noted at the right lower lobe. Much less rhonchi. No wheezing. EXTREMITIES: No clubbing, cyanosis or edema. Calves are nontender to palpation. GI: Abdomen is soft, nontender and nondistended. Bowel sounds are positive. SKIN: No acute rash. NEUROLOGIC: Limited at the present time. IMPRESSION: 1. Right lower lobe pneumonia. 2. Sepsis syndrome. 3. Acute bronchitis. 4. Asthma. 5. Systemic lupus erythematosus. PLAN: The patient appears comfortable this morning. She is not short of breath at rest. She does appear much less weak. She does state to feeling much better overall this morning. On physical exam, there is certainly less bronchospasm. In addition, the alveolar-arterial gradient is also less. I will continue with the current nebulizer treatments and low-dose intravenous steroids for now. I would continue with the antibiotic coverage as per Infectious Disease. Temperatures are now resolving. The leukocytosis is also resolving. The clinical status of the patient is definitely improved - compared to the initial presentation. I will discuss the above with Dr. Escalante. Cornell Silva MD cc: MTDD
[2017-12-11 10:20] LABS: INR 4.06 (0.93-1.08)
[2017-12-11] MEDS: Meropenem IV 1 gm in NS 50 ML IVPB SCH ×2 (10:53→22:13)
[2017-12-11] MEDS: MethylPREDNISolone 40 mg Vial IVP SCH ×2 (11:43→22:13)
[2017-12-11] MEDS: Digoxin 125 mcg (0.125 mg) Tab PO SCH (11:43)
[2017-12-11] MEDS: Pantoprazole 40 mg EC Tab PO SCH (11:43)
[2017-12-11] MEDS: Linezolid 600 mg in D5W 300 ml 600 MG/300 ML BAG IVPB SCH (11:47)
--- NOTE | 2017-12-11 12:47 | PN ---
DATE: SUBJECTIVE: This is a 67-year-old female sitting in the chair comfortably this morning. Nursing staff relates that there were no problems during the night. PHYSICAL EXAMINATION VITAL SIGNS: T-max is 99.2, it is now 98.1; her blood pressure is 126/66; oxygen saturation 2 liters of nasal oxygen is 94%, respiratory rate is 19, pulse is 81. GENERAL: She is alert. LUNGS: Showed rhonchi with diminished breath sounds. HEART: Regular S1 and S2 rhythm with grade 3/6 systolic murmur. ABDOMEN: Soft and scaphoid with positive bowel sounds. EXTREMITIES: Show no evidence of edema. LABORATORY DATA: Shows a WBC of 13.5, RBC 3.36, hemoglobin 9.8, hematocrit 29.8, platelet count 259,000. Chemistries showed sodium 139, potassium 4.2, chloride 108, CO2 19, BUN is 44, creatinine is 1.6, glucose is 152, phosphorus is 3.5, magnesium is 2. AST is 47. ASSESSMENT AND PLAN 1. The patient is receiving antibiotic therapy for community-acquired pneumonia, being followed by Infectious Disease. 2. She is being followed by Renal for her lupus nephritis, acute renal insufficiency in the setting of chronic kidney disease. 3. She has an iron deficiency anemia. being followed by GI therein as noted. 4. She is being followed by Cardiology, she has aortic stenosis. They are recommending evaluation of this aortic stenosis. The patient is more clinically stable. GI is also recommending endoscopy and colonoscopy. Once the patient is more stable, to monitor her lab work closely. Continue current level of care at this time. She is on GI prophylaxis with respiratory treatments and IV Solu-Medrol by Pulmonary. Cathy Escalante MD
--- NOTE | 2017-12-11 13:54 | PN ---
DATE: SUBJECTIVE: The patient is currently seen eating lunch in her room. She states that her breathing is significantly improved. She feels better today. She remains on antibiotic therapy for her right lower lobe pneumonia. MEDICATIONS: Medication list reviewed. The patient is currently on Creon, Brovana, digoxin, IV doxycycline, Venofer, IV meropenem, Neurontin, Norvasc, IV fluid with potassium chloride, Protonix, Pulmicort, Robitussin DM, cyclosporin, IV Solu-Medrol, Synthroid, Tamiflu, Tylenol p.r.n. and Zyvox. OBJECTIVE: INTAKE/OUTPUT: Intake 3747. Output not charted. VITAL SIGNS: Blood pressure 132/68, temperature 98.1, pulse of 81 with a respiratory rate of 19, pulse ox is 94%. HEENT: Normocephalic, atraumatic. Conjunctivae are pale. Sclerae nonicteric. NECK: Supple. No neck vein distention. CHEST: Decreased breath sounds at the right base with scattered rhonchi and rales. No wheezing. CARDIOVASCULAR: Regular rate and rhythm with /AI/MR/TR/MS/PI. No S3. No S4. No rub. ABDOMEN: Soft. Bowel sounds normal. No rebound, guarding or masses. EXTREMITIES: Showed no lower extremity cyanosis, clubbing or edema. LABORATORY DATA AND IMAGING STUDIES: No followup chest x-rays were done. Admitting chest x-ray showed a right lower lobe pneumonia. Labs, CBC, white blood cell count 13.5, down from a high of 27.4; hemoglobin of 9.8. Platelet count is 259,000. Coags: Elevated PT at 48 with an INR of 4.06. Coumadin is on hold. Chemistries: BUN 44, up from a high of 29. This is likely a steroid effect. Her baseline BUN is in the 20s. Creatinine is down from 2.0 to 1.6, baseline creatinine is in the 1.2-1.3 range. Potassium 4.2 today. CO2 is 19. Chloride 108. Glucose 152. Calcium 8.1, corrects to normal for an albumin of 2.9, phosphorus 3.5 with a magnesium of 2.0. Iron saturations were 5%. The patient remains on Venofer. Urines: Fractional excretion of sodium was less than 1% with urine sodium of 9 indicative of a renal hypoperfusion. Microbiology: All cultures negative to date. Urine cultures are negative. Blood cultures negative at 48 hours. ASSESSMENT: 1. Acute renal failure superimposed on chronic kidney disease stage 2. This is likely secondary to renal hypoperfusion with a fractional excretion of sodium of less than 1%. The patient will continue IV fluid hydration. BUN and creatinine will likely correct once the steroid dose is reduced. 2. Chronic kidney disease stage 2 in the setting of biopsy-proven membranous lupus glomerulonephritis stage V. The patient responded only to low-dose steroids and cyclosporin therapy with resolution of her proteinuria. The patient will continue on cyclosporin. 3. Right lower lobe pneumonia. Continue empiric antibiotic therapy. All cultures are negative. The patient was seen by Pulmonary and started on intravenous Solu-Medrol. It is hopeful that this dose can be reduced soon. 4. Mild anemia. Iron saturations are low. The patient would benefit from IV Venofer and she continues on this every other day. As necessary, Aranesp can be given. 5. History of chronic anticoagulation secondary to lupus circulating anticoagulant and atrial fibrillation. The patient will continue on Coumadin therapy. It is on hold because of an elevated INR. The patient also has a history of a deep venous thrombosis. 6. History of hyperlipidemia. The patient had been on statin therapy in the past. This was discontinued because mild elevation of her liver enzymes. 7. History of valvular heart disease with aortic stenosis, aortic insufficiency, mitral regurgitation, tricuspid regurgitation, pulmonic insufficiency. Repeat echocardiogram was done by her fly maker, Dr. Harvey. 8. History of lumbosacral spine degenerative disk disease, currently stable. 9. History of hypothyroidism, stable on thyroid replacement therapy. 10. History of osteoporosis. The patient had been on calcium and vitamin D therapy in the past. PLAN: 1. We will continue IV antibiotic therapy for her right lower lobe pneumonia. 2. Continue to monitor the PT, INRs and adjust Coumadin dose accordingly. 3. GI evaluation for her anemia. 4. Try and taper steroids and the patient should be placed back on low-dose prednisone therapy 5 mg a day. 5. Continue to monitor the patient on telemetry. Nikolai Tim MD
--- NOTE | 2017-12-11 14:44 | CP.PCM.PN ---
Subjective - Date & Time of Evaluation Date of Evaluation: 12/11/17 Time of Evaluation: 10:40 - Subjective Subjective: Patient is now more comfortable, breathing better, no more fevers this morning, no nausea, no diarrhea. Objective - Vital Signs/Intake and Output Vital Signs (last 24 hours): Temp Pulse Resp BP Pulse Ox 98.3 F 78 18 103/51 L 94 L 12/11/17 12:00 12/11/17 12:00 12/11/17 12:00 12/11/17 12:00 12/11/17 06:00 Intake and Output: 12/11/17 12/11/17 06:59 18:59 Intake Total 1830 Output Total 0 Balance 1830 - Medications Medications: Current Medications Acetaminophen (Tylenol 325mg Tab) 650 mg PO Q4H PRN PRN Reason: temp greater than 101 Last Admin: 12/10/17 05:54 Dose: 650 mg Amlodipine Besylate (Norvasc) 10 mg PO DAILY [facility] Last Admin: 12/11/17 11:44 Dose: 10 mg Arformoterol Tartrate (Brovana) 15 mcg IH [id number] [facility] Last Admin: 12/11/17 07:24 Dose: 15 mcg Budesonide (Pulmicort Respules) 0.5 mg IH [id number] [facility] Last Admin: 12/11/17 07:24 Dose: 0.5 mg Cyclosporine (Sandimmune) 75 mg PO HS [facility] Last Admin: 12/10/17 22:33 Dose: 75 mg Cyclosporine (Sandimmune) 100 mg PO DAILY [facility] Last Admin: 12/11/17 11:42 Dose: 100 mg Digoxin (Digoxin) 0.125 mg PO DAILY [facility] Last Admin: 12/11/17 11:43 Dose: 0.125 mg Gabapentin (Neurontin) 300 mg PO DAILY [facility] PRN Reason: Protocol Last Admin: 12/11/17 11:42 Dose: 300 mg Guaifenesin/Dextromethorphan (Robitussin Dm) 15 ml PO Q4H PRN PRN Reason: Cough Last Admin: 12/11/17 00:21 Dose: 15 ml Meropenem (Merrem Iv 1 Gm Premix) 50 mls @ 100 mls/hr IVPB Q12 [facility] PRN Reason: Protocol Last Admin: 12/10/17 22:27 Dose: 100 mls/hr Doxycycline Hyclate 100 mg/ (Sodium Chloride) 100 mls @ 100 mls/hr IVPB Q12 [facility] PRN Reason: Protocol Last Admin: 12/10/17 22:30 Dose: 100 mls/hr Linezolid (Zyvox 600mg/300ml D5w) 600 mg in 300 mls @ 200 mls/hr IVPB Q12 [facility] PRN Reason: Protocol Stop: 12/15/17 15:11 Last Admin: 12/11/17 11:47 Dose: 200 mls/hr Iron Sucrose 200 mg/ Sodium (Chloride) 110 mls @ 110 mls/hr IVPB QOTHERDAY [facility] Potassium Chloride 15 meq/ (Dextrose/Sodium Chloride) 1,007.5 mls @ 60 mls/hr IV .[id number] [facility] Levothyroxine Sodium (Synthroid) 50 mcg PO 0600 [facility] Methylprednisolone (Solu-Medrol) 20 mg IVP Q12 [facility] Last Admin: 12/11/17 11:43 Dose: 20 mg Lipase/Protease/Amylase [Creon Dr 12 ,000 Units Capsule] 1 tab PO TID [facility] Last Admin: 12/10/17 17:23 Dose: Not Given Oseltamivir Phosphate (Tamiflu Susp) 30 mg PO DAILY [facility] PRN Reason: Protocol Last Admin: 12/10/17 10:41 Dose: 30 mg Pantoprazole Sodium (Protonix Ec Tab) 40 mg PO ACB [facility] Last Admin: 12/11/17 11:43 Dose: 40 mg - Labs Labs: 12/11/17 06:00 12/11/17 06:00 PT 48.0 SECONDS (9.4-12.5) H 12/11/17 07:30 INR 4.06 (0.93-1.08) H* 12/11/17 07:30 APTT 33.0 Seconds (25.1-36.5) 12/08/17 13:20 - Constitutional Appears: Non-toxic, Chronically Ill - Head Exam Head Exam: NORMAL INSPECTION - ENT Exam ENT Exam: Mucous Membranes Moist - Neck Exam Neck Exam: absent: Meningismus - Respiratory Exam Respiratory Exam: Rales (at the bases, right greater than left, less compared to previous days) - Cardiovascular Exam Cardiovascular Exam: +S1, +S2 - GI/Abdominal Exam GI & Abdominal Exam: Soft. absent: Tenderness Assessment and Plan - Assessment and Plan (Free Text) Plan: Assessment severe sepsis with acute renal failure due to right lower lobe healthcare- associated pneumonia with possible gram positive cocci and/or gram negative bacilli and/or atypical organisms, R/O Influenza, slowly improving history of sepsis due to left lower lobe pneumonia, community-acquired chronic bronchiectasis HTN SLE chronic renal failure history of DVT hypothyroidism COPD GERD anxiety disorder S/P cholecystectomy S/P breast surgery Plan continue Zyvox, Merrem and Doxycycline day 4 and patient is also on steroids; blood cx are negative; PCT is elevated; urine Legionella Ag is negative; reviewed CXR will continue to monitor clinically patient also on Tamiflu (Day 4) to complete [address] Escalante
--- NOTE | 2017-12-12 04:32 | PN ---
DATE: 12/11/2017 SUBJECTIVE: This patient was seen and evaluated earlier today, tolerating the diet. PHYSICAL EXAMINATION VITAL SIGNS: Her temperature 98.1, pulse 76, blood pressure 115/55. HEENT: Atraumatic, anicteric. NECK: Supple. HEART: S1 and S2 heard. LUNGS: Bilateral air entry present. ABDOMEN: Soft. There is no tenderness. EXTREMITIES: No edema, no cyanosis, no clubbing. LABORATORY DATA: Hemoglobin 9.8, hematocrit 29.8, WBC 13.5, platelets 259. BUN 44, creatinine 1.6. ASSESSMENT AND PLAN: This is a 67-year-old patient with systemic lupus erythematosus with lupus nephritis, chronic pancreatitis, history of status post endoscopic retrograde cholangiopancreatography, colon polyp, history of gastric ulcer polyp in the past, admitted with pneumonia and anemia. Hemoglobin has been stable. The patient is on proton pump inhibitor. We will continue that. The patient presently admitted with pneumonia, immunocompromised patient. Cyclosporine and prednisone for lupus nephritis. We would recommend at this point to hold off the GI which will require anesthesia, in view of his respiratory status and anemia. We will consider elective colonoscopic and endoscopic evaluation. Previous gastroenterology workup also reviewed. Follow up the hemoglobin and hematocrit. The patient will need elective evaluation for colonoscopy evaluation. Tiny Vergara MD MTDD
[2017-12-12] MEDS: Levothyroxine 50 MCG TAB PO SCH (05:25)
[2017-12-12] MEDS: POTASSIUM CHLORIDE IV SCH ×2 (05:58→11:10)
[2017-12-12] MEDS: DEXTROSE IV SCH ×2 (05:58→11:10)
[2017-12-12] MEDS: [UNRECOGNIZED DRUG - OTHER] IV SCH ×2 (05:58→11:10)
[2017-12-12 06:24] LABS: HEMOGLOBIN 9.2 g/dL (12.0-16.0); MEAN CELL VOLUME 88.3 fl (80.0-105.0); MEAN CORPUSCULAR HGB CONC 32.9 g/dl (31.0-37.0); MEAN PLATELET VOLUME 9.8 fl (7.0-11.0); RBC 3.17 10^6/uL (3.5-6.1); RED CELL DISTRIBUTION WIDTH 14.1 % (11.5-14.5)
[2017-12-12 06:52] LABS: PROTHROMBIN TIME 62.5 SECONDS (9.4-12.5)
[2017-12-12 06:55] LABS: INR 5.25 (0.93-1.08)
[2017-12-12 07:25] LABS: ALB/GLOB RATIO 0.7 (1.1-1.8); ALBUMIN 2.7 g/dL (3.0-4.8); CALCIUM 8.2 mg/dL (8.4-10.5)
[2017-12-12] MEDS: Budesonide 0.5 mg/2 ml Inhal Susp UD IH SCH ×2 (07:54→21:25)
[2017-12-12] MEDS: Arformoterol 15 mcg/2 ml Inh Sol IH SCH ×2 (07:54→21:25)
--- NOTE | 2017-12-12 08:19 | PN ---
DATE: PULMONARY NOTE SUBJECTIVE: The patient appears very comfortable this morning. She is not short of breath at rest. She is coughing much less. OBJECTIVE VITAL SIGNS: Temperature 97.8, pulse 62, respirations 18/20, blood pressure 126/66. Oxygen saturation on room air is 97%. HEENT: Normocephalic, atraumatic. NECK: No JVD. CARDIOVASCULAR: Systolic ejection murmur at the lower left sternal border. No S3 gallop. LUNGS: Crackles noted at the right lower lobe. Much less rhonchi. No wheezing. EXTREMITIES: No clubbing, cyanosis or edema. Calves are nontender to palpation. GASTROINTESTINAL: Abdomen is soft, nontender and nondistended. Bowel sounds are positive. SKIN: No acute rash. NEUROLOGIC: Exam limited at the present time. IMPRESSION 1. Right lower lobe pneumonia. 2. Sepsis syndrome. 3. Acute bronchitis. 4. Asthma. 5. Systemic lupus erythematosus. PLAN: The patient appears very comfortable this morning. She is not short of breath at rest. She is coughing much less. She does state to feeling much better, overall. On physical exam, her bronchospasm continues to resolve. In addition, the oxygen saturation on room air is now 97%. I will continue with the current nebulizer treatments and change to oral steroids this morning. I would continue with the antibiotic coverage as per Infectious Disease. Input by Dr. Parsons is noted. The temperatures have now fully resolved. The leukocytosis is resolving. Clinical status of the patient is significantly improved. The patient is reminded to be out of bed as much as possible. I will discuss the above with Dr. Escalante. Cornell Silva MD ROBIN
[2017-12-12] MEDS: Pantoprazole 40 mg EC Tab PO SCH (08:30)
[2017-12-12] MEDS: PROTEASE PO SCH ×3 (09:55→17:20)
[2017-12-12] MEDS: Digoxin 125 mcg (0.125 mg) Tab PO SCH (09:55)
[2017-12-12] MEDS: LIPASE PO SCH ×3 (09:55→17:20)
[2017-12-12] MEDS: AMYLASE PO SCH ×3 (09:55→17:20)
[2017-12-12] MEDS: Meropenem IV 1 gm in NS 50 ML IVPB SCH ×2 (09:56→21:17)
--- NOTE | 2017-12-12 10:40 | CP.PCM.PN ---
<Aissatou López - Last Filed: 12/12/17 10:37> Subjective - Date & Time of Evaluation Date of Evaluation: 12/12/17 Time of Evaluation: 09:05 - Subjective Subjective: Seen and examined at the bedside earlier this morning, chart review. Patient added that, denies nausea, vomiting, shortness of breath or chest pain. No complaints of abdominal pain. Did have soft formed BM no reports of any melena or bright red blood per rectum. Tolerating oral intake. Objective - Vital Signs/Intake and Output Vital Signs (last 24 hours): Temp Pulse Resp BP Pulse Ox 97.8 F 62 20 139/73 97 12/12/17 06:00 12/12/17 06:00 12/12/17 06:00 12/12/17 09:54 12/12/17 06:00 Intake and Output: 12/12/17 12/12/17 06:59 18:59 Intake Total 1440 Output Total 1000 Balance 440 - Medications Medications: Current Medications Acetaminophen (Tylenol 325mg Tab) 650 mg PO Q4H PRN PRN Reason: temp greater than 101 Last Admin: 12/10/17 05:54 Dose: 650 mg Amlodipine Besylate (Norvasc) 10 mg PO DAILY [facility] Last Admin: 12/12/17 09:54 Dose: 10 mg Arformoterol Tartrate (Brovana) 15 mcg IH [id number] [facility] Last Admin: 12/12/17 07:54 Dose: 15 mcg Budesonide (Pulmicort Respules) 0.5 mg IH [id number] [facility] Last Admin: 12/12/17 07:54 Dose: 0.5 mg Cyclosporine (Sandimmune) 75 mg PO HS [facility] Last Admin: 12/11/17 22:15 Dose: 75 mg Cyclosporine (Sandimmune) 100 mg PO DAILY [facility] Last Admin: 12/12/17 09:54 Dose: 100 mg Digoxin (Digoxin) 0.125 mg PO DAILY [facility] Last Admin: 12/12/17 09:55 Dose: 0.125 mg Gabapentin (Neurontin) 300 mg PO DAILY [facility] PRN Reason: Protocol Last Admin: 12/12/17 09:54 Dose: 300 mg Guaifenesin/Dextromethorphan (Robitussin Dm) 15 ml PO Q4H PRN PRN Reason: Cough Last Admin: 12/11/17 22:51 Dose: 15 ml Home Med (Home Med) 1 unit PO TID [facility] Last Admin: 12/12/17 09:55 Dose: 1 unit Meropenem (Merrem Iv 1 Gm Premix) 50 mls @ 100 mls/hr IVPB Q12 [facility] PRN Reason: Protocol Last Admin: 12/12/17 09:56 Dose: 100 mls/hr Doxycycline Hyclate 100 mg/ (Sodium Chloride) 100 mls @ 100 mls/hr IVPB Q12 [facility] PRN Reason: Protocol Last Admin: 12/11/17 22:13 Dose: 100 mls/hr Iron Sucrose 200 mg/ Sodium (Chloride) 110 mls @ 110 mls/hr IVPB QOTHERDAY [facility] Potassium Chloride 15 meq/ (Dextrose/Sodium Chloride) 1,007.5 mls @ 60 mls/hr IV .[id number] [facility] Last Admin: 12/12/17 05:58 Dose: Not Given Levothyroxine Sodium (Synthroid) 50 mcg PO 0600 [facility] Last Admin: 12/12/17 05:25 Dose: 50 mcg Oseltamivir Phosphate (Tamiflu) 30 mg PO DAILY [facility] PRN Reason: Protocol Last Admin: 12/12/17 09:56 Dose: 30 mg Pantoprazole Sodium (Protonix Ec Tab) 40 mg PO ACB [facility] Last Admin: 12/12/17 08:30 Dose: 40 mg Prednisone (Prednisone Tab) 30 mg PO DAILY [facility] Last Admin: 12/12/17 09:53 Dose: 30 mg - Labs Labs: 12/12/17 05:30 12/12/17 05:30 PT 62.5 SECONDS (9.4-12.5) H 12/12/17 05:30 INR 5.25 (0.93-1.08) H* 12/12/17 05:30 APTT 33.0 Seconds (25.1-36.5) 12/08/17 13:20 - Constitutional Appears: No Acute Distress - Head Exam Head Exam: NORMOCEPHALIC - Eye Exam Eye Exam: Normal appearance. absent: Scleral icterus - ENT Exam ENT Exam: Mucous Membranes Moist - Neck Exam Neck Exam: Normal Inspection - Respiratory Exam Respiratory Exam: Rales, NORMAL BREATHING PATTERN. absent: Wheezes, Respiratory Distress - Cardiovascular Exam Cardiovascular Exam: +S1, +S2 - GI/Abdominal Exam GI & Abdominal Exam: Soft, Normal Bowel Sounds. absent: Guarding, Tenderness, Rebound - Extremities Exam Extremities Exam: absent: Calf Tenderness, Pedal Edema - Neurological Exam Neurological Exam: Alert, Awake, Oriented x3 Assessment and Plan - Assessment and Plan (Free Text) Assessment: Assessment: Pneumonia Anemia CHF SLE Nephritis History of peptic ulcer disease Colon polyps PLAN: monitor H/H for overt GI bleeding continue GI prophylaxsis diet as tolerated on IV antibiotics as per ID on Cyclosporine on Prednisone Patient would benefit from EGD/colon in view of Anemia , can consider as outpatient when optimal inview of current status unless otherswise indicated. will continue to monitor closely. Discuss w/ pateint. Seen and discussed w/ Dr. Vergara. <Tiny Vergara V - Last Filed: 12/12/17 23:57> Objective - Vital Signs/Intake and Output Vital Signs (last 24 hours): Temp Pulse Resp BP Pulse Ox 98.3 F 70 18 138/75 96 12/12/17 22:00 12/12/17 22:00 12/12/17 22:00 12/12/17 22:00 12/12/17 22:00 Intake and Output: 12/12/17 12/13/17 18:59 06:59 Intake Total 480 Balance 480 - Medications Medications: Current Medications Acetaminophen (Tylenol 325mg Tab) 650 mg PO Q4H PRN PRN Reason: temp greater than 101 Last Admin: 12/10/17 05:54 Dose: 650 mg Amlodipine Besylate (Norvasc) 10 mg PO DAILY [facility] Last Admin: 12/12/17 09:54 Dose: 10 mg Arformoterol Tartrate (Brovana) 15 mcg IH [id number] [facility] Last Admin: 12/12/17 21:25 Dose: 15 mcg Budesonide (Pulmicort Respules) 0.5 mg IH [id number] [facility] Last Admin: 12/12/17 21:25 Dose: 0.5 mg Cyclosporine (Sandimmune) 75 mg PO HS [facility] Last Admin: 12/12/17 21:24 Dose: 75 mg Cyclosporine (Sandimmune) 100 mg PO DAILY [facility] Last Admin: 12/12/17 09:54 Dose: 100 mg Digoxin (Digoxin) 0.125 mg PO DAILY [facility] Last Admin: 12/12/17 09:55 Dose: 0.125 mg Gabapentin (Neurontin) 300 mg PO DAILY [facility] PRN Reason: Protocol Last Admin: 12/12/17 09:54 Dose: 300 mg Guaifenesin/Dextromethorphan (Robitussin Dm) 15 ml PO Q4H PRN PRN Reason: Cough Last Admin: 12/12/17 23:03 Dose: 15 ml Home Med (Home Med) 1 unit PO TID [facility] Last Admin: 12/12/17 17:20 Dose: 1 unit Meropenem (Merrem Iv 1 Gm Premix) 50 mls @ 100 mls/hr IVPB Q12 [facility] PRN Reason: Protocol Last Admin: 12/12/17 21:17 Dose: 100 mls/hr Doxycycline Hyclate 100 mg/ (Sodium Chloride) 100 mls @ 100 mls/hr IVPB Q12 [facility] PRN Reason: Protocol Last Admin: 12/12/17 23:04 Dose: 100 mls/hr Iron Sucrose 200 mg/ Sodium (Chloride) 110 mls @ 110 mls/hr IVPB QOTHERDAY [facility] Last Admin: 12/12/17 13:05 Dose: 110 mls/hr Levothyroxine Sodium (Synthroid) 50 mcg PO 0600 [facility] Last Admin: 12/12/17 05:25 Dose: 50 mcg Linezolid (Zyvox) 600 mg PO BID [facility] PRN Reason: Protocol Stop: 12/15/17 18:01 Last Admin: 12/12/17 17:20 Dose: 600 mg Oseltamivir Phosphate (Tamiflu) 30 mg PO DAILY [facility] PRN Reason: Protocol Last Admin: 12/12/17 09:56 Dose: 30 mg Pantoprazole Sodium (Protonix Ec Tab) 40 mg PO ACB [facility] Last Admin: 12/12/17 08:30 Dose: 40 mg Prednisone (Prednisone Tab) 30 mg PO DAILY [facility] Last Admin: 12/12/17 09:53 Dose: 30 mg - Labs Labs: 12/12/17 05:30 12/12/17 05:30 PT 62.5 SECONDS (9.4-12.5) H 12/12/17 05:30 INR 5.25 (0.93-1.08) H* 12/12/17 05:30 APTT 33.0 Seconds (25.1-36.5) 12/08/17 13:20 Attending/Attestation - Attestation I have personally seen and examined this patient.: Yes I have fully participated in the care of the patient.: Yes I have reviewed all pertinent clinical information, including history, physical exam and plan: Yes Notes (Text): This is an addendum to GI progress report dictated by Aissatou López APN.The patient was seen and examined earlier. Medical records, lab studies, imagings were reviewed. Last 24 hours events reviewed. Agreed with the above treatment plan as outlined in Aissatou López APN's notes the with the addition of the following 12/12/17 23:56
--- NOTE | 2017-12-12 12:13 | CP.PCM.PN ---
Subjective - Date & Time of Evaluation Date of Evaluation: 12/12/17 Time of Evaluation: 10:35 - Subjective Subjective: Feeling much better, much less cough, breathing much better, no nausea, no fevers. Objective - Vital Signs/Intake and Output Vital Signs (last 24 hours): Temp Pulse Resp BP Pulse Ox 97.8 F 62 20 126/66 97 12/12/17 06:00 12/12/17 06:00 12/12/17 06:00 12/12/17 06:00 12/12/17 06:00 Intake and Output: 12/12/17 12/12/17 06:59 18:59 Intake Total 1440 Output Total 1000 Balance 440 - Medications Medications: Current Medications Acetaminophen (Tylenol 325mg Tab) 650 mg PO Q4H PRN PRN Reason: temp greater than 101 Last Admin: 12/10/17 05:54 Dose: 650 mg Amlodipine Besylate (Norvasc) 10 mg PO DAILY [facility] Last Admin: 12/11/17 11:44 Dose: 10 mg Arformoterol Tartrate (Brovana) 15 mcg IH [id number] [facility] Last Admin: 12/12/17 07:54 Dose: 15 mcg Budesonide (Pulmicort Respules) 0.5 mg IH [id number] [facility] Last Admin: 12/12/17 07:54 Dose: 0.5 mg Cyclosporine (Sandimmune) 75 mg PO HS [facility] Last Admin: 12/11/17 22:15 Dose: 75 mg Cyclosporine (Sandimmune) 100 mg PO DAILY [facility] Last Admin: 12/11/17 11:42 Dose: 100 mg Digoxin (Digoxin) 0.125 mg PO DAILY [facility] Last Admin: 12/11/17 11:43 Dose: 0.125 mg Gabapentin (Neurontin) 300 mg PO DAILY [facility] PRN Reason: Protocol Last Admin: 12/11/17 11:42 Dose: 300 mg Guaifenesin/Dextromethorphan (Robitussin Dm) 15 ml PO Q4H PRN PRN Reason: Cough Last Admin: 12/11/17 22:51 Dose: 15 ml Home Med (Home Med) 1 unit PO TID [facility] Meropenem (Merrem Iv 1 Gm Premix) 50 mls @ 100 mls/hr IVPB Q12 [facility] PRN Reason: Protocol Last Admin: 12/11/17 22:13 Dose: 100 mls/hr Doxycycline Hyclate 100 mg/ (Sodium Chloride) 100 mls @ 100 mls/hr IVPB Q12 [facility] PRN Reason: Protocol Last Admin: 12/11/17 22:13 Dose: 100 mls/hr Iron Sucrose 200 mg/ Sodium (Chloride) 110 mls @ 110 mls/hr IVPB QOTHERDAY [facility] Potassium Chloride 15 meq/ (Dextrose/Sodium Chloride) 1,007.5 mls @ 60 mls/hr IV .[id number] [facility] Last Admin: 12/12/17 05:58 Dose: Not Given Levothyroxine Sodium (Synthroid) 50 mcg PO 0600 [facility] Last Admin: 12/12/17 05:25 Dose: 50 mcg Oseltamivir Phosphate (Tamiflu) 30 mg PO DAILY [facility] PRN Reason: Protocol Pantoprazole Sodium (Protonix Ec Tab) 40 mg PO ACB [facility] Last Admin: 12/12/17 08:30 Dose: 40 mg Prednisone (Prednisone Tab) 30 mg PO DAILY [facility] - Labs Labs: 12/12/17 05:30 12/12/17 05:30 PT 62.5 SECONDS (9.4-12.5) H 12/12/17 05:30 INR 5.25 (0.93-1.08) H* 12/12/17 05:30 APTT 33.0 Seconds (25.1-36.5) 12/08/17 13:20 - Constitutional Appears: Non-toxic, Chronically Ill - Head Exam Head Exam: NORMAL INSPECTION - ENT Exam ENT Exam: Mucous Membranes Moist - Neck Exam Neck Exam: absent: Meningismus - Respiratory Exam Respiratory Exam: Decreased Breath Sounds, Rales (improved at the bases) - Cardiovascular Exam Cardiovascular Exam: +S1, +S2 - GI/Abdominal Exam GI & Abdominal Exam: Soft. absent: Tenderness Assessment and Plan - Assessment and Plan (Free Text) Plan: Assessment severe sepsis with acute renal failure due to right lower lobe healthcare- associated pneumonia with possible gram positive cocci and/or gram negative bacilli and/or atypical organisms, R/O Influenza, slowly improving history of sepsis due to left lower lobe pneumonia, community-acquired chronic bronchiectasis HTN SLE chronic renal failure history of DVT hypothyroidism COPD GERD anxiety disorder S/P cholecystectomy S/P breast surgery Plan continue Zyvox, Merrem and Doxycycline day 5 and patient is also on steroids; blood cx are negative; PCT is elevated; urine Legionella Ag is negative; reviewed CXR - will repeat PCT to see if we can de-escalate to PO antibiotics will continue to monitor clinically patient also on Tamiflu (Day 5) to complete [address] Escalante
--- NOTE | 2017-12-12 12:49 | PN ---
DATE: 12/12/2017 SUBJECTIVE: The patient is seen sitting in chair on telemetry. She feels more comfortable. Her cough is much improved. She is afebrile. She denies any chest pain, excessive dyspnea or lightheadedness. CURRENT MEDICATIONS: Remain Brovana, digoxin 0.125 mg daily, doxycycline, meropenem scans, gabapentin, Norvasc and prednisone. She is also on Protonix, Pulmicort inhaler, cyclosporin, Synthroid and Tamiflu. OBJECTIVE: GENERAL: She is a middle-aged woman, appears comfortable at present time. VITAL SIGNS: Blood pressure is 140/70 with pulse of 60, sinus; respirations are 14. She is afebrile. HEENT: No JVD. Carotid upstrokes are diminished and delayed. The chest reveals crackles at the right base. HEART: PMI is displaced laterally with a mid to late-peaking systolic murmur present at the base, radiating to the carotids. ABDOMEN: Soft, nontender. Normoactive bowel sounds. EXTREMITIES: No edema. DIAGNOSTIC DATA: BUN and creatinine are 46 and 1.3, potassium 4.2. White count 15.0, hemoglobin and hematocrit 9.2 and 28.0 with platelet count 286,000. INR 5.25. IMPRESSION: 1. Recent pneumonia, clinically improved. 2. Severe aortic stenosis with moderate functional mitral stenosis, asymptomatic at present. 3. Acute on chronic renal insufficiency. 4. Excessive anticoagulation. 5. Paroxysmal atrial fibrillation. RECOMMENDATIONS: Coumadin will be withheld. Followup INR is planned for the morning. IV fluids can be discontinued at this time as her oral intake is adequate in order to avoid volume overload in the setting of aortic stenosis. After of resolution of her pneumonia and stabilization of her other issues, eventual followup evaluation of her aortic valve disease will be necessary. We will continue to follow and make further recommendations as appropriate. Ry Arroyo MD
--- NOTE | 2017-12-12 13:51 | CP.PCM.PN ---
Subjective - Date & Time of Evaluation Date of Evaluation: 12/12/17 Time of Evaluation: 13:48 - Subjective Subjective: renal follow up note coverage for Dr Tim no events overnight vitals stable no jvd S!s2 present no resp distress abd soft skin normal no edema ao times 3 normal affect A&P: ALINA/CKD stage 2/lupud./HCAP/HTN/anemia cr is stable monitor I&OS abx per ID lytes ok continue current meds for bp continue cyclosporine for lupus Objective - Vital Signs/Intake and Output Vital Signs (last 24 hours): Temp Pulse Resp BP Pulse Ox 97.8 F 74 20 139/73 98 12/12/17 06:00 12/12/17 09:00 12/12/17 06:00 12/12/17 09:54 12/12/17 09:00 Intake and Output: 12/12/17 12/12/17 06:59 18:59 Intake Total 1440 Output Total 1000 Balance 440 - Medications Medications: Current Medications Acetaminophen (Tylenol 325mg Tab) 650 mg PO Q4H PRN PRN Reason: temp greater than 101 Last Admin: 12/10/17 05:54 Dose: 650 mg Amlodipine Besylate (Norvasc) 10 mg PO DAILY [facility] Last Admin: 12/12/17 09:54 Dose: 10 mg Arformoterol Tartrate (Brovana) 15 mcg IH [id number] [facility] Last Admin: 12/12/17 07:54 Dose: 15 mcg Budesonide (Pulmicort Respules) 0.5 mg IH [id number] [facility] Last Admin: 12/12/17 07:54 Dose: 0.5 mg Cyclosporine (Sandimmune) 75 mg PO [facility] Last Admin: 12/11/17 22:15 Dose: 75 mg Cyclosporine (Sandimmune) 100 mg PO DAILY [facility] Last Admin: 12/12/17 09:54 Dose: 100 mg Digoxin (Digoxin) 0.125 mg PO DAILY [facility] Last Admin: 12/12/17 09:55 Dose: 0.125 mg Gabapentin (Neurontin) 300 mg PO DAILY [facility] PRN Reason: Protocol Last Admin: 12/12/17 09:54 Dose: 300 mg Guaifenesin/Dextromethorphan (Robitussin Dm) 15 ml PO Q4H PRN PRN Reason: Cough Last Admin: 12/11/17 22:51 Dose: 15 ml Home Med (Home Med) 1 unit PO TID [facility] Last Admin: 12/12/17 09:55 Dose: 1 unit Meropenem (Merrem Iv 1 Gm Premix) 50 mls @ 100 mls/hr IVPB Q12 [facility] PRN Reason: Protocol Last Admin: 12/12/17 09:56 Dose: 100 mls/hr Doxycycline Hyclate 100 mg/ (Sodium Chloride) 100 mls @ 100 mls/hr IVPB Q12 [facility] PRN Reason: Protocol Last Admin: 12/12/17 11:09 Dose: 100 mls/hr Iron Sucrose 200 mg/ Sodium (Chloride) 110 mls @ 110 mls/hr IVPB QOTHERDAY [facility] Last Admin: 12/12/17 13:05 Dose: 110 mls/hr Levothyroxine Sodium (Synthroid) 50 mcg PO 0600 [facility] Last Admin: 12/12/17 05:25 Dose: 50 mcg Linezolid (Zyvox) 600 mg PO BID [facility] PRN Reason: Protocol Stop: 12/15/17 18:01 Oseltamivir Phosphate (Tamiflu) 30 mg PO DAILY [facility] PRN Reason: Protocol Last Admin: 12/12/17 09:56 Dose: 30 mg Pantoprazole Sodium (Protonix Ec Tab) 40 mg PO ACB [facility] Last Admin: 12/12/17 08:30 Dose: 40 mg Prednisone (Prednisone Tab) 30 mg PO DAILY [facility] Last Admin: 12/12/17 09:53 Dose: 30 mg - Labs Labs: 12/12/17 05:30 12/12/17 05:30 PT 62.5 SECONDS (9.4-12.5) H 12/12/17 05:30 INR 5.25 (0.93-1.08) H* 12/12/17 05:30 APTT 33.0 Seconds (25.1-36.5) 12/08/17 13:20
[2017-12-12] MEDS: guaiFENesin DM 200 mg-20 mg/10 ml UD PO PRN (23:03)
[2017-12-13] MEDS: Levothyroxine 50 MCG TAB PO SCH (05:34)
[2017-12-13 07:50] LABS: PROTHROMBIN TIME 51.2 SECONDS (9.4-12.5)
[2017-12-13 07:51] LABS: ALB/GLOB RATIO 0.7 (1.1-1.8); ALBUMIN 2.8 g/dL (3.0-4.8); CALCIUM 9.3 mg/dL (8.4-10.5); INR 4.32 (0.93-1.08)
[2017-12-13] MEDS: Pantoprazole 40 mg EC Tab PO SCH (07:56)
[2017-12-13] MEDS: Budesonide 0.5 mg/2 ml Inhal Susp UD IH SCH ×2 (08:17→19:39)
[2017-12-13] MEDS: Arformoterol 15 mcg/2 ml Inh Sol IH SCH ×2 (08:17→19:39)
--- NOTE | 2017-12-13 09:34 | PN ---
DATE: 12/13/2017 PULMONARY NOTE SUBJECTIVE: The patient appears comfortable this morning. She is not short of breath at rest. She is much less weak appearing. PHYSICAL EXAMINATION VITAL SIGNS: (Last noted in the computer): Temperature is 98.3, pulse is 70, respirations 18, blood pressure 138/75. Oxygen saturation on room air is 96%-97%. HEENT: Normocephalic, atraumatic. No JVD. CARDIOVASCULAR: Systolic ejection murmur at the lower left sternal border. No S3 gallop. LUNGS: Crackles noted at the right lower lobe. Minimal/less rhonchi. No wheezing. EXTREMITIES: No clubbing, cyanosis or edema. Calves are nontender to palpation. GI: Abdomen is soft, nontender and nondistended. Bowel sounds are positive. SKIN: No acute rash. NEUROLOGIC: Limited at the present time. IMPRESSION: 1. Right lower lobe pneumonia. 2. Sepsis syndrome. 3. Acute bronchitis. 4. Asthma. 5. Systemic lupus erythematosus. PLAN: The patient appears comfortable this morning. She is not short of breath at rest. She does appear much less weak. She also states to feeling much better overall. On physical exam, her bronchospasm is certainly less. In addition, the oxygen saturation on room air is now 96%-97%. I will continue the current nebulizer treatments and oral steroids (changed yesterday) for now. The patient remains on antibiotic therapy - as per Infectious Disease. The temperatures have now fully resolved. Inputs by Cardiology and Renal are also noted. Clinical status of the patient is significantly improved overall. The patient is reminded to be out of bed as much as possible. I will discuss the above with Dr. Escalante. Cornell Silva MD [email or web address]
[2017-12-13] MEDS: Digoxin 125 mcg (0.125 mg) Tab PO SCH (11:04)
[2017-12-13] MEDS: LIPASE PO SCH ×3 (11:05→17:00)
[2017-12-13] MEDS: PROTEASE PO SCH ×3 (11:05→17:00)
[2017-12-13] MEDS: AMYLASE PO SCH ×3 (11:05→17:00)
[2017-12-13] MEDS: guaiFENesin DM 200 mg-20 mg/10 ml UD PO PRN (11:15)
[2017-12-13] MEDS: Meropenem IV 1 gm in NS 50 ML IVPB SCH ×2 (12:05→22:10)
--- NOTE | 2017-12-13 13:43 | CP.PCM.PN ---
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 Hypertension control with meds as ordered. Patient not on ACEI/ARB due to recent ALINA Monitor Input/Output, daily weights and renal function with basic metabolic panel Continue with Cyclosporine at this time. Her membranous nephropathy appear to be in remission, as with minimal proteinuria on dipstick She was on prednisone Dose meds/antibiotics for reduced GFR. Avoid fleets enema/magnesium based laxatives. Avoid nephrotoxins/NSAIDs/ iodinated contrast (unless needed emergently) Glycemic control Further work up for as per primary team Thanks for allowing me to participate in care of your patient. Will follow patient with you. Please call if any Qs Dr Doc Arteaga Office: [phone] Subjective: Noted events overnight. Patients feels okay. Denies chest pain, palpitation, shortness of breath, leg swelling. All other negative Physical Examination: General Appearance: Comfortable, in no acute respiratory distress, co-operative . Vitals reviewed and noted as below Head; Atraumatic, normocephalic ENT: no ulcers no thrush. Tongue is midline. Oropharynx: no rash or ulcers. EYES: Pupils are equal, round and reactive to light accommodation. Eye muscles and extraocular movement intact. Sclera is anicteric. Neck; supple no lymphadenopathy, no thyromegaly or bruit Lungs: Normal respiratory rate/effort. Breath sounds bilateral equal and clear Heart: Normal rate. s1s2 normal. No rub or gallop. Extremities: no edema. No varicose veins Neurological: Patient is alert, awake and oriented to person, place and time. No focal deficit. Strength bilateral appropriate and equal Skin: Warm and dry. Normal turgor. No rash. Palpitation: Normal elasticity for age Abdomen: Abdomen is soft. Bowel sounds +. There is no abdominal tenderness, no guarding/rigidity no organomegaly Psych: normal insight and normal affect/mood MSK: no joint tenderness or swelling. Digits and nails normal, no deformity : kidney or bladder not palpable Labs/imaging reviewed. Past medical history, past surgical history, family history, social history, allergy reviewed and noted as below Family hx: no hx of CKD. Rest non-contributory UA showing 30 protein without any blood Iron saturation 5% ferritin 135 Objective - Vital Signs/Intake and Output Vital Signs (last 24 hours): Temp Pulse Resp BP Pulse Ox 97.7 F 71 20 145/80 94 L 12/13/17 08:50 12/13/17 08:50 12/13/17 08:50 12/13/17 11:04 12/13/17 08:50 Intake and Output: 12/13/17 12/13/17 06:59 18:59 Intake Total 720 Balance 720 - Medications Medications: Current Medications Acetaminophen (Tylenol 325mg Tab) 650 mg PO Q4H PRN PRN Reason: temp greater than 101 Last Admin: 12/10/17 05:54 Dose: 650 mg Amlodipine Besylate (Norvasc) 10 mg PO DAILY [facility] Last Admin: 12/13/17 11:04 Dose: 10 mg Arformoterol Tartrate (Brovana) 15 mcg IH [id number] [facility] Last Admin: 12/13/17 08:17 Dose: 15 mcg Budesonide (Pulmicort Respules) 0.5 mg IH [id number] [facility] Last Admin: 12/13/17 08:17 Dose: 0.5 mg Cyclosporine (Sandimmune) 75 mg PO HS [facility] Last Admin: 12/12/17 21:24 Dose: 75 mg Cyclosporine (Sandimmune) 100 mg PO DAILY [facility] Last Admin: 12/13/17 11:04 Dose: 100 mg Digoxin (Digoxin) 0.125 mg PO DAILY [facility] Last Admin: 12/13/17 11:04 Dose: 0.125 mg Gabapentin (Neurontin) 300 mg PO DAILY [facility] PRN Reason: Protocol Last Admin: 12/13/17 11:05 Dose: 300 mg Guaifenesin/Dextromethorphan (Robitussin Dm) 15 ml PO Q4H PRN PRN Reason: Cough Last Admin: 12/13/17 11:15 Dose: 15 ml Home Med (Home Med) 1 unit PO TID [facility] Last Admin: 12/13/17 11:05 Dose: 1 unit Meropenem (Merrem Iv 1 Gm Premix) 50 mls @ 100 mls/hr IVPB Q12 [facility] PRN Reason: Protocol Last Admin: 12/12/17 21:17 Dose: 100 mls/hr Doxycycline Hyclate 100 mg/ (Sodium Chloride) 100 mls @ 100 mls/hr IVPB Q12 [facility] PRN Reason: Protocol Last Admin: 12/13/17 11:02 Dose: 100 mls/hr Iron Sucrose 200 mg/ Sodium (Chloride) 110 mls @ 110 mls/hr IVPB QOTHERDAY [facility] Last Admin: 12/12/17 13:05 Dose: 110 mls/hr Levothyroxine Sodium (Synthroid) 50 mcg PO 0600 [facility] Last Admin: 12/13/17 05:34 Dose: 50 mcg Linezolid (Zyvox) 600 mg PO BID [facility] PRN Reason: Protocol Stop: 12/15/17 18:01 Last Admin: 12/13/17 11:03 Dose: 600 mg Oseltamivir Phosphate (Tamiflu) 30 mg PO DAILY [facility] PRN Reason: Protocol Last Admin: 12/13/17 11:07 Dose: 30 mg Pantoprazole Sodium (Protonix Ec Tab) 40 mg PO ACB [facility] Last Admin: 12/13/17 07:56 Dose: 40 mg Prednisone (Prednisone Tab) 30 mg PO DAILY [facility] Last Admin: 12/13/17 11:01 Dose: 30 mg - Labs Labs: 12/12/17 05:30 12/13/17 06:30 PT 51.2 SECONDS (9.4-12.5) H 12/13/17 06:30 INR 4.32 (0.93-1.08) H* 12/13/17 06:30 APTT 33.0 Seconds (25.1-36.5) 12/08/17 13:20
[2017-12-13 15:51] LABS: ALB/GLOB RATIO 0.7 (1.1-1.8); ALBUMIN 3.2 g/dL (3.0-4.8); CALCIUM 9.3 mg/dL (8.4-10.5)
--- NOTE | 2017-12-13 17:07 | PN ---
DATE: SUBJECTIVE: A 67-year-old female who is sitting on a chair this morning. PHYSICAL EXAMINATION: VITAL SIGNS: Show a temperature of 97.7, pulse 70, blood pressure is 145/79, oxygen saturation is 94% reported on room air, respiratory rate is 20. LUNGS: Show rhonchi with diminished breath sounds at the bases. HEART: Regular S1 and S2 with a grade 3/6 systolic murmur. ABDOMEN: Soft with positive bowel sounds. EXTREMITIES: Show no evidence of edema. LABORATORY DATA: The patient had a blood sugar of 90. Electrolytes showed a sodium of 143, potassium 4, chloride 112, BUN of 14, creatinine of 1.3. Her AST is 41 and her ALT is 63. She is currently receiving IV doxycycline and meropenem as well as Zyvox and Tamiflu for pneumonia. She is being followed by Nephrology for her lupus nephritis with an acute renal insufficiency in the setting of chronic kidney disease. She is on Synthroid supplement therapy for hypothyroid disease. She is on immunotherapy, cyclosporine for her lupus disease. She is also on prednisone 30 mg daily. She is on Neurontin for peripheral neuropathy, Norvasc for hypertension. She is receiving iron for her iron deficiency anemia and Creon for her history of gallbladder disease. We will follow up her labs and her CBC. Antibiotics will continue as per the recommendations of Infectious Disease. Her PT is 4.32. Her Coumadin is currently on hold. She is on Protonix for gastrointestinal prophylaxis. Gastroenterology is following the patient for her anemia and Cardiology is following the patient for her severe aortic stenosis. She is also on digoxin with a history of paroxysmal atrial fibrillation in the past. Cathy Escalante MD
--- NOTE | 2017-12-13 17:49 | PN ---
DATE: 12/13/2017 SUBJECTIVE: The patient is in bed, in no acute distress, nontoxic. OBJECTIVE: VITAL SIGNS: Temperature is 98, blood pressure is 120/70, respiratory rate of 16. HEENT: Unremarkable. NECK: Supple. LUNGS: Have decreased breath sounds. HEART: Normal S1 and S2. ABDOMEN: Soft, nontender. LABORATORY DATA: Reveals the patient has a white count of 15,000, hemoglobin of 9, platelets of 286. Chemistries reveals a BUN of 40, creatinine of 1.3. Urinalysis is noted. Serology is noted. Dr. Silva's note is reviewed. ASSESSMENT AND PLAN: A 67-year-old female seen earlier this morning in 574, bed 1 with severe sepsis, acute renal failure due to right lower lobe health-care associated pneumonia with a possible gram-positive cocci, gram-negative bria and atypical organisms; influenza improving; history of sepsis; community-acquired pneumonia; hypertension; lupus; chronic renal failure, on Zyvox, meropenem and doxycycline. Cultures negative. Urine, Legionella negative and Tamiflu day #6 of antibiotics. We will change to doxycycline to p.o. and we will discontinue the Zyvox. Patient will also discontinue the Tamiflu, it will be day #6 today. Procalcitonin is much improved down from 0.64. We will complete with p.o. doxycycline, day #6 of IV meropenem, patient is clinically improved. This was discussed with Dr. Silva and Dr. Escalante. Also order a procalcitonin today. Dajuan Woods MD
--- NOTE | 2017-12-13 23:26 | PN ---
DATE: 12/13/2017 SUBJECTIVE: This patient was seen and evaluated earlier today. Tolerating the diet. No abdominal pain. Normal bowel movements. No melena. No bight red blood per rectum. PHYSICAL EXAMINATION: VITAL SIGNS: Temperature 98.2, blood pressure 133/73, respirations 20, O2 saturation is 97%. HEENT: Atraumatic, anicteric. NECK: Supple. HEART: S1 and S2 heard. LUNGS: Bilateral air entry present. Few crackles noted in the right lower lobe and few rhonchi. EXTREMITIES: No cyanosis, no clubbing. NEUROLOGIC: Alert, oriented, moves all the extremities. LABORATORY DATA: Hemoglobin 9.2, hematocrit 28, WBC 15, platelets 286. Chemistry shows BUN 39, creatinine 1.6. AST 67, ALT 64. IMPRESSION: 1. Anemia, multifactorial etiology, low iron saturation of 5%, iron deficiency pattern. Has a history of colon polyps. Last colonoscopy close to 2 years ago, history of multiple polyps in the past. 2. History of ulcerated gastric polyps in the past. Last esophagogastroduodenoscopy was in 2015. The patient would benefit from elective esophagogastroduodenoscopy and colonoscopy. Since the hemoglobin is stable, we will avoid the endoscopic evaluation now. The patient is on proton pump inhibitor, we will continue that. 3. Chronic pancreatitis, on Creon. 4. Status post cholecystectomy. 5. History of abnormal liver function tests, liver biopsies in the past. Had extensive workup done in the past. This mildly elevated transaminases may be drug induced. We will continue to follow up on that. 5. Right lower lobe pneumonia. Continue the antibiotics as per ID. Other problems include systemic lupus erythematosus. The patient is on cyclosporin and prednisone. Follow up as per the Renal. Had a detailed discussion with the patient. PLAN: To do an outpatient endoscopy and a colonoscopic evaluation unless the patient has an acute drop in blood count. Thank you very much for allowing us to participate in the care of the patient. Tiny Vergara MD
[2017-12-14] MEDS: Levothyroxine 50 MCG TAB PO SCH (06:07)
[2017-12-14] MEDS: Budesonide 0.5 mg/2 ml Inhal Susp UD IH SCH ×2 (07:27→19:34)
[2017-12-14] MEDS: Arformoterol 15 mcg/2 ml Inh Sol IH SCH ×2 (07:27→19:34)
[2017-12-14 07:34] LABS: BASO # 0.03 K/mm3 (0.0-2.0); BASO % 0.2 % (0.0-3.0); EOS % 0.2 % (1.5-5.0); GRAN # 8.54 (1.4-6.5); HEMOGLOBIN 9.8 g/dL (12.0-16.0); LYMPH # 3.1 (1.2-3.4); LYMPH % 23.7 % (22.0-35.0); MEAN CELL VOLUME 87.9 fl (80.0-105.0); MEAN CORPUSCULAR HEMOGLOBIN 28.9 pg (25.0-35.0); MEAN CORPUSCULAR HGB CONC 32.9 g/dl (31.0-37.0); MEAN PLATELET VOLUME 9.4 fl (7.0-11.0); MONO # 1.4 (0.1-0.6); MONO % 10.9 % (1.0-6.0); RBC 3.39 10^6/uL (3.5-6.1); RED CELL DISTRIBUTION WIDTH 14.3 % (11.5-14.5); WHITE BLOOD COUNT 13.1 10^3/ul (4.5-11.0)
[2017-12-14 07:43] LABS: INR 3.16 (0.93-1.08); PROTHROMBIN TIME 37.2 SECONDS (9.4-12.5)
[2017-12-14] MEDS: Pantoprazole 40 mg EC Tab PO SCH (07:54)
--- NOTE | 2017-12-14 09:38 | PN ---
DATE: 12/14/2017 PULMONARY NOTE SUBJECTIVE: The patient appears comfortable this morning. She is not short of breath at rest. PHYSICAL EXAMINATION VITAL SIGNS: Temperature is 97.8, pulse is 78, respirations 16, blood pressure 152/88. Oxygen saturation on room air is 96%-98%. HEENT: Normocephalic, atraumatic. No JVD. CARDIOVASCULAR: Systolic ejection murmur at the lower left sternal border. No S3 gallop. LUNGS: Crackles noted at the right lower lobe. Much less rhonchi. No wheezing. EXTREMITIES: No clubbing, cyanosis or edema. Calves are nontender to palpation. GI: Abdomen is soft, nontender and nondistended. Bowel sounds are positive. SKIN: No acute rash. NEUROLOGIC: Limited at the present time. IMPRESSION: 1. Right lower lobe pneumonia. 2. Sepsis syndrome. 3. Acute bronchitis. 4. Asthma. 5. Systemic lupus erythematosus. PLAN: The patient appears comfortable this morning. She is not short of breath at rest. She is ambulating much more. She does state to feeling much better overall. On physical exam, her bronchospasm continues to resolve. In addition, the oxygen saturation on room air is now 96%-98%. I will continue the current nebulizer treatments and decrease the oral steroids this morning. The patient remains on antibiotic therapy - as per Infectious Disease. The temperatures have fully resolved. The leukocytosis is resolving. Repeat a.m. labs are pending. Clinical status of the patient is significantly improved overall. The patient is reminded to be out of bed as much as possible. I will discuss the above with Dr. Escalante. Cornell Silva MD ROBIN
[2017-12-14] MEDS: Digoxin 125 mcg (0.125 mg) Tab PO SCH (09:51)
[2017-12-14] MEDS: LIPASE PO SCH ×3 (09:52→17:24)
[2017-12-14] MEDS: AMYLASE PO SCH ×3 (09:52→17:24)
[2017-12-14] MEDS: PROTEASE PO SCH ×3 (09:52→17:24)
--- NOTE | 2017-12-14 11:02 | CP.PCM.PN ---
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 Hypertension control with meds as ordered. Patient not on ACEI/ARB due to recent ALINA Monitor Input/Output, daily weights and renal function with basic metabolic panel Continue with Cyclosporine at this time. Her membranous nephropathy appear to be in remission, as with minimal proteinuria on dipstick She was on prednisone Dose meds/antibiotics for reduced GFR. Avoid fleets enema/magnesium based laxatives. Avoid nephrotoxins/NSAIDs/ iodinated contrast (unless needed emergently) Glycemic control Further work up for as per primary team Thanks for allowing me to participate in care of your patient. Please call if any Qs Dr Doc Arteaga Office: [phone] Subjective: Noted events overnight. Patients feels okay. Denies chest pain, palpitation, shortness of breath, leg swelling. All other negative Physical Examination: General Appearance: Comfortable, in no acute respiratory distress, co-operative . Vitals reviewed and noted as below Head; Atraumatic, normocephalic ENT: no ulcers no thrush. Tongue is midline. Oropharynx: no rash or ulcers. EYES: Pupils are equal, round and reactive to light accommodation. Eye muscles and extraocular movement intact. Sclera is anicteric. Neck; supple no lymphadenopathy, no thyromegaly or bruit Lungs: Normal respiratory rate/effort. Breath sounds bilateral equal and clear Heart: Normal rate. s1s2 normal. No rub or gallop. Extremities: no edema. No varicose veins Neurological: Patient is alert, awake and oriented to person, place and time. No focal deficit. Strength bilateral appropriate and equal Skin: Warm and dry. Normal turgor. No rash. Palpitation: Normal elasticity for age Abdomen: Abdomen is soft. Bowel sounds +. There is no abdominal tenderness, no guarding/rigidity no organomegaly Psych: normal insight and normal affect/mood MSK: no joint tenderness or swelling. Digits and nails normal, no deformity : kidney or bladder not palpable Labs/imaging reviewed. Past medical history, past surgical history, family history, social history, allergy reviewed and noted as below Family hx: no hx of CKD. Rest non-contributory UA showing 30 protein without any blood Iron saturation 5% ferritin 135 Objective - Vital Signs/Intake and Output Vital Signs (last 24 hours): Temp Pulse Resp BP Pulse Ox 98 F 76 20 147/79 96 12/14/17 06:00 12/14/17 06:00 12/14/17 06:00 12/14/17 09:51 12/14/17 06:00 Intake and Output: 12/14/17 12/14/17 06:59 18:59 Intake Total 270 Balance 270 - Medications Medications: Current Medications Acetaminophen (Tylenol 325mg Tab) 650 mg PO Q4H PRN PRN Reason: temp greater than 101 Last Admin: 12/10/17 05:54 Dose: 650 mg Amlodipine Besylate (Norvasc) 10 mg PO DAILY [facility] Last Admin: 12/14/17 09:51 Dose: 10 mg Arformoterol Tartrate (Brovana) 15 mcg IH [id number] [facility] Last Admin: 12/14/17 07:27 Dose: 15 mcg Budesonide (Pulmicort Respules) 0.5 mg IH [id number] [facility] Last Admin: 12/14/17 07:27 Dose: 0.5 mg Cyclosporine (Sandimmune) 75 mg PO HS [facility] Last Admin: 12/13/17 22:10 Dose: 75 mg Cyclosporine (Sandimmune) 100 mg PO DAILY [facility] Last Admin: 12/14/17 09:51 Dose: 100 mg Digoxin (Digoxin) 0.125 mg PO DAILY [facility] Last Admin: 12/14/17 09:51 Dose: 0.125 mg Doxycycline Hyclate (Doryx) 100 mg PO Q12 [facility] PRN Reason: Protocol Stop: 12/18/17 22:01 Last Admin: 12/14/17 09:51 Dose: 100 mg Gabapentin (Neurontin) 300 mg PO DAILY [facility] PRN Reason: Protocol Last Admin: 12/14/17 09:56 Dose: 300 mg Guaifenesin/Dextromethorphan (Robitussin Dm) 15 ml PO Q4H PRN PRN Reason: Cough Last Admin: 12/13/17 11:15 Dose: 15 ml Home Med (Home Med) 1 unit PO TID [facility] Last Admin: 12/14/17 09:52 Dose: 1 unit Iron Sucrose 200 mg/ Sodium (Chloride) 110 mls @ 110 mls/hr IVPB QOTHERDAY [facility] Last Admin: 12/14/17 09:57 Dose: 110 mls/hr Levothyroxine Sodium (Synthroid) 50 mcg PO 0600 [facility] Last Admin: 12/14/17 06:07 Dose: 50 mcg Pantoprazole Sodium (Protonix Ec Tab) 40 mg PO ACB [facility] Last Admin: 12/14/17 07:54 Dose: 40 mg Prednisone (Prednisone Tab) 20 mg PO DAILY [facility] Last Admin: 12/14/17 09:53 Dose: 20 mg - Labs Labs: 12/14/17 06:30 12/13/17 15:25 PT 37.2 SECONDS (9.4-12.5) H 12/14/17 06:30 INR 3.16 (0.93-1.08) H 12/14/17 06:30 APTT 33.0 Seconds (25.1-36.5) 12/08/17 13:20
--- NOTE | 2017-12-14 23:34 | PN ---
DATE: SUBJECTIVE: This patient was seen and evaluated earlier today. The patient is comfortable, no diarrhea. Tolerating the diet. No abdominal pain. PHYSICAL EXAMINATION: VITAL SIGNS: Temperature is 98, pulse 76, blood pressure is 147/79. HEENT: Atraumatic, anicteric. NECK: Supple. HEART: S1 and S2 heard. LUNGS: Bilateral air entry present. ABDOMEN: Soft. There is no tenderness. LABORATORY DATA: Hemoglobin 9.8, hematocrit 29.8, WBC 13.1, platelets 343. BUN 39, creatinine 1.6 . IMPRESSION: 1. Anemia, multifactorial etiology, low iron saturation, history of colon polyp, last colonoscopy and endoscopy 2 years ago. The patient did have a history of multiple polyps in the past including villous adenoma. The patient is also immunosuppressed, who would benefit from the endoscopy and a colonoscopic evaluation. 2. The patient also had a history of gastric polyp ulcerated in the past, last endoscopy was in 2015. 3. Pneumonia, on antibiotics, immunocompromised patient. 4. Chronic pancreatitis. 5. Elevated liver function tests, probably drug-induced, the patient had an extensive workup done in the past for liver enzymes elevation, had liver biopsies done, being followed at the [facility] in the past. 6. Would avoid doing an endoscopy or colonoscopic evaluation at this point unless the patient shows an active bleeding. We will continue to closely monitor with the hemoglobin and hematocrit. We will consider endoscopic evaluation in about 3 to 4 weeks' time. Tiny Vergara MD
--- NOTE | 2017-12-15 02:24 | PN ---
DATE: SUBJECTIVE: Patient is in bed, in no acute distress, nontoxic, was seen earlier this morning in 574, bed 1. PHYSICAL EXAMINATION VITAL SIGNS: Temperature is 98, blood pressure is 120/70, respiratory rate of 16. HEENT: Unremarkable. NECK: Supple. LUNGS: Have decreased breath sounds. HEART: Normal S1 and S2. ABDOMEN: Soft, nontender. LABORATORY DATA: Reveals the patient has white count of 13,000, hemoglobin of 9, platelets of 343. Chemistries are noted, BUN of 39, creatinine of 1.6. Urinalysis negative. Review of orders reveals the patient is on p.o. doxycycline and patient is on p.o. prednisone. Dr. Silva's note from this morning is appreciated. ASSESSMENT AND PLAN: This is a 67-year-old female, who was seen earlier this morning, who was initially admitted with severe sepsis with acute renal failure, due to right lower lobe healthcare-associated pneumonia, possible Gram-positive cocci, possible Gram-negative bria, atypical organism. Patient is improving, and on p.o. doxycycline, day #7. We will follow with you. Dajuan Woods MD
[2017-12-15] MEDS: Levothyroxine 50 MCG TAB PO SCH (05:54)
--- NOTE | 2017-12-15 06:01 | PN ---
DATE: SUBJECTIVE: A 67-year-old female, resting in bed this morning comfortably. PHYSICAL EXAMINATION VITAL SIGNS: Her temperature is 98, blood pressure is 147/70, her oxygen saturation is 96% reported, her respiratory rate is 20, and pulse is 76. LUNGS: Show bibasilar rhonchi with diminished breath sounds. HEART: S1, S2 with grade 3/6 systolic murmur. ABDOMEN: Soft with positive bowel sounds. LABORATORY DATA: PT is 3.16. CBC shows WBC of 13.1, RBC 3.39, hemoglobin 9.8, hematocrit 29.8, and platelet count 343,000. Chemistry is pending. ASSESSMENT AND PLAN: The patient is receiving antibiotic therapy for a hospital community-acquired pneumonia, being followed by Infectious Disease. She was found to have acute renal insufficiency in the setting of chronic renal disease with a history of lupus nephritis, being followed by Nephrology. Pulmonary is following the patient for underlying chronic lung disease history and recent pneumonia. She is being followed by GI for her anemia, and when clinically stable, unless there is a significant drop in her anemia, she will require outpatient endoscopy and colonoscopy. Cardiology is following the patient for her valvular heart disease and is recommending outpatient evaluation and management of her aortic valve disease. Currently, she is on Brovana, digoxin, Doryx, and Creon. She is receiving iron sucrose therapy, Neurontin, Norvasc, Sandimmune, Tylenol, and Synthroid. She is on guaifenesin, Pulmicort, Protonix, and prednisone. Her clinical factors have been discussed with the patient. She appears to understand everything. I will continue current level of care. Follow up the patient's lab work in the morning. Plan of care pending - labs and inputs from the individual consultants. Cathy Escalante MD
[2017-12-15 07:22] LABS: BASO # 0.03 K/mm3 (0.0-2.0); BASO % 0.2 % (0.0-3.0); EOS # 0.1 (0.0-0.7); GRAN # 8.24 (1.4-6.5); HEMOGLOBIN 10.3 g/dL (12.0-16.0); LYMPH # 4.3 (1.2-3.4); MEAN CELL VOLUME 88.5 fl (80.0-105.0); MEAN CORPUSCULAR HGB CONC 32.8 g/dl (31.0-37.0); MONO # 1.5 (0.1-0.6); MONO % 10.8 % (1.0-6.0); RBC 3.55 10^6/uL (3.5-6.1); RED CELL DISTRIBUTION WIDTH 14.2 % (11.5-14.5)
[2017-12-15] MEDS: Budesonide 0.5 mg/2 ml Inhal Susp UD IH SCH (07:24)
[2017-12-15] MEDS: Arformoterol 15 mcg/2 ml Inh Sol IH SCH (07:24)
[2017-12-15 07:25] LABS: ALB/GLOB RATIO 0.8 (1.1-1.8); ALBUMIN 3.1 g/dL (3.0-4.8); ALT/SGPT 39 U/L (7-56); AST/SGOT 40 U/L (14-36); BLOOD UREA NITROGEN 36 mg/dL (7-21); CALCIUM 9.7 mg/dL (8.4-10.5); GFR AFRICAN-AMERICAN > 60; GFR NON-AFRICAN AMERICAN 56; INR 2.04 (0.93-1.08); PROTHROMBIN TIME 23.8 SECONDS (9.4-12.5)
[2017-12-15 07:39] VITALS: BP 152/86; PULSE 68; RESP 20; TEMP 98; O2SAT 99
[2017-12-15] MEDS: Pantoprazole 40 mg EC Tab PO SCH (08:00)
--- NOTE | 2017-12-15 08:02 | PN ---
DATE: SUBJECTIVE: This is a 67-year-old female sitting this morning in a chair on a telemetry monitored unit. OBJECTIVE: VITAL SIGNS: Her temperature is 97.8, her blood pressure is 126/66, her respiratory rate is 20, her oxygen saturation is 97% on room air. LUNGS: Show rhonchi, more right than left. HEART: S1 and S2, grade 3/6 systolic murmur. ABDOMEN: Soft with positive bowel sounds. EXTREMITIES: Show no evidence of edema. LABORATORY DATA: Her sodium is 139, potassium is 4.2, chloride 111, CO2 is 20. BUN is 46, creatinine is 1.6. Her random blood sugar is 138. Calcium is 8.2, albumin is 2.7. Her AST is 53. CBC shows a WBC of 15, RBC 3.17, hemoglobin 9.2, hematocrit 28, and platelet count 286. MEDICATIONS: Currently, the patient is on Brovana, digoxin, doxycycline, cyclosporine, Creon, , meropenem, Neurontin, Norvasc, prednisone, Protonix, Pulmicort, Robitussin, Synthroid, Tamiflu, and Tylenol. ASSESSMENT AND PLAN: 1. The patient is receiving antibiotic therapy for pneumonia, being followed by Infectious Disease. 2. The patient has lupus nephritis, chronic renal disease with an acute exacerbation. 3. She has valvular heart disease and severe aortic stenosis, being followed by Cardiology. 4. She has an iron deficiency anemia, being followed by Gastroenterology. We will follow the laboratory data closely. Monitor the WBC. The patient has been on Solu-Medrol and is now on prednisone. She received Aranesp yesterday. We will monitor hemoglobin. She is receiving iron therapy by Nephrology. Isolation precautions have been removed as per the staff as per Infectious Disease. Patient is made aware of all the clinical findings and all of the medical issues at hand and the recommendations of the individual consultants, she said she has spoken to them. Continue current level of care and follow the patient. Cathy Escalante MD
--- NOTE | 2017-12-15 09:31 | PN ---
DATE: 12/15/2017 PULMONARY NOTE SUBJECTIVE: The patient appears very comfortable this morning. She is not short of breath at rest. PHYSICAL EXAMINATION: VITAL SIGNS: Temperature is 98.0, pulse 68, respirations 18/20, blood pressure 152/86. Oxygen saturation on room air is 99%. HEENT: Normocephalic, atraumatic. No JVD. CARDIOVASCULAR: Systolic ejection murmur at the lower left sternal border. No S3 gallop. LUNGS: Crackles noted at the right lower lobe. Minimal/less rhonchi. No wheezing. EXTREMITIES: No clubbing, cyanosis or edema. Calves are nontender to palpation. GI: Abdomen is soft, nontender and nondistended. Bowel sounds are positive. SKIN: No acute rash. NEUROLOGIC: Limited at the present time. IMPRESSION: 1. Right lower lobe pneumonia. 2. Sepsis syndrome. 3. Acute bronchitis. 4. Asthma. 5. Systemic lupus erythematosus. PLAN: The patient appears very comfortable this morning. She is not short of breath at rest. She does state to feeling much, much better overall. On physical exam, her bronchospasm continues to resolve. In addition, the oxygen saturation on room air is now 99%. I will continue with the current nebulizer treatments and oral steroids (decreased yesterday) for now. The patient remains on antibiotic therapy - as per infectious disease. Input by Dr. Woods is noted. The temperatures have now fully resolved. Clinical status of the patient is significantly improved. I will discuss the above with Dr. Escalante. Cornell Silva MD ROBIN
[2017-12-15] MEDS: Digoxin 125 mcg (0.125 mg) Tab PO SCH (10:03)
[2017-12-15] MEDS: AMYLASE PO SCH ×2 (10:04→14:23)
[2017-12-15] MEDS: PROTEASE PO SCH ×2 (10:04→14:23)
[2017-12-15] MEDS: LIPASE PO SCH ×2 (10:04→14:23)
[2017-12-15 10:06] VITALS: PULSE 68
[2017-12-15 10:46] LABS: WHITE BLOOD COUNT 14.2 10^3/ul (4.5-11.0)
--- NOTE | 2017-12-15 18:35 | CP.PCM.PN ---
Subjective - Date & Time of Evaluation Date of Evaluation: 12/15/17 Time of Evaluation: 12:10 - Subjective Subjective: Breathing much better, no fevers, not in distress. Cough is improved. Objective - Vital Signs/Intake and Output Vital Signs (last 24 hours): Temp Pulse Resp BP Pulse Ox 98 F 68 20 152/86 H 99 12/15/17 07:38 12/15/17 07:38 12/15/17 07:38 12/15/17 10:04 12/15/17 07:38 Intake and Output: 12/15/17 12/15/17 06:59 18:59 Intake Total 417 Balance 417 - Medications Medications: Current Medications Acetaminophen (Tylenol 325mg Tab) 650 mg PO Q4H PRN PRN Reason: temp greater than 101 Last Admin: 12/10/17 05:54 Dose: 650 mg Amlodipine Besylate (Norvasc) 10 mg PO DAILY [facility] Last Admin: 12/15/17 10:04 Dose: 10 mg Arformoterol Tartrate (Brovana) 15 mcg IH [id number] [facility] Last Admin: 12/15/17 07:24 Dose: 15 mcg Budesonide (Pulmicort Respules) 0.5 mg IH [id number] [facility] Last Admin: 12/15/17 07:24 Dose: 0.5 mg Cyclosporine (Sandimmune) 75 mg PO HS [facility] Last Admin: 12/14/17 21:38 Dose: 75 mg Cyclosporine (Sandimmune) 100 mg PO DAILY [facility] Last Admin: 12/15/17 10:03 Dose: 100 mg Digoxin (Digoxin) 0.125 mg PO DAILY [facility] Last Admin: 12/15/17 10:03 Dose: 0.125 mg Doxycycline Hyclate (Doryx) 100 mg PO Q12 [facility] PRN Reason: Protocol Stop: 12/18/17 22:01 Last Admin: 12/15/17 10:04 Dose: 100 mg Gabapentin (Neurontin) 300 mg PO DAILY [facility] PRN Reason: Protocol Last Admin: 12/15/17 10:03 Dose: 300 mg Guaifenesin/Dextromethorphan (Robitussin Dm) 15 ml PO Q4H PRN PRN Reason: Cough Last Admin: 12/13/17 11:15 Dose: 15 ml Home Med (Home Med) 1 unit PO TID [facility] Last Admin: 12/15/17 10:04 Dose: 1 unit Iron Sucrose 200 mg/ Sodium (Chloride) 110 mls @ 110 mls/hr IVPB QOTHERDAY [facility] Last Admin: 12/14/17 09:57 Dose: 110 mls/hr Levothyroxine Sodium (Synthroid) 50 mcg PO 0600 [facility] Last Admin: 12/15/17 05:54 Dose: 50 mcg Pantoprazole Sodium (Protonix Ec Tab) 40 mg PO ACB [facility] Last Admin: 12/15/17 08:00 Dose: 40 mg Prednisone (Prednisone Tab) 20 mg PO DAILY [facility] Last Admin: 12/15/17 10:04 Dose: 20 mg - Labs Labs: 12/15/17 06:30 12/15/17 06:30 PT 23.8 SECONDS (9.4-12.5) H 12/15/17 06:30 INR 2.04 (0.93-1.08) H 12/15/17 06:30 APTT 33.0 Seconds (25.1-36.5) 12/08/17 13:20 - Constitutional Appears: Chronically Ill - Head Exam Head Exam: NORMAL INSPECTION - Neck Exam Neck Exam: absent: Meningismus - Respiratory Exam Respiratory Exam: Decreased Breath Sounds - Cardiovascular Exam Cardiovascular Exam: +S1, +S2 - GI/Abdominal Exam GI & Abdominal Exam: Soft. absent: Tenderness Assessment and Plan - Assessment and Plan (Free Text) Plan: Assessment severe sepsis with acute renal failure due to right lower lobe healthcare- associated pneumonia with possible gram positive cocci and/or gram negative bacilli and/or atypical organisms, R/O Influenza,clinically improving history of sepsis due to left lower lobe pneumonia, community-acquired chronic bronchiectasis HTN SLE chronic renal failure history of DVT hypothyroidism COPD GERD anxiety disorder S/P cholecystectomy S/P breast surgery Plan continue Doxycycline day 8 to complete up to [address] Escalante
--- NOTE | 2017-12-16 08:37 | PN ---
DATE: 12/15/2017 SUBJECTIVE: This patient was seen and evaluated earlier today. No abdominal complaints. Tolerating the diet. PHYSICAL EXAMINATION: VITAL SIGNS: Temperature is 98, blood pressure 142/86, pulse 68, respirations 20. HEENT: Atraumatic, anicteric. NECK: Supple. HEART: S1 and S2 heard. LUNGS: Bilateral air entry present. ABDOMEN: Soft, no tenderness. LABORATORY DATA: Hemoglobin 10.3, hematocrit 31.4, WBC 14.2, platelets 386. BUN 36, creatinine 1.0. LFT is improved. IMPRESSION: This 67-year-old patient with lupus nephritis, on cyclosporin, and also on prednisone, admitted with pneumonia. The patient also was found to be anemic, history of colon polyps and duodenal ulcer and gastric ulceration polyp. The patient's hemoglobin is stable now. We would continue omeprazole, presently on 40 mg. The patient is on Protonix and also the patient is on Fosamax and also on prednisone. RECOMMENDATIONS: 1. Followup of hemoglobin and hematocrit. 2. Elective endoscopic evaluation and also colonoscopic evaluation in about 2 to 3 week's time. The patient was clearly told about the followup recommendations. Advised to coordinate with our office to scheduling for the procedure and advised plan to be discharged today. Advised followup with Dr. Escalante. Thank you very much for allowing us to participate in the care of the patient. Tiny Vergara MD
--- NOTE | 2017-12-16 08:46 | PN ---
DATE: 12/15/2017 SUBJECTIVE: The patient is seen lying in bed. She is awake, she is alert, she is comfortable. She denies any pain. She denies any shortness of breath. PHYSICAL EXAMINATION: GENERAL: Elderly lady lying in bed. VITAL SIGNS: Blood pressure 152/86, heart rate 68, respiratory rate 20, temperature 98. HEENT: Normocephalic, atraumatic. NECK: Supple, no JVD. LUNGS: Bilateral equal air entry, bilateral equal expansion, no rales. CARDIAC: S1 and S2, regular rate and rhythm, no murmur, no rub. ABDOMEN: Soft, nondistended, nontender, bowel sounds present. EXTREMITIES: No lower extremity edema. INTAKE AND OUTPUT: 417/not charted. LABORATORY DATA: WBC 14, hemoglobin 10, hematocrit 31, platelets 386. Sodium 142, potassium 3.7, chloride 106, CO2 of 29, BUN 36, creatinine 1, glucose 77, calcium 9.7, phosphorus not checked. Albumin 3.1, corrected calcium is 10. Cultures no growth. CURRENT MEDICATIONS: Brovana, digoxin 0.125, and doxycycline. HOME MEDICATIONS: Lipase, protease etc., iron sucrose 200 mg every other day, Neurontin, amlodipine, prednisone, Protonix, Pulmicort, Robitussin, Sandimmune 75 at bedtime, Sandimmune 100 every morning, Synthroid, and Tylenol. ASSESSMENT: 1. Acute kidney injury, resolved. 2. Sepsis with pneumonia, much improved. 3. Anemia with iron deficiency. 4. Underlying chronic kidney disease stage II. 5. Lupus nephritis/nephropathy. PLAN: 1. Venofer 200 mg IV piggyback today. 2. Continue cyclosporin 100 in a.m. and 75 in p.m. 3. Continue current antihypertensives. 4. Follow up outpatient with Dr. Tim. Beba Cintron MD
--- NOTE | 2017-12-16 17:21 | DS ---
HISTORY OF PRESENT ILLNESS: A 67-year-old female, being discharged today from [facility] after receiving treatment for pneumonia of the lung, acute renal insufficiency in the setting of chronic renal disease, lupus nephritis, hypertension, iron-deficiency anemia, history of DVT, history of cholecystectomy, history of hypothyroid disease, peripheral neuropathy, degenerative arthritis of the spine, osteoporosis, paroxysmal atrial fibrillation. She was seen in the hospital during her stay by Pulmonary, GI, Cardiology, and Infectious disease. LABORATORY DATA: On discharge, white count 14, hemoglobin 10.3, hematocrit 31.4, platelet count 386. PT was 2.04. Chemistry showed normal electrolytes, BUN was 36, creatinine was 1. Her AST was 40. Albumin was 3.1. She had a negative Legionella titer. She had a negative influenza titer. Digoxin level was 0.9. Cyclosporin level was 141. DISCHARGE MEDICATIONS: She would be going home on digoxin 0.125 mg daily, Advair 1 puff every 12 hours, Fosamax 70 mg daily, Norvasc 10 mg daily, Coumadin 2.5 mg daily. Prednisone will be on a tapering scale until she gets her maintenance dose of 5 mg daily. K-Dur 10 mEq t.i.d., Prilosec 40 mg daily, magnesium oxide 500 mg daily, Creon 1 tab t.i.d., Synthroid 50 mcg daily, Neurontin 300 mg daily, cyclosporin 100 mg daily, Neoral is the brand name. ASSESSMENT AND PLAN: She would be followed up as an outpatient. She was aware of the clinical findings during her stay in the hospital. Recommendation by Cardiology was to follow up for her severe aortic stenosis with outpatient care for further evaluation. She would also be seen by GI for evaluation for her iron deficiency anemia. Would be followed by Renal for her lupus nephritis, renal disease. Would be followed by myself for followup of her pulmonary disease along with Pulmonary and will be following back with her family development specialist as well. Cathy Escalante MD
== END 2017-12-15 18:42 | disposition home or self-care (01) | DRG 871 ==
LOC: ED 11:42 → ERH 14:14 → 2RNO 18:27 → 5RSO 12-12 14:00
PROVIDERS: ADMIT Internal Medicine; ATTEND Internal Medicine
PROC: 3E0F7GC Introduction of Other Therapeutic Substance into Respiratory Tract, Via Natural or Artificial Opening (ICD-10-PCS; 2017-12-08)
PROC: 05H633Z Insertion of Infusion Device into Left Subclavian Vein, Percutaneous Approach (ICD-10-PCS; principal; 2017-12-09)
PROC: B547ZZA Ultrasonography of Left Subclavian Vein, Guidance (ICD-10-PCS; 2017-12-09)
DX: A41.9 Sepsis, unspecified organism (principal); J18.9 Pneumonia, unspecified organism; N17.9 Acute kidney failure, unspecified; I13.0 Hypertensive heart and chronic kidney disease with heart failure and stage 1 through stage 4 chronic kidney disease, or unspecified chronic kidney disease; I48.0 Paroxysmal atrial fibrillation; I08.3 Combined rheumatic disorders of mitral, aortic and tricuspid valves; K86.1 Other chronic pancreatitis; I50.9 Heart failure, unspecified; G62.9 Polyneuropathy, unspecified; N18.3 Chronic kidney disease, stage 3 (moderate); J44.0 Chronic obstructive pulmonary disease with (acute) lower respiratory infection; M32.14 Glomerular disease in systemic lupus erythematosus; R65.20 Severe sepsis without septic shock; M81.0 Age-related osteoporosis without current pathological fracture; D50.9 Iron deficiency anemia, unspecified; K21.9 Gastro-esophageal reflux disease without esophagitis; E03.9 Hypothyroidism, unspecified; F41.9 Anxiety disorder, unspecified; J20.9 Acute bronchitis, unspecified; M51.37 Other intervertebral disc degeneration, lumbosacral region; Y95 Nosocomial condition; E78.5 Hyperlipidemia, unspecified; Z86.718 Personal history of other venous thrombosis and embolism; Z79.01 Long term (current) use of anticoagulants; Z87.11 Personal history of peptic ulcer disease; Z90.49 Acquired absence of other specified parts of digestive tract; Z86.010 Personal history of colon polyps; Z87.891 Personal history of nicotine dependence

== ENCOUNTER 2018-04-12 21:15 | Inpatient (IN) | payer MEDICARE, MEDICAID ==
--- NOTE | 2018-04-12 22:19 | ED PDOC ---
Arrival/HPI - General Time Seen by Provider: 04/12/18 21:16 Historian: Patient - History of Present Illness Narrative History of Present Illness (Text): 04/12/18 22:07 This is a 67 year old female with PMH of HT, COPD, CHF with last EF of 68.2% in 11/2017, pneumonae, pancreatitis, lupus nephritis, CKD, paroxysmal atrial fibrillation on digoxin, history of DVT on coumadin, severe aortic stenosis, hypothyroidism and DJD presenting to the ER for back pain and fever that began on . She has chronic back pain but this episode is worse and patient states breathing and walking makes the pain worse. Pain is nonradiating, constant, rated 3/10 currently, and located in the generalized upper and middle back area. Temperature taken today at home was 100.4. She denies CP, saddle anesthesia, headache, chills, nausea, vomiting, diarrhea, urinary symptoms, recent travel, recent sickness, and blood in the stool or urine. PMD is Dr. Escalante Time/Duration: < week Symptom Course: Intermittent Activities at Onset: Light Context: Home Past Medical History - Provider Review Nursing Documentation Reviewed: Yes - Infectious Disease Hx of Infectious Diseases: None - Tetanus Immunization Tetanus Immunization: Unknown - Reproductive Menopause: Yes - Cardiac Hx Cardiac Disorders: Yes Hx Congestive Heart Failure: Yes Hx Hypertension: Yes - Pulmonary Hx Chronic Obstructive Pulmonary Disease (COPD): Yes - Neurological Hx Neurological Disorder: No - HEENT Hx HEENT Disorder: Yes (WEARS RX GLASSES) Other/Comment: decreased vision in left eye - Renal Hx Renal Failure: Yes - Endocrine/Metabolic Hx Hypothyroidism: Yes - Hematological/Oncological Hx Cancer: No Other/Comment: Lupus - Integumentary Hx Dermatological Disorder: Yes - Musculoskeletal/Rheumatological Hx Arthritis: Yes - Gastrointestinal Hx Gastrointestinal Disorders: Yes Hx Gall Bladder Disease: Yes (CHOLECYSTECTOMY) Hx Gastroesophageal Reflux: Yes - Genitourinary/Gynecological Hx Genitourinary Disorders: No - Psychiatric Hx Psychophysiologic Disorder: Yes Hx Anxiety: Yes Hx Substance Use: No - Surgical History Hx Mastectomy: No - Anesthesia Hx Anesthesia: Yes Hx Anesthesia Reactions: No Hx Malignant Hyperthermia: No - Suicidal Assessment Feels Threatened In Home Enviroment: No Family/Social History - Physician Review Nursing Documentation Reviewed: Yes Family/Social History: Unknown Family HX Smoking Status: Former Smoker Hx Alcohol Use: No Hx Substance Use: No Hx Substance Use Treatment: No Allergies/Home Meds Allergies/Adverse Reactions: Allergies ciprofloxacin [From Cipro] Allergy (Verified 04/12/18 21:32) ANAPHYLAXIS ciprofloxacin HCl [From Cipro] Allergy (Verified 04/12/18 21:32) ANAPHYLAXIS IV Contrast Allergy (Uncoded 04/12/18 21:32) ANAPHYLAXIS Home Medications: Home Meds Medication Instructions Recorded Confirmed Levothyroxine [Synthroid] 50 mcg PO DAILY 11/08/15 04/12/18 Lipase/Protease/Amylase [Creon Dr 1 tab PO TID 11/08/15 04/12/18 12,000 Units Capsule] Magnesium Oxide 500 mg PO DAILY 11/08/15 04/12/18 Omeprazole [Prilosec] 40 mg PO DAILY 11/08/15 04/12/18 Potassium Chloride [Klor-Con 10] 10 tab-cap PO TID 04/29/16 04/12/18 Prednisone [Laura] 5 mg PO DAILY 04/29/16 04/12/18 Warfarin [Coumadin] 2.5 mg PO DAILY 04/29/16 04/13/18 amLODIPine [Norvasc] 10 mg PO DAILY 04/29/16 04/12/18 Digoxin [Digitek] 125 mcg PO DAILY 06/09/17 04/12/18 Gabapentin [Neurontin] 600 mg PO HS 06/09/17 04/13/18 tiZANidine [Zanaflex] 2 mg PO HS 06/09/17 04/12/18 Ezetimibe [Zetia] 10 mg PO DAILY 04/12/18 04/12/18 Olmesartan/Hydrochlorothiazide 1 each PO DAILY 04/12/18 04/12/18 [Olmesartan-Hctz 40-25 mg Tab] cycloSPORINE, Modified [Neoral] 75 mg PO HS 04/13/18 04/13/18 Review of Systems - Physician Review All systems were reviewed & negative as marked: Yes - Review of Systems Constitutional: Fevers Eyes: Normal. absent: Vision Changes ENT: Normal. absent: Hearing Changes Respiratory: SOB. absent: Cough, Wheezing Cardiovascular: Normal. absent: Chest Pain, Palpitations Gastrointestinal: Normal. absent: Abdominal Pain, Constipation, Diarrhea, Nausea, Vomiting, Hematochezia, Hematemesis Genitourinary Female: Normal. absent: Dysuria, Frequency, Hematuria, Vaginal Bleeding, Vaginal Discharge Musculoskeletal: Back Pain. absent: Joint Swelling, Myalgias Skin: Normal Neurological: Normal. absent: Headache, Dizziness Endocrine: Normal Physical Exam Vital Signs Reviewed: Yes Vital Signs Temp Pulse Resp BP Pulse Ox 04/13/18 02:00 81 18 141/82 98 04/12/18 23:15 99.1 F 04/12/18 21:36 99.3 F 77 19 147/79 98 Temperature: Afebrile Blood Pressure: Normal Pulse: Regular Respiratory Rate: Normal Appearance: Positive for: Well-Appearing, Non-Toxic, Comfortable Pain Distress: None Mental Status: Positive for: Alert and Oriented X 3 - Systems Exam Head: Present: Atraumatic, Normocephalic Pupils: Present: PERRL Extroacular Muscles: Present: EOMI Conjunctiva: Present: Normal Mouth: Present: Moist Mucous Membranes Neck: Present: Normal Range of Motion Respiratory/Chest: Present: Clear to Auscultation, Good Air Exchange. No: Respiratory Distress, Accessory Muscle Use, Wheezes, Decreased Breath Sounds Cardiovascular: Present: Regular Rate and Rhythm, Normal S1, S2. No: Murmurs Abdomen: No: Tenderness, Distention, Peritoneal Signs Back: Present: Normal Inspection, Paraspinal Tenderness, Other (tenderdess noted in the cervical and thoracic area B/L that is similar to history of chronic back pain). No: CVA Tenderness, Midline Tenderness, Pain with Leg Raise Upper Extremity: Present: Normal Inspection. No: Cyanosis, Edema Lower Extremity: Present: Normal Inspection. No: Edema Neurological: Present: Speech Normal, Motor Func Grossly Intact, Normal Sensory Function, Gait Normal Skin: Present: Warm, Dry, Normal Color. No: Rashes Psychiatric: Present: Alert, Oriented x 3, Normal Insight, Normal Concentration Medical Decision Making ED Course and Treatment: 04/12/18 22:22 Impression: This is a 67 year old female with PMH of HT, COPD, CHF with last EF of 68.2% in 11/2017, paroxysmal atrial fibrillation on digoxin, history of DVT on coumadin, severe aortic stenosis, hypothyroidism and DJD presenting to the ER for back pain and fever that began on . Differential not limited to: DJD vs hypothyroidism vs Dig toxicity vs UTI vs CHF vs COPD Plan: -Blood work, BNP, lipase, amylase -EKG -Dig level -PT/PTT -TSH/T4 -Chest xray -blood cultures -U/A and culture Progress: - Lab Interpretations Microbiology Results: Microbiology Results 04/12/18 22:10 Blood Blood Culture - Preliminary NO GROWTH AFTER 24 HOURS 04/12/18 21:50 Blood Blood Culture - Preliminary NO GROWTH AFTER 24 HOURS Lab Results: 04/12/18 21:50 04/12/18 22:31 Lab Results 04/12/18 23:00: Urine Color Yellow, Urine Appearance Sl cloudy, Urine pH 7.0, Ur Specific [place] 1.010, Urine Protein Trace H, Urine Glucose (UA) Negative, Urine Ketones Negative, Urine Blood Moderate H, Urine Nitrate Negative, Urine Bilirubin Negative, Urine Urobilinogen 0.2, Ur Leukocyte Esterase Negative, Urine RBC 1 - 3, Urine WBC 0 - 2, Ur Epithelial Cells 1 - 3 04/12/18 22:31: Digoxin 0.9 04/12/18 22:31: Sodium 143, Potassium 4.5, Chloride 106, Carbon Dioxide 26, Anion Gap 16, BUN 35 H, Creatinine 1.3 H, Est GFR ( Amer) 50, Est GFR ( Non-Af Amer) 41, Random Glucose 117 H, Calcium 9.1, Total Bilirubin 0.7, AST 45 H D, ALT 25, Alkaline Phosphatase 82, Lactate Dehydrogenase 527, Total Creatine Kinase 349 H, CK-MB (CK-2) 1.0, CK-MB (CK-2) % Cancelled, Troponin I 0.03 D, NT -Pro-B Natriuret Pep 3970 H, Total Protein 9.1 H, Albumin 4.0, Globulin 5.1, Albumin/Globulin Ratio 0.8 L, Amylase 105, Lipase 154 04/12/18 22:31: PT 22.4 H, INR 1.94 H, APTT 38.5 H 04/12/18 22:18: Total T3 0.78 L, TSH 3rd Generation 0.49 04/12/18 21:50: WBC 11.5 H D, RBC 4.09, Hgb 12.7, Hct 38.3, MCV 93.6, MCH 31.1, MCHC 33.2, RDW 13.4, Plt Count 257, MPV 10.1, Gran % 78.3 H, Lymph % (Auto) 14.9 L, [place] % (Auto) 6.5 H, Eos % (Auto) 0.2 L, Baso % (Auto) 0.1, Gran # 9.00 H, Lymph # (Auto) 1.7, [place] # (Auto) 0.8 H, Eos # (Auto) 0.0, Baso # (Auto) 0.01 - RAD Interpretation Radiology Orders: 04/12/18 21:48 CHEST PORTABLE [RAD] Stat 04/12/18 23:50 ABDOMEN & PELVIS [ABD & PELVIS W/O PO OR IV CONT] [CT] Stat - Medication Orders Current Medication Orders: Amlodipine Besylate (Norvasc) 10 mg PO DAILY [facility] Last Admin: 04/13/18 09:25 Dose: 10 mg MAR Blood Pressure Document 04/13/18 09:25 RACHEL (Rec: 04/13/18 09:26 RACHEL [id number]) Blood Pressure Blood Pressure (100/60-150/90) 148/72 Arformoterol Tartrate (Brovana) 15 mcg IH [id number] [facility] Last Admin: 04/13/18 19:35 Dose: 15 mcg Budesonide (Pulmicort Respules) 0.5 mg IH [id number] [facility] Last Admin: 04/13/18 19:35 Dose: 0.5 mg Cyclosporine (Sandimmune) 100 mg PO DAILY [facility] Last Admin: 04/13/18 13:28 Dose: 100 mg Cyclosporine (Sandimmune) 75 mg PO DAILY [facility] Last Admin: 04/13/18 22:19 Dose: 75 mg Digoxin (Digoxin) 0.125 mg PO 1400 [facility] Last Admin: 04/13/18 14:46 Dose: 0.125 mg MAR Apical Pulse Rate Document 04/13/18 14:46 RACHEL (Rec: 04/13/18 14:46 RACHEL [id number]) Apical Pulse Rate Apical Pulse Rate (60-90 beats/min) 82 Hydrochlorothiazide (Hydrodiuril) 25 mg PO DAILY [facility] Last Admin: 04/13/18 09:26 Dose: 25 mg Piperacillin Sod/Tazobactam Sod (Zosyn 3.375 In Ns 100ml) 100 mls @ 200 mls/hr IVPB Q6 TESHA PRN Reason: Protocol Stop: 04/20/18 12:01 Last Admin: 04/13/18 17:06 Dose: 200 mls/hr eMAR Start Stop Document 04/13/18 17:06 [facility] (Rec: 04/13/18 17:07 [facility] [id number]) Intravenous Solution Start Date 04/13/18 Start Time 17:07 End Date 04/13/18 End time 17:37 Total Infusion Time 30 Levothyroxine Sodium (Synthroid) 50 mcg PO DAILY [facility] Last Admin: 04/13/18 09:17 Dose: Losartan Potassium (Cozaar) 100 mg PO DAILY [facility] Last Admin: 04/13/18 09:25 Dose: 100 mg Pantoprazole Sodium (Protonix Ec Tab) 40 mg PO ACB [facility] Last Admin: 04/13/18 07:43 Dose: 40 mg Prednisone (Prednisone Tab) 5 mg PO DAILY [facility] Last Admin: 04/13/18 15:18 Dose: 5 mg Discontinued Medications Non-Formulary Medication (Olmesartan/Hydrochlorothiazide [Olmesartan-Hctz 40-25 Mg Tab]) 1 each PO DAILY [facility] Non-Formulary Medication (Omeprazole [Prilosec]) 40 mg PO DAILY [facility] - [place] / [employer] CLERK / Resident Statement / has reviewed & agrees with the documentation as recorded. / has examined the patient and agrees with the treatment plan. Disposition/Present on Arrival - Present on Arrival Any Indicators Present on Arrival: No History of DVT/PE: No History of Uncontrolled Diabetes: No Urinary Catheter: No History of Decub. Ulcer: No History Surgical Site Infection Following: None - Disposition Have Diagnosis and Disposition been Completed?: Yes Diagnosis: Fever Disposition: HOSPITALIZED Disposition Time: 20:00 Patient Problems: Current Active Problems Problem Status Onset Fever Acute Condition: STABLE
[2018-04-12 22:27] LABS: ALB/GLOB RATIO 0.8 (1.1-1.8); CALCIUM 9.1 mg/dL (8.4-10.5)
[2018-04-12 22:30] LABS: BASO # 0.01 K/mm3 (0.0-2.0); BASO % 0.1 % (0.0-3.0); EOS % 0.2 % (1.5-5.0); GRAN % 78.3 % (50.0-68.0); HEMOGLOBIN 12.7 g/dL (12.0-16.0); LYMPH # 1.7 (1.2-3.4); LYMPH % 14.9 % (22.0-35.0); MEAN CELL VOLUME 93.6 fl (80.0-105.0); MEAN CORPUSCULAR HEMOGLOBIN 31.1 pg (25.0-35.0); MEAN CORPUSCULAR HGB CONC 33.2 g/dl (31.0-37.0); MEAN PLATELET VOLUME 10.1 fl (7.0-11.0); MONO # 0.8 (0.1-0.6); MONO % 6.5 % (1.0-6.0); RBC 4.09 10^6/uL (3.5-6.1); RED CELL DISTRIBUTION WIDTH 13.4 % (11.5-14.5); WHITE BLOOD COUNT 11.5 10^3/ul (4.5-11.0)
[2018-04-12 22:55] LABS: INR 1.94 (0.93-1.08); PARTIAL THROMBOPLASTIN TIME 38.5 Seconds (25.1-36.5); PROTHROMBIN TIME 22.4 SECONDS (9.4-12.5)
[2018-04-12 23:10] LABS: TROPONIN I 0.03 ng/mL
[2018-04-12 23:19] LABS: T3 0.78 ng/mL (0.97-1.69)
[2018-04-12 23:25] LABS: URINE BILIRUBIN NEGATIVE (NEGATIVE); URINE BLOOD MODERATE (NEGATIVE); URINE GLUCOSE (UA) NEGATIVE (NEGATIVE); URINE LEUKOCYTE ESTERASE NEGATIVE Leu/uL (NEGATIVE); URINE PROTEIN TRACE mg/dL (<30 mg/dL); URINE UROBILINOGEN 0.2 E.U./dL (<1 E.U./dL)
[2018-04-12 23:32] LABS: URINE APPEARANCE SL CLOUDY (CLEAR); URINE COLOR YELLOW (YELLOW)
[2018-04-12 23:52] LABS: URINE WBC 0 - 2 /hpf (0-6)
--- NOTE | 2018-04-13 01:52 | ED PDOC ---
Physical Exam Vital Signs Temp Pulse Resp BP Pulse Ox 04/12/18 23:15 99.1 F 04/12/18 21:36 99.3 F 77 19 147/79 98 Medical Decision Making ED Course and Treatment: 04/12/18 23:08 Case endorsed to me by Dr. Quintanilla pending lab, urine studies, reassessment, and disposition. EXAM: CT Abdomen and Pelvis Without Intravenous Contrast Dictated and Authenticated by: Amanda Foy MD 04/13/2018 1:23 AM IMPRESSION: There is focal area of wall thickening noted in the descending/sigmoid colon lesion measuring 1.3 cm in thickness. The findings are concerning for a lesion. Colonoscopy correlation is commended. 04/13/18 02:[address] escalante, patient to be admitted for further workup for fever, abnormal colon lesion. patient remained stable throughout ED course, patient did not exhibit any cardiopulmonary symptoms or show any signs of acute decomp chf. patient has been informed of CT findings and is aware of GI consult indication. will hold empiric abx as patient does not show an symptoms of overt serious bacterail infection at this time. - Lab Interpretations Lab Results: 04/12/18 21:50 04/12/18 22:31 Lab Results 04/12/18 23:00: Urine Color Yellow, Urine Appearance Sl cloudy, Urine pH 7.0, Ur Specific [place] 1.010, Urine Protein Trace H, Urine Glucose (UA) Negative, Urine Ketones Negative, Urine Blood Moderate H, Urine Nitrate Negative, Urine Bilirubin Negative, Urine Urobilinogen 0.2, Ur Leukocyte Esterase Negative, Urine RBC 1 - 3, Urine WBC 0 - 2, Ur Epithelial Cells 1 - 3 04/12/18 22:31: Digoxin 0.9 04/12/18 22:31: Sodium 143, Potassium 4.5, Chloride 106, Carbon Dioxide 26, Anion Gap 16, BUN 35 H, Creatinine 1.3 H, Est GFR ( Amer) 50, Est GFR ( Non-Af Amer) 41, Random Glucose 117 H, Calcium 9.1, Total Bilirubin 0.7, AST 45 H D, ALT 25, Alkaline Phosphatase 82, Lactate Dehydrogenase 527, Total Creatine Kinase 349 H, CK-MB (CK-2) 1.0, CK-MB (CK-2) % Cancelled, Troponin I 0.03 D, NT -Pro-B Natriuret Pep 3970 H, Total Protein 9.1 H, Albumin 4.0, Globulin 5.1, Albumin/Globulin Ratio 0.8 L, Amylase 105, Lipase 154 04/12/18 22:31: PT 22.4 H, INR 1.94 H, APTT 38.5 H 04/12/18 22:18: Total T3 0.78 L, TSH 3rd Generation 0.49 04/12/18 21:50: WBC 11.5 H D, RBC 4.09, Hgb 12.7, Hct 38.3, MCV 93.6, MCH 31.1, MCHC 33.2, RDW 13.4, Plt Count 257, MPV 10.1, Gran % 78.3 H, Lymph % (Auto) 14.9 L, [place] % (Auto) 6.5 H, Eos % (Auto) 0.2 L, Baso % (Auto) 0.1, Gran # 9.00 H, Lymph # (Auto) 1.7, [place] # (Auto) 0.8 H, Eos # (Auto) 0.0, Baso # (Auto) 0.01 - RAD Interpretation Radiology Orders: 04/12/18 21:48 CHEST PORTABLE [RAD] Stat 04/12/18 23:50 ABDOMEN & PELVIS [ABD & PELVIS W/O PO OR IV CONT] [CT] Stat - Scribe Statement The provider has reviewed the documentation as recorded by the Biancaibcheri Parra Provider Scribe Attestation: All medical record entries made by the Biancaibcheri were at my direction and personally dictated by me. I have reviewed the chart and agree that the record accurately reflects my personal performance of the history, physical exam, medical decision making, and the department course for this patient. I have also personally directed, reviewed, and agree with the discharge instructions and disposition. Disposition/Present on Arrival - Present on Arrival Any Indicators Present on Arrival: No History of DVT/PE: No History of Uncontrolled Diabetes: No Urinary Catheter: No History of Decub. Ulcer: No History Surgical Site Infection Following: None - Disposition Have Diagnosis and Disposition been Completed?: Yes Diagnosis: Fever Disposition: HOSPITALIZED Disposition Time: 02:05 Patient Plan: Telemetry Condition: STABLE Referrals: Cathy Escalante MD [Primary Care Provider] - Follow up with primary Forms: [employer] (Mongolian)
[2018-04-13 03:50] VITALS: BMI 25.3
[2018-04-13] MEDS: Pantoprazole 40 mg EC Tab PO SCH (07:43)
[2018-04-13] MEDS: Arformoterol 15 mcg/2 ml Inh Sol IH SCH ×2 (08:02→19:35)
[2018-04-13] MEDS: Budesonide 0.5 mg/2 ml Inhal Susp UD IH SCH ×2 (08:03→19:35)
[2018-04-13] MEDS: Levothyroxine 50 MCG TAB PO SCH ×2 (08:16→09:17)
[2018-04-13 08:42] LABS: BASO # 0.02 K/mm3 (0.0-2.0); BASO % 0.2 % (0.0-3.0); EOS # 0.1 (0.0-0.7); EOS % 1.3 % (1.5-5.0); GRAN # 5.15 (1.4-6.5); GRAN % 57.8 % (50.0-68.0); HEMOGLOBIN 11.3 g/dL (12.0-16.0); LYMPH # 2.7 (1.2-3.4); MEAN CELL VOLUME 92.9 fl (80.0-105.0); MEAN CORPUSCULAR HGB CONC 33.3 g/dl (31.0-37.0); MEAN PLATELET VOLUME 9.5 fl (7.0-11.0); MONO % 10.7 % (1.0-6.0); RBC 3.65 10^6/uL (3.5-6.1); RED CELL DISTRIBUTION WIDTH 13.1 % (11.5-14.5); WHITE BLOOD COUNT 8.9 10^3/ul (4.5-11.0)
[2018-04-13 08:48] LABS: ALB/GLOB RATIO 0.8 (1.1-1.8); ALBUMIN 3.3 g/dL (3.0-4.8); ALT/SGPT 26 U/L (7-56); AST/SGOT 37 U/L (14-36); BLOOD UREA NITROGEN 26 mg/dL (7-21); CALCIUM 8.7 mg/dL (8.4-10.5); GFR AFRICAN-AMERICAN > 60; GFR NON-AFRICAN AMERICAN 50; INR 2.03 (0.93-1.08); PROTHROMBIN TIME 23.7 SECONDS (9.4-12.5)
--- NOTE | 2018-04-13 09:03 | RAD ---
Date of service: 04/12/2018 HISTORY: r/o infiltrate COMPARISON: 12/30/2017 FINDINGS: LUNGS: No active pulmonary disease. PLEURA: No significant pleural effusion identified, no pneumothorax apparent. CARDIOVASCULAR: Normal. OSSEOUS STRUCTURES: No significant abnormalities. VISUALIZED UPPER ABDOMEN: Normal. OTHER FINDINGS: None. IMPRESSION: No active disease.
--- NOTE | 2018-04-13 09:21 | CARD ---
APPROVED REPORT Date of service: 04/12/2018 EKG Measurement Heart [id number] <Conclusion> Normal sinus rhythm Inferior infarct, age undetermined Abnormal ECG
--- NOTE | 2018-04-13 09:25 | CON ---
DATE: 04/13/2018 PULMONARY CONSULTATION REASON FOR CONSULTATION: Asthma. REFERRING PHYSICIAN: Cathy Escalante MD HISTORY OF PRESENT ILLNESS: The patient is a 67-year-old female, with past medical history significant for asthma, pneumonia in the past, congestive heart failure, pancreatitis, systemic lupus erythematosus, chronic kidney disease, paroxysmal atrial fibrillation, deep venous thrombosis in the past (on Coumadin), who presents to [facility] with main complaint of fevers for one day. The patient denies shortness of breath at rest, dyspnea on exertion, cough, and/or sputum production. The patient also denies chest pain, coughing up of blood, or chest pain - made worse with deep respirations. As above, the patient did present with fevers. There is no history of chills or infectious exposure. There is no history of night sweats, weight loss or appetite change prior to the above events. No history of leg or calf pains. No history of syncope or diaphoresis. No history of recent travel or trauma. REVIEW OF SYSTEMS: The patient does complain of back pain. She does state that her back pain is better today compared to a few days ago. No nausea, vomiting or diarrhea. No acute urinary symptoms. Rest of the review of systems is noncontributory. ALLERGIES: CIPROFLOXACIN AND IV CONTRAST. SOCIAL HISTORY: Positive for former tobacco usage. No alcohol. FAMILY HISTORY: No inheritable diseases. HOME MEDICATIONS: Include Fosamax, Neurontin, Coumadin, cyclosporin, Norvasc, Prilosec, Synthroid, Advair, Digitek. PHYSICAL EXAMINATION GENERAL: The patient is not short of breath at rest. She is not using accessory muscles for breathing. VITAL SIGNS: Temperature is 98.6, pulse 79, respirations 18, blood pressure 129/66. Oxygen saturation on room air is 95%-98%. HEENT: Normocephalic, atraumatic. No JVD. CARDIOVASCULAR: Systolic ejection murmur at the lower left sternal border. No S3 gallop. LUNGS: Decreased breath sounds at the bases. Very minimal rhonchi. No wheezing. EXTREMITIES: No clubbing, cyanosis or edema. Calves are nontender to palpation. GI: Abdomen is soft, nontender and nondistended. Bowel sounds are positive. SKIN: No acute rash. NEUROLOGIC: Limited at the present time. PERTINENT LABORATORY DATA: Chest x-ray was done and reviewed. The chest x-ray is a poor semi-erect portable film. I do not appreciate any new or significant infiltrates. Official results are pending. Abdominal and pelvic CAT scan was also done. There are no acute pulmonary findings. There is a focal area of wall thickening in the descending/sigmoid colon. CBC: White count of 11.5K, hemoglobin 12.7, hematocrit 38.3, platelets of 257,000. INR 1.94. Complete metabolic profile: BUN 35, creatinine 1.3, glucose 117, AST 45, creatinine kinase 349. B-type natriuretic peptide 3970. Total protein 9.1. Rest of the metabolic profile is within normal limits. IMPRESSION: 1. Sepsis syndrome. 2. Renal insufficiency. 3. Systemic lupus erythematosus. 4. Asthma. 5. Chronic kidney disease. PLAN: The patient presents to [facility] with a one-day history of low-grade fevers. As above, the patient denies any new or significant pulmonary symptoms. I did review the chest x-ray as above. The chest x-ray is a poor film, but I do not appreciate any new or significant infiltrates. Again, official results are pending. CAT scan of the abdomen and pelvis is also noted above. There are no acute lung findings noted. GI evaluation has been ordered. On physical exam, there is no significant bronchospasm noted. In addition, there is no significant alveolar-arterial gradient. I will start the patient on Brovana nebulizer treatments and inhaled steroids. She is on Advair at home. The patient does feel better this morning and is clinically improved. Her fevers are decreasing/resolving. Additional pulmonary intervention will be based on the clinical status of the patient. I will discuss the above with Dr. Escalante. Thank you very much for this pulmonary consultation. Cornell Silva MD [email or web address]
--- NOTE | 2018-04-13 10:45 | CT ---
Date of service: 04/13/2018 PROCEDURE: CT Abdomen and Pelvis without intravenous contrast HISTORY: flank pain COMPARISON: 04/12/2018 TECHNIQUE: Technique. Contrast dose: Radiation dose: Total exam DLP = mGy-cm. This CT exam was performed using one or more of the following dose reduction techniques: Automated exposure control, adjustment of the mA and/or kV according to patient size, and/or use of iterative reconstruction technique. FINDINGS: LOWER THORAX: Bibasilar fibrotic changes well cylindrical bronchi LIVER: Unremarkable. No gross lesion or ductal dilatation. GALLBLADDER AND BILE DUCTS: Status post bolus PANCREAS: Unremarkable. No gross lesion or ductal dilatation. SPLEEN: Unremarkable. ADRENALS: Unremarkable. No mass. KIDNEYS AND URETERS: Unremarkable. No hydronephrosis. No solid mass. VASCULATURE: Unremarkable. No aortic aneurysm. BOWEL: Colonic diverticulosis. Focal mural thickening measuring up to 13 millimeters in the sigmoid colon suspicious for carcinoma; recommend correlation with colonoscopy. APPENDIX: Unremarkable. Normal appendix. PERITONEUM: Unremarkable. No free fluid. No free air. LYMPH NODES: Unremarkable. No enlarged lymph nodes. BLADDER: Unremarkable. REPRODUCTIVE: A calcified leiomyomatous uterus. . BONES: No acute fracture. OTHER FINDINGS: None. IMPRESSION: Colonic diverticulosis. Focal mural thickening measuring up to 13 millimeters in the sigmoid colon suspicious for carcinoma; recommend correlation with colonoscopy.
--- NOTE | 2018-04-13 11:10 | CP.PCM.CON ---
<TkRoss garcia - Last Filed: 04/13/18 14:29> History of Present Illness - History of Present Illness History of Present Illness: GI Consult Note for Dr. Vergara Service ED Veronica PGY-3 This is a 67 year old female with PMH of SLE/lupus pancreatitis/lupus nephritis , HTN, COPD, CHF with last EF of 68.2% in 11/2017, pneumonae, pancreatitis, lupus nephritis, CKD, paroxysmal atrial fibrillation on digoxin, history of DVT on coumadin, severe aortic stenosis, hypothyroidism and DJD presenting to the ER for back pain and fever that began on . While in the ED, she underwent a CT abd/pelvis, which was notable for focal area wall thickening of the descending/sigmoid colon, up to 1.3cm. GI was consulted for the colonic wall thickening. At time of exam, patient has no complaints of abdominal pain, nausea, emesis, diarrhea, melena, BRBPR, constipation/straining, night sweats, unintentional weight loss. Back pain not associated with PO intake or bowel movements. Reports last colonoscopy was 2 yrs prior, found to have a colonic polyp on the right side, was supposed to get a follow up in 1 yr, but was lost to follow up. Re-established with Dr. Vergara this year, was pending an appointment at his office today. All other ROS in 12-system review negative. PMH: as above PSH: cholecystectomy, colonoscopy with polyp removal (2 yrs ago) Fam Hx: denies family hx of colon ca Soc Hx: former tobacco user, denies alcohol, denies illicits/IVDA PMD: Dr. Escalante Review of Systems - Review of Systems All systems: reviewed and no additional remarkable complaints except (as per HPI ) Past Patient History - Infectious Disease Hx of Infectious Diseases: None - Tetanus Immunizations Tetanus Immunization: Unknown - Past Social History Smoking Status: Never Smoked - CARDIAC Hx Cardiac Disorders: Yes Hx Congestive Heart Failure: Yes Hx Hypercholesterolemia: Yes Hx Hypertension: Yes Other/Comment: Sx: pericardial window - PULMONARY Hx Respiratory Disorders: Yes Hx Asthma: Yes Hx Chronic Obstructive Pulmonary Disease (COPD): Yes - NEUROLOGICAL Hx Neurological Disorder: No - HEENT Hx HEENT Problems: Yes (WEARS RX GLASSES) - RENAL Hx Chronic Kidney Disease: Yes - ENDOCRINE/METABOLIC Hx Endocrine Disorders: Yes Hx Hypothyroidism: Yes - HEMATOLOGICAL/ONCOLOGICAL Hx Blood Disorders: No - INTEGUMENTARY Hx Dermatological Problems: No - MUSCULOSKELETAL/RHEUMATOLOGICAL Hx Musculoskeletal Disorders: Yes Hx Arthritis: Yes Hx Falls: Yes (1x years ago) Hx Unsteady Gait: No Other/Comment: Compression Fx from fall in past. - GASTROINTESTINAL Hx Gastrointestinal Disorders: Yes Hx Gall Bladder Disease: Yes (CHOLECYSTECTOMY) Hx Gastroesophageal Reflux: Yes - GENITOURINARY/GYNECOLOGICAL Hx Genitourinary Disorders: No - PSYCHIATRIC Hx Psychophysiologic Disorder: Yes Hx Anxiety: Yes Hx Emotional Abuse: No Hx Physical Abuse: No Hx Sexual Abuse: No Hx Substance Use: No - SURGICAL HISTORY Hx Surgeries: Yes (Breast Lift) Hx Cholecystectomy: Yes - ANESTHESIA Hx Anesthesia: Yes Hx Anesthesia Reactions: No Hx Malignant Hyperthermia: No Meds Allergies/Adverse Reactions: Allergies Allergy/AdvReac Type Severity Reaction Status Date / Time ciprofloxacin [From Cipro] Allergy ANAPHYLAXIS Verified 04/12/18 21:32 ciprofloxacin HCl Allergy ANAPHYLAXIS Verified 04/12/18 21:32 [From Cipro] IV Contrast Allergy ANAPHYLAXIS Uncoded 04/12/18 21:32 - Medications Medications: Current Medications Amlodipine Besylate (Norvasc) 10 mg PO DAILY [facility] Last Admin: 04/13/18 09:25 Dose: 10 mg Arformoterol Tartrate (Brovana) 15 mcg IH [id number] [facility] Last Admin: 04/13/18 08:02 Dose: 15 mcg Budesonide (Pulmicort Respules) 0.5 mg IH [id number] [facility] Last Admin: 04/13/18 08:03 Dose: 0.5 mg Hydrochlorothiazide (Hydrodiuril) 25 mg PO DAILY [facility] Last Admin: 04/13/18 09:26 Dose: 25 mg Piperacillin Sod/Tazobactam Sod (Zosyn 3.375 In Ns 100ml) 100 mls @ 200 mls/hr IVPB Q6 [facility] PRN Reason: Protocol Stop: 04/20/18 12:01 Levothyroxine Sodium (Synthroid) 50 mcg PO DAILY [facility] Last Admin: 04/13/18 09:17 Dose: Not Given Losartan Potassium (Cozaar) 100 mg PO DAILY [facility] Last Admin: 04/13/18 09:25 Dose: 100 mg Pantoprazole Sodium (Protonix Ec Tab) 40 mg PO ACB [facility] Last Admin: 04/13/18 07:43 Dose: 40 mg Physical Exam - Constitutional Appears: Non-toxic, No Acute Distress - Head Exam Head Exam: ATRAUMATIC, NORMAL INSPECTION, NORMOCEPHALIC - Eye Exam Eye Exam: EOMI, Normal appearance. absent: Conjunctival injection, Scleral icterus Pupil Exam: absent: Fixed, Irregular - ENT Exam ENT Exam: Mucous Membranes Moist - Neck Exam Neck exam: Positive for: Normal Inspection. Negative for: Lymphadenopathy - Respiratory Exam Respiratory Exam: Clear to Auscultation Bilateral, NORMAL BREATHING PATTERN. absent: Accessory Muscle Use, Chest Wall Tenderness, Decreased Breath Sounds, Prolonged Expiratory Phase, Rales, Rhonchi, Wheezes, Respiratory Distress - Cardiovascular Exam Cardiovascular Exam: REGULAR RHYTHM, RRR, +S1, +S2. absent: Bradycardia, Tachycardia, Irregular Rhythm, JVD, +S4 - GI/Abdominal Exam GI & Abdominal Exam: Normal Bowel Sounds, Soft. absent: Diminished Bowel Sounds , Distended, Firm, Guarding, Hyperactive Bowel Sounds, Hypoactive Bowel Sounds, Rigid, Tenderness - Extremities Exam Extremities exam: Positive for: normal inspection, pedal pulses present. Negative for: calf tenderness, normal capillary refill, pedal edema, tenderness - Back Exam Back exam: absent: CVA tenderness (L), CVA tenderness (R) - Neurological Exam Neurological exam: Alert, Oriented x3 - Psychiatric Exam Psychiatric exam: Normal Affect, Normal Mood - Skin Skin Exam: Dry, Intact, Normal Color, Warm Results - Vital Signs Recent Vital Signs: Last Vital Signs Temp 98.6 F 04/13/18 06:00 Pulse 74 04/13/18 08:05 Resp 18 04/13/18 06:00 BP 148/72 04/13/18 09:25 Pulse Ox 95 04/13/18 06:00 - Labs Result Diagrams: 04/13/18 08:20 04/13/18 08:20 Labs: Laboratory Results - last 24 hr 04/13/18 04/13/18 04/13/18 08:20 08:20 08:20 WBC 8.9 D RBC 3.65 Hgb 11.3 L Hct 33.9 L MCV 92.9 MCH 31.0 MCHC 33.3 RDW 13.1 Plt Count 223 MPV 9.5 Gran % 57.8 Lymph % (Auto) 30.0 Wagoner % (Auto) 10.7 H Eos % (Auto) 1.3 L Baso % (Auto) 0.2 Gran # 5.15 Lymph # (Auto) 2.7 Wagoner # (Auto) 1.0 H Eos # (Auto) 0.1 Baso # (Auto) 0.02 PT 23.7 H INR 2.03 H Sodium 144 Potassium 4.0 Chloride 108 H Carbon Dioxide 28 Anion Gap 12 BUN 26 H Creatinine 1.1 Est GFR ( Amer) > 60 Est GFR (Non-Af Amer) 50 Random Glucose 85 Calcium 8.7 Total Bilirubin 0.3 AST 37 H ALT 26 Alkaline Phosphatase 76 Total Protein 7.5 Albumin 3.3 Globulin 4.2 Albumin/Globulin Ratio 0.8 L Assessment & Plan - Assessment and Plan (Free Text) Assessment: This is a 67 year old female with PMH of SLE/lupus pancreatitis/lupus nephritis , HTN, COPD, CHF with last EF of 68.2% in 11/2017, pneumonae, pancreatitis, lupus nephritis, CKD, paroxysmal atrial fibrillation on digoxin, history of DVT on coumadin, severe aortic stenosis, hypothyroidism and DJD presenting to the ER for back pain and fever that began on . GI consulted for incidentally found colonic wall thickening. Plan: -CT abd/pelvis notable for focal area wall thickening of the descending/sigmoid colon, up to 1.3cm -Denies nausea, emesis, stool changes, weight loss -CT findings concerning in setting of prior colonoscopy with polyps, missed follow-up 1 yr later -Will require Colonoscopy with biopsy to assess thickening, r/o occult colorectal ca; need to hold coumadin prior and convert to heparin -In setting of reported fever at home (Tmax 100.4F) and labs meeting sepsis criteria, will also need to cover in case wall thickening is infectious in nature; ID following, started Zosyn -ID and Pulm following, appreciate their insights Seen, reviewed, and discussed with attending, Dr. Vergara <Tiny Vergara V - Last Filed: 04/13/18 23:19> Meds - Medications Medications: Current Medications Amlodipine Besylate (Norvasc) 10 mg PO DAILY [facility] Last Admin: 04/13/18 09:25 Dose: 10 mg Arformoterol Tartrate (Brovana) 15 mcg IH [id number] [facility] Last Admin: 04/13/18 19:35 Dose: 15 mcg Budesonide (Pulmicort Respules) 0.5 mg IH [id number] [facility] Last Admin: 04/13/18 19:35 Dose: 0.5 mg Cyclosporine (Sandimmune) 100 mg PO DAILY [facility] Last Admin: 04/13/18 13:28 Dose: 100 mg Cyclosporine (Sandimmune) 75 mg PO DAILY [facility] Last Admin: 04/13/18 22:19 Dose: 75 mg Digoxin (Digoxin) 0.125 mg PO 1400 [facility] Last Admin: 04/13/18 14:46 Dose: 0.125 mg Hydrochlorothiazide (Hydrodiuril) 25 mg PO DAILY [facility] Last Admin: 04/13/18 09:26 Dose: 25 mg Piperacillin Sod/Tazobactam Sod (Zosyn 3.375 In Ns 100ml) 100 mls @ 200 mls/hr IVPB Q6 [facility] PRN Reason: Protocol Stop: 04/20/18 12:01 Last Admin: 04/13/18 17:06 Dose: 200 mls/hr Levothyroxine Sodium (Synthroid) 50 mcg PO DAILY [facility] Last Admin: 04/13/18 09:17 Dose: Not Given Losartan Potassium (Cozaar) 100 mg PO DAILY [facility] Last Admin: 04/13/18 09:25 Dose: 100 mg Pantoprazole Sodium (Protonix Ec Tab) 40 mg PO ACB [facility] Last Admin: 04/13/18 07:43 Dose: 40 mg Prednisone (Prednisone Tab) 5 mg PO DAILY [facility] Last Admin: 04/13/18 15:18 Dose: 5 mg Results - Vital Signs Recent Vital Signs: Last Vital Signs Temp 98.5 F 04/13/18 23:09 Pulse 79 04/13/18 23:09 Resp 18 04/13/18 23:09 BP 148/65 04/13/18 23:09 Pulse Ox 96 04/13/18 23:09 - Labs Result Diagrams: 04/13/18 08:20 04/13/18 08:20 Labs: Laboratory Results - last 24 hr 04/13/18 04/13/18 04/13/18 08:20 08:20 08:20 WBC 8.9 D RBC 3.65 Hgb 11.3 L Hct 33.9 L MCV 92.9 MCH 31.0 MCHC 33.3 RDW 13.1 Plt Count 223 MPV 9.5 Gran % 57.8 Lymph % (Auto) 30.0 Wagoner % (Auto) 10.7 H Eos % (Auto) 1.3 L Baso % (Auto) 0.2 Gran # 5.15 Lymph # (Auto) 2.7 Wagoner # (Auto) 1.0 H Eos # (Auto) 0.1 Baso # (Auto) 0.02 PT 23.7 H INR 2.03 H Sodium 144 Potassium 4.0 Chloride 108 H Carbon Dioxide 28 Anion Gap 12 BUN 26 H Creatinine 1.1 Est GFR ( Amer) > 60 Est GFR (Non-Af Amer) 50 Random Glucose 85 Calcium 8.7 Total Bilirubin 0.3 AST 37 H ALT 26 Alkaline Phosphatase 76 Total Protein 7.5 Albumin 3.3 Globulin 4.2 Albumin/Globulin Ratio 0.8 L 04/13/18 16:48 WBC RBC Hgb Hct MCV MCH MCHC RDW Plt Count MPV Gran % Lymph % (Auto) Wagoner % (Auto) Eos % (Auto) Baso % (Auto) Gran # Lymph # (Auto) Wagoner # (Auto) Eos # (Auto) Baso # (Auto) PT 23.5 H INR 2.03 H Sodium Potassium Chloride Carbon Dioxide Anion Gap BUN Creatinine Est GFR ( Amer) Est GFR (Non-Af Amer) Random Glucose Calcium Total Bilirubin AST ALT Alkaline Phosphatase Total Protein Albumin Globulin Albumin/Globulin Ratio Attending/Attestation - Attestation I have personally seen and examined this patient.: Yes I have fully participated in the care of the patient.: Yes I have reviewed all pertinent clinical information: Yes Notes (Text): This is an addendum to GI consult report dictated by the Inclusion Paraeducator.The patient was seen and examined earlier. Medical records, lab studies, imagings were reviewed. Last 24 hours events reviewed. Agreed with the above treatment plan as outlined in Inclusion Paraeducator 's notes the with the addition of the following patient denies any abdominal pain History of fever, immunosuppressed status CT scan was reviewed Follow up cultures Continue antibiotics as per We'll hold Coumadin and consider Lovenox or heparin bridge Would consider colonoscopy to evaluate the sigmoid colon lesion noticed in CTafter further optimization 04/13/18 23:16
[2018-04-13] MEDS: Piperacillin/Tazobact 3.375 gm 100 ML IVPB SCH ×2 (12:44→17:06)
--- NOTE | 2018-04-13 14:08 | CP.PCM.CON ---
History of Present Illness - History of Present Illness History of Present Illness: 67 year old female with PMH of HTN, SLE, chronic renal failure, history of DVT, hypothyroidism, COPD, GERD, anxiety disorder, S/P cholecystectomy, S/P breast surgery, history of pneumonia came in to [facility] complaining of one episode of low grade fever and left sided back pain for the past 3-4 days. She denies nausea or vomiting, no dysuria or hematuria, no diarrhea or constipation but states she has been having feeling of incomplete bowel emptying for months now. She also denies abdominal pain, no headache or dizziness, no chest pain, no SOB, no cough or rhinorrhea, no chest pain or palpitations, no flank pain. She states she had a colonoscopy 2 years ago which apparently had normal results as per the patient. Infectious Diseases consult is requested to further evaluate and manage. Review of Systems - Review of Systems All systems: reviewed and no additional remarkable complaints except (as per HPI ) Past Patient History - Infectious Disease Hx of Infectious Diseases: None - Tetanus Immunizations Tetanus Immunization: Unknown - Past Social History Smoking Status: Never Smoked - CARDIAC Hx Cardiac Disorders: Yes Hx Congestive Heart Failure: Yes Hx Hypercholesterolemia: Yes Hx Hypertension: Yes Other/Comment: Sx: pericardial window - PULMONARY Hx Respiratory Disorders: Yes Hx Asthma: Yes Hx Chronic Obstructive Pulmonary Disease (COPD): Yes - NEUROLOGICAL Hx Neurological Disorder: No - HEENT Hx HEENT Problems: Yes (WEARS RX GLASSES) - RENAL Hx Chronic Kidney Disease: Yes - ENDOCRINE/METABOLIC Hx Endocrine Disorders: Yes Hx Hypothyroidism: Yes - HEMATOLOGICAL/ONCOLOGICAL Hx Blood Disorders: No - INTEGUMENTARY Hx Dermatological Problems: No - MUSCULOSKELETAL/RHEUMATOLOGICAL Hx Musculoskeletal Disorders: Yes Hx Arthritis: Yes Hx Falls: Yes (1x years ago) Hx Unsteady Gait: No Other/Comment: Compression Fx from fall in past. - GASTROINTESTINAL Hx Gastrointestinal Disorders: Yes Hx Gall Bladder Disease: Yes (CHOLECYSTECTOMY) Hx Gastroesophageal Reflux: Yes - GENITOURINARY/GYNECOLOGICAL Hx Genitourinary Disorders: No - PSYCHIATRIC Hx Psychophysiologic Disorder: Yes Hx Anxiety: Yes Hx Emotional Abuse: No Hx Physical Abuse: No Hx Sexual Abuse: No Hx Substance Use: No - SURGICAL HISTORY Hx Surgeries: Yes (Breast Lift) Hx Cholecystectomy: Yes - ANESTHESIA Hx Anesthesia: Yes Hx Anesthesia Reactions: No Hx Malignant Hyperthermia: No Meds Allergies/Adverse Reactions: Allergies Allergy/AdvReac Type Severity Reaction Status Date / Time ciprofloxacin [From Cipro] Allergy ANAPHYLAXIS Verified 04/12/18 21:32 ciprofloxacin HCl Allergy ANAPHYLAXIS Verified 04/12/18 21:32 [From Cipro] IV Contrast Allergy ANAPHYLAXIS Uncoded 04/12/18 21:32 Physical Exam - Constitutional Appears: Non-toxic - Head Exam Head Exam: NORMAL INSPECTION - Neck Exam Neck exam: Negative for: Meningismus - Respiratory Exam Respiratory Exam: Decreased Breath Sounds - Cardiovascular Exam Cardiovascular Exam: +S1, +S2 - GI/Abdominal Exam GI & Abdominal Exam: Soft. absent: Tenderness - Back Exam Back exam: absent: CVA tenderness (L), CVA tenderness (R), paraspinal tenderness , vertebral tenderness Results - Vital Signs Recent Vital Signs: Last Vital Signs Temp 98.6 F 04/13/18 06:00 Pulse 79 04/13/18 06:00 Resp 18 04/13/18 06:00 BP 129/66 04/13/18 06:00 Pulse Ox 95 04/13/18 06:00 - Labs Result Diagrams: 04/13/18 08:20 04/13/18 08:20 Assessment & Plan - Assessment and Plan (Free Text) Plan: Assessment leukocytosis due to back pain, R/O intra-abdominal infection, R/O colonic mass history of severe sepsis with acute renal failure due to right lower lobe healthcare-associated pneumonia with possible gram positive cocci and/or gram negative bacilli and/or atypical organisms history of sepsis due to left lower lobe pneumonia, community-acquired chronic bronchiectasis HTN SLE chronic renal failure history of DVT hypothyroidism COPD GERD anxiety disorder S/P cholecystectomy S/P breast surgery Plan started Zosyn pending blood cx; patient will need further GI evaluation and may need colonoscopy will monitor clinically
[2018-04-13] MEDS: Digoxin 125 mcg (0.125 mg) Tab PO SCH (14:46)
--- NOTE | 2018-04-13 17:43 | HP ---
HISTORY OF PRESENT ILLNESS: A 67-year-old female states that on the weekend, she was feeling some malaise. On Friday, she felt chills and took her temperature which she reported as being 104. She also stated that she was having some backache. She was advised to go to the emergency room for further evaluation. PAST MEDICAL HISTORY: Congestive heart failure, pneumonia, aortic stenosis, paroxysmal atrial fibrillation, cholecystectomy, DVT, rectal abscess, hepatopathy history, peripheral neuropathy, compression fracture, degenerative arthritis, lupus, chronic renal disease, hypertension, COPD, and hypothyroid disease. MEDICATIONS: Reported are Fosamax, Neurontin, cyclosporin, warfarin, Zetia, olmesartan/hydrochlorothiazide, Zanaflex, Norvasc, prednisone, potassium chloride, Prilosec, magnesium oxide, Creon, Synthroid, Advair, and digoxin. SOCIAL HISTORY: She is a nonsmoker, nondrinker, and nondrug user. ALLERGY HISTORY: CIPRO AND IV CONTRAST. REVIEW OF SYSTEMS: Ten systems were reviewed. Pertinent findings as stated in the exam. PHYSICAL EXAMINATION: VITAL SIGNS: Reported that in the emergency room, the patient had a temperature of 99.3, pulse was 77, blood pressure 147/79, oxygen saturation reported 98% on room air with the respiratory rate of 19, rectal temperature was 99.1. GENERAL: She is currently alert and oriented x3. States that she has some mild discomfort in her lower back, which she has been having. NECK: Supple. HEART: S1, S2. Grade 3/6 murmur. LUNGS: Show rhonchi at the bases. ABDOMEN: Soft, scaphoid, positive bowel sounds. No tenderness. EXTREMITIES: Show no evidence of edema. LABORATORY DATA: WBC is 11.5, RBC 4.09, hemoglobin 12.7, hematocrit 38.3, and platelet count 257. PT of 22.4, INR of 1.94, PTT of 38.5. Chemistries: Sodium is 143, potassium 4.5, chloride 106, CO2 of 26. BUN of 35, creatinine of 1.3. The random blood sugar is 117. Her calcium is 9.1. AST is 45, alkaline phosphatase and ALT are normal. Total CK is 349. Troponin is 0.03. The BNP is reported at 3970. Total protein is 9.1. Albumin is 4. TSH is 0.49. Urinalysis is reported as showing moderate blood, negative leukocyte esterase. Digoxin level is 0.9. IMAGING DATA: Chest x-ray and CAT scan of the abdomen have been performed. Full report is pending. IMPRESSION: 1. A 67-year-old female with history of shaking chills and 104 fever, rule out systemic inflammatory response syndrome versus sepsis. 2. History of compression fracture of the lumbar spine. 3. History of renal disease, lupus, hypertension, pancreatitis, hepatopathy, congestive heart failure, aortic stenosis, pneumonia, and buttock abscess with cellulitis. PLAN: I have discussed the clinical findings today with the patient as well as with the emergency room physician. I have requested consults with Cardiology, Renal, Infectious Disease, Pulmonary, and GI. Follow up the patient's labs. Further recommendations and care pending above findings and input from the individual consultants. Cathy Escalante MD
[2018-04-13 17:49] LABS: INR 2.03 (0.93-1.08); PROTHROMBIN TIME 23.5 SECONDS (9.4-12.5)
[2018-04-13] MEDS ORDERED: Home Med 1 UNIT PO SCH (18:00)
--- NOTE | 2018-04-13 20:46 | CON ---
DATE: 04/13/2018 REASON FOR CONSULTATION: Chronic kidney disease stage III, lupus nephritis, and back pain. HISTORY OF PRESENT ILLNESS: A 67-year lady known to Dr. Tim from our group, the patient reports that she complained to Dr. Ortiz on last week about mid back pain. She was advised to go to the emergency room, but she did not come to the emergency room. Last night, she developed a fever. According to her home thermometer, her temperature was 104. She denies any cough. She denies any shortness of breath. She denies any burning in the urine. She denies any abdominal pain. She denies any nausea or vomiting. She reports her back pain is actually better. She came to the emergency room because of the temperature. In the ER, she was found to have a temperature of 99.3. Her blood pressure was 147/79. Her chest x-ray showed no active pulmonary disease. CT scan of her abdomen showed colonic diverticulosis, focal mural thickening measuring up to 13 mm in the sigmoid colon suspicious of carcinoma? The patient was admitted because of fever in an immunocompromised patient. PAST MEDICAL AND SURGICAL HISTORY: Hypertension, SLE, chronic kidney disease stage III, history of DVT, hypothyroidism, COPD, GERD, anxiety disorder, history of cholecystectomy, history of breast surgery, history of pneumonia, diverticulitis, elevated LFTs, and lupus nephritis. FAMILY HISTORY: Noncontributory. SOCIAL HISTORY: No smoking, no alcohol use, no IV drug abuse. ALLERGIES: CIPROFLOXACIN. REVIEW OF SYSTEMS: All systems are reviewed, pertinent positives as mentioned in history presenting illness, rest unremarkable. PHYSICAL EXAMINATION: GENERAL: Elderly lady, sitting in bed. VITAL SIGNS: Blood pressure 141/82, heart rate 81, respiratory rate 18, temperature 99.1, and T-max is 99.1. HEENT: Normocephalic, atraumatic, positive pallor. NECK: Supple, no JVD. LUNGS: Bilateral equal air entry, bilateral equal expansion, crackles in the right side/bronchial breathing. CARDIAC: S1 and S2, regular rate and rhythm, no murmur, no rub. ABDOMEN: Obese, distended, soft, nontender, bowel sounds present. EXTREMITIES: No lower extremity edema. INTAKE AND OUTPUT: Not charted. LABORATORY DATA: WBC 8.9, hemoglobin 11.3, hematocrit 34, and platelets 223. Sodium 144, potassium 4, chloride 108, CO2 of 28. BUN 26, creatinine 1.1. Glucose 85. Calcium 8.7. AST 37, ALT 26. Albumin 3.3. Urinalysis, yellow, slightly cloudy, pH 7, specific 1.010, protein trace, blood moderate, leukocyte esterase negative. Digoxin 0.9. CURRENT MEDICATIONS: Brovana, Cozaar 100, digoxin 0.125, HydroDIURIL 25 daily, amlodipine 10, prednisone 5, Protonix 40, Sandimmune 100 mg in a.m. and 75 mg in p.m., Synthroid 75, and Zosyn 3.375 every 6 hours. ASSESSMENT: 1. Stable chronic kidney disease stage III. 2. Fever in an immunocompromised patient. 3. ?Pneumonia. 4. Hypertension. 5. Systemic lupus erythematosus. 6. History of deep venous thrombosis . 7. History of elevated liver function tests. PLAN: 1. Continue cyclosporin 100 mg in a.m. and 75 mg in p.m. 2. Continue prednisone. 3. Follow up cultures. 4. Empiric antibiotics as per ID recommendations. 5. Continue antihypertensives, okay to give Benicar HCT from home. 6. We will continue to follow with you. Thank you for the courtesy of this consultation. Beba Cintron MD
[2018-04-14] MEDS: Piperacillin/Tazobact 3.375 gm 100 ML IVPB SCH ×3 (01:16→11:19)
[2018-04-14 07:21] LABS: BASO # 0.02 K/mm3 (0.0-2.0); BASO % 0.2 % (0.0-3.0); EOS # 0.1 (0.0-0.7); GRAN # 6.24 (1.4-6.5); GRAN % 63.2 % (50.0-68.0); LYMPH # 2.7 (1.2-3.4); LYMPH % 27.5 % (22.0-35.0); MEAN CELL VOLUME 92.6 fl (80.0-105.0); MEAN CORPUSCULAR HEMOGLOBIN 30.5 pg (25.0-35.0); MEAN PLATELET VOLUME 9.4 fl (7.0-11.0); MONO # 0.8 (0.1-0.6); MONO % 8.1 % (1.0-6.0); RBC 3.93 10^6/uL (3.5-6.1); WHITE BLOOD COUNT 9.9 10^3/ul (4.5-11.0)
[2018-04-14] MEDS: Arformoterol 15 mcg/2 ml Inh Sol IH SCH ×2 (07:25→19:22)
[2018-04-14] MEDS: Budesonide 0.5 mg/2 ml Inhal Susp UD IH SCH ×2 (07:25→19:22)
[2018-04-14 07:29] LABS: IRON 63 ug/dL (45-180)
[2018-04-14 07:33] LABS: ALB/GLOB RATIO 0.8 (1.1-1.8); ALBUMIN 3.6 g/dL (3.0-4.8); ALT/SGPT 24 U/L (7-56); AST/SGOT 30 U/L (14-36); BLOOD UREA NITROGEN 25 mg/dL (7-21); CALCIUM 8.8 mg/dL (8.4-10.5); GFR AFRICAN-AMERICAN 50; GFR NON-AFRICAN AMERICAN 41
[2018-04-14 07:39] LABS: % IRON SATURATION 26 % (20-55); TOTAL IRON BINDING CAPACITY 239 ug/dL (265-497)
[2018-04-14 07:42] LABS: INR 1.88 (0.93-1.08); PARTIAL THROMBOPLASTIN TIME 36.6 Seconds (25.1-36.5); PROTHROMBIN TIME 21.9 SECONDS (9.4-12.5)
[2018-04-14] MEDS: Pantoprazole 40 mg EC Tab PO SCH ×2 (08:17→11:17)
--- NOTE | 2018-04-14 08:23 | PN ---
DATE: 04/14/2018 PULMONARY NOTE SUBJECTIVE: The patient appears comfortable this morning. She is not short of breath at rest. PHYSICAL EXAMINATION: VITAL SIGNS: (last noted in the computer): Temperature is 98.5, pulse is 79, respirations 18, blood pressure 148/65. Oxygen saturation on room air is 96%. HEENT: Normocephalic, atraumatic. No JVD. CARDIOVASCULAR: Systolic ejection murmur at the lower left sternal border. No S3 gallop. LUNGS: Improved breath sounds at the bases. Very minimal/less rhonchi. No wheezing. EXTREMITIES: No clubbing, cyanosis or edema. Calves are nontender to palpation. GI: Abdomen is soft, nontender and nondistended. Bowel sounds are positive. SKIN: No acute rash. NEUROLOGIC: Limited at the present time. IMPRESSION: 1. Sepsis syndrome. 2. Renal insufficiency. 3. Systemic lupus erythematosus. 4. Asthma. 5. Chronic kidney disease. PLAN: The patient appears very comfortable this morning. She is not short of breath at rest. She does state to feeling much better overall. On physical exam, there is no significant bronchospasm noted. In addition, there is no significant alveolar-arterial gradient. I will continue with the current nebulizer treatments and inhaled steroids for now. I would continue with the antibiotic coverage as per Infectious Disease. Input by Dr. Parsons is noted. The temperatures have now fully resolved. The leukocytosis has also fully resolved. Inputs by Renal and GI are also noted. Clinical status of the patient is significantly improved overall. I will discuss the above with Dr. Escalante. Cornell Silva MD MTDD
--- NOTE | 2018-04-14 09:39 | CON ---
DATE: 04/14/2018 INDICATIONS: Fever, , pre-op colonoscopy for possible colon carcinoma. HISTORY OF PRESENT ILLNESS: This is a 67-year-old woman, known to me, admitted with fever, back pain. A CT scan demonstrated a thickening of the sigmoid colon wall worrisome for carcinoma. A colonoscopy is planned. She was initially admitted with fever of 104 at home. She has been afebrile recently. She has been cultured. She is on antibiotics. She has a complex medical history, which includes severe aortic stenosis. An echocardiogram several months ago also showed mild aortic insufficiency, mild MR, moderate functional mitral stenosis and moderate tricuspid regurgitation. She has a history of paroxysmal atrial fibrillation and was on warfarin which is being held pending colonoscopy. There is a history of lupus, chronic kidney disease, hypothyroidism, COPD, asthma and pneumonia. She is a former smoker. There is a history of DVT, pancreatitis, arthritis, appendectomy and GERD. MEDICATIONS AT THE TIME OF ADMISSION: Included Advair, warfarin, Creon, digoxin, Fosamax, KCL, magnesium, cyclosporin, Neurontin, amlodipine, Benicar HCT, Prilosec, prednisone, Synthroid, Zanaflex, Zetia. ALLERGIES: SHE NOTES ALLERGIES TO IV CONTRAST AND CIPROFLOXACIN. SOCIAL HISTORY: She lives at home. She is a former smoker. She does not drink alcohol. She is ambulatory. FAMILY HISTORY: Noncontributory. REVIEW OF SYSTEMS: Ten-point review of systems otherwise unremarkable except as noted above. PHYSICAL EXAMINATION GENERAL: She is a well-developed woman, lying in bed on 5R, in no acute distress, no complaints this morning. VITAL SIGNS: Temperature 98.5, pulse of 79, blood pressure 148/65, respirations 18, O2 sat 96% on room air. HEENT: Reveals no neck vein distention, thyromegaly, carotid bruits. Mucous membranes moist. Conjunctivae pink. NECK: Supple. LUNGS: Lung winters clear throughout. HEART: Reveals normal first and diminished second heart sounds with a systolic ejection murmur in the aortic space along the left sternal border. ABDOMEN: Soft. Bowel sounds are present. No mass, organomegaly, tenderness, rebound, or guarding. No CVA tenderness. No palpable abdominal aortic aneurysm. EXTREMITIES: Reveals no cyanosis, clubbing or edema. NEUROLOGIC: Awake, alert and oriented. PSYCHIATRIC: Normal as to mood and affect. SKIN: Warm and dry. No rash or cellulitis. LABORATORY DATA AND IMAGING: A portable chest x-ray revealed no active disease. A CT of the abdomen and pelvis is noted, see full report. There is colonic diverticulosis and focal mural thickening in the sigmoid colon suspicious for carcinoma. [place] [address], today 9900; hemoglobin 12; hematocrit 36.4 and platelet count 253,000. PT/INR elevated and consistent with warfarin therapy. Today's INR of 1.88. Electrolytes, BUN, creatinine unremarkable with a creatinine of 1.3. Blood sugars are 117, 85 and 86. Liver function tests were mildly abnormal. CK of 349, troponin 0.03. Amylase and lipase unremarkable. TSH normal. T3 0.78 which is slightly low. Magnesium 1.9. Urinalysis is noted. Digoxin level is 0.9. Blood cultures are no growth at 24 hours, two specimens. EKG shows sinus rhythm, nonspecific ST-wave changes, inferior PR which is old, no change compared to a prior EKG. IMPRESSION: Vicky Schuler is a 67-year-old woman with lupus, on prednisone and cyclosporin, admitted with fever of 104 at home and being evaluated for sepsis syndrome who is found to have an abnormal CT scan suggesting a sigmoid carcinoma. PLAN: She is being evaluated by ID, Renal, GI and Dr. Escalante. A colonoscopy is planned once warfarin wears off. She should be considered at least a moderately increased cardiac risk because of valvular heart disease including severe aortic stenosis. Once the INR is less than 1.8, she can be bridged with Lovenox as per Dr. Escalante. She is also being seen by Dr. Silva. Her current medications include Brovana, Cozaar, digoxin, hydrochlorothiazide, Norvasc, prednisone, pantoprazole, Pulmicort, cyclosporin and Synthroid. She is getting Zosyn intravenously. I will review her old records. I will discuss her case with you. I will follow along with you and make additional recommendations based on her clinical course. Sukdhev Harvey MD ROBIN
[2018-04-14] MEDS: Levothyroxine 50 MCG TAB PO SCH (11:17)
--- NOTE | 2018-04-14 11:28 | CP.PCM.PN ---
Subjective - Date & Time of Evaluation Date of Evaluation: 04/14/18 Time of Evaluation: 09:00 - Subjective Subjective: S&E at bedside, chart reviewed, no fever or chills, denies N/V abdominal pain. Tolerating oral intake, no acute overnight events reported. Back pain better today. Objective - Vital Signs/Intake and Output Vital Signs (last 24 hours): Temp Pulse Resp BP Pulse Ox 98.5 F 76 18 100/58 L 96 04/14/18 06:00 04/14/18 06:00 04/14/18 06:00 04/14/18 09:34 04/14/18 06:00 Intake and Output: 04/14/18 04/14/18 06:59 18:59 Intake Total 620 Balance 620 - Medications Medications: Current Medications Amlodipine Besylate (Norvasc) 10 mg PO DAILY [facility] Last Admin: 04/14/18 09:34 Dose: Not Given Arformoterol Tartrate (Brovana) 15 mcg IH [id number] [facility] Last Admin: 04/14/18 07:25 Dose: 15 mcg Budesonide (Pulmicort Respules) 0.5 mg IH [id number] [facility] Last Admin: 04/14/18 07:25 Dose: 0.5 mg Cyclosporine (Sandimmune) 100 mg PO DAILY [facility] Last Admin: 04/14/18 09:34 Dose: 100 mg Cyclosporine (Sandimmune) 75 mg PO DAILY [facility] Last Admin: 04/13/18 22:19 Dose: 75 mg Digoxin (Digoxin) 0.125 mg PO 1400 [facility] Last Admin: 04/13/18 14:46 Dose: 0.125 mg Hydrochlorothiazide (Hydrodiuril) 25 mg PO DAILY [facility] Last Admin: 04/14/18 09:34 Dose: Not Given Piperacillin Sod/Tazobactam Sod (Zosyn 3.375 In Ns 100ml) 100 mls @ 200 mls/hr IVPB Q6 [facility] PRN Reason: Protocol Stop: 04/20/18 12:01 Last Admin: 04/14/18 05:38 Dose: 200 mls/hr Levothyroxine Sodium (Synthroid) 50 mcg PO DAILY [facility] Last Admin: 04/13/18 09:17 Dose: Not Given Losartan Potassium (Cozaar) 100 mg PO DAILY [facility] Last Admin: 04/14/18 09:34 Dose: Not Given Pantoprazole Sodium (Protonix Ec Tab) 40 mg PO ACB [facility] Last Admin: 04/14/18 08:17 Dose: Not Given Prednisone (Prednisone Tab) 5 mg PO DAILY [facility] Last Admin: 04/14/18 09:33 Dose: Not Given - Labs Labs: 04/14/18 07:00 04/14/18 07:00 PT 21.9 SECONDS (9.4-12.5) H 04/14/18 07:00 INR 1.88 (0.93-1.08) H 04/14/18 07:00 APTT 36.6 Seconds (25.1-36.5) H 04/14/18 07:00 - Constitutional Appears: No Acute Distress - Head Exam Head Exam: NORMOCEPHALIC - Eye Exam Eye Exam: Normal appearance. absent: Scleral icterus - ENT Exam ENT Exam: Mucous Membranes Moist - Neck Exam Neck Exam: Normal Inspection - Respiratory Exam Respiratory Exam: NORMAL BREATHING PATTERN. absent: Rales, Wheezes, Respiratory Distress - Cardiovascular Exam Cardiovascular Exam: +S1, +S2 - GI/Abdominal Exam GI & Abdominal Exam: Soft, Normal Bowel Sounds. absent: Guarding, Tenderness, Rebound Assessment and Plan - Assessment and Plan (Free Text) Assessment: ASSESSMENT: Fever, culture negative so far Abnormal ct scan: focal wall thickening descending/sigmoid colon to to 1.3 cm H/O colon polyps Back Pain SLE/Lupus pancreatitis/lupus nephritis COPD CHF CKD Atrial fibrillation on Coumadin now on hold, last dose 04/12/18 H/O DVT PLAN: will need colonoscopy to assess colonic thickening reported on ct scan, will tentatively plan for Friday. Coumadin currently on hold, INR is improving, will consider starting heparin tomorrow, will discuss w/ Dr. Escalante on IV antibiotics, Zosyn as per ID diet as tolerated continue PPI OOB Seen and discussed with Dr. Bryant.
[2018-04-14 12:22] LABS: FERRITIN 98.8 ng/mL
--- NOTE | 2018-04-14 12:44 | PN ---
DATE: 04/14/2018 SUBJECTIVE: This is a 67-year-old female sitting comfortably in the chair in 5R this morning. Nursing staff relates that there were no particular problems overnight. PHYSICAL EXAMINATION: GENERAL: She is alert and oriented x3. VITAL SIGNS: Blood pressure is reported at 124/56, temperature is 98.5, pulse is 76, respirations 18, oxygen saturation is 96%. HEART: S1, S2 with a grade 3/6 systolic murmur at the left cardiac border. LUNGS: Clear. ABDOMEN: Soft, scaphoid. Positive bowel sounds. EXTREMITIES: Show no evidence of edema. DATA: Microbiological studies to date at 24 hours, urine culture is negative as are blood cultures. Chemistries: Sodium 146, potassium 3.8, chloride 107, BUN 25, creatinine 1.3, the serum iron is 63, the TIBC of 239, percent saturation is 26. CBC: WBC is 9.9, RBC 3.93, hemoglobin 12, hematocrit 36.4, platelet count 253. Coag: PT is 21.9 with an INR of 1.88, PTT is 36.6. CURRENT MEDICATIONS: Consist of Brovana and budesonide. She is on Cozaar, digoxin, HydroDIURIL, Norvasc, Synthroid, cyclosporine, Pulmicort, Protonix and prednisone. She is also on Zosyn. ASSESSMENT AND PLAN: 1. Febrile episode in immunocompromised host, currently on IV Zosyn by Infectious Disease. 2. Aortic stenosis. 3. Paroxysmal atrial fibrillation. 4. Cardiology's note is noted. 5. CAT scan findings on admission, a planned colonoscopy is under discussion with GI, Coumadin is being held at this time. We will monitor the patient's labs, coags. Continue current level of care. Input from the individual consultants is appreciated. Cathy Escalante MD
[2018-04-14 12:52] LABS: FOLATE > 20.0 ng/mL
[2018-04-14] MEDS: Digoxin 125 mcg (0.125 mg) Tab PO SCH (13:12)
--- NOTE | 2018-04-14 16:15 | PN ---
DATE: 04/14/2018 SUBJECTIVE: The patient is currently seen sitting comfortable in a chair in her room. She has been afebrile. She has negative cultures to date. She was noted to have thickening of the sigmoid colon and is being scheduled for an elective colonoscopy likely later this week. She is being transitioned over from Coumadin to heparin. Her last INR was 1.88. MEDICATIONS: Medication list reviewed. The patient is on Brovana, Cozaar, digoxin, hydrochlorothiazide, Norvasc, prednisone, Protonix, Pulmicort, cyclosporin, Synthroid and Zosyn. OBJECTIVE: INTAKE/OUTPUT: Intake 620, output not charted. VITAL SIGNS: Blood pressure 100-124 systolic, diastolic 56-58; temperature 98.5; respiratory rate 18 with a pulse of 76. HEENT: Shows her to be normocephalic, atraumatic. Conjunctivae are pink. Sclerae are nonicteric. NECK: Supple. No neck vein distention. CHEST: Clear to auscultation and percussion with no rales, rhonchi or wheezing. CARDIOVASCULAR: Shows a regular rate and rhythm with /AI/MR/TR/MS/PI. No S3. No S4. No rub. ABDOMEN: Soft. Bowel sounds normal. No rebound, no guarding or masses. EXTREMITIES: Show no lower extremity cyanosis, clubbing or edema. LABORATORY DATA AND IMAGING: Admitting chest x-ray negative for pneumonia. Admitting abdominopelvic CT shows thickening of the sigmoid colon. LABORATORY DATA: CBC: White blood cell count 9.9, improved; hemoglobin 12 with a platelet count of 253,000. INR is down to 1.88 from a high of 2.03. Chemistry showed normal electrolytes. BUN 25 with a creatinine of 1.3. Potassium level was normal at 3.8. Calcium is 8.8, phosphorus 4.5, magnesium level 1.9. Iron saturations are 26%. Liver enzymes are normal. Albumin is 3.6. TSH level is 0.49 with a total T3 of 0.78. Urines were unremarkable. Trace protein. Toxicology screen: Digoxin level was 0.9. Microbiology: Blood cultures are negative at 24 hours. Urine cultures are negative. ASSESSMENT: 1. Stable chronic kidney disease stage 2. The patient has membranous lupus glomerulonephritis. She has done excellently well on low-dose steroids and cyclosporin. No plans to change this regimen at this point in time. 2. Status post fever in immunocompromised patient. The patient remains on empiric antibiotic therapy with all cultures being negative. 3. History of hypertension. Blood pressure control is acceptable. 4. History of systemic lupus erythematosus. The patient follows with Dr. Mann in the outpatient setting. 5. History of lupus anticoagulant, atrial fibrillation, history of deep venous thrombosis. The patient had been on Coumadin. She will likely be transitioned over to heparin in preparation for a possible colonoscopy later this week. 6. Past history of elevated liver enzymes. Liver enzymes are currently normal. 7. History of valvular heart disease, currently stable. 8. History of hypothyroidism. We will check a T4 level. TSH is normal and total T3 level is low. 9. History of hyperlipidemia, controlled on diet therapy. 10. History of osteoporosis. The patient states that she is due for a dose of Fosamax. We will verify this with the outpatient medication list. PLAN: 1. Continue from a renal standpoint cyclosporin and low-dose steroid therapy. Creatinine is close to normal. The patient has chronic kidney disease stage 2 and the urine protein is trace. 2. Follow up cultures. 3. Agree with possible plenty of a colonoscopy for later this week with transitioning off of Coumadin in preparation for this study. 4. The patient is stable from a renal standpoint. Nikolai Tim MD
[2018-04-14] MEDS: Piperacillin/Tazobact 2.25gm 2.25 GM/100 ML BAG IVPB SCH (17:48)
[2018-04-14] MEDS ORDERED: cycloSPORINE 100 mg/mL Oral Soln (50ml) PO SCH (22:00)
[2018-04-15] MEDS: Piperacillin/Tazobact 2.25gm 2.25 GM/100 ML BAG IVPB SCH ×5 (02:43→23:03)
[2018-04-15] MEDS: Budesonide 0.5 mg/2 ml Inhal Susp UD IH SCH ×2 (07:23→19:32)
[2018-04-15] MEDS: Arformoterol 15 mcg/2 ml Inh Sol IH SCH ×2 (07:23→19:32)
[2018-04-15 07:24] LABS: BASO # 0.02 K/mm3 (0.0-2.0); BASO % 0.2 % (0.0-3.0); EOS # 0.2 (0.0-0.7); EOS % 1.9 % (1.5-5.0); GRAN # 4.71 (1.4-6.5); GRAN % 55.1 % (50.0-68.0); HEMOGLOBIN 11.6 g/dL (12.0-16.0); LYMPH # 2.9 (1.2-3.4); MEAN CORPUSCULAR HEMOGLOBIN 30.2 pg (25.0-35.0); MEAN CORPUSCULAR HGB CONC 32.5 g/dl (31.0-37.0); MEAN PLATELET VOLUME 9.6 fl (7.0-11.0); MONO # 0.8 (0.1-0.6); MONO % 8.8 % (1.0-6.0); RBC 3.84 10^6/uL (3.5-6.1); RED CELL DISTRIBUTION WIDTH 13.1 % (11.5-14.5); WHITE BLOOD COUNT 8.6 10^3/ul (4.5-11.0)
--- NOTE | 2018-04-15 07:30 | PN ---
DATE: 04/15/2018 PULMONARY NOTE SUBJECTIVE: The patient appears comfortable this morning. She is not short of breath at rest. PHYSICAL EXAMINATION VITAL SIGNS: (Last noted in the computer): Temperature is 98.4, pulse 79, respirations 18, blood pressure 135/80. Oxygen saturation on room air 97%. HEENT: Normocephalic, atraumatic. No JVD. CARDIOVASCULAR: Systolic ejection murmur at the lower left sternal border. No S3 gallop. LUNGS: Very minimal rhonchi. No wheezing. EXTREMITIES: No clubbing, cyanosis or edema. Calves are nontender to palpation. GI: Abdomen is soft, nontender and nondistended. Bowel sounds are positive. SKIN: No acute rash. NEUROLOGIC: Limited at the present time. IMPRESSION: 1. Sepsis syndrome. 2. Renal insufficiency. 3. Systemic lupus erythematosus. 4. Asthma. 5. Chronic kidney disease. PLAN: The patient appears comfortable this morning. She is not short of breath at rest. She does state to feeling much, much better overall. On physical exam, no significant bronchospasm is noted. In addition, the oxygen saturation on room air is now 97%. I will continue with the current pulmonary medications and inhaled steroids for now. The patient remains on antibiotic therapy - as per Infectious Disease. Temperatures have now fully resolved. The leukocytosis has also resolved. Inputs by Renal and GI are also noted. Clinical status of the patient is significantly improved overall. I will discuss the above with Dr. Escalante. Cornell Silva MD MTDD
[2018-04-15 07:32] LABS: INR 1.64 (0.93-1.08)
[2018-04-15 07:36] LABS: CALCIUM 8.4 mg/dL (8.4-10.5)
[2018-04-15] MEDS: Levothyroxine 50 MCG TAB PO SCH (07:37)
[2018-04-15] MEDS: Pantoprazole 40 mg EC Tab PO SCH (07:37)
[2018-04-15] MEDS ORDERED: Potassium Chloride 20 mEq ER Tab PO ONE (07:42)
--- NOTE | 2018-04-15 11:51 | CP.PCM.PN ---
Subjective - Date & Time of Evaluation Date of Evaluation: 04/15/18 Time of Evaluation: 10:00 - Subjective Subjective: Seen and examined at bedside, chart reviewed, no acute overnight events reported. having soft stool, c/o of rectal discomfort, had 2 BM so far, no bleeding. Patient reports that when she is on antibiotics she has tendency to have frequent BM and hemorrhoids get irritated. Denies diarrhea. Tolerating oral intake, No fever or chills. No N/V or abdominal pain. Objective - Vital Signs/Intake and Output Vital Signs (last 24 hours): Temp Pulse Resp BP Pulse Ox 98.1 F 78 18 149/84 97 04/15/18 06:00 04/15/18 06:00 04/15/18 06:00 04/15/18 09:05 04/15/18 06:00 Intake and Output: 04/15/18 04/15/18 06:59 18:59 Intake Total 480 Balance 480 - Medications Medications: Current Medications Alendronate Sodium (Fosamax) 70 mg PO Q7D@0600 [facility] Amlodipine Besylate (Norvasc) 10 mg PO DAILY [facility] Last Admin: 04/15/18 09:05 Dose: 10 mg Arformoterol Tartrate (Brovana) 15 mcg IH [id number] [facility] Last Admin: 04/15/18 07:23 Dose: 15 mcg Budesonide (Pulmicort Respules) 0.5 mg IH [id number] [facility] Last Admin: 04/15/18 07:23 Dose: 0.5 mg Cyclosporine (Sandimmune) 100 mg PO DAILY [facility] Last Admin: 04/15/18 09:05 Dose: 100 mg Cyclosporine (Sandimmune) 75 mg PO HS [facility] Last Admin: 04/14/18 21:40 Dose: 75 mg Digoxin (Digoxin) 0.125 mg PO 1400 [facility] Last Admin: 04/14/18 13:12 Dose: 0.125 mg Hydrochlorothiazide (Hydrodiuril) 25 mg PO DAILY [facility] Last Admin: 04/15/18 09:05 Dose: 25 mg Hydrocortisone (Anusol-Hc) 0 gm OK BID [facility] Piperacillin Sod/Tazobactam Sod (Zosyn 2.25 Gm In 0.9% 100 Ml) 2.25 gm in 100 mls @ 200 mls/hr IVPB Q6 [facility] PRN Reason: Protocol Stop: 04/20/18 12:01 Last Admin: 04/15/18 07:38 Dose: 200 mls/hr Heparin Sodium/Sodium Chloride (Heparin 71081 Units/250ml 1/2 Normal Saline) 25 ,000 units in 250 mls @ 10.483 mls/hr IV .[id number] PRN; Protocol; 18 UNITS/KG/HR PRN Reason: ADJUST RATE PER PROTOCOL Lactobacillus Acidophilus (Bacid Acidophilus) 1 cap PO BID [facility] Levothyroxine Sodium (Synthroid) 50 mcg PO 0630 [facility] Last Admin: 04/15/18 07:37 Dose: 50 mcg Losartan Potassium (Cozaar) 100 mg PO DAILY [facility] Last Admin: 04/15/18 09:05 Dose: 100 mg Pantoprazole Sodium (Protonix Ec Tab) 40 mg PO 0630 [facility] Last Admin: 04/15/18 07:37 Dose: 40 mg Polyethylene Glycol/Electrolytes (Golytely) 4,000 ml PO ONCE ONE Stop: 04/16/18 16:01 Prednisone (Prednisone Tab) 5 mg PO 1200 [facility] - Labs Labs: 04/15/18 06:45 04/15/18 06:45 PT 19.0 SECONDS (9.4-12.5) H 04/15/18 06:45 INR 1.64 (0.93-1.08) H 04/15/18 06:45 APTT 36.6 Seconds (25.1-36.5) H 04/14/18 07:00 - Constitutional Appears: No Acute Distress - Head Exam Head Exam: NORMOCEPHALIC - Eye Exam Eye Exam: Normal appearance. absent: Scleral icterus - ENT Exam ENT Exam: Mucous Membranes Moist - Neck Exam Neck Exam: Normal Inspection - Respiratory Exam Respiratory Exam: NORMAL BREATHING PATTERN. absent: Respiratory Distress - Cardiovascular Exam Cardiovascular Exam: +S1, +S2 - GI/Abdominal Exam GI & Abdominal Exam: Soft, Normal Bowel Sounds. absent: Tenderness - Extremities Exam Extremities Exam: absent: Calf Tenderness, Pedal Edema - Neurological Exam Neurological Exam: Alert, Awake, Oriented x3 - Skin Skin Exam: Dry, Warm Assessment and Plan - Assessment and Plan (Free Text) Assessment: ASSESSMENT: Fever, culture negative so far Abnormal ct scan: focal wall thickening descending/sigmoid colon to to 1.3 cm H/O colon polyps Back Pain SLE/Lupus pancreatitis/lupus nephritis COPD CHF CKD Atrial fibrillation on Coumadin now on hold, last dose 04/12/18 H/O DVT PLAN: Coumadin currently on hold, INR is improved 1.6, start on Heparin drip as per protocol, see orders on IV antibiotics, Zosyn as per ID start Probiotics start Anusol cream per rectum for hemorrhoids consider stool cdiff if BM more frequent /or become loose diet as tolerated continue PPI OOB patient is cleared for colonoscopy as per cardiology w/ moderate risk, appreciate recommendations will need colonoscopy to assess colonic thickening reported on ct scan, will plan for Friday Case discussed w/ patient, Daniel BOWERS, Latesha, ZAIRA, and Dr. Escalante Seen and discussed with Dr. Vergara.
[2018-04-15] MEDS: Lactobacillus Acidophilus 500 MU Cap PO SCH ×2 (11:57→17:18)
[2018-04-15] MEDS: Heparin25000 units/250ml 1/2NS 25,000 UNITS/250 ML BAG IV PRN (12:01)
[2018-04-15] MEDS: Hydrocortisone 2.5% Rectal Cream(30 gm) PR SCH ×2 (15:16→17:18)
[2018-04-15] MEDS: Digoxin 125 mcg (0.125 mg) Tab PO SCH ×2 (15:22→17:19)
--- NOTE | 2018-04-15 16:24 | PN ---
DATE: 04/15/2018 SUBJECTIVE: The patient is seen sitting in a chair on 5R. She awaits colonoscopy later in the week for evaluation of her colonic lesion. She states she is currently comfortable. She denies any chest pain, dyspnea, or lightheadedness. CURRENT MEDICATIONS: Include Brovana, Cozaar 100 mg daily, digoxin 0.125 mg daily, Fosamax, hydrochlorothiazide, Norvasc 10 mg daily, prednisone 5 mg daily, Protonix, Pulmicort inhaler, Sandimmune, Synthroid and Zosyn. OBJECTIVE: GENERAL: She is a middle-aged woman who appears comfortable at present time. VITAL SIGNS: Her blood pressure is 148/84, pulse 76, respirations are 16. She is afebrile. HEENT: Diminished and delayed carotid upstrokes noted. CHEST: Few scattered rhonchi heard. HEART: PMI displaced laterally, ovq-er-exif-peaking systolic murmur is noted at the base radiating to carotids. ABDOMEN: Soft, nontender with normoactive bowel sounds. EXTREMITIES: No edema. DIAGNOSTIC DATA: Potassium is 3.5, BUN and creatinine is 24 and 1.2, hemoglobin and hematocrit 11.6 and 35.7, white count of 8.6, platelet count of 253,000. INR 1.64. IMPRESSION: 1. Colonic mass workup in progress, tentatively scheduled for colonoscopy on Friday. 2. Paroxysmal atrial fibrillation, maintained on anticoagulant therapy. 3. Recent fever, source unclear. 4. Severe aortic stenosis. 5. Moderate functional mitral stenosis secondary to valvular calcification. 6. Chronic renal failure. 7. Rest of problems as noted. RECOMMENDATIONS: Initiation of heparin therapy at this time either in the form of Lovenox or fractionated heparin will be planned in anticipation of her colonoscopy on Friday. She has a moderately increased ischemic valvular heart disease, but appears optimized and stable to proceed at the present time. Avoidance of hypotension is advised given her fixed cardiac output in the setting of her aortic stenosis. We will be happy to follow along and make further recommendations as appropriate. Ry Arroyo MD ROBIN
--- NOTE | 2018-04-15 17:13 | PN ---
DATE: 04/15/2018 SUBJECTIVE: The patient is seen sitting in bed. She is awake, she is alert, and she is comfortable. She denies any back pain currently. She denies any chest tightness. She denies any abdominal pain. PHYSICAL EXAMINATION: GENERAL: Elderly lady sitting in bed. VITAL SIGNS: Blood pressure 149/84, heart rate 78, respiratory rate 18, and temperature 98.1. HEENT: Normocephalic, atraumatic. NECK: Supple, no JVD. LUNGS: Bilateral equal air entry, bilateral equal expansion. CARDIAC: S1 and S2, regular rate and rhythm, no murmur, no rub. ABDOMEN: Soft, nondistended, nontender, bowel sounds present. EXTREMITIES: No lower extremity edema. LABORATORY DATA: Hemoglobin 11.6. Sodium 145, potassium 3.5, chloride 108, CO2 of 24. BUN 0.58 Iron saturation 26, iron 63, and ferritin 98. MEDICATIONS: List reviewed. ASSESSMENT: 1. Stable chronic kidney disease stage III. 2. Mild hypokalemia. 3. Chronic anemia. 4. Hypertension, well controlled. 5. Systemic lupus erythematosus. 6. Deep venous thrombosis. 7. ?Pneumonia. PLAN: 1. Replace potassium 20 mEq daily. 2. Continue cyclosporin and prednisone. 3. Continue to hold Coumadin because the patient is scheduled for colonoscopy on Friday. Beba Cintron MD
--- NOTE | 2018-04-15 17:31 | PN ---
DATE: 04/15/2018 SUBJECTIVE: Patient in bed, in no acute distress, nontoxic. PHYSICAL EXAMINATION: VITAL SIGNS: Temperature is 98, blood pressure 140/80, respiratory rate of 18. HEENT: Examination is unremarkable. NECK: Supple. LUNGS: Decreased breath sounds. HEART: Normal S1, S2. ABDOMEN: Soft, nontender. DATA: Laboratory examination reveals a white count of 8.6, hemoglobin of 11, platelets of 263. Chemistries reveal BUN of 24, creatinine of 1.2. Urinalysis is noted and Toxicology is noted. Microbiology revealed blood cultures with no growth. Urine culture had no growth. Dr. Silva's note is reviewed and PATIENT IS ALLERGIC TO CIPRO AND IV CONTRAST. ASSESSMENT AND PLAN: This is a 67-year-old female with leukocytosis, back pain, hypertension, lupus, chronic renal failure, history of deep venous thrombosis, hyperthyroidism. Patient's white count is now normal at 8.6 this morning and renal function is noted. Urinalysis is negative. Microbiology is negative. note from this morning is reviewed. Patient is cleared for colonoscopy as per Cardiology, waiting for those results. Patient is on Zosyn still, pending colonoscopy and colonoscopy results. Patient is also on prednisone. Dajuan Woods MD
--- NOTE | 2018-04-15 18:08 | PN ---
DATE: 04/15/2018 SUBJECTIVE: A 67-year-old female, sitting comfortably this morning. Nursing staff relates that there were no problems during the night. The patient states that she is feeling more comfortable today, although she states that when she takes the antibiotics, she has increased bowel movements, which irritates her hemorrhoids. PHYSICAL EXAMINATION: VITAL SIGNS: Her temp is 98, her pulse is 78, her blood pressure is 149/84, respiratory rate is 18, oxygen sat is 97%. GENERAL: The patient is alert and oriented x3. LUNGS: Clear. HEART: An S1 and S2. Grade III/ systolic murmur at the left cardiac border. ABDOMEN: Soft, scaphoid, positive bowel sounds. EXTREMITIES: Show no evidence of edema. LABORATORY DATA: Shows a WBC of 8.6, RBC 3.84, hemoglobin 11.6, hematocrit 35.7, platelet count 253. Her PT is 19 with an INR of 1.64. Chemistry shows sodium of 145, potassium 3.5, chloride 108. The BUN is 24, the creatinine is 1.2. ASSESSMENT AND PLAN: 1. Immunocompromised patient with a history of lupus, lupus renal disease. Admitted with fever. Currently being followed by Infectious Disease. Placed on antibiotics by Infectious Disease. 2. GI is following the patient for findings on the CAT scan with thickening in the sigmoid colon area with recommendations to do a colonoscopy. 3. Review of Cardiology's notes and GI's notes with recommendation for anticoagulation therapy while the Coumadin is being on hold. We will await their input regarding which treatment is preferred. 4. She continues to be followed by Renal for her underlying lupus nephritis disorder. She is on Zosyn antibiotic by Infectious Disease. To date, cultures are negative. Her potassium is 3.5, we will replete her potassium. Magnesium is 1.7. Place the patient on an Anusol for her irritation to her hemorrhoids and Probiotics as well. Pulmonary is following the patient for her underlying chronic obstructive pulmonary disease history and on respiratory treatments. She has a history of severe aortic stenosis and the recommendations and care recommendations by Cardiology are noted. I have asked GI to speak with Cardiology. The patient and family are aware of the clinical status at this time and the current plan for treatment. Cathy Escalante MD [facility] # [id number]
--- NOTE | 2018-04-16 01:06 | PN ---
DATE: 04/14/2018 SUBJECTIVE: The patient was seen yesterday, 04/14/2018. No fevers. No chills. PHYSICAL EXAMINATION: VITAL SIGNS: Temperature 98, blood pressure 140/70, respirations 16. HEENT: Unremarkable. NECK: Supple. LUNGS: Have decreased breath sounds. HEART: Normal S1, S2. ABDOMEN: Soft. LABORATORY EXAMINATION: Noted. ASSESSMENT AND PLAN: A 67-year-old female with leukocytosis, back pain, hypertension, lupus, chronic renal failure, history of deep venous thrombosis, hypothyroidism and patient for possible colonoscopy, on Zosyn. Leukocytosis has resolved, as of yesterday was 9.9. Dajuan Woods MD
[2018-04-16] MEDS: Piperacillin/Tazobact 2.25gm 2.25 GM/100 ML BAG IVPB SCH ×3 (05:32→17:28)
[2018-04-16] MEDS: Levothyroxine 50 MCG TAB PO SCH (05:32)
[2018-04-16] MEDS: Pantoprazole 40 mg EC Tab PO SCH (05:32)
[2018-04-16] MEDS: Arformoterol 15 mcg/2 ml Inh Sol IH SCH ×2 (07:06→20:00)
[2018-04-16] MEDS: Budesonide 0.5 mg/2 ml Inhal Susp UD IH SCH ×2 (07:06→20:00)
[2018-04-16 07:35] LABS: BASO # 0.03 K/mm3 (0.0-2.0); BASO % 0.3 % (0.0-3.0); EOS # 0.3 (0.0-0.7); EOS % 2.7 % (1.5-5.0); GRAN # 4.37 (1.4-6.5); GRAN % 46.8 % (50.0-68.0); HEMOGLOBIN 12.2 g/dL (12.0-16.0); LYMPH # 3.8 (1.2-3.4); LYMPH % 40.8 % (22.0-35.0); MEAN CORPUSCULAR HEMOGLOBIN 30.6 pg (25.0-35.0); MEAN CORPUSCULAR HGB CONC 32.9 g/dl (31.0-37.0); MEAN PLATELET VOLUME 9.2 fl (7.0-11.0); MONO # 0.9 (0.1-0.6); MONO % 9.4 % (1.0-6.0); RBC 3.99 10^6/uL (3.5-6.1); RED CELL DISTRIBUTION WIDTH 12.9 % (11.5-14.5); WHITE BLOOD COUNT 9.3 10^3/ul (4.5-11.0)
[2018-04-16 07:42] LABS: INR 1.37 (0.93-1.08); PARTIAL THROMBOPLASTIN TIME 67.4 Seconds (25.1-36.5); PROTHROMBIN TIME 15.9 SECONDS (9.4-12.5)
[2018-04-16 07:45] LABS: CALCIUM 8.6 mg/dL (8.4-10.5); GFR AFRICAN-AMERICAN > 60; GFR NON-AFRICAN AMERICAN 50
[2018-04-16 07:51] LABS: BLOOD UREA NITROGEN 21 mg/dL (7-21)
--- NOTE | 2018-04-16 08:21 | CP.PCM.PN ---
Subjective - Date & Time of Evaluation Date of Evaluation: 04/16/18 Time of Evaluation: 07:00 - Subjective Subjective: Stable on 5R. No CP or SOB. Colonoscopy planned for tomorrow. On heparin drip. V/S noted. Afebrile. PE: Lungs: clear Cor.: MONO Abd.: soft Ext.: no edema Neuro.: alert I/O= 720/400 Labs: H/H 12.2/37.1, INR= 1.7, PTT= 67.4, BMP OK BC X2 NG at 3 days. Urine C+S= NG Objective - Vital Signs/Intake and Output Vital Signs (last 24 hours): Temp Pulse Resp BP Pulse Ox 97.8 F 74 18 147/81 99 04/16/18 06:00 04/16/18 06:00 04/16/18 06:00 04/16/18 06:00 04/16/18 06:00 Intake and Output: 04/16/18 04/16/18 06:59 18:59 Intake Total 720 Output Total 400 Balance 320 - Medications Medications: Current Medications Alendronate Sodium (Fosamax) 70 mg PO Q7D@0600 [facility] Amlodipine Besylate (Norvasc) 10 mg PO DAILY [facility] Last Admin: 04/15/18 09:05 Dose: 10 mg Arformoterol Tartrate (Brovana) 15 mcg IH [id number] [facility] Last Admin: 04/16/18 07:06 Dose: 15 mcg Budesonide (Pulmicort Respules) 0.5 mg IH [id number] [facility] Last Admin: 04/16/18 07:06 Dose: 0.5 mg Cyclosporine (Sandimmune) 100 mg PO DAILY [facility] Last Admin: 04/15/18 09:05 Dose: 100 mg Cyclosporine (Sandimmune) 75 mg PO HS [facility] Last Admin: 04/15/18 21:23 Dose: 75 mg Digoxin (Digoxin) 0.125 mg PO 1400 [facility] Last Admin: 04/15/18 15:22 Dose: 0.125 mg Digoxin (Digoxin) 0.125 mg PO DAILY [facility] Last Admin: 04/15/18 17:19 Dose: Not Given Hydrochlorothiazide (Hydrodiuril) 25 mg PO DAILY [facility] Last Admin: 04/15/18 09:05 Dose: 25 mg Hydrocortisone (Anusol-Hc) 0 gm [place] BID [facility] Last Admin: 04/15/18 17:18 Dose: 1 applic Piperacillin Sod/Tazobactam Sod (Zosyn 2.25 Gm In 0.9% 100 Ml) 2.25 gm in 100 mls @ 200 mls/hr IVPB Q6 TESHA PRN Reason: Protocol Stop: 04/20/18 12:01 Last Admin: 04/16/18 05:32 Dose: 200 mls/hr Heparin Sodium/Sodium Chloride (Heparin 37464 Units/250ml 1/2 Normal Saline) 25 ,000 units in 250 mls @ 10.483 mls/hr IV .[id number] PRN; Protocol; 18 UNITS/KG/HR PRN Reason: ADJUST RATE PER PROTOCOL Last Titration: 04/16/18 01:00 Dose: 13 units/kg/hr, 7.571 mls/hr Lactobacillus Acidophilus (Bacid Acidophilus) 1 cap PO BID [facility] Last Admin: 04/15/18 17:18 Dose: 1 cap Levothyroxine Sodium (Synthroid) 50 mcg PO 0630 [facility] Last Admin: 04/16/18 05:32 Dose: 50 mcg Losartan Potassium (Cozaar) 100 mg PO DAILY [facility] Last Admin: 04/15/18 09:05 Dose: 100 mg Pantoprazole Sodium (Protonix Ec Tab) 40 mg PO 0630 [facility] Last Admin: 04/16/18 05:32 Dose: 40 mg Polyethylene Glycol/Electrolytes (Golytely) 4,000 ml PO ONCE ONE Stop: 04/16/18 16:01 Potassium Chloride (K-Dur 20 Meq Er Tab) 20 meq PO BRK [facility] Prednisone (Prednisone Tab) 5 mg PO 1200 [facility] Last Admin: 04/15/18 11:57 Dose: 5 mg - Labs Labs: 04/16/18 07:00 04/16/18 07:00 PT 15.9 SECONDS (9.4-12.5) H 04/16/18 07:15 INR 1.37 (0.93-1.08) H 04/16/18 07:15 APTT 67.4 Seconds (25.1-36.5) H 04/16/18 07:15 Assessment and Plan - Assessment and Plan (Free Text) Assessment: Fever, resolved Abnormal CT A+P: R/O colonic carcinoma Valvular Heart Disease: Sev. , Mod. functional MS, Mod. TR PAF/Warfarin on hold for colonoscopy SLE CKD COPD/Asthma/Pneumonia/Former Smoker Hypothyroidism Plan: Heparin by PTTs. Hold for colonoscopy. Moderate increased cardiac risk. As per GI, Pulm., ID , Renal and Dr. Escalante Resume heparin/warfarin post colonoscopy as per GI and Dr. Escalante.
--- NOTE | 2018-04-16 08:45 | PN ---
DATE: 04/16/2018 PULMONARY NOTE SUBJECTIVE: The patient appears comfortable this morning. She is not short of breath at rest. PHYSICAL EXAMINATION VITAL SIGNS: (Last noted in the computer): Temperature is 98.3, pulse 81, respirations 18, blood pressure 138/73. Oxygen saturation on room air is 97%. HEENT: Normocephalic, atraumatic. No JVD. CARDIOVASCULAR: Systolic ejection murmur at the lower left sternal border. No S3 gallop. LUNGS: Very minimal rhonchi. No wheezing. EXTREMITIES: No clubbing, cyanosis or edema. Calves are nontender to palpation. GI: Abdomen is soft, nontender and nondistended. Bowel sounds are positive. SKIN: No acute rash. NEUROLOGIC: Limited at the present time. IMPRESSION: 1. Sepsis syndrome. 2. Renal insufficiency. 3. Systemic lupus erythematosus. 4. Asthma. 5. Chronic kidney disease. PLAN: The patient appears comfortable this morning. She is not short of breath at rest. She does state to feeling much better overall. On physical exam, there is no significant bronchospasm noted. In addition, the oxygen saturation on room air is 97%. I will continue with the current nebulizer treatments and inhaled steroids for now. The patient remains on antibiotic therapy - as per Infectious Disease. Input by Dr. Woods is noted. The temperatures have fully resolved. The leukocytosis has also fully resolved. The patient does remain mildly anemic. GI evaluation is noted. The patient is for possible colonoscopy tomorrow. Clinical status of the patient is significantly improved overall. Repeat a.m. labs are pending. I will discuss the above with Dr. Escalante. Cornell Silva MD [facility]
--- NOTE | 2018-04-16 09:49 | CP.PCM.PN ---
<Aissatou López - Last Filed: 04/16/18 09:45> Subjective - Date & Time of Evaluation Date of Evaluation: 04/16/18 Time of Evaluation: 09:30 - Subjective Subjective: S&E at bedside, chart reviewed, no acute overnight events reported. No N/V or abdominal pain. No diarrhea had 1 soft BM last night and one this am. No rectal discomfort, improved. Remains on heparin drip per protocol, no sight of overt GI bleeding. No complaint this am. Objective - Vital Signs/Intake and Output Vital Signs (last 24 hours): Temp Pulse Resp BP Pulse Ox 97.8 F 74 18 147/81 99 04/16/18 06:00 04/16/18 06:00 04/16/18 06:00 04/16/18 06:00 04/16/18 06:00 Intake and Output: 04/16/18 04/16/18 06:59 18:59 Intake Total 720 Output Total 400 Balance 320 - Medications Medications: Current Medications Alendronate Sodium (Fosamax) 70 mg PO Q7D@0600 [facility] Amlodipine Besylate (Norvasc) 10 mg PO DAILY [facility] Last Admin: 04/15/18 09:05 Dose: 10 mg Arformoterol Tartrate (Brovana) 15 mcg IH [id number] [facility] Last Admin: 04/16/18 07:06 Dose: 15 mcg Budesonide (Pulmicort Respules) 0.5 mg IH [id number] [facility] Last Admin: 04/16/18 07:06 Dose: 0.5 mg Cyclosporine (Sandimmune) 100 mg PO DAILY [facility] Last Admin: 04/15/18 09:05 Dose: 100 mg Cyclosporine (Sandimmune) 75 mg PO HS [facility] Last Admin: 04/15/18 21:23 Dose: 75 mg Digoxin (Digoxin) 0.125 mg PO 1400 [facility] Last Admin: 04/15/18 15:22 Dose: 0.125 mg Digoxin (Digoxin) 0.125 mg PO DAILY [facility] Last Admin: 04/15/18 17:19 Dose: Not Given Hydrochlorothiazide (Hydrodiuril) 25 mg PO DAILY [facility] Last Admin: 04/15/18 09:05 Dose: 25 mg Hydrocortisone (Anusol-Hc) 0 gm [place] BID [facility] Last Admin: 04/15/18 17:18 Dose: 1 applic Piperacillin Sod/Tazobactam Sod (Zosyn 2.25 Gm In 0.9% 100 Ml) 2.25 gm in 100 mls @ 200 mls/hr IVPB Q6 TESHA PRN Reason: Protocol Stop: 04/20/18 12:01 Last Admin: 04/16/18 05:32 Dose: 200 mls/hr Heparin Sodium/Sodium Chloride (Heparin 31502 Units/250ml 1/2 Normal Saline) 25 ,000 units in 250 mls @ 10.483 mls/hr IV .[id number] PRN; Protocol; 18 UNITS/KG/HR PRN Reason: ADJUST RATE PER PROTOCOL Last Titration: 04/16/18 01:00 Dose: 13 units/kg/hr, 7.571 mls/hr Lactobacillus Acidophilus (Bacid Acidophilus) 1 cap PO BID [facility] Last Admin: 04/15/18 17:18 Dose: 1 cap Levothyroxine Sodium (Synthroid) 50 mcg PO 0630 [facility] Last Admin: 04/16/18 05:32 Dose: 50 mcg Losartan Potassium (Cozaar) 100 mg PO DAILY [facility] Last Admin: 04/15/18 09:05 Dose: 100 mg Pantoprazole Sodium (Protonix Ec Tab) 40 mg PO 0630 [facility] Last Admin: 04/16/18 05:32 Dose: 40 mg Polyethylene Glycol/Electrolytes (Golytely) 4,000 ml PO ONCE ONE Stop: 04/16/18 16:01 Potassium Chloride (K-Dur 20 Meq Er Tab) 20 meq PO BRK [facility] Prednisone (Prednisone Tab) 5 mg PO 1200 [facility] Last Admin: 04/15/18 11:57 Dose: 5 mg - Labs Labs: 04/16/18 07:00 04/16/18 07:00 PT 15.9 SECONDS (9.4-12.5) H 04/16/18 07:15 INR 1.37 (0.93-1.08) H 04/16/18 07:15 APTT 67.4 Seconds (25.1-36.5) H 04/16/18 07:15 - Constitutional Appears: No Acute Distress - Head Exam Head Exam: NORMOCEPHALIC - Eye Exam Eye Exam: Normal appearance. absent: Scleral icterus - ENT Exam ENT Exam: Mucous Membranes Moist - Neck Exam Neck Exam: Normal Inspection - Respiratory Exam Respiratory Exam: NORMAL BREATHING PATTERN. absent: Respiratory Distress - Cardiovascular Exam Cardiovascular Exam: +S1, +S2 - GI/Abdominal Exam GI & Abdominal Exam: Soft, Normal Bowel Sounds. absent: Guarding, Tenderness, Rebound - Extremities Exam Extremities Exam: absent: Calf Tenderness, Pedal Edema - Neurological Exam Neurological Exam: Alert, Awake, Oriented x3 - Skin Skin Exam: Dry, Warm Assessment and Plan - Assessment and Plan (Free Text) Assessment: ASSESSMENT: Fever, culture negative so far Abnormal ct scan: focal wall thickening descending/sigmoid colon to to 1.3 cm H/O colon polyps Back Pain SLE/Lupus pancreatitis/lupus nephritis COPD CHF CKD Atrial fibrillation on Coumadin now on hold, last dose 04/12/18 H/O DVT PLAN: on Heparin drip as per protocol, currently therapuetic on IV antibiotics, Zosyn as per ID continue Probiotics continue Anusol cream per rectum for hemorrhoids as needed consider stool cdiff if BM more frequent /or become loose diet as tolerated continue PPI OOB patient is cleared for colonoscopy as per cardiology w/ moderate risk, appreciate recommendations prepare for colonoscopy today for 04/17/18, see orders for bowel prep, HEPARIN drip to be stopped at 6 am for procedure, see orders, discuss w/ nsg staff. NPO 12 midnight except meds. Seen and discussed with Dr. Vergara. <Tiny Vergara V - Last Filed: 04/17/18 00:00> Objective - Vital Signs/Intake and Output Vital Signs (last 24 hours): Temp Pulse Resp BP Pulse Ox 98.6 F 69 18 150/81 100 04/16/18 22:19 04/16/18 22:19 04/16/18 22:19 04/16/18 22:19 04/16/18 22:19 Intake and Output: 04/16/18 04/17/18 18:59 06:59 Intake Total 510 Balance 510 - Medications Medications: Current Medications Alendronate Sodium (Fosamax) 70 mg PO Q7D@0600 [facility] Amlodipine Besylate (Norvasc) 10 mg PO DAILY [facility] Last Admin: 04/16/18 12:22 Dose: 10 mg Arformoterol Tartrate (Brovana) 15 mcg IH [id number] [facility] Last Admin: 04/16/18 07:06 Dose: 15 mcg Budesonide (Pulmicort Respules) 0.5 mg IH [id number] [facility] Last Admin: 04/16/18 07:06 Dose: 0.5 mg Cyclosporine (Sandimmune) 100 mg PO DAILY [facility] Last Admin: 04/16/18 12:23 Dose: 100 mg Cyclosporine (Sandimmune) 75 mg PO HS [facility] Last Admin: 04/16/18 21:06 Dose: 75 mg Digoxin (Digoxin) 0.125 mg PO DAILY [facility] Last Admin: 04/16/18 12:23 Dose: 0.125 mg Hydrochlorothiazide (Hydrodiuril) 25 mg PO DAILY [facility] Last Admin: 04/16/18 12:22 Dose: 25 mg Hydrocortisone (Anusol-Hc) 0 gm [place] BID [facility] Last Admin: 04/16/18 17:47 Dose: Not Given Piperacillin Sod/Tazobactam Sod (Zosyn 2.25 Gm In 0.9% 100 Ml) 2.25 gm in 100 mls @ 200 mls/hr IVPB Q6 TESHA PRN Reason: Protocol Stop: 04/20/18 12:01 Last Admin: 04/16/18 17:28 Dose: 200 mls/hr Heparin Sodium/Sodium Chloride (Heparin 98416 Units/250ml 1/2 Normal Saline) 25 ,000 units in 250 mls @ 10.483 mls/hr IV .[id number] PRN; Protocol; 18 UNITS/KG/HR PRN Reason: ADJUST RATE PER PROTOCOL Last Admin: 04/16/18 19:00 Dose: 13 units/kg/hr, 7.571 mls/hr Lactobacillus Acidophilus (Bacid Acidophilus) 1 cap PO BID [facility] Last Admin: 04/16/18 17:28 Dose: 1 cap Levothyroxine Sodium (Synthroid) 50 mcg PO 0630 [facility] Last Admin: 04/16/18 05:32 Dose: 50 mcg Losartan Potassium (Cozaar) 100 mg PO DAILY [facility] Last Admin: 04/16/18 12:22 Dose: 100 mg Pantoprazole Sodium (Protonix Ec Tab) 40 mg PO 0630 [facility] Last Admin: 04/16/18 05:32 Dose: 40 mg Potassium Chloride (K-Dur 20 Meq Er Tab) 20 meq PO BRK [facility] Last Admin: 04/16/18 12:23 Dose: 20 meq Prednisone (Prednisone Tab) 5 mg PO 1200 [facility] Last Admin: 04/16/18 12:23 Dose: 5 mg - Labs Labs: 04/16/18 07:00 04/16/18 07:00 PT 15.9 SECONDS (9.4-12.5) H 04/16/18 07:15 INR 1.37 (0.93-1.08) H 04/16/18 07:15 APTT 72.5 Seconds (25.1-36.5) H 04/16/18 13:00 Attending/Attestation - Attestation I have personally seen and examined this patient.: Yes I have fully participated in the care of the patient.: Yes I have reviewed all pertinent clinical information, including history, physical exam and plan: Yes Notes (Text): 04/17/18 00:00 p
[2018-04-16] MEDS: Lactobacillus Acidophilus 500 MU Cap PO SCH ×2 (12:22→17:28)
[2018-04-16] MEDS: Potassium Chloride 20 mEq ER Tab PO SCH (12:23)
[2018-04-16] MEDS: Digoxin 125 mcg (0.125 mg) Tab PO SCH (12:23)
[2018-04-16] MEDS: Hydrocortisone 2.5% Rectal Cream(30 gm) PR SCH ×2 (12:24→17:47)
--- NOTE | 2018-04-16 12:28 | CP.PCM.PN ---
Subjective - Date & Time of Evaluation Date of Evaluation: 04/16/18 Time of Evaluation: 11:20 - Subjective Subjective: No diarrhea, no abdominal pain, no fevers. Objective - Vital Signs/Intake and Output Vital Signs (last 24 hours): Temp Pulse Resp BP Pulse Ox 97.8 F 74 18 147/81 99 04/16/18 06:00 04/16/18 06:00 04/16/18 06:00 04/16/18 06:00 04/16/18 06:00 Intake and Output: 04/16/18 04/16/18 06:59 18:59 Intake Total 720 Output Total 400 Balance 320 - Medications Medications: Current Medications Alendronate Sodium (Fosamax) 70 mg PO Q7D@0600 [facility] Amlodipine Besylate (Norvasc) 10 mg PO DAILY [facility] Last Admin: 04/15/18 09:05 Dose: 10 mg Arformoterol Tartrate (Brovana) 15 mcg IH [id number] [facility] Last Admin: 04/16/18 07:06 Dose: 15 mcg Budesonide (Pulmicort Respules) 0.5 mg IH [id number] [facility] Last Admin: 04/16/18 07:06 Dose: 0.5 mg Cyclosporine (Sandimmune) 100 mg PO DAILY [facility] Last Admin: 04/15/18 09:05 Dose: 100 mg Cyclosporine (Sandimmune) 75 mg PO HS [facility] Last Admin: 04/15/18 21:23 Dose: 75 mg Digoxin (Digoxin) 0.125 mg PO 1400 [facility] Last Admin: 04/15/18 15:22 Dose: 0.125 mg Digoxin (Digoxin) 0.125 mg PO DAILY [facility] Last Admin: 04/15/18 17:19 Dose: Not Given Hydrochlorothiazide (Hydrodiuril) 25 mg PO DAILY [facility] Last Admin: 04/15/18 09:05 Dose: 25 mg Hydrocortisone (Anusol-Hc) 0 gm [place] BID [facility] Last Admin: 04/15/18 17:18 Dose: 1 applic Piperacillin Sod/Tazobactam Sod (Zosyn 2.25 Gm In 0.9% 100 Ml) 2.25 gm in 100 mls @ 200 mls/hr IVPB Q6 [facility] PRN Reason: Protocol Stop: 04/20/18 12:01 Last Admin: 04/16/18 05:32 Dose: 200 mls/hr Heparin Sodium/Sodium Chloride (Heparin 03996 Units/250ml 1/2 Normal Saline) 25 ,000 units in 250 mls @ 10.483 mls/hr IV .[id number] PRN; Protocol; 18 UNITS/KG/HR PRN Reason: ADJUST RATE PER PROTOCOL Last Titration: 04/16/18 01:00 Dose: 13 units/kg/hr, 7.571 mls/hr Lactobacillus Acidophilus (Bacid Acidophilus) 1 cap PO BID [facility] Last Admin: 04/15/18 17:18 Dose: 1 cap Levothyroxine Sodium (Synthroid) 50 mcg PO 0630 [facility] Last Admin: 04/16/18 05:32 Dose: 50 mcg Losartan Potassium (Cozaar) 100 mg PO DAILY [facility] Last Admin: 04/15/18 09:05 Dose: 100 mg Pantoprazole Sodium (Protonix Ec Tab) 40 mg PO 0630 [facility] Last Admin: 04/16/18 05:32 Dose: 40 mg Polyethylene Glycol/Electrolytes (Golytely) 4,000 ml PO ONCE ONE Stop: 04/16/18 16:01 Potassium Chloride (K-Dur 20 Meq Er Tab) 20 meq PO BRK [facility] Prednisone (Prednisone Tab) 5 mg PO 1200 [facility] Last Admin: 04/15/18 11:57 Dose: 5 mg - Labs Labs: 04/16/18 07:00 04/16/18 07:00 PT 15.9 SECONDS (9.4-12.5) H 04/16/18 07:15 INR 1.37 (0.93-1.08) H 04/16/18 07:15 APTT 67.4 Seconds (25.1-36.5) H 04/16/18 07:15 - Constitutional Appears: Non-toxic, Chronically Ill - Head Exam Head Exam: NORMAL INSPECTION - Respiratory Exam Respiratory Exam: Decreased Breath Sounds - Cardiovascular Exam Cardiovascular Exam: +S1, +S2 - GI/Abdominal Exam GI & Abdominal Exam: Soft. absent: Tenderness Assessment and Plan - Assessment and Plan (Free Text) Plan: Assessment leukocytosis due to back pain, R/O intra-abdominal infection, R/O colonic mass history of severe sepsis with acute renal failure due to right lower lobe healthcare-associated pneumonia with possible gram positive cocci and/or gram negative bacilli and/or atypical organisms history of sepsis due to left lower lobe pneumonia, community-acquired chronic bronchiectasis HTN SLE chronic renal failure history of DVT hypothyroidism COPD GERD anxiety disorder S/P cholecystectomy S/P breast surgery Plan continue Zosyn day 4; blood cx are negative; patient for colonoscopy tomorrow will continue to monitor clinically
[2018-04-16] MEDS ORDERED: Peg-Electrolyte Oral Soln 4L (Golytely) PO ONE (16:00)
--- NOTE | 2018-04-16 16:25 | PN ---
DATE: 04/16/2018 SUBJECTIVE: The patient is resting comfortably in bed this morning. Nursing staff relates that there were no problems during the night. PHYSICAL EXAMINATION: GENERAL: She is alert and oriented x3. LUNGS: Clear. HEART: S1 and S2 rhythm. ABDOMEN: Soft, scaphoid. Positive bowel sounds. EXTREMITIES: No evidence of edema. VITAL SIGNS: The patient has a temperature reported as 97.8, blood pressure is 140/72, pulse is 74, respiratory rate is 18, and oxygen sat is 97%. LABORATORY DATA: Shows a WBC of 9.3, RBC 3.99, hemoglobin 12.2, hematocrit 37.1, and platelet count is 265. PTT is 72.5. Chemistry shows normal electrolytes. The BUN is 21 and creatinine is 1.1. Today, the urine and blood cultures are negative. MEDICATIONS: The patient is currently on Anusol suppository, Pepcid, Brovana, Cozaar, digoxin, and Fosamax. She is receiving GoLYTELY in preparation for colonoscopy tomorrow. She is on HydroDIURIL, heparin, potassium, Norvasc, prednisone, Protonix, Pulmicort, cyclosporin, Synthroid, and Zosyn IV. IMPRESSION: She is currently being followed by Infectious Disease for a febrile episode, which brought her to the hospital. She is being followed by Cardiology who has cleared her for her colonoscopy. Gastrointestinal is following the patient. She was found on the CAT scan to have a thickening in the sigmoid colon area and is being followed by Pulmonary for underlying history of chronic obstructive pulmonary disease. Continue current care at this time. Follow labs. Repeat blood work has been ordered. Cathy Escalante MD
--- NOTE | 2018-04-16 18:04 | PN ---
DATE: 04/16/2018 SUBJECTIVE: The patient is seen sitting in chair. She is awake, she is alert, and she is comfortable. PHYSICAL EXAMINATION: GENERAL: Elderly lady sitting in chair. VITAL SIGNS: Blood pressure 115/71, heart rate 82, respiratory rate 20, temperature 98.2. HEENT: Normocephalic, atraumatic. NECK: Supple, no JVD. LUNGS: Bilateral equal air entry, bilateral equal expansion. CARDIAC: S1 and S2, regular rate and rhythm, no murmur, no rub. ABDOMEN: Soft, nondistended, nontender, bowel sounds present. EXTREMITIES: No extremity edema. INTAKE AND OUTPUT: 720/400 LABORATORY DATA: Hemoglobin 12.2. Sodium 143, potassium 3.9, chloride 111, and CO2 of 22. BUN 21, creatinine 1.1. Glucose 81. Calcium 8.6. CURRENT MEDICATIONS: :List reviewed. ASSESSMENT: 1. Stable chronic kidney disease stage III. 2. Mild hypokalemia. 3. Systemic lupus erythematosus. 4. Hypertension. 5. History of deep venous thrombosis. 6. Anemia. PLAN: 1. Continue to hold Coumadin. 2. Continue current antihypertensives. 3. Continue cyclosporin and prednisone. 4. Endoscopy tomorrow. Beba Cintron MD
[2018-04-16] MEDS: Heparin25000 units/250ml 1/2NS 25,000 UNITS/250 ML BAG IV PRN (19:00)
[2018-04-17] MEDS: Piperacillin/Tazobact 2.25gm 2.25 GM/100 ML BAG IVPB SCH ×4 (00:14→17:58)
[2018-04-17] MEDS: Levothyroxine 50 MCG TAB PO SCH (05:30)
[2018-04-17] MEDS: Pantoprazole 40 mg EC Tab PO SCH (06:12)
[2018-04-17] MEDS: Budesonide 0.5 mg/2 ml Inhal Susp UD IH SCH ×2 (07:20→21:33)
[2018-04-17] MEDS: Arformoterol 15 mcg/2 ml Inh Sol IH SCH ×2 (07:20→21:33)
[2018-04-17 07:21] LABS: ALB/GLOB RATIO 0.8 (1.1-1.8); ALBUMIN 3.8 g/dL (3.0-4.8); ALT/SGPT 42 U/L (7-56); AST/SGOT 42 U/L (14-36); BLOOD UREA NITROGEN 14 mg/dL (7-21); CALCIUM 9.2 mg/dL (8.4-10.5); GFR AFRICAN-AMERICAN > 60; GFR NON-AFRICAN AMERICAN 56
[2018-04-17 07:32] LABS: INR 1.2 (0.93-1.08); PROTHROMBIN TIME 13.8 SECONDS (9.4-12.5)
[2018-04-17] MEDS: Potassium Chloride 20 mEq ER Tab PO SCH (08:13)
--- NOTE | 2018-04-17 08:23 | PN ---
DATE: 04/17/2018 PULMONARY NOTE SUBJECTIVE: The patient appears comfortable this morning. She is not short of breath at rest. OBJECTIVE: VITAL SIGNS (last noted in the computer): Temperature is 98.6, pulse 69, respirations 18, blood pressure 150/81. Oxygen saturation on room air is 100%. HEENT: Normocephalic, atraumatic. No JVD. CARDIOVASCULAR: Systolic ejection murmur at the lower left sternal border. No S3 gallop. LUNGS: Very minimal rhonchi. No wheezing. EXTREMITIES: No clubbing, cyanosis or edema. Calves are nontender to palpation. GI: Abdomen is soft, nontender, nondistended. Bowel sounds are positive. SKIN: No acute rash. NEUROLOGIC: Exam limited at the present time. IMPRESSION: 1. Sepsis syndrome. 2. Renal insufficiency. 3. Systemic lupus erythematosus. 4. Asthma. 5. Chronic kidney disease. PLAN: The patient appears comfortable this morning. She is not short of breath at rest. She does state to feeling much better overall. On physical exam, her bronchospasm continues to slowly resolve. In addition, the oxygen saturation on room air is now 100%. I will continue with the current nebulizer treatments and inhaled steroids for now. The patient remains on antibiotic therapy - as per Infectious Disease. Temperatures have now fully resolved. The leukocytosis has also fully resolved. Input by GI is also noted. The patient is for probable colonoscopy. Clinical status of the patient is significantly improved overall. I will discuss the above with Dr. Escalante. Cornell Silva MD MTDD
[2018-04-17] MEDS: Lactobacillus Acidophilus 500 MU Cap PO SCH ×2 (09:28→17:58)
[2018-04-17] MEDS: Digoxin 125 mcg (0.125 mg) Tab PO SCH (09:29)
[2018-04-17] MEDS: Hydrocortisone 2.5% Rectal Cream(30 gm) PR SCH ×2 (09:32→17:58)
--- NOTE | 2018-04-17 11:14 | PN ---
DATE: 04/17/2018 SUBJECTIVE: A 67-year-old female on the medical floor. The patient is alert and oriented x3. Nursing staff relates that there were no problems during the night. The patient offers no specific complaints at this time. PHYSICAL EXAMINATION: VITAL SIGNS: Her temp is 98.2, her pulse is 70, blood pressure is 143/66, oxygen sat is reported at 94% on room air with a respiratory rate of 18. LABORATORY DATA: Shows normal electrolytes. Sodium is 143, potassium 3.7, chloride 107, BUN is 14, creatinine is 1. AST is 42, ALT is normal 42, alkaline phosphatase is normal at 82. The patient's PT is 13.8 with an INR of 1.2. ASSESSMENT AND PLAN: The patient is scheduled for an endoscopy, colonoscopy this afternoon with GI for evaluation of findings on her CAT scan on admission. She is being followed medically by Infectious Disease for febrile episode on presentation and cultures to date are negative at this time. She is currently on Zosyn IV. She is being followed by Nephrology for her lupus and lupus renal disease and she has history of degenerative arthritis of the spine with compression fractures. She is currently being followed by Cardiology as well. She has aortic stenosis. We will continue to monitor the patient closely and await input from the GI evaluation and from the other consultants. Cathy Escalante MD
--- NOTE | 2018-04-17 13:13 | PN ---
DATE: 04/17/2018 SUBJECTIVE: The patient is seen sitting in bed. She is awake, she is alert, she is comfortable. She complains of some retrosternal burning. PHYSICAL EXAMINATION: GENERAL: Elderly lady sitting in bed. VITAL SIGNS: Blood pressure 143/66, heart rate 70, respiratory rate 18, temperature 98.2. HEENT: Normocephalic, atraumatic, positive pallor. NECK: Supple, no JVD. LUNGS: Bilateral equal air entry, bilateral equal expansion. CARDIAC: S1, S2, regular rate and rhythm, no murmur, no rub. ABDOMEN: Soft, nondistended, nontender, bowel sounds present. EXTREMITIES: No lower extremity edema. INTAKE AND OUTPUT: 720/400. LABORATORY DATA: WBC 9, hemoglobin 12, hematocrit 37, platelets 265. Sodium 143, potassium 3.7, chloride 107, CO2 of 26, BUN 14, creatinine 1, glucose 80. MEDICATIONS: List reviewed. ASSESSMENT: 1. Systemic lupus erythematosus. 2. Stable chronic kidney disease stage 3/4. 3. Hypertension. 4. History of deep venous thrombosis. 5. Leukocytosis, resolved. PLAN: 1. The patient is scheduled for endoscopy today. 2. Renal parameters are stable. 3. Continue current medications. Beba Cintron MD
[2018-04-17] MEDS ORDERED: Propofol 10 mg/ml Inj (20 ML) ONE (15:36)
[2018-04-17] MEDS ORDERED: Etomidate 20 mg/10ml Inj IV ONE (15:36)
--- NOTE | 2018-04-17 15:53 | CP.PCM.PN ---
Subjective - Date & Time of Evaluation Date of Evaluation: 04/17/18 Time of Evaluation: 13:10 - Subjective Subjective: Awaiting colonoscopy, no abdominal pain, no diarrhea, no vomiting, no fevers, no skin rash. Objective - Vital Signs/Intake and Output Vital Signs (last 24 hours): Temp Pulse Resp BP Pulse Ox 98.2 F 70 18 143/66 94 L 04/17/18 06:00 04/17/18 06:00 04/17/18 06:00 04/17/18 09:29 04/17/18 06:00 Intake and Output: 04/17/18 04/17/18 06:59 18:59 Intake Total 592 Balance 592 - Medications Medications: Current Medications Alendronate Sodium (Fosamax) 70 mg PO Q7D@0600 [facility] Amlodipine Besylate (Norvasc) 10 mg PO DAILY [facility] Last Admin: 04/17/18 09:29 Dose: 10 mg Arformoterol Tartrate (Brovana) 15 mcg IH [id number] [facility] Last Admin: 04/17/18 07:20 Dose: 15 mcg Budesonide (Pulmicort Respules) 0.5 mg IH [id number] [facility] Last Admin: 04/17/18 07:20 Dose: 0.5 mg Cyclosporine (Sandimmune) 100 mg PO DAILY [facility] Last Admin: 04/17/18 09:27 Dose: 100 mg Cyclosporine (Sandimmune) 75 mg PO HS [facility] Last Admin: 04/16/18 21:06 Dose: 75 mg Digoxin (Digoxin) 0.125 mg PO DAILY [facility] Last Admin: 04/17/18 09:29 Dose: 0.125 mg Hydrochlorothiazide (Hydrodiuril) 25 mg PO DAILY [facility] Last Admin: 04/17/18 09:29 Dose: 25 mg Hydrocortisone (Anusol-Hc) 0 gm [place] BID [facility] Last Admin: 04/17/18 09:32 Dose: 1 applic Piperacillin Sod/Tazobactam Sod (Zosyn 2.25 Gm In 0.9% 100 Ml) 2.25 gm in 100 mls @ 200 mls/hr IVPB Q6 [facility] PRN Reason: Protocol Stop: 04/20/18 12:01 Last Admin: 04/17/18 05:29 Dose: 200 mls/hr Heparin Sodium/Sodium Chloride (Heparin 49347 Units/250ml 1/2 Normal Saline) 25 ,000 units in 250 mls @ 10.483 mls/hr IV .[id number] PRN; Protocol; 18 UNITS/KG/HR PRN Reason: ADJUST RATE PER PROTOCOL Last Admin: 04/16/18 19:00 Dose: 13 units/kg/hr, 7.571 mls/hr Lactobacillus Acidophilus (Bacid Acidophilus) 1 cap PO BID [facility] Last Admin: 04/17/18 09:28 Dose: 1 cap Levothyroxine Sodium (Synthroid) 50 mcg PO 0630 [facility] Last Admin: 04/17/18 05:30 Dose: 50 mcg Losartan Potassium (Cozaar) 100 mg PO DAILY [facility] Last Admin: 04/17/18 09:29 Dose: 100 mg Pantoprazole Sodium (Protonix Ec Tab) 40 mg PO 0630 [facility] Last Admin: 04/17/18 06:12 Dose: 40 mg Potassium Chloride (K-Dur 20 Meq Er Tab) 20 meq PO BRK [facility] Last Admin: 04/17/18 08:13 Dose: 20 meq Prednisone (Prednisone Tab) 5 mg PO 1200 [facility] Last Admin: 04/16/18 12:23 Dose: 5 mg - Labs Labs: 04/16/18 07:00 04/17/18 06:30 PT 13.8 SECONDS (9.4-12.5) H 04/17/18 06:30 INR 1.20 (0.93-1.08) H 04/17/18 06:30 APTT 72.5 Seconds (25.1-36.5) H 04/16/18 13:00 - Constitutional Appears: Non-toxic, Chronically Ill - Head Exam Head Exam: NORMAL INSPECTION - Respiratory Exam Respiratory Exam: Decreased Breath Sounds - Cardiovascular Exam Cardiovascular Exam: +S1, +S2 - GI/Abdominal Exam GI & Abdominal Exam: Soft. absent: Tenderness Assessment and Plan - Assessment and Plan (Free Text) Plan: Assessment leukocytosis due to back pain, R/O intra-abdominal infection, R/O colonic mass history of severe sepsis with acute renal failure due to right lower lobe healthcare-associated pneumonia with possible gram positive cocci and/or gram negative bacilli and/or atypical organisms history of sepsis due to left lower lobe pneumonia, community-acquired chronic bronchiectasis HTN SLE chronic renal failure history of DVT hypothyroidism COPD GERD anxiety disorder S/P cholecystectomy S/P breast surgery Plan continue Zosyn day 5; blood cx are negative; patient for colonoscopy today and will follow up results will continue to monitor clinically
[2018-04-17] MEDS ORDERED: Sodium Chloride 0.9% 1,000 ML IV SCH (16:00)
[2018-04-17] MEDS: Heparin25000 units/250ml 1/2NS 25,000 UNITS/250 ML BAG IV PRN (17:59)
[2018-04-18] MEDS: Piperacillin/Tazobact 2.25gm 2.25 GM/100 ML BAG IVPB SCH ×2 (00:38→05:40)
[2018-04-18] MEDS: Pantoprazole 40 mg EC Tab PO SCH (05:41)
[2018-04-18] MEDS: Levothyroxine 50 MCG TAB PO SCH (05:41)
[2018-04-18] MEDS: Arformoterol 15 mcg/2 ml Inh Sol IH SCH ×2 (07:27→21:32)
[2018-04-18] MEDS: Budesonide 0.5 mg/2 ml Inhal Susp UD IH SCH ×2 (07:27→21:32)
[2018-04-18 07:44] LABS: INR 1.22 (0.93-1.08); PROTHROMBIN TIME 14.1 SECONDS (9.4-12.5)
--- NOTE | 2018-04-18 07:52 | PN ---
DATE: 04/18/2018 PULMONARY NOTE SUBJECTIVE: The patient appears very comfortable this morning. She is not short of breath at rest. PHYSICAL EXAMINATION: VITAL SIGNS: (Last noted in the computer): Temperature is 98.9, pulse is 70, respirations 18, blood pressure 146/60. Oxygen saturation on room air is 98%. HEENT: Normocephalic, atraumatic. No JVD. CARDIOVASCULAR: Systolic ejection murmur at the lower left sternal border. No S3 gallop. LUNGS: No rhonchi or wheezing this morning. EXTREMITIES: No clubbing, cyanosis or edema. Calves are nontender to palpation. GI: Abdomen is soft, nontender and nondistended. Bowel sounds are positive. SKIN: No acute rash. NEUROLOGIC: Limited at the present time. IMPRESSION: 1. Sepsis syndrome. 2. Renal insufficiency. 3. Systemic lupus erythematosus. 4. Asthma. 5. Chronic kidney disease. PLAN: The patient appears very comfortable this morning. She is not short of breath at rest. She does state to feeling much better overall. On physical exam, her bronchospasm has primarily resolved. In addition, the oxygen saturation on room air is 98%. I will continue with the current nebulizer treatments and inhaled steroids for now. Inputs by Renal and Infectious Disease are noted. Temperatures have fully resolved. The leukocytosis has also fully resolved. Clinical status of the patient is significantly improved overall. I will discuss the above with Dr. Escalante. Cornell Silva MD [email or web address]
[2018-04-18 07:57] VITALS: O2SAT 97
--- NOTE | 2018-04-18 08:43 | PN ---
DATE: 04/18/2018 HISTORY: The patient is seen sitting in bed on 5R. She is currently comfortable. She underwent colonoscopy yesterday, which showed evidence of diverticulosis, internal hemorrhoids. Resumption of warfarin was advised by Dr. Vergara. She remains on IV heparin. Her other medications include Brovana, Cozaar, digoxin, hydrochlorothiazide, potassium, Norvasc, prednisone, Protonix, Pulmicort, Sandimmune and Synthroid as well as Zosyn. OBJECTIVE: GENERAL: She is a middle-aged woman, who is comfortable at rest. VITAL SIGNS: Her blood pressure is 146/60 with pulse of 70, respirations are 16. She is afebrile. HEENT: No JVD. CHEST: Clear to auscultation and percussion. HEART: Late-peaking systolic murmur at the base radiating to the carotids. ABDOMEN: Soft, nontender, normoactive bowel sounds. EXTREMITIES: No edema. DIAGNOSTIC DATA: PT/INR 14.1 and 1.22. PTT is 62. IMPRESSION: 1. Recent abnormal CT consistent with colonic intussusception seen on colonoscopy. No mass found. 2. Paroxysmal atrial fibrillation. 3. Severe aortic stenosis, currently asymptomatic. 4. Moderate functional mitral stenosis secondary to valvular calcification. 5. Chronic renal insufficiency. 6. Systemic lupus. RECOMMENDATIONS: Resumption of Coumadin loading is advised, 10 mg will be given this evening and daily INRs will be monitored. Once her INR is greater than 1.8, heparin can be discontinued. At the present time, she is asymptomatic. Conservative management of her aortic valve disease will be planned and closely follow on a monitor. We will continue to follow along as needed. Ry Arroyo MD
[2018-04-18] MEDS: Potassium Chloride 20 mEq ER Tab PO SCH (09:19)
[2018-04-18] MEDS: Lactobacillus Acidophilus 500 MU Cap PO SCH ×2 (09:20→17:43)
[2018-04-18] MEDS: Digoxin 125 mcg (0.125 mg) Tab PO SCH (09:24)
[2018-04-18] MEDS: Hydrocortisone 2.5% Rectal Cream(30 gm) PR SCH ×2 (09:24→17:44)
--- NOTE | 2018-04-18 10:28 | PN ---
DATE: 04/18/2018 SUBJECTIVE: The patient is in bed in no acute distress, nontoxic. PHYSICAL EXAMINATION: VITAL SIGNS: Temperature of 98, blood pressure is 140/70, respiratory rate of 18. HEENT: Examination of HEENT is unremarkable. NECK: Supple. LUNGS: Have decreased breath sounds. HEART: Normal S1, S2. ABDOMEN: Soft, nontender. LABORATORY DATA: Laboratory examination reveals a white count of 9.3, hemoglobin of 12, platelets of 265. Chemistries reveals a BUN of 14, creatinine of 1. Urinalysis is noted and microbiology reveals blood cultures are negative. Urine cultures are negative. Colonoscopy is noted. ASSESSMENT AND PLAN: A 67-year-old female, who was seen earlier today. She is asking about being discharged and the patient initially had mild leukocytosis and had colonoscopy yesterday, which was revealed to be diverticulosis with colonic partial intussusception in the sigmoid colon at 25 cm. No lesions are noted. Case was discussed with GI this morning. No further antibiotics are necessary from infectious disease point of view. We will discontinue the Zosyn. Will not need anymore antibiotics. The patient states she wants to be discharged. We will discuss with PMD. Case also discussed with Dr. Silva this morning, who recommends discharge and GI also has cleared the patient for discharge, Dr. Vergara, journalism instructor. Dr. Pereira's note from this morning is reviewed. No further antibiotics from infectious disease point of view. Dajuan Woods MD
--- NOTE | 2018-04-18 13:39 | CP.PCM.PN ---
<Lauren Avina - Last Filed: 04/18/18 13:39> Subjective - Date & Time of Evaluation Date of Evaluation: 04/18/18 Time of Evaluation: 07:45 - Subjective Subjective: PGY5 GI Follow-up Pt seen and examined bedside Denies any abd pain Denies any fever, chills or diaphoresis ROS: 12 point ROS conducted, neg other than above Objective - Vital Signs/Intake and Output Vital Signs (last 24 hours): Temp Pulse Resp BP Pulse Ox 98.7 F 74 20 135/65 97 04/18/18 07:56 04/18/18 07:56 04/18/18 07:56 04/18/18 09:23 04/18/18 07:56 Intake and Output: 04/18/18 04/18/18 06:59 18:59 Intake Total 660 Output Total 825 Balance -165 - Medications Medications: Current Medications Alendronate Sodium (Fosamax) 70 mg PO Q7D@0600 [facility] Amlodipine Besylate (Norvasc) 10 mg PO DAILY [facility] Last Admin: 04/18/18 09:23 Dose: 10 mg Arformoterol Tartrate (Brovana) 15 mcg IH [id number] [facility] Last Admin: 04/18/18 07:27 Dose: 15 mcg Budesonide (Pulmicort Respules) 0.5 mg IH [id number] [facility] Last Admin: 04/18/18 07:27 Dose: 0.5 mg Cyclosporine (Sandimmune) 100 mg PO DAILY [facility] Last Admin: 04/18/18 09:19 Dose: 100 mg Cyclosporine (Sandimmune) 75 mg PO [facility] Last Admin: 04/17/18 22:04 Dose: 75 mg Digoxin (Digoxin) 0.125 mg PO DAILY [facility] Last Admin: 04/18/18 09:24 Dose: 0.125 mg Hydrochlorothiazide (Hydrodiuril) 25 mg PO DAILY [facility] Last Admin: 04/18/18 09:20 Dose: 25 mg Hydrocortisone (Anusol-Hc) 0 gm [place] BID [facility] Last Admin: 04/18/18 09:24 Dose: 1 applic Heparin Sodium/Sodium Chloride (Heparin 35977 Units/250ml 1/2 Normal Saline) 25 ,000 units in 250 mls @ 10.483 mls/hr IV .[id number] PRN; Protocol; 18 UNITS/KG/HR PRN Reason: ADJUST RATE PER PROTOCOL Last Admin: 04/17/18 17:59 Dose: 13 units/kg/hr, 7.571 mls/hr Lactobacillus Acidophilus (Bacid Acidophilus) 1 cap PO BID [facility] Last Admin: 04/18/18 09:20 Dose: 1 cap Levothyroxine Sodium (Synthroid) 50 mcg PO 0630 [facility] Last Admin: 04/18/18 05:41 Dose: 50 mcg Losartan Potassium (Cozaar) 100 mg PO DAILY [facility] Last Admin: 04/18/18 09:23 Dose: 100 mg Pantoprazole Sodium (Protonix Ec Tab) 40 mg PO 0630 [facility] Last Admin: 04/18/18 05:41 Dose: 40 mg Potassium Chloride (K-Dur 20 Meq Er Tab) 20 meq PO BRK [facility] Last Admin: 04/18/18 09:19 Dose: 20 meq Prednisone (Prednisone Tab) 5 mg PO 1200 [facility] Last Admin: 04/18/18 11:36 Dose: 5 mg Warfarin Sodium (Coumadin) 10 mg PO 1800 ONE PRN Reason: Protocol Stop: 04/18/18 18:01 - Labs Labs: 04/16/18 07:00 04/17/18 06:30 PT 14.1 SECONDS (9.4-12.5) H 04/18/18 06:30 INR 1.22 (0.93-1.08) H 04/18/18 06:30 APTT 62.0 Seconds (25.1-36.5) H 04/18/18 06:30 - Constitutional Appears: Well, No Acute Distress - Head Exam Head Exam: ATRAUMATIC, NORMOCEPHALIC - Eye Exam Eye Exam: Normal appearance - ENT Exam ENT Exam: Mucous Membranes Moist, Normal Exam - Neck Exam Neck Exam: Normal Inspection - Respiratory Exam Respiratory Exam: Clear to Ausculation Bilateral, NORMAL BREATHING PATTERN. absent: Rales, Rhonchi, Wheezes, Respiratory Distress - Cardiovascular Exam Cardiovascular Exam: REGULAR RHYTHM, +S1, +S2 - GI/Abdominal Exam GI & Abdominal Exam: Soft, Normal Bowel Sounds. absent: Guarding, Rigid, Tenderness, Mass, Organomegaly, Rebound - Extremities Exam Extremities Exam: absent: Joint Swelling, Pedal Edema - Neurological Exam Neurological Exam: Alert, Awake, Oriented x3 - Psychiatric Exam Psychiatric exam: Normal Affect, Normal Mood - Skin Skin Exam: Dry, Intact, Normal Color, Warm Assessment and Plan - Assessment and Plan (Free Text) Assessment: Focal wall thickening descending/sigmoid colon to to 1.3 cm, s/p colonoscopy POD #1, sigmoid intussusception at thickening site H/O colon polyps Back Pain SLE/Lupus pancreatitis/lupus nephritis COPD CHF CKD Atrial fibrillation on Coumadin now on hold, last dose 04/12/18 H/O DVT PLAN: s/p colonoscopy, "colonic mass" on CT, found to be intussusception can d/c Heparin drip and transition to coumadin, normally takes 2.5mg PO daily , on IV antibiotics, can d/c continue Probiotics continue Anusol cream per rectum for hemorrhoids as needed D/w Dr. Vergara <Tiny Vergara V - Last Filed: 04/18/18 21:34> Objective - Vital Signs/Intake and Output Vital Signs (last 24 hours): Temp Pulse Resp BP Pulse Ox 99.3 F 76 20 134/73 97 04/18/18 15:03 04/18/18 15:03 04/18/18 15:03 04/18/18 15:03 04/18/18 15:03 Intake and Output: 04/18/18 04/19/18 18:59 06:59 Intake Total 90 Balance 90 - Medications Medications: Current Medications Alendronate Sodium (Fosamax) 70 mg PO Q7D@0600 [facility] Amlodipine Besylate (Norvasc) 10 mg PO DAILY [facility] Last Admin: 04/18/18 09:23 Dose: 10 mg Arformoterol Tartrate (Brovana) 15 mcg IH [id number] [facility] Last Admin: 04/18/18 07:27 Dose: 15 mcg Budesonide (Pulmicort Respules) 0.5 mg IH [id number] [facility] Last Admin: 04/18/18 07:27 Dose: 0.5 mg Cyclosporine (Sandimmune) 100 mg PO DAILY [facility] Last Admin: 04/18/18 09:19 Dose: 100 mg Cyclosporine (Sandimmune) 75 mg PO HS [facility] Last Admin: 04/18/18 21:28 Dose: 75 mg Digoxin (Digoxin) 0.125 mg PO DAILY [facility] Last Admin: 04/18/18 09:24 Dose: 0.125 mg Hydrochlorothiazide (Hydrodiuril) 25 mg PO DAILY [facility] Last Admin: 04/18/18 09:20 Dose: 25 mg Hydrocortisone (Anusol-Hc) 0 gm [place] BID [facility] Last Admin: 04/18/18 17:44 Dose: 1 applic Heparin Sodium/Sodium Chloride (Heparin 11049 Units/250ml 1/2 Normal Saline) 25 ,000 units in 250 mls @ 10.483 mls/hr IV .[id number] PRN; Protocol; 18 UNITS/KG/HR PRN Reason: ADJUST RATE PER PROTOCOL Last Admin: 04/17/18 17:59 Dose: 13 units/kg/hr, 7.571 mls/hr Lactobacillus Acidophilus (Bacid Acidophilus) 1 cap PO BID [facility] Last Admin: 04/18/18 17:43 Dose: 1 cap Levothyroxine Sodium (Synthroid) 50 mcg PO 0630 [facility] Last Admin: 04/18/18 05:41 Dose: 50 mcg Losartan Potassium (Cozaar) 100 mg PO DAILY [facility] Last Admin: 04/18/18 09:23 Dose: 100 mg Pantoprazole Sodium (Protonix Ec Tab) 40 mg PO 0630 [facility] Last Admin: 04/18/18 05:41 Dose: 40 mg Potassium Chloride (K-Dur 20 Meq Er Tab) 20 meq PO BRK [facility] Last Admin: 04/18/18 09:19 Dose: 20 meq Prednisone (Prednisone Tab) 5 mg PO 1200 [facility] Last Admin: 04/18/18 11:36 Dose: 5 mg - Labs Labs: 04/16/18 07:00 04/17/18 06:30 PT 14.1 SECONDS (9.4-12.5) H 04/18/18 06:30 INR 1.22 (0.93-1.08) H 04/18/18 06:30 APTT 62.0 Seconds (25.1-36.5) H 04/18/18 06:30 Attending/Attestation - Attestation I have personally seen and examined this patient.: Yes I have fully participated in the care of the patient.: Yes I have reviewed all pertinent clinical information, including history, physical exam and plan: Yes Notes (Text): This is an addendum to GI progress report dictated by the GI Fellow.The patient was seen and examined earlier. Medical records, lab studies, imagings were reviewed. Last 24 hours events reviewed. Agreed with the above treatment plan as outlined in GI Fellow 's notes the with the addition of the following colonoscopy findings were dith the patient No abdominal pain On examination abdomen soft non tender Discussed with the ID plan to DC antibiotics We will give another dose on coumadin 5 mg today and follow-up INR 04/18/18 21:32
--- NOTE | 2018-04-18 14:32 | PN ---
DATE: 04/18/2018 SUBJECTIVE: A 67-year-old female status post colonoscopy. Nursing staff relates that there were no problems during the night. PHYSICAL EXAMINATION: VITAL SIGNS: Her temperature is 98.7, her pulse is 74, the blood pressure is 135/65, and oxygen saturation is 97% on room air. GENERAL: She is alert and oriented x3. LUNGS: Clear. HEART: Regular, S1 and S2, grade 3/6 systolic murmur. ABDOMEN: Soft, scaphoid. Positive bowel sounds. EXTREMITIES: No evidence of edema. LABORATORY DATA: This morning shows a PT of 14.1 with an INR of 1.22. PTT is 62. The patient underwent endoscopy yesterday and noted findings were discussed with the patient as well as with Gastroenterology. The patient was placed back on her heparin and then initiated her on Coumadin. As per the recommendations of Cardiology, initiate her Coumadin therapy and once therapeutic, the heparin can be discontinued. This has been discussed with the staff as well as with the patient. She continues to be monitored by Renal for her lupus nephritis, renal disease. We will continue current and existing medications. Her antibiotics are being discontinued by Infectious Disease and she continues on her respiratory treatments from Pulmonary. She is currently taking Anusol for hemorrhoids, acidophilus probiotic, Brovana, Cozaar, digoxin, Fosamax, HydroDIURIL, potassium, Norvasc. She is currently on heparin, prednisone, Protonix, Pulmicort, cyclosporin, and Synthroid. Follow up with labs in the morning. Cathy Escalante MD
--- NOTE | 2018-04-18 15:58 | PN ---
DATE: 04/18/2018 SUBJECTIVE: The patient is seen sitting in bed. She is awake. She is alert. She is comfortable. She denies any pain. She denies any shortness of breath. She had a colonoscopy done yesterday which showed colonic and sigmoid diverticuli. PHYSICAL EXAMINATION: GENERAL: Elderly lady sitting in bed. VITAL SIGNS: Blood pressure 135/65, heart rate 74, respiratory rate 20, temperature 98.7. HEENT: Normocephalic, atraumatic, positive pallor. NECK: Supple, no JVD. LUNGS: Bilateral equal air entry, bilateral equal expansion. CARDIAC: S1 and S2, regular rate and rhythm, no murmur, no rub. ABDOMEN: Obese, distended, soft, nontender, bowel sounds present. EXTREMITIES: No lower extremity edema. INTAKE AND OUTPUT: 910/825. LABORATORY DATA: WBC 9, hemoglobin 12, hematocrit 37, platelets 265. No new labs. CURRENT MEDICATIONS: Reviewed. ASSESSMENT: 1. Stable chronic kidney disease stage 2/3. 2. Mild hypokalemia. 3. Systemic lupus erythematosus. 4. Hypertension. PLAN: 1. Restart Coumadin. 2. Continue current management of hypertension. 3. Continue cyclosporin and prednisone. 4. Discharge planning. Beba Cintron MD
[2018-04-19] MEDS: Heparin25000 units/250ml 1/2NS 25,000 UNITS/250 ML BAG IV PRN (04:38)
[2018-04-19] MEDS: Pantoprazole 40 mg EC Tab PO SCH (05:35)
[2018-04-19] MEDS: Levothyroxine 50 MCG TAB PO SCH (05:35)
[2018-04-19] MEDS: Budesonide 0.5 mg/2 ml Inhal Susp UD IH SCH ×2 (07:13→20:27)
[2018-04-19] MEDS: Arformoterol 15 mcg/2 ml Inh Sol IH SCH ×2 (07:13→20:27)
[2018-04-19 07:17] LABS: INR 1.36 (0.93-1.08); PARTIAL THROMBOPLASTIN TIME 75.8 Seconds (25.1-36.5); PROTHROMBIN TIME 15.7 SECONDS (9.4-12.5)
[2018-04-19] MEDS: Lactobacillus Acidophilus 500 MU Cap PO SCH ×2 (09:03→17:12)
[2018-04-19] MEDS: Potassium Chloride 20 mEq ER Tab PO SCH (09:04)
[2018-04-19] MEDS: Hydrocortisone 2.5% Rectal Cream(30 gm) PR SCH ×2 (09:08→17:12)
[2018-04-19] MEDS: Digoxin 125 mcg (0.125 mg) Tab PO SCH (09:08)
--- NOTE | 2018-04-19 10:14 | PN ---
DATE: 04/19/2018 SUBJECTIVE: The patient is sitting comfortably without any specific complaints this morning. Nursing staff relates that there were no problems during the night. PHYSICAL EXAMINATION VITAL SIGNS: Last reported temperature yesterday was 99.3. She is afebrile this morning. Blood pressure is 139/80, oxygen sat is reported at 97% on room air. GENERAL: She is alert and oriented x3. LUNGS: Clear. HEART: An S1 and S2. ABDOMEN: Soft, scaphoid. Positive bowel sounds. EXTREMITIES: Show no evidence of edema. LABORATORY DATA: The patient has a PT of 15.7 with an INR of 1.36, PTT of 75.8. MEDICATIONS: Current medications consist of Anusol, Bacid, Brovana, Cozaar, digoxin, Fosamax, heparin, HydroDIURIL, potassium, Norvasc, prednisone, Protonix, Pulmicort, cyclosporin, Synthroid. ASSESSMENT AND PLAN: The patient is currently on IV heparin, receiving Coumadin for titrating her PT/INR and following the guidelines of Cardiology, Dr. Arroyo. She is status post colonoscopy. She has recently completed a course of antibiotics for febrile episode. She has underlying chronic kidney disease, lupus. She is on immunotherapy. Hypothyroid disease, she is on Synthroid supplementation. She is on respiratory treatments for her underlying chronic obstructive pulmonary disease. She is on blood pressure control for her blood pressure medications. She is being actively followed by Renal and GI and Cardiology and Pulmonary. I discussed with the patient the clinical plan of treatment at this time. She understand and is aware of all clinical findings from the endoscopy study. We will continue with her anticoagulation therapy. She will follow the guidelines of Cardiology with followup labs. Cathy Escalante MD
--- NOTE | 2018-04-19 11:28 | PN ---
DATE: 04/19/2018 SUBJECTIVE: The patient is in bed in no acute distress, nontoxic. PHYSICAL EXAMINATION: VITAL SIGNS: Temperature is 99, blood pressure is 130/80, respiratory rate of 18. HEENT: Unremarkable. NECK: Supple. LUNGS: Decreased breath sounds. HEART: Normal S1, S2. ABDOMEN: Soft, nontender. LABORATORY DATA: Laboratory examination reveals a white count of 9.3, hemoglobin of 12. Chemistries are noted. Review of orders reveals the patient is off of antibiotics. The patient is on Solu-Medrol. ASSESSMENT AND PLAN: A 67-year-old female seen early this morning with the patient has had a colonoscopy and mild leukocytosis. Colonoscopy revealed diverticulosis with colonic partial intussusception in the colon at 25 cm. No lesions were found. Currently now off of antibiotics, afebrile and no need for any antibiotics upon discharge. Dr. Silva's note from yesterday is reviewed. Dajuan Woods MD
--- NOTE | 2018-04-19 14:48 | CP.PCM.PN ---
<Lauren Avina - Last Filed: 04/19/18 14:49> Subjective - Date & Time of Evaluation Date of Evaluation: 04/19/18 Time of Evaluation: 08:00 - Subjective Subjective: PGY5 GI Follow-up Pt seen and examined bedside Denies any abd pain tolerating diet ROS: 12 point ROS conducted, neg other than above Objective - Vital Signs/Intake and Output Vital Signs (last 24 hours): Temp Pulse Resp BP Pulse Ox 99.3 F 76 20 139/80 97 04/18/18 15:03 04/18/18 15:03 04/18/18 15:03 04/19/18 09:08 04/18/18 15:03 Intake and Output: 04/19/18 04/19/18 06:59 18:59 Intake Total 670 Output Total 400 Balance 270 - Medications Medications: Current Medications Alendronate Sodium (Fosamax) 70 mg PO Q7D@0600 [facility] Amlodipine Besylate (Norvasc) 10 mg PO DAILY [facility] Last Admin: 04/19/18 09:08 Dose: 10 mg Arformoterol Tartrate (Brovana) 15 mcg IH [id number] [facility] Last Admin: 04/19/18 07:13 Dose: 15 mcg Budesonide (Pulmicort Respules) 0.5 mg IH [id number] [facility] Last Admin: 04/19/18 07:13 Dose: 0.5 mg Cyclosporine (Sandimmune) 100 mg PO DAILY [facility] Last Admin: 04/19/18 09:04 Dose: 100 mg Cyclosporine (Sandimmune) 75 mg PO HS [facility] Last Admin: 04/18/18 21:28 Dose: 75 mg Digoxin (Digoxin) 0.125 mg PO DAILY [facility] Last Admin: 04/19/18 09:08 Dose: 0.125 mg Hydrochlorothiazide (Hydrodiuril) 25 mg PO DAILY [facility] Last Admin: 04/19/18 09:04 Dose: 25 mg Hydrocortisone (Anusol-Hc) 0 gm UT BID [facility] Last Admin: 04/19/18 09:08 Dose: 1 applic Heparin Sodium/Sodium Chloride (Heparin 12462 Units/250ml 1/2 Normal Saline) 25 ,000 units in 250 mls @ 10.483 mls/hr IV .[id number] PRN; Protocol; 18 UNITS/KG/HR PRN Reason: ADJUST RATE PER PROTOCOL Last Admin: 04/19/18 04:38 Dose: 13 units/kg/hr, 7.571 mls/hr Lactobacillus Acidophilus (Bacid Acidophilus) 1 cap PO BID [facility] Last Admin: 04/19/18 09:03 Dose: 1 cap Levothyroxine Sodium (Synthroid) 50 mcg PO 0630 [facility] Last Admin: 04/19/18 05:35 Dose: 50 mcg Losartan Potassium (Cozaar) 100 mg PO DAILY [facility] Last Admin: 04/19/18 09:04 Dose: 100 mg Pantoprazole Sodium (Protonix Ec Tab) 40 mg PO 0630 [facility] Last Admin: 04/19/18 05:35 Dose: 40 mg Potassium Chloride (K-Dur 20 Meq Er Tab) 20 meq PO BRK [facility] Last Admin: 04/19/18 09:04 Dose: 20 meq Prednisone (Prednisone Tab) 5 mg PO 1200 [facility] Last Admin: 04/19/18 11:14 Dose: 5 mg Warfarin Sodium (Coumadin) 10 mg PO 1800 ONE PRN Reason: Protocol Stop: 04/19/18 18:01 - Labs Labs: 04/16/18 07:00 04/17/18 06:30 PT 15.7 SECONDS (9.4-12.5) H 04/19/18 06:30 INR 1.36 (0.93-1.08) H 04/19/18 06:30 APTT 75.8 Seconds (25.1-36.5) H 04/19/18 06:30 Assessment and Plan - Assessment and Plan (Free Text) Assessment: Focal wall thickening descending/sigmoid colon to to 1.3 cm, s/p colonoscopy POD #2, sigmoid intussusception at thickening site H/O colon polyps Back Pain SLE/Lupus pancreatitis/lupus nephritis COPD CHF CKD Atrial fibrillation on Coumadin now on hold, last dose 04/12/18 H/O DVT PLAN: s/p colonoscopy, "colonic mass" on CT, found to be intussusception on Heparin drip, transition to coumadin, normally takes 2.5mg PO daily, on IV antibiotics, can d/c continue Probiotics continue Anusol cream per rectum for hemorrhoids as needed D/w Dr. Vergara <Tiny Vergara V - Last Filed: 04/19/18 18:59> Objective - Vital Signs/Intake and Output Vital Signs (last 24 hours): Temp Pulse Resp BP Pulse Ox 99.3 F 76 20 139/80 97 04/18/18 15:03 04/18/18 15:03 04/18/18 15:03 04/19/18 09:08 04/18/18 15:03 Intake and Output: 04/19/18 04/19/18 06:59 18:59 Intake Total 670 90 Output Total 400 Balance 270 90 - Medications Medications: Current Medications Alendronate Sodium (Fosamax) 70 mg PO Q7D@0600 [facility] Amlodipine Besylate (Norvasc) 10 mg PO DAILY [facility] Last Admin: 04/19/18 09:08 Dose: 10 mg Arformoterol Tartrate (Brovana) 15 mcg IH [id number] [facility] Last Admin: 04/19/18 07:13 Dose: 15 mcg Budesonide (Pulmicort Respules) 0.5 mg IH [id number] [facility] Last Admin: 04/19/18 07:13 Dose: 0.5 mg Cyclosporine (Sandimmune) 100 mg PO DAILY [facility] Last Admin: 04/19/18 09:04 Dose: 100 mg Cyclosporine (Sandimmune) 75 mg PO HS [facility] Last Admin: 04/18/18 21:28 Dose: 75 mg Digoxin (Digoxin) 0.125 mg PO DAILY [facility] Last Admin: 04/19/18 09:08 Dose: 0.125 mg Hydrochlorothiazide (Hydrodiuril) 25 mg PO DAILY [facility] Last Admin: 04/19/18 09:04 Dose: 25 mg Hydrocortisone (Anusol-Hc) 0 gm UT BID [facility] Last Admin: 04/19/18 17:12 Dose: Not Given Heparin Sodium/Sodium Chloride (Heparin 77931 Units/250ml 1/2 Normal Saline) 25 ,000 units in 250 mls @ 10.483 mls/hr IV .[id number] PRN; Protocol; 18 UNITS/KG/HR PRN Reason: ADJUST RATE PER PROTOCOL Last Admin: 04/19/18 04:38 Dose: 13 units/kg/hr, 7.571 mls/hr Lactobacillus Acidophilus (Bacid Acidophilus) 1 cap PO BID [facility] Last Admin: 04/19/18 17:12 Dose: 1 cap Levothyroxine Sodium (Synthroid) 50 mcg PO 0630 [facility] Last Admin: 04/19/18 05:35 Dose: 50 mcg Losartan Potassium (Cozaar) 100 mg PO DAILY [facility] Last Admin: 04/19/18 09:04 Dose: 100 mg Pantoprazole Sodium (Protonix Ec Tab) 40 mg PO 0630 [facility] Last Admin: 04/19/18 05:35 Dose: 40 mg Potassium Chloride (K-Dur 20 Meq Er Tab) 20 meq PO BRK [facility] Last Admin: 04/19/18 09:04 Dose: 20 meq Prednisone (Prednisone Tab) 5 mg PO 1200 [facility] Last Admin: 04/19/18 11:14 Dose: 5 mg - Labs Labs: 04/16/18 07:00 04/17/18 06:30 PT 15.7 SECONDS (9.4-12.5) H 04/19/18 06:30 INR 1.36 (0.93-1.08) H 04/19/18 06:30 APTT 75.8 Seconds (25.1-36.5) H 04/19/18 06:30 Attending/Attestation - Attestation I have personally seen and examined this patient.: Yes I have fully participated in the care of the patient.: Yes I have reviewed all pertinent clinical information, including history, physical exam and plan: Yes Notes (Text): This is an addendum to GI progress report dictated by the GI Fellow.The patient was seen and examined earlier. Medical records, lab studies, imagings were reviewed. Last 24 hours events reviewed. Agreed with the above treatment plan as outlined in GI Fellow 's notes the with the addition of the following Status post colonoscopy found to have prolapsed diverticulum containing stool with barium causing small colocolonic intussusception in sigmoid mimicking like a mass in the cAT scan On Coumadin follow-up hemoglobin hematocrit and INR 04/19/18 18:57
--- NOTE | 2018-04-19 16:28 | PN ---
DATE: 04/19/2018 SUBJECTIVE: The patient is seen sitting in a chair on 5R. She is comfortable at the present time. She denies any chest pain, dyspnea or exertional dyspnea. She has had no lightheadedness. She remains on IV heparin. Her INR from this morning is 1.36. CURRENT MEDICATIONS: Include IV heparin, Brovana, Coumadin, Cozaar, digoxin, hydrochlorothiazide, potassium, Norvasc, prednisone, Protonix, Pulmicort inhaler, cyclosporin and Synthroid. PHYSICAL EXAMINATION GENERAL: She is a middle-aged woman who appears comfortable at the present time. VITAL SIGNS: Her blood pressure is 134/70 with a pulse of 76, respirations are 14. She is afebrile. HEENT: No JVD. CHEST: Clear to auscultation and percussion. HEART: Late-peaking systolic murmur present at the base radiating to the carotids. ABDOMEN: Soft, nontender, normoactive bowel sounds. EXTREMITIES: No edema. DIAGNOSTIC DATA: PTT 75.8, INR of 1.36. IMPRESSION: 1. Paroxysmal atrial fibrillation. 2. Severe aortic stenosis, remains asymptomatic. 3. Moderate functional mitral stenosis secondary to extensive calcification of chronic renal insufficiency. 4. Systemic lupus erythematosus. 5. Colonic intussusception, asymptomatic at the present time. RECOMMENDATIONS: Coumadin loading will continue for today. An initial dose of 10 mg will be administered. Her maintenance dose is 2.5 mg daily. Hopefully by tomorrow her INR will be therapeutic and her heparin can be discontinued, then allow for discharge home. Continue conservative management of her asymptomatic aortic stenosis as planned at this time. We will continue to follow and make further recommendations as appropriate. Ry Arroyo MD
[2018-04-19 21:11] VITALS: RESP 18
[2018-04-20] MEDS: Levothyroxine 50 MCG TAB PO SCH (06:26)
[2018-04-20] MEDS: Pantoprazole 40 mg EC Tab PO SCH (06:26)
[2018-04-20] MEDS: Arformoterol 15 mcg/2 ml Inh Sol IH SCH (07:04)
[2018-04-20] MEDS: Budesonide 0.5 mg/2 ml Inhal Susp UD IH SCH (07:04)
[2018-04-20 07:09] LABS: INR 1.93 (0.93-1.08); PROTHROMBIN TIME 22.5 SECONDS (9.4-12.5)
[2018-04-20 08:01] VITALS: PULSE 79; TEMP 98.1
[2018-04-20] MEDS: Potassium Chloride 20 mEq ER Tab PO SCH (08:31)
--- NOTE | 2018-04-20 09:04 | CP.PCM.PN ---
<Abbe Vizcarra - Last Filed: 04/20/18 11:04> Subjective - Date & Time of Evaluation Date of Evaluation: 04/20/18 Time of Evaluation: 06:50 - Subjective Subjective: Abbe Vizcarra DO, PGY-2: GI Progress Note For Dr. Vergara Patient was seen and evaluated at the bedside. Patient reports tolerating regular diet; denies nausea, vomiting, or diarrhea. She requests for her pancreatic enzymes to be given before each meal. Objective - Vital Signs/Intake and Output Vital Signs (last 24 hours): Temp Pulse Resp BP Pulse Ox 98.1 F 79 18 131/67 97 04/20/18 08:00 04/20/18 08:00 04/20/18 08:00 04/20/18 08:00 04/20/18 08:00 Intake and Output: 04/20/18 04/20/18 06:59 18:59 Intake Total 740 Output Total 400 Balance 340 - Medications Medications: Current Medications Alendronate Sodium (Fosamax) 70 mg PO Q7D@0600 [facility] Amlodipine Besylate (Norvasc) 10 mg PO DAILY [facility] Last Admin: 04/19/18 09:08 Dose: 10 mg Arformoterol Tartrate (Brovana) 15 mcg IH [id number] [facility] Last Admin: 04/20/18 07:04 Dose: 15 mcg Budesonide (Pulmicort Respules) 0.5 mg IH [id number] [facility] Last Admin: 04/20/18 07:04 Dose: 0.5 mg Cyclosporine (Sandimmune) 100 mg PO DAILY [facility] Last Admin: 04/19/18 09:04 Dose: 100 mg Cyclosporine (Sandimmune) 75 mg PO HS [facility] Last Admin: 04/19/18 22:05 Dose: 75 mg Digoxin (Digoxin) 0.125 mg PO DAILY [facility] Last Admin: 04/19/18 09:08 Dose: 0.125 mg Hydrochlorothiazide (Hydrodiuril) 25 mg PO DAILY [facility] Last Admin: 04/19/18 09:04 Dose: 25 mg Hydrocortisone (Anusol-Hc) 0 gm HI BID [facility] Last Admin: 04/19/18 17:12 Dose: Not Given Lactobacillus Acidophilus (Bacid Acidophilus) 1 cap PO BID [facility] Last Admin: 04/19/18 17:12 Dose: 1 cap Levothyroxine Sodium (Synthroid) 50 mcg PO 30 [facility] Last Admin: 04/20/18 06:26 Dose: 50 mcg Losartan Potassium (Cozaar) 100 mg PO DAILY [facility] Last Admin: 04/19/18 09:04 Dose: 100 mg Pantoprazole Sodium (Protonix Ec Tab) 40 mg PO 0630 [facility] Last Admin: 04/20/18 06:26 Dose: 40 mg Potassium Chloride (K-Dur 20 Meq Er Tab) 20 meq PO BRK [facility] Last Admin: 04/20/18 08:31 Dose: 20 meq Prednisone (Prednisone Tab) 5 mg PO 1200 [facility] Last Admin: 04/19/18 11:14 Dose: 5 mg Warfarin Sodium (Coumadin) 2.5 mg PO 1800 [facility] PRN Reason: Protocol - Labs Labs: 04/16/18 07:00 04/17/18 06:30 PT 22.5 SECONDS (9.4-12.5) H 04/20/18 06:10 INR 1.93 (0.93-1.08) H 04/20/18 06:10 APTT 75.8 Seconds (25.1-36.5) H 04/19/18 06:30 - Constitutional Appears: Well, Non-toxic - Head Exam Head Exam: ATRAUMATIC, NORMOCEPHALIC - Eye Exam Eye Exam: EOMI, Normal appearance - ENT Exam ENT Exam: Mucous Membranes Moist - Neck Exam Neck Exam: Normal Inspection - Respiratory Exam Respiratory Exam: Clear to Ausculation Bilateral, NORMAL BREATHING PATTERN. absent: Accessory Muscle Use - Cardiovascular Exam Cardiovascular Exam: RRR, +S1, +S2 - GI/Abdominal Exam GI & Abdominal Exam: Soft, Normal Bowel Sounds - Extremities Exam Extremities Exam: Normal Inspection. absent: Calf Tenderness - Back Exam Back Exam: NORMAL INSPECTION. absent: CVA tenderness (L), CVA tenderness (R) - Neurological Exam Neurological Exam: Alert, Awake, Oriented x3 - Psychiatric Exam Psychiatric exam: Normal Affect, Normal Mood - Skin Skin Exam: Dry, Intact, Normal Color, Warm Assessment and Plan - Assessment and Plan (Free Text) Assessment: Focal wall thickening descending/sigmoid colon to to 1.3 cm, s/p colonoscopy POD #3, sigmoid intussusception at thickening site H/O colon polyps Back Pain SLE/Lupus pancreatitis/lupus nephritis COPD CHF CKD Atrial fibrillation on Coumadin now on hold, last dose 04/12/18 H/O DVT PLAN: s/p colonoscopy, "colonic mass" on CT, found to be intussusception on Heparin drip, transition to coumadin, normally takes 2.5mg PO daily, INR is nearly therapeutic today at 1.93 continue Probiotics continue Anusol cream per rectum for hemorrhoids as needed patient to follow up as an outpatient as recommended D/w Dr. Vergara <Tiny Vergara V - Last Filed: 04/24/18 22:37> Objective - Vital Signs/Intake and Output Vital Signs (last 24 hours): Temp Pulse Resp BP Pulse Ox 98.1 F 79 18 135/68 97 04/20/18 08:00 04/20/18 08:00 04/20/18 08:00 04/20/18 09:55 04/20/18 08:00 - Labs Labs: 04/16/18 07:00 04/17/18 06:30 PT 22.5 SECONDS (9.4-12.5) H 04/20/18 06:10 INR 1.93 (0.93-1.08) H 04/20/18 06:10 APTT 75.8 Seconds (25.1-36.5) H 04/19/18 06:30 Attending/Attestation - Attestation I have personally seen and examined this patient.: Yes I have fully participated in the care of the patient.: Yes I have reviewed all pertinent clinical information, including history, physical exam and plan: Yes Notes (Text): This is an addendum to GI followup report dictated by the Security Specialist. The patient was seen an that we need to change it here d examined earlier. Medical records, lab studies, imagings were reviewed. Last 24 hours events reviewed. Agreed with the above treatment plan as outlined in Security Specialist 's notes with the addition of the following no episodes of bleeding Prolapsed part of colonic wall with the diverticulosis as the leading edge for small colocolic intussusception Follow-up INR and titrate the dose of Coumadin 04/24/18 22:35
--- NOTE | 2018-04-20 09:42 | PN ---
DATE: 04/20/2018 SUBJECTIVE: The patient is seen sitting in a chair on 5R. She is currently comfortable. She remains on IV heparin. She, otherwise, feels well. She denies any chest pain, dyspnea or lightheadedness. Her current medications include IV heparin, Brovana, Cozaar, Coumadin, digoxin, Fosamax, hydrochlorothiazide, potassium, Norvasc, prednisone, Protonix, Pulmicort inhaler, cyclosporine and Synthroid. OBJECTIVE: GENERAL: She is a middle-aged woman, appears comfortable at present time. VITAL SIGNS: Blood pressure is 130/67 with pulse of 78, respirations 16. She is afebrile. HEENT: No JVD. CHEST: Clear to auscultation and percussion. HEART: A late-peaking systolic murmur noted at the base radiating to the carotids. ABDOMEN: Soft, nontender. Normoactive bowel sounds. EXTREMITIES: No edema. DIAGNOSTIC DATA: INR is 1.93. IMPRESSION: 1. Paroxysmal atrial fibrillation, stable at present. 2. Severe aortic stenosis, asymptomatic. 3. Moderate functional mitral stenosis. 4. Chronic renal insufficiency. 5. Systemic lupus erythematosus. 6. Colonic intussusception, currently managed conservatively. RECOMMENDATIONS: From a cardiac standpoint, her heparin can be discontinued today and her chronic dose of Coumadin 2.5 mg daily can be resumed. The rest of her cardiac medications will be continued. Close outpatient cardiac followup will be arranged. From the cardiac standpoint, she is stable for discharge home. We will be happy to see as needed. Ry Arroyo MD
[2018-04-20] MEDS: Hydrocortisone 2.5% Rectal Cream(30 gm) PR SCH (09:52)
[2018-04-20] MEDS: Lactobacillus Acidophilus 500 MU Cap PO SCH (09:55)
[2018-04-20] MEDS: Digoxin 125 mcg (0.125 mg) Tab PO SCH (09:55)
[2018-04-20 09:59] VITALS: BP 135/68; PULSE 85
--- NOTE | 2018-04-20 11:10 | PN ---
DATE: 04/20/2018 PULMONARY NOTE DICTATION SUBJECTIVE: The patient appears very comfortable this morning. She is not short of breath at rest. PHYSICAL EXAMINATION: VITAL SIGNS: (Last noted in the computer): Temperature is 98.5, pulse 66, respirations 18, blood pressure 117/71. Oxygen saturation on room air is 97%. HEENT: Normocephalic, atraumatic. No JVD. CARDIOVASCULAR: Systolic ejection murmur at the lower left sternal border. No S3 gallop. LUNGS: Clear bilaterally. EXTREMITIES: No clubbing, cyanosis or edema. Calves are nontender to palpation. GI: Abdomen is soft, nontender and nondistended. Bowel sounds are positive. SKIN: No acute rash. NEUROLOGIC: Exam limited at the present time. IMPRESSION: 1. Sepsis syndrome. 2. Renal insufficiency. 3. Systemic lupus erythematosus. 4. Asthma. 5. Chronic kidney disease. PLAN: The patient appears very comfortable this morning. She is not short of breath at rest. She does state to feeling much better overall. On physical exam, her lungs remain clear. In addition, the oxygen saturation on room air is 97%. I will continue the current nebulizer treatments and inhaled steroids for now. Inputs by Cardiology, Renal, and Infectious Disease are noted. The temperatures have fully resolved. The leukocytosis has also fully resolved. Clinical status of the patient is significantly improved overall. She is for discharge in the very near future. I will discuss the above with the attending physician. Cornell Silva MD MTDD
--- NOTE | 2018-04-21 06:40 | DS ---
HISTORY OF PRESENT ILLNESS: This is a 67-year-old female admitted to [facility] with a history of febrile episode and abnormal CAT scan of the abdomen. The patient was treated with IV antibiotics, and cultures of blood and urine were negative. The patient underwent a colonoscopy, which showed intussusception of diverticulum followed by Infectious Disease, Pulmonary, Cardiology, GI and Renal. MEDICATIONS: Home medications consists of Fosamax 70 mg daily, Neurontin 600 mg at bedtime, Digoxin 125 mcg daily, warfarin 2.5 mg daily, Advair 1 puff every 12, Synthroid 50 mcg daily, Creon one tab t.i.d., magnesium oxide 500 mg daily, Prilosec 40 mg daily, Klor-Con 10 mEq t.i.d., prednisone 5 mg daily, Norvasc 10 mg daily, cyclosporine 100 mg daily and 75 mg at bedtime, Zetia 10 mg daily, olmesartan/hydrochlorothiazide 40/25 daily, Zanaflex 2 mg at bedtime. PHYSICAL EXAMINATION: VITAL SIGNS: Her temp was 98, blood pressure is 135/68, 97% saturation on room air, with 18 respiratory rate and a pulse of 79. LABORATORY DATA: The patient had WBC of 9.3, RBC 3.99, hemoglobin 12, hematocrit of 37.1, platelet count 365. Chemistry showed normal electrolytes. PT on discharge was 22.5, with an INR of 1.93. ASSESSMENT AND PLAN: She was cleared by all individual consultants and was subsequently to be followed up as an outpatient. She has a past medical history of lupus nephritis, compression fracture of lumbar spine, cholecystectomy, hepatopathy, peripheral neuropathy, deep venous thrombosis. To be followed as an outpatient. The patient fully understands all the medical problems and clinical findings during her stay in the hospital. Cathy Escalante MD
--- NOTE | 2018-04-29 12:43 | PQF ---
PROVIDER RESPONSE TEXT: Please refer question to Infectious Disease statistical consultant. Thank you Dr Escalante REVIEWER QUERY TEXT: Conflicting Documentation Clarification A single mention or documentation of multiple diagnoses for the same clinical presentation appears in the record. Please clarify the diagnosis/diagnoses. Please also document if the condition is: -- Confirmed and current -- Confirmed, treated and resolved -- Ruled out -- Other, please specify The patient's Clinical Indicators include: Patient with history of sepsis. Several notes document "sepsis syndrome." Please clarify whether camila ent had systemic sepsis on this admission. If sepsis is present, please indicate if this was present on admission. Thank you. Query created by: Raquel Kelley on 04/21/2018 3:02 PM Electronically signed by: Cathy Escalante MD 04/29/2018 12:40 PM
--- NOTE | 2018-05-06 08:19 | PQF ---
PROVIDER RESPONSE TEXT: NO EVIDENCE OF SEPSIS ON ADMISSION OR HOSPITALIZATION REVIEWER QUERY TEXT: Clarification of Clinical Diagnostic Findings Please clarify documentation or clinical relevance for the clinical / diagnostic findings or whether those are insignificant or unable to be further specified. The patient's Clinical Indicators include: Patient with history of sepsis. Several notes document "sepsis syndrome." Please clarify whether camila ent had a systemic sepsis on this admission. If sepsis is present, was this present on admission? Ruddy nk you. Query created by: Raquel Kelley on 04/29/2018 5:22 PM Electronically signed by: Dajuan Woods MD 05/06/2018 8:16 AM
== END 2018-04-20 11:38 | disposition home or self-care (01) | DRG 388 ==
LOC: ED 21:15 → ERH 04-13 02:05 → 2RSO 04-13 03:05 → 5RSO 04-13 16:21
PROVIDERS: ADMIT Internal Medicine; ATTEND Internal Medicine
PROC: 0DJD8ZZ Inspection of Lower Intestinal Tract, Via Natural or Artificial Opening Endoscopic (ICD-10-PCS; principal; 2018-04-17 13:30)
DX: K56.1 Intussusception (principal); J18.9 Pneumonia, unspecified organism; D68.62 Lupus anticoagulant syndrome; I13.0 Hypertensive heart and chronic kidney disease with heart failure and stage 1 through stage 4 chronic kidney disease, or unspecified chronic kidney disease; J44.0 Chronic obstructive pulmonary disease with (acute) lower respiratory infection; N18.4 Chronic kidney disease, stage 4 (severe); K57.30 Diverticulosis of large intestine without perforation or abscess without bleeding; D64.9 Anemia, unspecified; I48.0 Paroxysmal atrial fibrillation; I50.9 Heart failure, unspecified; K21.9 Gastro-esophageal reflux disease without esophagitis; E03.9 Hypothyroidism, unspecified; E78.00 Pure hypercholesterolemia, unspecified; E78.5 Hyperlipidemia, unspecified; E87.6 Hypokalemia; F41.9 Anxiety disorder, unspecified; G89.29 Other chronic pain; H54.7 Unspecified visual loss; I08.3 Combined rheumatic disorders of mitral, aortic and tricuspid valves; K64.9 Unspecified hemorrhoids; M32.14 Glomerular disease in systemic lupus erythematosus; M81.0 Age-related osteoporosis without current pathological fracture; Z79.01 Long term (current) use of anticoagulants; Z86.010 Personal history of colon polyps; Z86.718 Personal history of other venous thrombosis and embolism; Z87.01 Personal history of pneumonia (recurrent); Z87.891 Personal history of nicotine dependence; Z90.49 Acquired absence of other specified parts of digestive tract

== ENCOUNTER 2018-07-25 23:43 | Inpatient (IN) | payer MEDICARE, MEDICAID ==
[2018-07-25 23:43] VITALS: BMI 25.3
--- NOTE | 2018-07-26 00:29 | ED PDOC ---
Arrival/HPI - General Chief Complaint: Back Pain Time Seen by Provider: 07/25/18 23:45 Historian: Patient - History of Present Illness Narrative History of Present Illness (Text): 07/26/18 00:26 67 year old female, whose past medical history includes CHF with last EF of 68.2% in 11/2017, COPD, hypertension, aortic stenosis, paroxysmal atrail fibrillation on Digoxin, cholecystectomy, DVT on coumadin, Compression Fracture, degenerative arthritis, lupus, CKD, and DJD, presents to the emergency department complaining of left-sided posterior thoracic back/chest pain that radiates to the left upper abdomen for the past couple of days. Patient reports the pain worsening intensity this evening. She denies any history of trauma. Patient denies any fever, chills, shortness of breath, nausea, vomiting, diarrhea, urinary symptoms, neck pain, headache, dizziness, or any other complaints. PMD: Dr. Escalante Time/Duration: Other (couple days) Symptom Onset: Gradual Symptom Course: Worsening Activities at Onset: Light Context: Home Past Medical History - Provider Review Nursing Documentation Reviewed: Yes - Infectious Disease Hx of Infectious Diseases: None - Tetanus Immunization Tetanus Immunization: Unknown - Reproductive Menopause: Yes - Cardiac Hx Cardiac Disorders: Yes Hx Congestive Heart Failure: Yes Hx Hypertension: Yes - Pulmonary Hx Chronic Obstructive Pulmonary Disease (COPD): Yes - Neurological Hx Neurological Disorder: No - HEENT Hx HEENT Disorder: Yes (WEARS RX GLASSES) Other/Comment: decreased vision in left eye - Renal Hx Renal Failure: Yes - Endocrine/Metabolic Hx Hypothyroidism: Yes - Hematological/Oncological Hx Blood Transfusions: No Hx Blood Transfusion Reaction: No - Integumentary Hx Dermatological Disorder: Yes - Musculoskeletal/Rheumatological Hx Arthritis: Yes - Gastrointestinal Hx Gastrointestinal Disorders: Yes Hx Gall Bladder Disease: Yes (CHOLECYSTECTOMY) Hx Gastroesophageal Reflux: Yes - Genitourinary/Gynecological Hx Genitourinary Disorders: No - Psychiatric Hx Psychophysiologic Disorder: Yes Hx Anxiety: Yes Hx Substance Use: No - Surgical History Hx Mastectomy: No - Anesthesia Hx Anesthesia: Yes Hx Anesthesia Reactions: No Hx Malignant Hyperthermia: No - Suicidal Assessment Feels Threatened In Home Enviroment: No Family/Social History - Physician Review Nursing Documentation Reviewed: Yes Family/Social History: No Known Family HX Smoking Status: Former Smoker Hx Alcohol Use: No Hx Substance Use: No Hx Substance Use Treatment: No Allergies/Home Meds Allergies/Adverse Reactions: Allergies ciprofloxacin [From Cipro] Allergy (Verified 07/26/18 00:02) ANAPHYLAXIS ciprofloxacin HCl [From Cipro] Allergy (Verified 07/26/18 00:02) ANAPHYLAXIS IV Contrast Allergy (Uncoded 07/26/18 00:02) ANAPHYLAXIS Home Medications: Home Meds Medication Instructions Recorded Confirmed Levothyroxine [Synthroid] 50 mcg PO DAILY 11/08/15 07/26/18 Lipase/Protease/Amylase [Creon Dr 1 tab PO TID 11/08/15 07/26/18 12,000 Units Capsule] Magnesium Oxide 500 mg PO DAILY 11/08/15 07/26/18 Omeprazole [Prilosec] 40 mg PO DAILY 11/08/15 07/26/18 Potassium Chloride [Klor-Con 10] 10 tab-cap PO TID 04/29/16 07/26/18 Prednisone [Laura] 5 mg PO DAILY 04/29/16 07/26/18 Warfarin [Coumadin] 2.5 mg PO DAILY 04/29/16 07/26/18 amLODIPine [Norvasc] 10 mg PO DAILY 04/29/16 07/26/18 Digoxin [Digitek] 125 mcg PO DAILY 06/09/17 07/26/18 Gabapentin [Neurontin] 600 mg PO HS 06/09/17 07/26/18 tiZANidine [Zanaflex] 2 mg PO HS 06/09/17 07/26/18 Ezetimibe [Zetia] 10 mg PO DAILY 04/12/18 07/26/18 Olmesartan/Hydrochlorothiazide 1 each PO DAILY 04/12/18 07/26/18 [Olmesartan-Hctz 40-25 mg Tab] Review of Systems - Physician Review All systems were reviewed & negative as marked: Yes - Review of Systems Constitutional: absent: Fevers, Other (Chills) Respiratory: absent: SOB Cardiovascular: Chest Pain Gastrointestinal: Abdominal Pain. absent: Diarrhea, Nausea, Vomiting Genitourinary Female: absent: Dysuria, Frequency, Hematuria Musculoskeletal: Back Pain. absent: Neck Pain Neurological: absent: Headache, Dizziness Physical Exam Vital Signs Reviewed: Yes Vital Signs Temp Pulse Resp BP Pulse Ox 07/26/18 00:01 98.6 F 90 18 159/76 H 98 Temperature: Afebrile Blood Pressure: Hypertensive Pulse: Regular Respiratory Rate: Normal Appearance: Positive for: Well-Appearing, Non-Toxic, Comfortable Pain Distress: None Mental Status: Positive for: Alert and Oriented X 3 - Systems Exam Head: Present: Atraumatic, Normocephalic Pupils: Present: PERRL Extroacular Muscles: Present: EOMI Conjunctiva: Present: Normal Mouth: Present: Moist Mucous Membranes Neck: Present: Normal Range of Motion Respiratory/Chest: Present: Clear to Auscultation, Good Air Exchange. No: Respiratory Distress, Accessory Muscle Use Cardiovascular: Present: Regular Rate and Rhythm, Normal S1, S2. No: Murmurs Abdomen: No: Tenderness, Distention, Peritoneal Signs Back: Present: Normal Inspection. No: CVA Tenderness, Other (dorsalspinal tenderness) Upper Extremity: Present: Normal Inspection. No: Cyanosis, Edema Lower Extremity: Present: Normal Inspection. No: Edema Neurological: Present: GCS=15, CN II-XII Intact, Speech Normal Skin: Present: Warm, Dry, Normal Color. No: Rashes Psychiatric: Present: Alert, Oriented x 3, Normal Insight, Normal Concentration Medical Decision Making ED Course and Treatment: 07/26/18 00:26 Impression: 67 year old female presents complaining of left-sided posterior thoracic gali k/chest pain that radiates to the left upper abdomen for the past couple of days. Plan: -- EKG -- Labs -- Chest, Abdomen CT w/o contrast -- Morphine, Zofran Inj -- Reassess and disposition Prior Visits: Notes and results from previous visits were reviewed. Patient was last seen in the emergency department on 04/12/18 presents complaining of back pain and fever that began . Patient was admitted. Progress Notes: EXAM: CT Chest Without IV contrast. CT Abdomen Without IV contrast Electronically signed on Jul 26, 2018 5:03:21 AM EST by: Venancio Buchanan M.D IMPRESSION: 1. Severe diffuse cylindrical bronchiectasis. 2. Scattered emphysematous blebs. 3. Cardiomegaly with minimal pericardial effusion. 4. Several calcified granulomas in the right lung. 5. No acute pathology. 07/26/18 06:00 EKG shows NSR at 88 BPM with PAC, incomplete RBBB, non-specific ST/T changes. Interpreted by me. 07/26/18 06:55 Case was d/w .Requested that patient be placed on his service/Telemetry/requested / on consult. - Lab Interpretations I have reviewed the lab results: Yes - Scribe Statement The provider has reviewed the documentation as recorded by the Sonny Parra Provider Scribe Attestation: All medical record entries made by the Scribe were at my direction and personally dictated by me. I have reviewed the chart and agree that the record accurately reflects my personal performance of the history, physical exam, medical decision making, and the department course for this patient. I have also personally directed, reviewed, and agree with the discharge instructions and disposition. Disposition/Present on Arrival - Present on Arrival Any Indicators Present on Arrival: No History of DVT/PE: No History of Uncontrolled Diabetes: No Urinary Catheter: No History of Decub. Ulcer: No History Surgical Site Infection Following: None - Disposition Have Diagnosis and Disposition been Completed?: Yes Diagnosis: Chest pain, Back pain Disposition: HOSPITALIZED Disposition Time: 06:45 Patient Plan: Observation Patient Problems: Current Active Problems Problem Status Onset Back pain Acute Chest pain Acute Condition: STABLE Discharge Instructions (ExitCare): Chest Pain (ED) Referrals: Cathy Escalante MD [Primary Care Provider] - Follow up with primary Forms: [employer] (Beninese)
[2018-07-26] MEDS ORDERED: Morphine 4 mg/ml ISec IVP STA (00:36)
[2018-07-26 01:01] LABS: HEMOGLOBIN 11.6 g/dL (12.0-16.0); MEAN CELL VOLUME 93.9 fl (80.0-105.0); MEAN CORPUSCULAR HEMOGLOBIN 30.5 pg (25.0-35.0); MEAN CORPUSCULAR HGB CONC 32.5 g/dl (31.0-37.0); MEAN PLATELET VOLUME 10.1 fl (7.0-11.0); RBC 3.8 10^6/uL (3.5-6.1); RED CELL DISTRIBUTION WIDTH 13.9 % (11.5-14.5); WHITE BLOOD COUNT 14.3 10^3/uL (4.5-11.0)
[2018-07-26 01:05] LABS: INR 1.56; PARTIAL THROMBOPLASTIN TIME 35.6 Seconds (25.1-36.5)
[2018-07-26 01:26] LABS: BLOOD UREA NITROGEN 43 mg/dL (7-21); CALCIUM 8.3 mg/dL (8.4-10.5); GFR NON-AFRICAN AMERICAN 50; LIPASE 141 U/L (23-300)
[2018-07-26 01:30] LABS: ALB/GLOB RATIO 0.7 (1.1-1.8); ALBUMIN 3.3 g/dL (3.0-4.8); ALT/SGPT 13 U/L (7-56); AST/SGOT 28 U/L (14-36)
[2018-07-26 01:37] LABS: TROPONIN I 0.03 ng/mL
[2018-07-26] MEDS ORDERED: Morphine 4 mg/ml ISec ONE (01:43)
[2018-07-26 06:51] LABS: URINE BILIRUBIN NEGATIVE (NEGATIVE); URINE BLOOD SMALL (NEGATIVE); URINE GLUCOSE (UA) NEGATIVE (NEGATIVE); URINE LEUKOCYTE ESTERASE NEGATIVE Leu/uL (NEGATIVE); URINE PROTEIN TRACE mg/dL (<30 mg/dL); URINE UROBILINOGEN 0.2 E.U./dL (<1 E.U./dL)
[2018-07-26 07:17] LABS: URINE APPEARANCE CLEAR (CLEAR); URINE COLOR LIGHT YELLOW (YELLOW)
[2018-07-26 07:44] LABS: URINE BACTERIA NEG (NEG); URINE EPITHELIAL CELLS 0 - 2 /hpf (0-5); URINE RBC 0 - 2 /hpf (0-2); URINE WBC NEGATIVE /hpf (0-6)
--- NOTE | 2018-07-26 09:22 | CARD ---
APPROVED REPORT Date of service: 07/26/2018 EKG Measurement Heart [id number] <Conclusion> Sinus rhythm with premature atrial complexes Incomplete right bundle branch block Nonspecific ST abnormality Abnormal ECG
[2018-07-26] MEDS ORDERED: Fluticasone-Salmeterol 250-50mcg Diskus IH SCH (10:00)
[2018-07-26] MEDS ORDERED: Morphine 2 mg/ml ISec IVP ONE (10:12)
[2018-07-26] MEDS: Levothyroxine 50 MCG TAB PO SCH (11:01)
[2018-07-26] MEDS: Amylase/Lipase/Protease 5,000 Units ECC PO SCH ×3 (11:02→19:24)
--- NOTE | 2018-07-26 13:27 | CT ---
Date of service: 07/26/2018 PROCEDURE: CT Chest, Abdomen without intravenous contrast HISTORY: pain COMPARISON: 04/13/2018 CT abdomen TECHNIQUE: Radiation dose: Total exam DLP = 419.71 mGy-cm. This CT exam was performed using one or more of the following dose reduction techniques: Automated exposure control, adjustment of the mA and/or kV according to patient size, and/or use of iterative reconstruction technique. FINDINGS: CT CHEST WITHOUT CONTRAST: LUNGS: There is bronchiectasis and fibrosis of both lung bases right greater than left. There is also some peripheral fibrosis in the right upper lobe MEDIASTINUM: Unremarkable. Normal caliber aorta and pulmonary arterial trunk. Moderate cardiomegaly. Coronary artery calcification. Aortic calcification. LYMPH NODES: Unremarkable. PLEURA: Unremarkable. No pneumothorax. No pleural fluid. BONES: Unremarkable. OTHER FINDINGS: None. CT ABDOMEN: LIVER: Unremarkable. No gross lesion or ductal dilatation. GALLBLADDER AND BILE DUCTS: Gallbladder removed PANCREAS: Unremarkable. No gross lesion or ductal dilatation. SPLEEN: Unremarkable. ADRENALS: Unremarkable. No mass. KIDNEYS AND URETERS: Unremarkable. No hydronephrosis. No solid mass. VASCULATURE: No aortic atherosclerotic calcification or mural plaque present. Unremarkable. No aortic aneurysm. BOWEL: Unremarkable. No obstruction. No gross mural thickening. APPENDIX: Normal appendix. PERITONEUM: Unremarkable. No free fluid. No free air. LYMPH NODES: Unremarkable. No enlarged lymph nodes. BONES: No acute fracture. OTHER FINDINGS: The report concurs with the preliminary [facility] report IMPRESSION: No acute intra-abdominal or intrathoracic findings
[2018-07-26] MEDS: Digoxin 125 mcg (0.125 mg) Tab PO SCH (14:43)
--- NOTE | 2018-07-26 15:01 | HP ---
HISTORY OF PRESENT ILLNESS: This 67-year-old female who states that since she has been getting progressively increased pain that she relates to being across her left chest under her breasts, across her back, burning in nature which is increased in intensity since . She denies any history of trauma or heavy lifting, any history of fever or chills, any history of rash. PAST MEDICAL HISTORY: She has a past medical history of aortic stenosis, cholecystectomy, pancreatitis, abscess and cellulitis of the right buttock, history of compression fracture of lumbar spine, history of CHF, pneumonia, sepsis, history of spinal stenosis and cervical disk disease, history of lupus nephritis and chronic renal insufficiency. She has a history of COPD, hyperlipidemia and hypothyroid disease. MEDICATIONS: Her current list of meds as per the list from the emergency room. Zanaflex 2 mg at bedtime, cyclosporine 100 mg daily, Norvasc 10 mg daily, warfarin 2.5 mg daily, prednisone 5 mg daily, potassium chloride 10 mEq tabs 3 times a day, Prilosec 40 mg daily, olmesartan/hydrochlorothiazide 40/25 daily, magnesium oxide 500 mg daily. She is on Creon DR 12,000 units 3 times a day, Synthroid 50 mcg daily, Neurontin 600 mg at bedtime, Advair 1 puff every 12, Zetia 10 mg daily, Digitek 125 mcg daily and Fosamax 70 mg daily. ALLERGIES: TO CIPRO AND IV CONTRAST. SOCIAL HISTORY: She is a nonsmoker, nondrinker, non drug user. PHYSICAL EXAMINATION: VITAL SIGNS: Reported in the emergency room showed a temperature of 98.6 orally, pulse was 90, blood pressure was 159/76, respiratory rate 18, oxygen saturation was 98% reported on room air. GENERAL: At the present time, the patient is alert and oriented x3. She states that there is a burning sensation that comes across the left back, scapular area around underneath her breast. There is some association with movement. There is no association with any inspiratory or expiratory function. NECK: Supple. HEENT: There is no JVD. LUNGS: Show some diminished breath sounds at the bases. HEART: S1, S2 with a grade 3/6 systolic murmur at the left cardiac border. ABDOMEN: Soft with positive bowel sounds. No rebound or tenderness. EXTREMITIES: Show no evidence of edema and it does not appear at this time to be a rash over the area where she is complaining about her burning. LABORATORY DATA: Shows a WBC of 14.3, RBC 3.8, hemoglobin 11.6, hematocrit 35.7, platelet count 301. PT is 18 with an INR of 1.56, PTT is 35.6. Chemistry shows sodium of 139, potassium 4.6, chloride 108, CO2 of 24, BUN 43, creatinine of 1.1. Random blood sugar is 113, calcium is 8.3, total bili is 0.7. AST, ALT and alkaline phosphatase are normal. LDH is 789. Troponin is 0.03, albumin is 3.3. Lipase is 141. Urinalysis shows a small blood, negative for leukocyte esterase, wbc negative, negative for urine bacteria at this time, it is clear in appearance. ASSESSMENT AND PLAN: 1. The problems at this time, is a 67-year-old female with one increasing burning sensation type of pain across the left scapular back area, coming underneath the left breast. 2. Leukocytosis. 3. Aortic stenosis. 4. Lupus nephritis with chronic renal insufficiency. I have requested that the patient be admitted to a telemetry monitored bed with a Cardiology consult. The patient has a history of severe spinal disease, cervical disease as well. Request Neurology evaluation, rule out possible neuropathy related to this, history of thoracic disease. We will panculture the patient and get Infectious Disease. Consult for her lupus nephritis with renal insufficiency. . Further treatment plan pending the results of clinical studies and input from the individual consultants. Cathy Escalante MD MTDLevi
[2018-07-26] MEDS: Arformoterol 15 mcg/2 ml Inh Sol IH SCH (19:53)
[2018-07-26] MEDS: Budesonide 0.5 mg/2 ml Inhal Susp UD IH SCH (19:53)
--- NOTE | 2018-07-26 20:43 | CON ---
DATE: 07/26/2018 SUBJECTIVE: The patient seen in the emergency room earlier today. CHIEF COMPLAINT Left-sided chest pain times several days. HISTORY OF PRESENT ILLNESS: This is a 67-year-old female with history of congestive heart failure, which is diastolic with an ejection fraction of 68%; chronic obstructive lung disease; hypertension; hypothyroidism; aortic stenosis; atrial fibrillation; DVT, on Coumadin; compression fractures; degenerative joint disease; and patient also has lupus and kidney disease who was admitted through the emergency room with a diagnosis of back pain and chest pain. REVIEW OF SYSTEMS: A 14-point review of systems is performed, and no fevers, no chills, no nausea, no vomiting. No abdominal pain, diarrhea, or constipation. No dysuria or frequency. PAST MEDICAL HISTORY: Significant for lupus, kidney disease, chronic obstructive lung disease, aortic stenosis, congestive heart failure, atrial fibrillation, DVT, compression fracture, degenerative joint disease, and kidney disease. The congestive heart failure is diastolic with an ejection fraction of 68%. PAST SURGICAL HISTORY: Significant for breast surgery, cholecystectomy, and colonoscopy. ALLERGIES: THE PATIENT IS ALLERGIC TO CIPRO AND IV CONTRAST. TYPE OF ALLERGY TO CIPRO IS NOT ENTIRELY CLEAR. THE EMERGENCY ROOM WRITES IT IS ANAPHYLAXIS, PATIENT DOES NOT DESCRIBE THAT AND SHE IS NOT SURE TYPE OF REACTION. MEDICATIONS AT HOME: Include prednisone 5 mg daily, in addition to Coumadin and cyclosporine, omeprazole, Synthroid, gabapentin, Zetia, digoxin, and Fosamax. PHYSICAL EXAMINATION: GENERAL: She is in bed in the emergency room, appearing washed out and weak, and chronically ill. VITAL SIGNS: Temperature of 98.6 with a heart rate of 90, respiratory rate of 18, blood pressure is 155/69, and patient is saturating at 98% on room air. BMI is 25. HEENT: Unremarkable. Pupils are equal, reactive to light and accommodation. Extraocular muscles are intact. Conjunctivae are pink. NECK: Supple. LUNGS: Have decreased breath sounds bibasilarly. HEART: Normal S1, S2. ABDOMEN: Soft, nontender. BACK AND SPINE: There is no point tenderness. NEUROLOGIC: The patient is awake and oriented x3. Motor function is 5/5. LABORATORY DATA: Laboratory examination reveals a white count of 14,300, hemoglobin of 11, and platelets of 301. Coagulation is noted. Chemistries reveals a BUN of 43, creatinine of 1.1, glucose of 113, LDH is with GFR of 50. Urinalysis significant for small blood and trace protein. In previous admissions, the patient had a hepatitis profile which was negative and HIV which was negative, and RPR which was negative. Review of microbiology in the past reveals urine cultures have been negative, sputum cultures have been normal olinda, blood cultures all have been negative. The patient also had stool cultures where it is no Salmonella. In 2013, the patient had MRSA from a buttocks lesion. ASSESSMENT AND PLAN: This is a 67-year-old female who appears chronically ill and weak, admitted with chronic back pain and found to have leukocytosis of 14,300, on prednisone. At this time, we will hold off any antibiotics and order blood cultures, urine cultures, sputum cultures, urinalysis and procalcitonin, and we will make further recommendations upon the case on availability of pancultures. We will hold off any antibiotics. There is no clear evidence. The patient had a CAT scan of the chest and a CAT scan of the abdomen, and preliminary results revealed no pathology on CAT scan the abdomen and CAT scan of the chest. We will follow with you. Dajuan Woods MD
--- NOTE | 2018-07-26 22:10 | CON ---
DATE: 07/26/2018 REASON FOR CONSULTATION: Chronic kidney disease stage III, lupus nephritis. HISTORY OF PRESENT ILLNESS: A 67-year lady known to us from outpatient evaluation/multiple hospital evaluations. The patient admitted early this morning with complaints of severe upper back pain, pain on the sides, low back pain. The patient denies any fever, chills. She denies any cough. She denies any shortness of breath. In the emergency room, she was found to be hypertensive, her blood pressure was 159/76. She was afebrile. Her WBC count was found to be somewhat elevated at 14. Her creatinine was 1.1, which was stable, which is her baseline. In the emergency room, she was given morphine 4 mg IV push. The patient reports that she vomited after the morphine. PAST MEDICAL AND SURGICAL HISTORY: Hypertension, paroxysmal AFib, aortic stenosis, CHF, DVT on Coumadin, severe DJD, history of compression fracture, lupus nephritis, chronic kidney disease stage III, history of circulating lupus anticoagulant, hyperlipidemia, valvular heart disease, , AI, MR, nonspecific elevated liver enzyme elevation, chronic anemia. FAMILY HISTORY: Noncontributory. SOCIAL HISTORY: No smoking, alcohol use, or IV drug abuse. ALLERGIES: CIPRO AND IV CONTRAST. MEDICATIONS AT HOME: Fosamax, Digitek, Zetia, gabapentin, Synthroid, magnesium oxide, Benicar HCT, omeprazole, prednisone, Coumadin, amlodipine, cyclosporin, and Zanaflex. REVIEW OF SYSTEMS: All systems are reviewed, pertinent positives mentioned history of presenting illness, rest unremarkable. PHYSICAL EXAMINATION: GENERAL: Elderly lady lying in bed in moderate distress secondary to pain. VITAL SIGNS: Blood pressure 149/73, heart rate 68, respiratory rate 18, and temperature 98. HEENT: Normocephalic, atraumatic, positive pallor. NECK: Supple, no JVD. LUNGS: Bilateral equal entry, bilateral equal expansion, no rales. CARDIAC: S1, S2, regular rate and rhythm, no murmur, no rub. ABDOMEN: Soft, nondistended, nontender, bowel sounds present. EXTREMITIES: No lower extremity edema. Positive tenderness in the upper back, tenderness on the sides of the ribcage. LABORATORY DATA: WBC 14, hemoglobin 11.6, hematocrit 36, platelets 301. Sodium 139, potassium 4.6, chloride 108, CO2 of 24, BUN 43, creatinine 1.1, glucose 111, calcium 8.3, AST 28, ALT 13, albumin 3.3. Urinalysis, light yellow, clear, pH 6, specific gravity 1.010, protein trace, blood small, nitrite negative, leukocyte esterase negative. Digoxin 0.8. CT of the chest and abdomen pending. CURRENT MEDICATIONS: Brovana, losartan 100, hydrochlorothiazide 25, amlodipine 10, Synthroid, cyclosporin . ASSESSMENT: 1. Stable chronic kidney disease, stage III. 2. Severe back pain, suspect exacerbated pain from degenerative joint disease/musculoskeletal. 3. Leukocytosis, no evidence of infection apparent. 4. Hypertension. 5. History of class V lupus nephritis. 6. Coronary artery disease, paroxysmal atrial fibrillation. 7. History of deep vein thrombosis. PLAN: 1. Follow up CT of the chest and abdomen. 2. Pain management, retry morphine 2 mg IV push x1 dose. 3. P.r.n. Zofran. 4. Continue antihypertensives. 5. Continue cyclosporin. 6. I do not see any indication for empiric antibiotics. Beba Cintron MD
[2018-07-26 22:18] LABS: TROPONIN I 0.14 ng/mL
--- NOTE | 2018-07-27 04:23 | CON ---
DATE: 07/26/2018 REASON FOR CONSULTATION: Vomiting. HISTORY OF PRESENT ILLNESS: This is a 67-year-old patient with a past medical history of aortic stenosis and paroxysmal atrial fibrillation, on anticoagulation, presented with left shoulder pain and left-sided chest and back pain. The patient had episodes of vomiting today and also last night, GI consult was requested to evaluate that. Other past medical history includes SLE lupus pancreatitis; lupus nephritis; hypertension; COPD; CHF; paroxysmal atrial fibrillation, on anticoagulation; chronic kidney disease; history of DVT and aortic stenosis. The patient was anemic and had a colonoscopy done on 04/17/2018. She was found to have diverticulosis, and also at 25 cm, there was a colocolonic reducible intussusception due to prolapsing mucosal fold with large diverticulum containing stool was noticed. No polyps were noticed. The patient did have multiple polyps in the past, adenomatous polyps. The patient also had an endoscopy done. The patient's last endoscopy was in 04/2018. She was found to have only gastric polyps and nonerosive reflux disease. The gastric polyps were reported as hyperplastic polyps, history of status post cholecystectomy. Other past medical history as above. PAST SURGICAL HISTORY: Includes cholecystectomy, EGD, and colonoscopies mentioned above. FAMILY HISTORY: Noncontributory. SOCIAL HISTORY: Ex-smoker. Denies alcohol use. REVIEW OF SYSTEMS: Positive as above. Other systems reviewed, negative. PHYSICAL EXAMINATION VITAL SIGNS: Temperature 98.6, blood pressure 128/73, pulse 83, respirations 20, O2 saturation is 96%. HEENT: Atraumatic, anicteric. NECK: Supple. CARDIOPULMONARY: S1, S2 heard. LUNGS: Bilateral airy entry present. ABDOMEN: Soft. There is no tenderness. EXTREMITIES: No cyanosis, no clubbing. NEUROLOGIC: Alert, oriented. Moves all the extremities. LABORATORY DATA: Hemoglobin is 11.6, hematocrit 35.7, WBC 14.3, platelets 301. LFTs showed essentially unremarkable, creatinine 1.1, BUN 43. The patient did have a CT scan of the abdomen and pelvis and chest done on admission. No acute findings otherwise were noticed. IMPRESSION: This is a 67-year-old patient with multiple medical problems, which include systematic lupus erythematosus pancreatitis; systematic lupus erythematosus lupus nephritis; coronary artery disease; paroxysmal atrial fibrillation; deep venous thrombosis, on Coumadin, admitted with left-sided chest pain and epigastric left upper quadrant pain. The patient had episodes of diarrhea last night and today. Feels much better now. The etiology for the vomiting is unclear, but previous EGD appears unclear. Differential diagnoses include erosive esophagitis, gastritis, and peptic ulcer disease, and also to be considered, but the patient has no hematemesis. PLAN: At this point, clinical monitoring with clear-liquid diet. If the patient with recurrent episodes of further vomiting, would benefit from the endoscopic evaluation. Meanwhile, we will treat the patient with clear-liquid diet and also Zofran, antiemetic, symptomatically. Thank you very much for allowing us to participate in the care of the patient. We will continue to closely follow up her care and suggest further management base on the clinical course. Tiny Vergara MD
[2018-07-27 05:05] LABS: ALB/GLOB RATIO 0.8 (1.1-1.8); ALBUMIN 3.2 g/dL (3.0-4.8); ALT/SGPT 46 U/L (7-56); AST/SGOT 42 U/L (14-36); BLOOD UREA NITROGEN 24 mg/dL (7-21); CALCIUM 8.6 mg/dL (8.4-10.5); GFR NON-AFRICAN AMERICAN 56
[2018-07-27 05:11] LABS: TROPONIN I 0.11 ng/mL
[2018-07-27 07:26] LABS: BASO # 0.02 K/mm3 (0.0-2.0); BASO % 0.2 % (0.0-3.0); EOS # 0.1 (0.0-0.7); EOS % 1.6 % (1.5-5.0); GRAN # 5.13 (1.4-6.5); GRAN % 63.5 % (50.0-68.0); HEMOGLOBIN 11.2 g/dL (12.0-16.0); LYMPH # 2.2 (1.2-3.4); MEAN CELL VOLUME 94.4 fl (80.0-105.0); MEAN CORPUSCULAR HEMOGLOBIN 29.6 pg (25.0-35.0); MEAN CORPUSCULAR HGB CONC 31.4 g/dl (31.0-37.0); MEAN PLATELET VOLUME 9.4 fl (7.0-11.0); MONO # 0.6 (0.1-0.6); MONO % 7.7 % (1.0-6.0); RBC 3.78 10^6/uL (3.5-6.1); RED CELL DISTRIBUTION WIDTH 13.7 % (11.5-14.5); WHITE BLOOD COUNT 8.1 10^3/uL (4.5-11.0)
[2018-07-27 07:31] LABS: INR 1.69; PROTHROMBIN TIME 19.7 SECONDS (9.4-12.5)
[2018-07-27] MEDS: Arformoterol 15 mcg/2 ml Inh Sol IH SCH ×2 (07:53→20:01)
[2018-07-27] MEDS: Budesonide 0.5 mg/2 ml Inhal Susp UD IH SCH ×2 (07:53→20:01)
--- NOTE | 2018-07-27 09:46 | CP.PCM.PN ---
<Cheikh Zepeda - Last Filed: 07/27/18 09:42> Subjective - Date & Time of Evaluation Date of Evaluation: 07/27/18 Time of Evaluation: 09:42 - Subjective Subjective: PGY-2 GI progress note for Dr Vergara No acute events noted overnight. Patient's main complaint was back pain. Stated she is tolerating her clear liquid diet without nausea. Last episode of emesis yesterday. Objective - Vital Signs/Intake and Output Vital Signs (last 24 hours): Temp Pulse Resp BP Pulse Ox 98.0 F 76 20 136/68 91 L 07/27/18 06:00 07/27/18 06:00 07/27/18 06:00 07/27/18 06:00 07/27/18 06:00 Intake and Output: 07/27/18 07/27/18 06:59 18:59 Intake Total 1920 Output Total 9 Balance 1911 - Medications Medications: Current Medications Acetaminophen (Tylenol 325mg Tab) 650 mg PO Q6H PRN PRN Reason: Fever >100.4 F Last Admin: 07/26/18 19:25 Dose: 650 mg Amlodipine Besylate (Norvasc) 10 mg PO DAILY [facility] Last Admin: 07/26/18 11:01 Dose: 10 mg Amylase (Pancrease 03618 U-5000 U-[id number] U) 5,000 unit PO TID [facility] Last Admin: 07/26/18 19:24 Dose: 5,000 unit Arformoterol Tartrate (Brovana) 15 mcg IH [id number] [facility] Last Admin: 07/27/18 07:53 Dose: 15 mcg Budesonide (Pulmicort Respules) 0.5 mg IH [id number] [facility] Last Admin: 07/27/18 07:53 Dose: 0.5 mg Cyclosporine (Sandimmune) 100 mg PO DAILY [facility] Last Admin: 07/26/18 14:44 Dose: 100 mg Digoxin (Digoxin) 0.125 mg PO DAILY [facility] Last Admin: 07/26/18 14:43 Dose: 0.125 mg Hydrochlorothiazide (Hydrodiuril) 25 mg PO DAILY [facility] Last Admin: 07/26/18 11:02 Dose: 25 mg Levothyroxine Sodium (Synthroid) 50 mcg PO DAILY [facility] Last Admin: 07/26/18 11:01 Dose: 50 mcg Losartan Potassium (Cozaar) 100 mg PO DAILY [facility] Last Admin: 07/26/18 11:04 Dose: 100 mg Pantoprazole Sodium (Protonix Ec Tab) 40 mg PO DAILY [facility] - Labs Labs: 07/27/18 07:15 07/27/18 04:25 PT 19.7 SECONDS (9.4-12.5) H 07/27/18 07:15 INR 1.69 07/27/18 07:15 APTT 35.6 Seconds (25.1-36.5) 07/26/18 01:46 EST - Constitutional Appears: Well, No Acute Distress - Head Exam Head Exam: ATRAUMATIC, NORMAL INSPECTION - Eye Exam Eye Exam: EOMI, Normal appearance. absent: Scleral icterus - ENT Exam ENT Exam: Mucous Membranes Moist - Neck Exam Neck Exam: Full ROM, Normal Inspection. absent: Tenderness - Respiratory Exam Respiratory Exam: Clear to Ausculation Bilateral. absent: Rales, Rhonchi, Wheezes - Cardiovascular Exam Cardiovascular Exam: REGULAR RHYTHM, +S1, +S2, Murmur - GI/Abdominal Exam GI & Abdominal Exam: Soft, Normal Bowel Sounds. absent: Tenderness - Neurological Exam Neurological Exam: Alert, Oriented x3 - Skin Skin Exam: Normal Color, Warm Assessment and Plan - Assessment and Plan (Free Text) Plan: Mrs Schuler is a 67 year old female with a PMHx of SLE pancreatitis, SLE nephritis, CAD, paroxysmal AFib, DVT on coumadin, who was admitted with chest pain and epigastric left upper quadrant pain: Left Upper Quadrant Pain Nausea/Vomiting -differential diagnosis includes erosive esophagitis, gastritis, peptic ulcer disease -tolerating clear liquid diet, abdominal pain improved -zofran for nausea (QTc okay) -added protonix 40mg po qd - will need to monitor digoxin levels as PPIs can cause digoxin to be subtherapeutic -Dr Vergara to discuss possible EGD with primary - if EGD necessary, elevated INR will need to be addressed -will wait for input from cardiology Previous GI procedures: -colonoscopy 03/2018 * diverticulosis in entire examined colon, internal hemorrhoids, at 25cm level there was a colocolonic reducible intussusception due to prolapsing mucosal fold wtih large diverticula containting stool, no specimens collected -EGD 04/2018 * gastic polyps (reported as hyperplastic polyps) and non-erosive reflux Seen and discussed with Dr Vergara <Tiny Vergara V - Last Filed: 07/27/18 23:32> Objective - Vital Signs/Intake and Output Vital Signs (last 24 hours): Temp Pulse Resp BP Pulse Ox 98 F 89 18 145/68 91 L 07/27/18 18:00 07/27/18 18:00 07/27/18 18:00 07/27/18 18:00 07/27/18 06:00 Intake and Output: 07/27/18 07/28/18 18:59 06:59 Intake Total 840 Output Total 6 Balance 834 - Medications Medications: Current Medications Acetaminophen (Tylenol 325mg Tab) 650 mg PO Q6H PRN PRN Reason: Fever >100.4 F Last Admin: 07/27/18 18:02 Dose: 650 mg Amlodipine Besylate (Norvasc) 10 mg PO DAILY [facility] Last Admin: 07/27/18 15:23 Dose: 10 mg Amylase (Pancrease 49964 U-5000 U-52800 U) 5,000 unit PO TID [facility] Last Admin: 07/27/18 18:02 Dose: 5,000 unit Arformoterol Tartrate (Brovana) 15 mcg IH [id number] [facility] Last Admin: 07/27/18 20:01 Dose: 15 mcg Budesonide (Pulmicort Respules) 0.5 mg IH [id number] [facility] Last Admin: 07/27/18 20:01 Dose: 0.5 mg Cyclosporine (Sandimmune) 100 mg PO DAILY [facility] Last Admin: 07/27/18 15:23 Dose: 100 mg Digoxin (Digoxin) 0.125 mg PO DAILY [facility] Last Admin: 07/27/18 15:23 Dose: 0.125 mg Gabapentin (Neurontin) 400 mg PO [facility]; Protocol Last Admin: 07/27/18 22:25 Dose: 400 mg Hydrochlorothiazide (Hydrodiuril) 25 mg PO DAILY [facility] Last Admin: 07/27/18 15:23 Dose: 25 mg Levothyroxine Sodium (Synthroid) 50 mcg PO DAILY [facility] Last Admin: 07/27/18 12:03 Dose: 50 mcg Losartan Potassium (Cozaar) 100 mg PO DAILY [facility] Last Admin: 07/27/18 15:23 Dose: 100 mg Pantoprazole Sodium (Protonix Ec Tab) 40 mg PO DAILY [facility] Last Admin: 07/27/18 12:03 Dose: 40 mg - Labs Labs: 07/27/18 07:15 07/27/18 04:25 PT 19.7 SECONDS (9.4-12.5) H 07/27/18 07:15 INR 1.69 07/27/18 07:15 APTT 35.6 Seconds (25.1-36.5) 07/26/18 01:46 EST Attending/Attestation - Attestation I have personally seen and examined this patient.: Yes I have fully participated in the care of the patient.: Yes I have reviewed all pertinent clinical information, including history, physical exam and plan: Yes Notes (Text): p 07/27/18 23:32
[2018-07-27] MEDS: Pantoprazole 40 mg EC Tab PO SCH (12:03)
[2018-07-27] MEDS: Levothyroxine 50 MCG TAB PO SCH (12:03)
[2018-07-27] MEDS: Digoxin 125 mcg (0.125 mg) Tab PO SCH ×2 (12:52→15:23)
[2018-07-27] MEDS: Amylase/Lipase/Protease 5,000 Units ECC PO SCH ×4 (12:53→18:02)
[2018-07-27 12:59] VITALS: RESP 18
[2018-07-27] MEDS ORDERED: Dexamethasone 2 MG in Sodium Chloride 0.9% 50 ML IV ONE (14:57)
--- NOTE | 2018-07-27 15:32 | PN ---
DATE: 07/27/2018 SUBJECTIVE: The patient is seen sitting in bed. She is awake. She is alert. She is comfortable. She still complains of pain in her back, left flank region. PHYSICAL EXAMINATION: GENERAL: Elderly lady sitting in bed. VITAL SIGNS: Blood pressure 147/78, heart rate 78, respiratory rate 18, temperature 99.4, T-max is 99.4. HEENT: Normocephalic, atraumatic, positive pallor. NECK: Supple, no JVD. LUNGS: Bilateral equal air entry, bilateral rhonchi, no rales. CARDIAC: S1 and S2, regular rate and rhythm, no murmur, no rub. ABDOMEN: Obese, distended, soft, nontender, bowel sounds present. EXTREMITIES: No lower extremity edema. INTAKE AND OUTPUT: 1920/not charted. LABORATORY DATA: WBC 8, hemoglobin 11, hematocrit 35.7, platelets 275. Sodium 141, potassium 3.7, chloride 106, CO2 of 29, BUN 24, creatinine 1, glucose 92, calcium 8.6, AST 42, ALT 46, troponin 0.1, albumin 3.2. Urinalysis: Light yellow, clear, pH 6, specific gravity 1.010, protein trace, blood small. Blood cultures, no growth. CURRENT MEDICATIONS: Brovana, Coumadin, Cozaar 100, dexamethasone 2 mg, digoxin, hydrochlorothiazide, Neurontin, amlodipine, Pancrease, Protonix, Pulmicort, cyclosporin, Synthroid, Tylenol. ASSESSMENT: 1. Mild prerenal azotemia superimposed on chronic kidney disease stage 3, resolving. 2. Severe back pain, suspect all secondary to degenerative joint disease. 3. Nausea, vomiting, ? gastroparesis. 4. Systemic lupus erythematosus, history of class V lupus nephritis. 5. History of lupus anticoagulant. 6. Chronic anemia. PLAN: 1. The patient is advised to take her p.o. meds, she did not take any of her a.m. meds. 2. Advance diet as per GI. 3. Pain management. 4. Avoid nephrotoxins. Beba Cintron MD [facility] # [id number]
--- NOTE | 2018-07-27 16:47 | CP.PCM.PN ---
Subjective - Date & Time of Evaluation Date of Evaluation: 07/27/18 Time of Evaluation: 08:45 - Subjective Subjective: Has occasional back pain, no fevers, no cough, no nausea, no chest pain. Objective - Vital Signs/Intake and Output Vital Signs (last 24 hours): Temp Pulse Resp BP Pulse Ox 98.6 F 83 20 128/73 96 07/26/18 16:58 07/26/18 18:00 07/26/18 16:58 07/26/18 16:58 07/26/18 16:58 Intake and Output: 07/26/18 07/27/18 18:59 06:59 Intake Total 1440 Output Total 9 Balance 1431 - Medications Medications: Current Medications Acetaminophen (Tylenol 325mg Tab) 650 mg PO Q6H PRN PRN Reason: Fever >100.4 F Last Admin: 07/26/18 19:25 Dose: 650 mg Amlodipine Besylate (Norvasc) 10 mg PO DAILY [facility] Last Admin: 07/26/18 11:01 Dose: 10 mg Amylase (Pancrease 97576 U-5000 U-61465 U) 5,000 unit PO TID [facility] Last Admin: 07/26/18 19:24 Dose: 5,000 unit Arformoterol Tartrate (Brovana) 15 mcg IH [id number] [facility] Last Admin: 07/26/18 19:53 Dose: 15 mcg Budesonide (Pulmicort Respules) 0.5 mg IH [id number] [facility] Last Admin: 07/26/18 19:53 Dose: 0.5 mg Cyclosporine (Sandimmune) 100 mg PO DAILY [facility] Last Admin: 07/26/18 14:44 Dose: 100 mg Digoxin (Digoxin) 0.125 mg PO DAILY [facility] Last Admin: 07/26/18 14:43 Dose: 0.125 mg Hydrochlorothiazide (Hydrodiuril) 25 mg PO DAILY [facility] Last Admin: 07/26/18 11:02 Dose: 25 mg Levothyroxine Sodium (Synthroid) 50 mcg PO DAILY [facility] Last Admin: 07/26/18 11:01 Dose: 50 mcg Losartan Potassium (Cozaar) 100 mg PO DAILY [facility] Last Admin: 07/26/18 11:04 Dose: 100 mg - Labs Labs: 07/26/18 01:46 EST 07/26/18 01:09 EST PT 18.0 SECONDS (9.4-12.5) H 07/26/18 01:46 EST INR 1.56 07/26/18 01:46 EST APTT 35.6 Seconds (25.1-36.5) 07/26/18 01:46 EST - Constitutional Appears: Chronically Ill - Head Exam Head Exam: NORMAL INSPECTION - Respiratory Exam Respiratory Exam: Decreased Breath Sounds - Cardiovascular Exam Cardiovascular Exam: +S1, +S2 - GI/Abdominal Exam GI & Abdominal Exam: Soft. absent: Tenderness Assessment and Plan - Assessment and Plan (Free Text) Plan: Assessment leukocytosis from Prednisone, no evidence of acute bacterial infection history of severe sepsis with acute renal failure due to right lower lobe healthcare-associated pneumonia with possible gram positive cocci and/or gram negative bacilli and/or atypical organisms history of sepsis due to left lower lobe pneumonia, community-acquired chronic bronchiectasis HTN SLE chronic renal failure history of DVT hypothyroidism COPD GERD anxiety disorder S/P cholecystectomy S/P breast surgery Plan continue to monitor off antibiotics since she is at risk for nosocomial infections
--- NOTE | 2018-07-27 18:38 | CON ---
DATE: 07/27/2018 CHIEF COMPLAINT: Low back pain radiating down the right leg as well as neck pain. 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 She mentions that the back pain is in the mid-thoracic to lumbosacral area and occasionally radiates down her right buttock down to the leg with paresthesias as well as across the back with spasms. She has chronic neck pain, for which she sees her neurologist. She is on gabapentin, unsure of the amount of medication, but I will recommend putting her on 400 mg p.o. at bedtime as well as Lidoderm patch to the lumbosacral area in addition to physical therapy. PAST MEDICAL HISTORY: As above. SOCIAL HISTORY: No illicit drug use, smoking or EtOH abuse. MEDICATIONS: Reviewed by nurses' reconciliation sheet. ALLERGIES: ALLERGIC TO CIPROFLOXACIN AND IV CONTRAST. FAMILY HISTORY: Noncontributory. REVIEW OF SYSTEMS: Fourteen-point review of systems is negative except as per the HPI. LABORATORY DATA: Sodium is 141, potassium 3.7, chloride 106, carbon dioxide , BUN of 24, creatinine of 1, random blood glucose of 92. PHYSICAL EXAMINATION: VITAL SIGNS: Temperature 99.4, pulse rate 78, blood pressure 147/78, respiratory rate 18, oxygen saturation 98% on room air. GENERAL: The patient is sitting up in bed in no acute distress. HEENT: Head is atraumatic and normocephalic. PERRLA. Extraocular muscles intact. NECK: Supple. No JVD, no adenopathy noted. LUNGS: Clear to auscultation. No adventitious sounds. HEART: S1 and S2, normal rate and rhythm. No murmurs, rubs or gallops. ABDOMEN: Soft, nontender and nondistended. Bowel sounds present. EXTREMITIES: No clubbing. No cyanosis. Peripheral pulses are 2+ felt bilaterally. NEUROLOGIC: The patient is alert and oriented to person, place, month and year. Speech is fluent without any errors. Cranial nerves II through XII are intact. Motor: Moves all extremities equally. Toes are downgoing bilaterally. Sensory: Light touch and pinprick are decreased up to the calves bilaterally. Decreased vibration of the toes. DTRs are 2+ throughout, 1 at both knees and ankles. Coordination: [id number] intact. No dysmetria noted. Gait is deferred for now. Musculoskeletal: She has lumbosacral tightness present and paraspinal tightness as well. IMPRESSION: Her thoracolumbosacral pain mostly down the right buttock down to the right leg as well as across the back is more of secondary to multilevel degenerative disk disease with superimposed underlying musculoskeletal component from severe central stenosis from L2 to L5 in the past, giving neuralgiform symptoms in addition to underlying lupus-related neuropathy. She has neck pain, likely secondary to chronic cervical radiculopathy from multilevel degenerative disk disease more at C4-C5 and C5-C6, superimposed on the congenital narrow canal which also can contribute to some mild lightheadedness in terms of cervicogenic disease as well. PLAN: At this time, we will recommend: 1. Dexamethasone x1 dose to calm down the neurologic pain. 2. Gabapentin 400 mg p.o. at bedtime. 3. Will need some physical therapy as an outpatient for cervical and lumbosacral therapeutic exercises. 4. Continue with underlying Coumadin for paroxysmal AFib and continue comprehensive medical management. Thank you for this consult. Connor Pinedo MD
--- NOTE | 2018-07-27 18:53 | CON ---
DATE: 07/27/2018 INDICATIONS: Back pain, dizziness, and aortic stenosis. HISTORY OF PRESENT ILLNESS: This is a 67-year-old woman known to me admitted with predominantly back pain radiating into the left side and sometimes into the leftflank and chest. She has a history of severe discogenic disease, this maybe referred pain relating to degenerative disk problems and spinal stenosis. It is something relatively new. She does not describe typical anterior chest pain or shortness of breath. She does experience dizziness, which is somewhat chronic and maybe a bit worse recently. There is no shortness of breath, orthopnea, PND, syncope, presyncope, vertigo, palpitation, edema, claudication, fever, chills, cough, sputum production, hemoptysis, nausea, vomiting, diarrhea, constipation, or melena. PAST MEDICAL HISTORY: Complex. She has valvular heart disease, which is severe with severe aortic stenosis, severe MAC with mild functional mitral stenosis, mitral regurgitation and tricuspid regurgitation as well. She has paroxysmal atrial fibrillation, on warfarin. She has a history of lupus and lupus nephritis, chronic kidney disease stage III, hypothyroidism, COPD, asthma, and pneumonia. There is a history of DVT, pancreatitis, appendectomy, gallbladder surgery, and GERD. She is a former remote smoker. She has severe discogenic disease with compression fracture and spinal stenosis. There is no history of rheumatic fever, myocardial infarction, congestive heart failure, arrhythmia, stroke, TIA, diabetes, and gout. CURRENT MEDICATIONS: Include Advair, Coumadin, Creon, digoxin, Fosamax, potassium chloride, magnesium oxide, Neoral, Neurontin, Norvasc, Benicar HCT, Prilosec, prednisone, Synthroid, Zanaflex, and Zetia. ALLERGIES: SHE NOTES ALLERGIES TO CIPRO AND IV CONTRAST. SOCIAL HISTORY: She lives at home. She is ambulatory. She does not smoke cigarette. She does not drink alcohol. FAMILY HISTORY: Noncontributory. REVIEW OF SYSTEMS: A 10-point review of systems otherwise unremarkable except as noted above. PHYSICAL EXAMINATION: GENERAL: She is a well-developed woman lying in bed on telemetry, in no acute distress. VITAL SIGNS: Notable for sinus rhythm. She is afebrile, pulse 76, blood pressure 136/68, respirations 18-20, and O2 sat 91-96% on room air. HEENT: Reveals no neck vein distention, thyromegaly, carotid bruit. Mucous membranes moist. Conjunctivae pink. NECK: Supple. LUNGS: Lung winters clear. HEART: Examination of the heart revealed normal first and second heart sounds. Systolic ejection murmur consistent with aortic stenosis and the aortic space along the left sternal border. PMI is not displaced. ABDOMEN: Soft. Bowel sounds present. No mass, organomegaly, tenderness, rebound, or guarding. No CVA tenderness. No palpable abdominal aortic aneurysm. EXTREMITIES: Revealed no cyanosis, clubbing or edema. NEUROLOGIC: Awake, alert, oriented, and intact. PSYCHIATRIC: Normal as to mood and affect. SKIN: Warm and dry. No rash or cellulitis. LABORATORY AND IMAGING STUDIES: EKG demonstrates regular sinus rhythm, ST-T wave changes. No change from a prior EKG. A CT of the abdomen without contrast reveals no acute intra-abdominal or intrathoracic findings. White count is normal, hemoglobin 11.2, hematocrit 35.7, and platelet count normal. PT 18, repeat 19.7; INR 1.5, repeat 1.69; and PTT 35.6. Electrolytes; BUN, creatinine, and blood sugar unremarkable. LFTs unremarkable except for a mildly elevated AST. CKs are negative x3. Troponins are 0.03, 0.14 and 0.11. Lipase is normal. Procalcitonin is low at 0.05. Urinalysis is noted. Digoxin level 0.8. IMPRESSION AND PLAN: Vicky Schuler is a 67-year-old woman with valvular heart disease including severe aortic stenosis, mild functional mitral stenosis, mitral regurgitation and tricuspid regurgitation with a history of paroxysmal atrial fibrillation, admitted with predominantly back and left flank discomfort not really chest pain, possibly related to underlying severe discogenic disease. She also complains of dizziness, which is somewhat chronic. I do not think that these symptoms are related to her underlying valvular heart disease, which has to be followed carefully with regard to the timing of valve intervention. She has had a recent echocardiogram in our office. Shee has a history of paroxysmal atrial fibrillation. She is on warfarin. Her INR is subtherapeutic. She is being seen by Renal, Neuro, GI and ID. She has been cultured. I will review her old records. We will monitor Is and Os. Check stool for occult blood. Monitor INRs. She is getting Brovana, losartan, warfarin, digoxin, hydrochlorothiazide, morphine, amlodipine, Creon, Protonix, Pulmicort, cyclosporine, and Synthroid. She can be out of bed as tolerated from my point of view. I will follow along with you. I will make additional recommendations based on her clinical course. Sukhdev Harvey MD MTDD
--- NOTE | 2018-07-27 19:06 | PN ---
DATE: 07/27/2018 SUBJECTIVE: A 67-year-old female resting in bed this morning. Nursing staff relates that there were no particular problems during the night. Her temperature is reported at 99.4, pulse is 78, blood pressure is 147/78. The patient states that the back discomfort is slightly better, but it is still present. PHYSICAL EXAMINATION: NECK: Supple. LUNGS: Clear. HEART: In S1, S2 rhythm with grade 2/6 systolic murmur. ABDOMEN: Soft, scaphoid with positive bowel sounds. EXTREMITIES: Show no evidence of edema. LABORATORY DATA: Shows a WBC of 8.1, RBC 3.78, hemoglobin 11.2, hematocrit 35.7, platelet count is 275. Her PT is 19.7 with INR of 1.69. Chemistry shows normal electrolytes. BUN is 24, creatinine is 1. Her troponin was initially 0.14. The repeat is 0.11. Procalcitonin is 0.05. AST is 42. MEDICATIONS: The patient is currently on Brovana, Cozaar, dexamethasone, digoxin, HydroDIURIL, Neurontin, Norvasc, amylase and Pancrease replacement, Protonix, Pulmicort, cyclosporin, Synthroid, Tylenol. ASSESSMENT AND PLAN: 1. Back pain on the left scapular chest area. Neurology consult and Cardiology consults are pending. 2. Leukocytosis. The patient has been pancultured and being followed by Infectious Disease at this time. 3. History of nausea and vomiting possibly related to the analgesic that the patient mainly received in the emergency room. It seems to be improved. She is currently on a clear liquid diet. We will wait follow up with GI. 4. She has lupus nephritis history on immunotherapy. 5. She has a history of deep vein thrombosis and pulmonary embolism in the past. We will continue her anticoagulation therapy at this time and monitor her coagulation parameters. Cathy Escalante MD
[2018-07-28 06:12] VITALS: TEMP 98.8; O2SAT 93
[2018-07-28 06:41] LABS: INR 1.91; PROTHROMBIN TIME 22.3 SECONDS (9.4-12.5)
[2018-07-28] MEDS: Arformoterol 15 mcg/2 ml Inh Sol IH SCH (08:03)
[2018-07-28] MEDS: Budesonide 0.5 mg/2 ml Inhal Susp UD IH SCH (08:04)
[2018-07-28] MEDS: Pantoprazole 40 mg EC Tab PO SCH ×2 (08:18→09:08)
[2018-07-28] MEDS: Levothyroxine 50 MCG TAB PO SCH ×2 (08:19→09:08)
--- NOTE | 2018-07-28 08:20 | CP.PCM.PN ---
Subjective - Date & Time of Evaluation Date of Evaluation: 07/28/18 Time of Evaluation: 07:00 - Subjective Subjective: Stable on 2R. She feels much better today. No CP, SOB, back pain. V/S noted. RSR PE: Lungs: clear Cor.: S1S2, MONO Abd.: soft Ext.: no edema Neuro.: alert Labs noted: INR = 1.91 Objective - Vital Signs/Intake and Output Vital Signs (last 24 hours): Temp Pulse Resp BP Pulse Ox 98.8 F 66 18 123/67 93 L 07/28/18 06:00 07/28/18 06:00 07/28/18 06:00 07/28/18 06:00 07/28/18 06:00 Intake and Output: 07/28/18 07/28/18 06:59 18:59 Intake Total 1200 Output Total 6 Balance 1194 - Medications Medications: Current Medications Acetaminophen (Tylenol 325mg Tab) 650 mg PO Q6H PRN PRN Reason: Fever >100.4 F Last Admin: 07/27/18 18:02 Dose: 650 mg Amlodipine Besylate (Norvasc) 10 mg PO DAILY [facility] Last Admin: 07/27/18 15:23 Dose: 10 mg Amylase (Pancrease 49881 U-5000 U-[id number] U) 5,000 unit PO TID [facility] Last Admin: 07/27/18 18:02 Dose: 5,000 unit Arformoterol Tartrate (Brovana) 15 mcg IH [id number] [facility] Last Admin: 07/27/18 20:01 Dose: 15 mcg Budesonide (Pulmicort Respules) 0.5 mg IH [id number] [facility] Last Admin: 07/27/18 20:01 Dose: 0.5 mg Cyclosporine (Sandimmune) 100 mg PO DAILY [facility] Last Admin: 07/27/18 15:23 Dose: 100 mg Digoxin (Digoxin) 0.125 mg PO DAILY [facility] Last Admin: 07/27/18 15:23 Dose: 0.125 mg Gabapentin (Neurontin) 400 mg PO HS [facility]; Protocol Last Admin: 07/27/18 22:25 Dose: 400 mg Hydrochlorothiazide (Hydrodiuril) 25 mg PO DAILY [facility] Last Admin: 07/27/18 15:23 Dose: 25 mg Levothyroxine Sodium (Synthroid) 50 mcg PO DAILY [facility] Last Admin: 07/27/18 12:03 Dose: 50 mcg Losartan Potassium (Cozaar) 100 mg PO DAILY [facility] Last Admin: 07/27/18 15:23 Dose: 100 mg Pantoprazole Sodium (Protonix Ec Tab) 40 mg PO DAILY [facility] Last Admin: 07/27/18 12:03 Dose: 40 mg - Labs Labs: 07/27/18 07:15 07/27/18 04:25 PT 22.3 SECONDS (9.4-12.5) H 07/28/18 06:00 INR 1.91 07/28/18 06:00 APTT 35.6 Seconds (25.1-36.5) 07/26/18 01:46 EST Assessment and Plan - Assessment and Plan (Free Text) Assessment: Back and Flank Pain/Chest Pain, resolved Insignificant trop elevation Discogenic Disease/Compression Fx./Spinal Stenosis Valvular heart disease with severe , mild functional MS, MR and TR PAF on warfarin SLS CKD Hypothyroidism COPD/Asthma H/O pneumonia Former smoker H/O DVT Pancreatitis S/P Appendectomy GERD Plan: OOB ad ruddy. As per other consultants (ID, Neuro., Renal, GI) and Dr. Boris river. Out-pt cardiology f/u.
[2018-07-28] MEDS: Digoxin 125 mcg (0.125 mg) Tab PO SCH (10:27)
[2018-07-28] MEDS: Amylase/Lipase/Protease 5,000 Units ECC PO SCH (10:27)
[2018-07-28 10:29] VITALS: BP 136/62; PULSE 78
--- NOTE | 2018-07-28 10:48 | CP.PCM.PN ---
<Cheikh Zepeda - Last Filed: 07/28/18 10:47> Subjective - Date & Time of Evaluation Date of Evaluation: 07/28/18 Time of Evaluation: 10:47 - Subjective Subjective: PGY-2 GI progress note for Dr Vergara No acute events noted overnight. Stated she is tolerating her full liquid diet without nausea and wants solid foods now. Last episode of emesis 2 days ago. Objective - Vital Signs/Intake and Output Vital Signs (last 24 hours): Temp Pulse Resp BP Pulse Ox 98.8 F 66 18 136/62 93 L 07/28/18 06:00 07/28/18 06:00 07/28/18 06:00 07/28/18 10:27 07/28/18 06:00 Intake and Output: 07/28/18 07/28/18 06:59 18:59 Intake Total 1200 Output Total 6 Balance 1194 - Medications Medications: Current Medications Acetaminophen (Tylenol 325mg Tab) 650 mg PO Q6H PRN PRN Reason: Fever >100.4 F Last Admin: 07/27/18 18:02 Dose: 650 mg Amlodipine Besylate (Norvasc) 10 mg PO DAILY [facility] Last Admin: 07/28/18 10:27 Dose: 10 mg Amylase (Pancrease [id number] U) 5,000 unit PO TID [facility] Last Admin: 07/28/18 10:27 Dose: 5,000 unit Arformoterol Tartrate (Brovana) 15 mcg IH [id number] [facility] Last Admin: 07/28/18 08:03 Dose: 15 mcg Budesonide (Pulmicort Respules) 0.5 mg IH [id number] [facility] Last Admin: 07/28/18 08:04 Dose: 0.5 mg Cyclosporine (Sandimmune) 100 mg PO DAILY [facility] Last Admin: 07/28/18 10:31 Dose: 100 mg Digoxin (Digoxin) 0.125 mg PO DAILY [facility] Last Admin: 07/28/18 10:27 Dose: 0.125 mg Gabapentin (Neurontin) 400 mg PO [facility]; Protocol Last Admin: 07/27/18 22:25 Dose: 400 mg Hydrochlorothiazide (Hydrodiuril) 25 mg PO DAILY [facility] Last Admin: 07/28/18 10:28 Dose: 25 mg Levothyroxine Sodium (Synthroid) 50 mcg PO DAILY [facility] Last Admin: 07/28/18 09:08 Dose: Not Given Losartan Potassium (Cozaar) 100 mg PO DAILY [facility] Last Admin: 07/28/18 10:27 Dose: 100 mg Pantoprazole Sodium (Protonix Ec Tab) 40 mg PO DAILY [facility] Last Admin: 07/28/18 09:08 Dose: Not Given - Labs Labs: 07/27/18 07:15 07/27/18 04:25 PT 22.3 SECONDS (9.4-12.5) H 07/28/18 06:00 INR 1.91 07/28/18 06:00 APTT 35.6 Seconds (25.1-36.5) 07/26/18 01:46 EST - Additional Findings Additional findings: - Constitutional Appears: Well, No Acute Distress - Head Exam Head Exam: ATRAUMATIC, NORMAL INSPECTION - Eye Exam Eye Exam: EOMI, Normal appearance. absent: Scleral icterus - ENT Exam ENT Exam: Mucous Membranes Moist - Neck Exam Neck Exam: Full ROM, Normal Inspection. absent: Tenderness - Respiratory Exam Respiratory Exam: Clear to Ausculation Bilateral. absent: Rales, Rhonchi, Wheezes - Cardiovascular Exam Cardiovascular Exam: REGULAR RHYTHM, +S1, +S2, Murmur - GI/Abdominal Exam GI & Abdominal Exam: Soft, Normal Bowel Sounds. absent: Tenderness - Neurological Exam Neurological Exam: Alert, Oriented x3 - Skin Skin Exam: Normal Color, Warm Assessment and Plan - Assessment and Plan (Free Text) Plan: Mrs Schuler is a 67 year old female with a PMHx of SLE pancreatitis, SLE nephritis, CAD, paroxysmal AFib, DVT on coumadin, who was admitted with chest pain and epigastric left upper quadrant pain: Left Upper Quadrant Pain Nausea/Vomiting -differential diagnosis includes erosive esophagitis, gastritis, peptic ulcer disease -tolerating full liquid diet, abdominal pain improved, will advance to regular diet today -zofran for nausea (QTc okay) -added protonix 40mg po qd - will need to monitor digoxin levels as PPIs can cause digoxin to be subtherapeutic -Dr Veragra to discuss possible EGD with primary - if EGD necessary, elevated INR will need to be addressed -will wait for input from cardiology Previous GI procedures: -colonoscopy 03/2018 * diverticulosis in entire examined colon, internal hemorrhoids, at 25cm level there was a colocolonic reducible intussusception due to prolapsing mucosal fold wtih large diverticula containting stool, no specimens collected -EGD 04/2018 * gastic polyps (reported as hyperplastic polyps) and non-erosive reflux Seen and discussed with Dr Vergara <Tiny Vergara V - Last Filed: 07/28/18 19:43> Objective - Vital Signs/Intake and Output Vital Signs (last 24 hours): Temp Pulse Resp BP Pulse Ox 98.8 F 73 18 136/62 93 L 07/28/18 06:00 07/28/18 10:00 07/28/18 06:00 07/28/18 10:27 07/28/18 06:00 - Labs Labs: 07/27/18 07:15 07/27/18 04:25 PT 22.3 SECONDS (9.4-12.5) H 07/28/18 06:00 INR 1.91 07/28/18 06:00 APTT 35.6 Seconds (25.1-36.5) 07/26/18 01:46 EST Attending/Attestation - Attestation I have personally seen and examined this patient.: Yes I have fully participated in the care of the patient.: Yes I have reviewed all pertinent clinical information, including history, physical exam and plan: Yes Notes (Text): This is an addendum to GI followup report dictated by the Commercial Door Installer. The patient was seen and evaluated earlier. Medical records, lab studies, imagings were reviewed. Last 24 hours events reviewed. Agreed with the above treatment plan as outlined in Commercial [employer] Installer 's notes with the addition of the following Tolerating diet No complaints of abdominal pain no vomiting On examination abdomen soft Patient planned to be discharged today Advised to followup in office 07/28/18 19:42
[2018-07-28 11:55] VITALS: PULSE 73
== END 2018-07-28 12:02 | disposition home or self-care (01) | DRG 546 ==
LOC: ED 23:43 → ERH 07-26 07:03 → 2RSO 07-26 09:08 → OBSVTOIN 07-26 11:12
PROVIDERS: ADMIT Internal Medicine; ATTEND Internal Medicine
DX: M32.14 Glomerular disease in systemic lupus erythematosus (principal); D68.62 Lupus anticoagulant syndrome; I13.0 Hypertensive heart and chronic kidney disease with heart failure and stage 1 through stage 4 chronic kidney disease, or unspecified chronic kidney disease; I50.32 Chronic diastolic (congestive) heart failure; D64.9 Anemia, unspecified; E03.9 Hypothyroidism, unspecified; E78.5 Hyperlipidemia, unspecified; F41.9 Anxiety disorder, unspecified; G62.9 Polyneuropathy, unspecified; G89.29 Other chronic pain; H54.7 Unspecified visual loss; I08.3 Combined rheumatic disorders of mitral, aortic and tricuspid valves; I25.10 Atherosclerotic heart disease of native coronary artery without angina pectoris; I48.0 Paroxysmal atrial fibrillation; I45.10 Unspecified right bundle-branch block; J44.9 Chronic obstructive pulmonary disease, unspecified; J47.9 Bronchiectasis, uncomplicated; J84.10 Pulmonary fibrosis, unspecified; K21.9 Gastro-esophageal reflux disease without esophagitis; K31.84 Gastroparesis; K57.90 Diverticulosis of intestine, part unspecified, without perforation or abscess without bleeding; M48.00 Spinal stenosis, site unspecified; M54.12 Radiculopathy, cervical region; N18.3 Chronic kidney disease, stage 3 (moderate); Z79.01 Long term (current) use of anticoagulants; Z86.711 Personal history of pulmonary embolism; Z86.718 Personal history of other venous thrombosis and embolism; Z87.01 Personal history of pneumonia (recurrent); Z87.891 Personal history of nicotine dependence; Z90.49 Acquired absence of other specified parts of digestive tract; D72.829 Elevated white blood cell count, unspecified; Z87.19 Personal history of other diseases of the digestive system; Z87.892 Personal history of anaphylaxis; Z88.1 Allergy status to other antibiotic agents; Z91.041 Radiographic dye allergy status; R40.2412 Glasgow coma scale score 13-15, at arrival to emergency department

== ENCOUNTER 2018-11-10 14:05 | Emergency (ER) | payer MEDICARE, MEDICAID ==
[2018-11-10 14:06] VITALS: PULSE 78
[2018-11-10 14:59] VITALS: PULSE 75; RESP 18; TEMP 98.3; BMI 24.9
--- NOTE | 2018-11-10 16:19 | ED PDOC ---
Arrival/HPI - General Chief Complaint: Eye Problem Time Seen by Provider: 11/10/18 15:12 Historian: Patient - History of Present Illness Narrative History of Present Illness (Text): 11/10/18 15:12 Vicky Schuler is a 68 year old female, with a past medical history of a-fib on coumadin and CHF on digoxin, who presents to the Emergency department complaining of blood in the eye since this morning. Patient informs she felt "pinching" in the eye. Patient states she was sent by her PMD for evaluation. Patient denies any pain, vision changes, fevers, chills, headache, dizziness, chest pain, shortness of breath, dyspnea on exertion, cough, abdominal pain, nausea, vomiting, diarrhea, or any other complaint. Time/Duration: 24 hours Symptom Course: Unchanged Activities at Onset: Light Context: Home Past Medical History - Provider Review Nursing Documentation Reviewed: Yes - Infectious Disease Hx of Infectious Diseases: None - Tetanus Immunization Tetanus Immunization: Unknown - Cardiac Hx Cardiac Disorders: Yes Hx Hypertension: Yes - Pulmonary Hx Respiratory Disorders: Yes Hx Asthma: Yes Hx Bronchitis: Yes Hx Chronic Obstructive Pulmonary Disease (COPD): Yes - Neurological Hx Neurological Disorder: No - HEENT Hx HEENT Disorder: Yes (WEARS RX GLASSES) Other/Comment: decreased vision in left eye - Renal Hx Renal Disorder: Yes Hx Renal Failure: Yes - Endocrine/Metabolic Hx Endocrine Disorders: Yes Hx Hypothyroidism: Yes - Hematological/Oncological Hx Blood Disorders: No - Integumentary Hx Dermatological Disorder: Yes - Musculoskeletal/Rheumatological Hx Musculoskeletal Disorders: Yes Hx Arthritis: Yes Hx Falls: Yes Hx Myasthenia Gravis: Yes Hx Osteoarthritis: Yes Hx Osteomyelitis: Yes - Gastrointestinal Hx Gastrointestinal Disorders: Yes (cholecystectomy) - Genitourinary/Gynecological Hx Genitourinary Disorders: Yes - Psychiatric Hx Psychophysiologic Disorder: Yes Hx Anxiety: Yes Hx Substance Use: No - Surgical History Hx Mastectomy: No - Anesthesia Hx Anesthesia: Yes Hx Anesthesia Reactions: No Hx Malignant Hyperthermia: No - Suicidal Assessment Feels Threatened In Home Enviroment: No Family/Social History - Physician Review Nursing Documentation Reviewed: Yes Family/Social History: No Known Family HX Smoking Status: n/a Hx Alcohol Use: No Hx Substance Use: No Hx Substance Use Treatment: No Allergies/Home Meds Allergies/Adverse Reactions: Allergies ciprofloxacin [From Cipro] Allergy (Verified 11/10/18 14:59) ANAPHYLAXIS ciprofloxacin HCl [From Cipro] Allergy (Verified 11/10/18 14:59) ANAPHYLAXIS IV Contrast Allergy (Uncoded 11/10/18 14:59) ANAPHYLAXIS Home Medications: Home Meds Medication Instructions Recorded Confirmed RX: Levothyroxine [Synthroid] 50 mcg PO DAILY 11/08/15 11/10/18 RX: Lipase/Protease/Amylase [Creon 1 tab PO TID 11/08/15 11/10/18 Dr 12,000 Units Capsule] RX: Magnesium Oxide 500 mg PO DAILY 11/08/15 11/10/18 RX: Omeprazole [Prilosec] 40 mg PO DAILY 11/08/15 11/10/18 RX: Potassium Chloride [Klor-Con 10 tab-cap PO TID 04/29/16 11/10/18 10] RX: Prednisone [Laura] 5 mg PO DAILY 04/29/16 11/10/18 RX: Warfarin [Coumadin] 2.5 mg PO DAILY 04/29/16 11/10/18 RX: amLODIPine [Norvasc] 10 mg PO DAILY 04/29/16 11/10/18 RX: Digoxin [Digitek] 125 mcg PO DAILY 06/09/17 11/10/18 RX: tiZANidine [Zanaflex] 2 mg PO HS 06/09/17 11/10/18 RX: Ezetimibe [Zetia] 10 mg PO DAILY 04/12/18 11/10/18 RX: Olmesartan/Hydrochlorothiazide 1 each PO DAILY 04/12/18 11/10/18 [Olmesartan-Hctz 40-25 mg Tab] Review of Systems - Physician Review All systems were reviewed & negative as marked: Yes - Review of Systems Constitutional: absent: Fevers, Night Sweats Eyes: Other (blood in the eye). absent: Vision Changes, Eye Pain Respiratory: absent: SOB, Cough Cardiovascular: absent: Chest Pain, SUAREZ Gastrointestinal: absent: Abdominal Pain, Diarrhea, Nausea, Vomiting Musculoskeletal: absent: Back Pain, Neck Pain Neurological: absent: Headache, Dizziness Physical Exam Vital Signs Temp Pulse Resp BP Pulse Ox 11/10/18 14:59 98.3 F 75 18 162/77 H 97 Temperature: Afebrile Blood Pressure: Hypertensive Pulse: Regular Respiratory Rate: Normal Appearance: Positive for: Well-Appearing, Non-Toxic, Comfortable Pain Distress: None Mental Status: Positive for: Alert and Oriented X 3 - Systems Exam Head: Present: Atraumatic, Normocephalic Pupils: Present: PERRL Extroacular Muscles: Present: EOMI Conjunctiva: Present: Normal Mouth: Present: Moist Mucous Membranes Neck: Present: Normal Range of Motion Respiratory/Chest: Present: Clear to Auscultation, Good Air Exchange. No: Respiratory Distress, Accessory Muscle Use Cardiovascular: Present: Regular Rate and Rhythm, Murmurs (systolic ejection murmur), Normal S1, S2 Abdomen: No: Tenderness, Distention, Peritoneal Signs Back: Present: Normal Inspection Upper Extremity: Present: Normal Inspection. No: Cyanosis, Edema Lower Extremity: Present: Normal Inspection. No: Edema Neurological: Present: GCS=15, Speech Normal Skin: Present: Warm, Dry, Normal Color. No: Rashes Psychiatric: Present: Alert, Oriented x 3, Normal Insight, Normal Concentration Medical Decision Making ED Course and Treatment: 11/10/18 15:12 Impression: Patient is a 68 year old female who presents to the emergency department with blood in the eye since this morning. Differential Diagnosis included but are not limited to: Plan: -- Labs -- Visual Acuity -- Reassess and disposition Prior Visits: Notes and results from previous visits were reviewed. Progress Notes: 11/10/18 14:[address] Escalante, agrees with outpatient follow-up tomorrow. 11/10/18 21:03 exam consistent wtih subconjuctival hemorrha.ge inr therapeutic no eo of active bleeding ok to remain on warfarin. visual acuity at baseline no pain. stable for dc - Scribe Statement The provider has reviewed the documentation as recorded by the Scribcheri Rowe All medical record entries made by the Scribe were at my direction and personally dictated by me. I have reviewed the chart and agree that the record accurately reflects my personal performance of the history, physical exam, medical decision making, and the department course for this patient. I have also personally directed, reviewed, and agree with the discharge instructions and disposition. Disposition/Present on Arrival - Present on Arrival Any Indicators Present on Arrival: No History of DVT/PE: No History of Uncontrolled Diabetes: No Urinary Catheter: No History of Decub. Ulcer: No History Surgical Site Infection Following: Orthopedic Procedures - Disposition Have Diagnosis and Disposition been Completed?: Yes Diagnosis: Subconjunctival hemorrhage Disposition: HOME/ ROUTINE Disposition Time: 17:00 Condition: STABLE Discharge Instructions (ExitCare): Subconjunctival Hemorrhage Additional Instructions: return to any er with worsening. see specialist Referrals: Cathy Escalante MD [Primary Care Provider] - Follow up with primary Avi Shipman [Staff Provider] - Follow up with primary Forms: [employer] ([employer])
[2018-11-10 16:32] LABS: BASO # 0.03 K/mm3 (0.0-2.0); BASO % 0.3 % (0.0-3.0); EOS # 0.2 (0.0-0.7); EOS % 2.3 % (1.5-5.0); HEMOGLOBIN 13.2 g/dL (12.0-16.0); LYMPH # 2.3 (1.2-3.4); LYMPH % 26.1 % (22.0-35.0); MEAN CELL VOLUME 94.2 fl (80.0-105.0); MEAN CORPUSCULAR HEMOGLOBIN 30.6 pg (25.0-35.0); MEAN CORPUSCULAR HGB CONC 32.4 g/dl (31.0-37.0); MEAN PLATELET VOLUME 9.7 fl (7.0-11.0); MONO # 1.1 (0.1-0.6); MONO % 13.2 % (1.0-6.0); RBC 4.32 10^6/uL (3.5-6.1); WHITE BLOOD COUNT 8.6 10^3/uL (4.5-11.0)
[2018-11-10 16:41] LABS: INR 1.88; PARTIAL THROMBOPLASTIN TIME 40.2 Seconds (26.9-38.3); PROTHROMBIN TIME 20.9 SECONDS (9.4-12.5)
[2018-11-10 16:51] LABS: ALB/GLOB RATIO 0.8 (1.1-1.8); ALBUMIN 4.2 g/dL (3.0-4.8); CALCIUM 9.6 mg/dL (8.4-10.5)
[2018-11-10 17:47] VITALS: BP 130/74; O2SAT 98
== END 2018-11-10 17:46 | disposition home or self-care (01) ==
LOC: ED 14:05
DX: H11.32 Conjunctival hemorrhage, left eye (principal)

== ENCOUNTER 2018-12-01 12:39 | Outpatient (CLI) | payer MEDICARE, MEDICAID | END 2018-12-01 12:40 | disposition home or self-care (01) | LOC: RAD 12:39 ==

== ENCOUNTER 2018-12-31 23:27 | Emergency (ER) | payer MEDICARE, MEDICAID ==
[2018-12-31 23:28] VITALS: PULSE 78; BMI 24.9
[2018-12-31 23:51] VITALS: RESP 18
[2018-12-31] MEDS ORDERED: Oxymetazoline 0.05% Nasal Spray (30 ml) NS STA (23:57)
--- NOTE | 2019-01-01 00:28 | ED PDOC ---
Arrival/HPI - General Chief Complaint: ENT Problem Time Seen by Provider: 12/31/18 23:37 Historian: Patient - History of Present Illness Narrative History of Present Illness (Text): 01/01/19 00:15 68 year old female, on Coumadin, presents having intermittent nose bleeds coming from both the right and left nostril that began at 5PM today. She states she has been pinching her nose, tilting head, and applying pressure to stop the bleeding. She even called the 24 hour nursing service who advised her to put Vaseline, pinch nose, and apply pressure. Patient also tried to apply ice, but could not get it to stop. Patient talked to PMD Dr. Cathy Escalante who advised patient to come to the Emergency room. She states she had her Coumadin levels checked yesterday and was told it was normal. Patient states she does not want to be here, but states she can't get the bleeding to stop. Patient denies any weakness, chest pain, shortness of break, or any other complaints. PMD: Dr. Cathy Escalante. Time/Duration: Other (5PM today) Symptom Onset: Gradual Symptom Course: Unchanged Activities at Onset: Light Context: Home Past Medical History - Provider Review Nursing Documentation Reviewed: Yes - Infectious Disease Hx of Infectious Diseases: None - Tetanus Immunization Tetanus Immunization: Unknown - Cardiac Hx Cardiac Disorders: Yes Hx Hypertension: Yes - Pulmonary Hx Respiratory Disorders: Yes Hx Asthma: Yes Hx Bronchitis: Yes Hx Chronic Obstructive Pulmonary Disease (COPD): Yes - Neurological Hx Neurological Disorder: No - HEENT Hx HEENT Disorder: Yes (WEARS RX GLASSES) Other/Comment: decreased vision in left eye - Renal Hx Renal Disorder: Yes Hx Renal Failure: Yes - Endocrine/Metabolic Hx Endocrine Disorders: Yes Hx Hypothyroidism: Yes Hx Systemic Lupus Erythematosus: Yes - Hematological/Oncological Hx Blood Disorders: No - Integumentary Hx Dermatological Disorder: Yes - Musculoskeletal/Rheumatological Hx Musculoskeletal Disorders: Yes Hx Arthritis: Yes Hx Falls: Yes Hx Myasthenia Gravis: Yes Hx Osteoarthritis: Yes Hx Osteomyelitis: Yes - Gastrointestinal Hx Gastrointestinal Disorders: Yes (cholecystectomy) - Genitourinary/Gynecological Hx Genitourinary Disorders: Yes - Psychiatric Hx Psychophysiologic Disorder: Yes Hx Anxiety: Yes Hx Substance Use: No - Surgical History Hx Cholecystectomy: Yes Hx Mastectomy: No - Anesthesia Hx Anesthesia: Yes Hx Anesthesia Reactions: No Hx Malignant Hyperthermia: No - Suicidal Assessment Feels Threatened In Home Enviroment: No Family/Social History - Physician Review Nursing Documentation Reviewed: Yes Family/Social History: No Known Family HX Smoking Status: Never Smoked Hx Alcohol Use: No Hx Substance Use: No Hx Substance Use Treatment: No Allergies/Home Meds Allergies/Adverse Reactions: Allergies ciprofloxacin [From Cipro] Allergy (Verified 11/10/18 14:59) ANAPHYLAXIS ciprofloxacin HCl [From Cipro] Allergy (Verified 11/10/18 14:59) ANAPHYLAXIS IV Contrast Allergy (Uncoded 11/10/18 14:59) ANAPHYLAXIS Home Medications: Home Meds Medication Instructions Recorded Confirmed Levothyroxine [Synthroid] 50 mcg PO DAILY 11/08/15 11/10/18 Lipase/Protease/Amylase [Creon Dr 1 tab PO TID 11/08/15 11/10/18 12,000 Units Capsule] Magnesium Oxide 500 mg PO DAILY 11/08/15 11/10/18 Omeprazole [Prilosec] 40 mg PO DAILY 11/08/15 11/10/18 Potassium Chloride [Klor-Con 10] 10 tab-cap PO TID 04/29/16 11/10/18 Prednisone [Laura] 5 mg PO DAILY 04/29/16 11/10/18 Warfarin [Coumadin] 2.5 mg PO DAILY 04/29/16 11/10/18 amLODIPine [Norvasc] 10 mg PO DAILY 04/29/16 11/10/18 Digoxin [Digitek] 125 mcg PO DAILY 06/09/17 11/10/18 tiZANidine [Zanaflex] 2 mg PO HS 06/09/17 11/10/18 Ezetimibe [Zetia] 10 mg PO DAILY 04/12/18 11/10/18 Olmesartan/Hydrochlorothiazide 1 each PO DAILY 04/12/18 11/10/18 [Olmesartan-Hctz 40-25 mg Tab] Review of Systems - Physician Review All systems were reviewed & negative as marked: Yes - Review of Systems ENT: Epistaxis. absent: Sinus Congestion Respiratory: absent: SOB, Cough Cardiovascular: absent: Chest Pain, Palpitations Gastrointestinal: absent: Abdominal Pain, Nausea, Vomiting Musculoskeletal: absent: Arthralgias, Back Pain Skin: absent: Rash, Pruritis Neurological: absent: Focal Weakness Psychiatric: absent: Anxiety, Depression Physical Exam Vital Signs Reviewed: Yes Vital Signs Temp Pulse Resp BP Pulse Ox 12/31/18 23:47 98.0 F 76 18 154/77 H 100 Temperature: Afebrile Blood Pressure: Hypertensive Pulse: Regular Respiratory Rate: Normal Appearance: Positive for: Well-Appearing, Non-Toxic, Comfortable Pain Distress: None Mental Status: Positive for: Alert and Oriented X 3 - Systems Exam Head: Present: Atraumatic Mouth: Present: Moist Mucous Membranes, Normal Lips, Normal Tounge. No: Drooling, Trismus Pharnyx: Present: Normal, Other (blood to the posterior pharnyx ). No: ERYTHEMA, EXUDATE, TONSILS ENLARGED, Peritonsilar Swelling, Uvular Deviation, Muffled/Hoarse Voice Nose (External): Present: Atraumatic Nose (Internal): Present: Other (+ blood clot noted in left nostril; slight oozing present. no active bleeding from right nostril. + dried blood; ). No: Engorged, Edematous, Boggy, Clear Mucous, Septal Hematoma Neck: Present: Normal Range of Motion Respiratory/Chest: Present: Clear to Auscultation, Good Air Exchange. No: Respiratory Distress, Accessory Muscle Use Cardiovascular: Present: Regular Rate and Rhythm, Murmurs, Normal S1, S2 Neurological: Present: GCS=15, Speech Normal Skin: Present: Warm, Dry, Normal Color. No: Rashes Psychiatric: Present: Alert, Oriented x 3 Medical Decision Making ED Course and Treatment: 12/31/18 23:50 68yr old female on coumadin with nose bleed since 5pm. minimal amount of bleeding present. Plan: -- Labs -- Afrin 0.05% -- Reassess and disposition Progress Notes: 01/01/19 00:34 patient blew nose; small blood clot removed; internal inspection - unable to visualize bleeding site. no active bleeding at present time; afrin sprayed in nose. pt holding pressure. labs pending 01/01/19 00:59 cbc; hcg; 10.4 cmp; wnl inr; 2.71 pt reassessment; still with small amount of bleeding noted. 5.5cm rhino rocket placed; bleeding controlled. pt given augmentin and tylenol po 01/01/19 01:45 pt reassessment; pt non toxic. no active bleeding; I have advised the patient that she must follow-up with the ENT specialist in 2 days to remove the packing. If she is unable to follow-up with the ENT sp ecialist she was advised to return to the emergency room to have the packing removed. Patient was advised to take the antibiotics as prescribed and Tylenol as needed for pain. Patient was advised to me to return if symptoms worsen persist or if new concerning symptoms develop. pt states she has appointment with ENT on the . i stressed the importance of getting into the doctor within the next 2 days. advised her that packing must be removed in 2 days due to risk of infection. Patient verbalizes understanding of discharge instructions and need for immediate followup. All aspects of this case were discussed the attending of record. Impression: Epistaxis Keflex; 4 times daily x 7 days tylenol every 4 hours as needed for pain. follow up with the ENT specialist within the next 2 days. If you are unable to see the specialist in 2 days then return to the ER for packing removal. Follow up with the primary care physician within the next 2 days. return immediately if symptoms worsen,persist or if new symptoms develop. - Lab Interpretations I have reviewed the lab results: Yes - Medication Orders Current Medication Orders: Discontinued Medications Oxymetazoline HCl (Afrin 0.05%) 1 ml NS STAT STA Stop: 12/31/18 23:58 - Scribe Statement The provider has reviewed the documentation as recorded by the Sonny Parra Provider Scribe Attestation: All medical record entries made by the Scribe were at my direction and personally dictated by me. I have reviewed the chart and agree that the record accurately reflects my personal performance of the history, physical exam, medical decision making, and the department course for this patient. I have also personally directed, reviewed, and agree with the discharge instructions and disposition. Disposition/Present on Arrival - Present on Arrival Any Indicators Present on Arrival: No History of DVT/PE: No History of Uncontrolled Diabetes: No Urinary Catheter: No History of Decub. Ulcer: No History Surgical Site Infection Following: Orthopedic Procedures - Disposition Have Diagnosis and Disposition been Completed?: Yes Diagnosis: Epistaxis Disposition: HOME/ ROUTINE Disposition Time: 00:37 Condition: GOOD Discharge Instructions (ExitCare): Nosebleeds (DC) Additional Instructions: Keflex; 4 times daily x 7 days tylenol every 4 hours as needed for pain. follow up with the ENT specialist within the next 2 days. If you are unable to see the specialist in 2 days then return to the ER for packing removal. Follow up with the primary care physician within the next 2 days. return immediately if symptoms worsen,persist or if new symptoms develop. Prescriptions: Cephalexin [Keflex] 500 mg PO QID #28 capsule Referrals: Mj Christopher DO [Staff Provider] - Follow up with primary Cathy Escalante MD [Staff Provider] - Follow up with primary Forms: [employer] (Faroese)
[2019-01-01 00:45] LABS: BASO # 0.02 K/mm3 (0.0-2.0); BASO % 0.3 % (0.0-3.0); EOS % 0.4 % (1.5-5.0); LYMPH # 1.4 (1.2-3.4); LYMPH % 20.8 % (22.0-35.0); MEAN CELL VOLUME 93.8 fl (80.0-105.0); MEAN CORPUSCULAR HEMOGLOBIN 29.4 pg (25.0-35.0); MEAN CORPUSCULAR HGB CONC 31.3 g/dl (31.0-37.0); MEAN PLATELET VOLUME 9.3 fl (7.0-11.0); MONO # 0.6 (0.1-0.6); MONO % 8.9 % (1.0-6.0); RBC 3.54 10^6/uL (3.5-6.1); RED CELL DISTRIBUTION WIDTH 14.2 % (11.5-14.5); WHITE BLOOD COUNT 6.8 10^3/uL (4.5-11.0)
[2019-01-01 00:47] LABS: HEMOGLOBIN 10.4 g/dL (12.0-16.0); INR 2.71; PARTIAL THROMBOPLASTIN TIME 42.3 Seconds (26.9-38.3); PROTHROMBIN TIME 30.1 SECONDS (9.4-12.5)
[2019-01-01 00:58] LABS: ALB/GLOB RATIO 0.7 (1.1-1.8); ALBUMIN 3.1 g/dL (3.0-4.8); ALT/SGPT 15 U/L (7-56); AST/SGOT 23 U/L (14-36); BLOOD UREA NITROGEN 30 mg/dL (7-21); CALCIUM 9.1 mg/dL (8.4-10.5); GFR NON-AFRICAN AMERICAN 55
[2019-01-01] MEDS ORDERED: Amoxicillin-Clav 875-125 mg Tab PO STA (01:26)
[2019-01-01 01:48] VITALS: BP 169/78; PULSE 77; O2SAT 98
[2019-01-01 02:00] VITALS: TEMP 98.2
== END 2019-01-01 01:59 | disposition home or self-care (01) ==
LOC: ED 23:27
DX: R04.0 Epistaxis (principal); I10 Essential (primary) hypertension

== ENCOUNTER 2019-01-03 10:24 | Emergency (ER) | payer MEDICARE, MEDICAID ==
[2019-01-03 10:24] VITALS: PULSE 78; BMI 24.9
--- NOTE | 2019-01-03 11:42 | ED PDOC ---
Arrival/HPI - General Historian: Patient - History of Present Illness Narrative History of Present Illness (Text): 01/03/19 11:36 Vicky Schuler is a 68 year old female, with a past medical history of a-fib on coumadin and CHF on digoxin, COPD, hypertension, aortic stenosis, compression fracture, degenerative arthritis, lupus, CKD, and DJD, who presents to the Emergency department for a re-evaluation of nosebleed and removal of nasal packaging in left nare that was placed on 01/01/19. Patient states she has not been able to see doctor because it's the weekend. There is no recurring nasal bleeding. Patient denies any fever, chills, chest pain, shortness of breath, nausea, vomiting, diarrhea, urinary symptoms, back pain, neck pain, headache, dizziness, or any other complaints. Time/Duration: 24 hours Activities at Onset: Light Context: Home <Daron Hedrick - Last Filed: 01/03/19 11:55> <Dipti Whitfield PA-C - Last Filed: 01/03/19 12:13> - General Chief Complaint: ENT Problem Time Seen by Provider: 01/03/19 10:26 Past Medical History - Provider Review Nursing Documentation Reviewed: Yes - Infectious Disease Hx of Infectious Diseases: None - Tetanus Immunization Tetanus Immunization: Unknown - Cardiac Hx Cardiac Disorders: Yes Hx Hypertension: Yes - Pulmonary Hx Respiratory Disorders: Yes Hx Asthma: Yes Hx Bronchitis: Yes Hx Chronic Obstructive Pulmonary Disease (COPD): Yes - Neurological Hx Neurological Disorder: No - HEENT Hx HEENT Disorder: Yes Hx Epistaxis: Yes Other/Comment: decreased vision in left eye - Renal Hx Renal Disorder: Yes Hx Renal Failure: Yes - Endocrine/Metabolic Hx Endocrine Disorders: Yes Hx Hypothyroidism: Yes Hx Systemic Lupus Erythematosus: Yes - Hematological/Oncological Hx Blood Disorders: No - Integumentary Hx Dermatological Disorder: Yes - Musculoskeletal/Rheumatological Hx Musculoskeletal Disorders: Yes Hx Arthritis: Yes Hx Falls: Yes Hx Myasthenia Gravis: Yes Hx Osteoarthritis: Yes Hx Osteomyelitis: Yes - Gastrointestinal Hx Gastrointestinal Disorders: Yes Hx Gall Bladder Disease: Yes - Genitourinary/Gynecological Hx Genitourinary Disorders: Yes - Psychiatric Hx Psychophysiologic Disorder: Yes Hx Anxiety: Yes Hx Substance Use: No - Surgical History Hx Cholecystectomy: Yes - Anesthesia Hx Anesthesia: Yes Hx Anesthesia Reactions: No Hx Malignant Hyperthermia: No - Suicidal Assessment Feels Threatened In Home Enviroment: No <Bosompem,Daron - Last Filed: 01/03/19 11:55> Family/Social History - Physician Review Nursing Documentation Reviewed: Yes Family/Social History: Unknown Family HX Smoking Status: Never Smoked Hx Alcohol Use: No Hx Substance Use: No Hx Substance Use Treatment: No <Bosompem,Daron - Last Filed: 01/03/19 11:55> Allergies/Home Meds <Bosompem,Daron - Last Filed: 01/03/19 11:55> <Dipti Whitfield PA-C - Last Filed: 01/03/19 12:13> Allergies/Adverse Reactions: Allergies ciprofloxacin [From Cipro] Allergy (Verified 11/10/18 14:59) ANAPHYLAXIS ciprofloxacin HCl [From Cipro] Allergy (Verified 11/10/18 14:59) ANAPHYLAXIS IV Contrast Allergy (Uncoded 11/10/18 14:59) ANAPHYLAXIS Home Medications: Home Meds Medication Instructions Recorded Confirmed Levothyroxine [Synthroid] 50 mcg PO DAILY 11/08/15 11/10/18 Lipase/Protease/Amylase [Creon Dr 1 tab PO TID 11/08/15 11/10/18 12,000 Units Capsule] Magnesium Oxide 500 mg PO DAILY 11/08/15 11/10/18 Omeprazole [Prilosec] 40 mg PO DAILY 11/08/15 11/10/18 Potassium Chloride [Klor-Con 10] 10 tab-cap PO TID 04/29/16 11/10/18 Prednisone [Laura] 5 mg PO DAILY 04/29/16 11/10/18 Warfarin [Coumadin] 2.5 mg PO DAILY 04/29/16 11/10/18 amLODIPine [Norvasc] 10 mg PO DAILY 04/29/16 11/10/18 Digoxin [Digitek] 125 mcg PO DAILY 06/09/17 11/10/18 tiZANidine [Zanaflex] 2 mg PO HS 06/09/17 11/10/18 Ezetimibe [Zetia] 10 mg PO DAILY 04/12/18 11/10/18 Olmesartan/Hydrochlorothiazide 1 each PO DAILY 04/12/18 11/10/18 [Olmesartan-Hctz 40-25 mg Tab] Review of Systems - Review of Systems Constitutional: absent: Fatigue, Fevers ENT: Other (Removal of nasal packing placed on 01/01/19. ). absent: Hearing Changes, Epistaxis Respiratory: absent: SOB, Cough Cardiovascular: absent: Chest Pain, Edema Gastrointestinal: absent: Abdominal Pain Musculoskeletal: absent: Neck Pain Skin: absent: Rash, Laceration, Abscess Neurological: absent: Headache, Dizziness, Facial Droop Psychiatric: absent: Anxiety, Depression <Daron Hedrick - Last Filed: 01/03/19 11:55> Physical Exam Vital Signs Reviewed: Yes Vital Signs Temp Pulse Resp BP Pulse Ox 01/03/19 10:32 98.2 F 84 16 150/72 95 Temperature: Afebrile Blood Pressure: Normal Pulse: Regular Respiratory Rate: Normal Appearance: Positive for: Well-Appearing, Non-Toxic, Comfortable Pain Distress: None Mental Status: Positive for: Alert and Oriented X 3 - Systems Exam Head: Present: Atraumatic, Normocephalic Pupils: Present: PERRL Extroacular Muscles: Present: EOMI Conjunctiva: Present: Normal Mouth: Present: Moist Mucous Membranes, Dry Nose (External): No: Laceration Nose (Internal): No: No Active Bleeding, Rhinorrhea Neck: Present: Normal Range of Motion. No: Meningeal Signs Respiratory/Chest: Present: Clear to Auscultation, Good Air Exchange. No: Respiratory Distress, Accessory Muscle Use, Wheezes, Decreased Breath Sounds Cardiovascular: Present: Regular Rate and Rhythm, Normal S1, S2. No: Murmurs Abdomen: No: Tenderness, Distention, Peritoneal Signs Back: Present: Normal Inspection. No: Midline Tenderness Upper Extremity: Present: Normal Inspection. No: Cyanosis, Edema Lower Extremity: Present: Normal Inspection. No: Edema Neurological: Present: GCS=15, Speech Normal Skin: Present: Warm, Dry, Normal Color. No: Rashes Psychiatric: Present: Alert, Oriented x 3, Normal Insight, Normal Concentration <Daron Hedrick - Last Filed: 01/03/19 11:55> Vital Signs Temp Pulse Resp BP Pulse Ox 01/03/19 10:32 98.2 F 84 16 150/72 95 <Dipti Whitfield PA-C - Last Filed: 01/03/19 12:13> Medical Decision Making ED Course and Treatment: 01/03/19 11:47 Impression: 68 year old female who present to the emergency department for removal of nasal packing. Differential Diagnosis included but are not limited to: Plan: -- Reassess and disposition Prior Visits: Notes and results from previous visits were reviewed. Progress Notes: <Daron Hedrick - Last Filed: 01/03/19 11:55> - Scribe Statement The provider has reviewed the documentation as recorded by the Scribe All medical record entries made by the Scribe were at my direction and personally dictated by me. I have reviewed the chart and agree that the record accurately reflects my personal performance of the history, physical exam, medical decision making, and the department course for this patient. I have also personally directed, reviewed, and agree with the discharge instructions and disposition. <Daron Hedrick - Last Filed: 01/03/19 11:55> Disposition/Present on Arrival - Present on Arrival History of DVT/PE: No History of Uncontrolled Diabetes: No Urinary Catheter: No History of Decub. Ulcer: No History Surgical Site Infection Following: Orthopedic Procedures <Daron Hedrick - Last Filed: 01/03/19 11:55> <Dipti Whitfield PA-C - Last Filed: 01/03/19 12:13> - Disposition Diagnosis: Encounter for removal of nasal packing Disposition: HOME/ ROUTINE Patient Problems: Current Active Problems Problem Status Onset Encounter for removal of nasal packing Acute Condition: STABLE Discharge Instructions (ExitCare): Nosebleeds (DC) Additional Instructions: Thank you for letting us take care of you today. You were treated for removal of nasal packing. The emergency medical care you received today was directed at your acute symptoms. It may take several days for your symptoms to resolve. Return to the Emergency Department if your symptoms worsen, do not improve, or if you have any other problems. Please contact your doctor and ENT doctor in 2 days for re-evaluation and follow up. Bring any paperwork you were given at discharge with you along with any medications you are taking to your follow up visit. Our treatment cannot replace ongoing medical care by a primary care provider (PCP) outside of the emergency department. Thank you for allowing the [facility] team to be part of your care today. Referrals: Cathy Escalante MD [Primary Care Provider] - Follow up with primary Forms: [employer] (Ugandan)
--- NOTE | 2019-01-03 12:22 | ED PDOC ---
Arrival/HPI - General Chief Complaint: ENT Problem Time Seen by Provider: 01/03/19 10:26 Historian: Patient - History of Present Illness Narrative History of Present Illness (Text): 01/03/19 11:36 Vicky Schuler is a 68 year old female, with a past medical history of a-fib on coumadin and CHF on digoxin, COPD, hypertension, aortic stenosis, compression fracture, degenerative arthritis, lupus, CKD, and DJD, who presents to the Em ergency department for a re-evaluation of nosebleed and removal of nasal packaging in left nare that was placed on 01/01/19. Patient states she has not been able to see doctor because it's the weekend. There is no recurring nasal bleeding. Patient denies any fever, chills, chest pain, shortness of breath, nausea, vomiting, diarrhea, urinary symptoms, back pain, neck pain, headache, dizziness, or any other complaints. PMD Escalante Time/Duration: 24 hours Symptom Course: Improving Activities at Onset: Light Context: Home Past Medical History - Provider Review Nursing Documentation Reviewed: Yes - Infectious Disease Hx of Infectious Diseases: None - Tetanus Immunization Tetanus Immunization: Unknown - Cardiac Hx Cardiac Disorders: Yes Hx Hypertension: Yes - Pulmonary Hx Respiratory Disorders: Yes Hx Asthma: Yes Hx Bronchitis: Yes Hx Chronic Obstructive Pulmonary Disease (COPD): Yes - Neurological Hx Neurological Disorder: No - HEENT Hx HEENT Disorder: Yes Hx Epistaxis: Yes Other/Comment: decreased vision in left eye - Renal Hx Renal Disorder: Yes Hx Renal Failure: Yes - Endocrine/Metabolic Hx Endocrine Disorders: Yes Hx Hypothyroidism: Yes Hx Systemic Lupus Erythematosus: Yes - Hematological/Oncological Hx Blood Disorders: No - Integumentary Hx Dermatological Disorder: Yes - Musculoskeletal/Rheumatological Hx Musculoskeletal Disorders: Yes Hx Arthritis: Yes Hx Falls: Yes Hx Myasthenia Gravis: Yes Hx Osteoarthritis: Yes Hx Osteomyelitis: Yes - Gastrointestinal Hx Gastrointestinal Disorders: Yes Hx Gall Bladder Disease: Yes - Genitourinary/Gynecological Hx Genitourinary Disorders: Yes - Psychiatric Hx Psychophysiologic Disorder: Yes Hx Anxiety: Yes Hx Substance Use: No - Surgical History Hx Cholecystectomy: Yes - Anesthesia Hx Anesthesia: Yes Hx Anesthesia Reactions: No Hx Malignant Hyperthermia: No - Suicidal Assessment Feels Threatened In Home Enviroment: No Family/Social History - Physician Review Nursing Documentation Reviewed: Yes Family/Social History: Unknown Family HX Smoking Status: Never Smoked Hx Alcohol Use: No Hx Substance Use: No Hx Substance Use Treatment: No Allergies/Home Meds Allergies/Adverse Reactions: Allergies ciprofloxacin [From Cipro] Allergy (Verified 11/10/18 14:59) ANAPHYLAXIS ciprofloxacin HCl [From Cipro] Allergy (Verified 11/10/18 14:59) ANAPHYLAXIS IV Contrast Allergy (Uncoded 11/10/18 14:59) ANAPHYLAXIS Home Medications: Home Meds Medication Instructions Recorded Confirmed Levothyroxine [Synthroid] 50 mcg PO DAILY 11/08/15 11/10/18 Lipase/Protease/Amylase [Creon Dr 1 tab PO TID 11/08/15 11/10/18 12,000 Units Capsule] Magnesium Oxide 500 mg PO DAILY 11/08/15 11/10/18 Omeprazole [Prilosec] 40 mg PO DAILY 11/08/15 11/10/18 Potassium Chloride [Klor-Con 10] 10 tab-cap PO TID 04/29/16 11/10/18 Prednisone [Laura] 5 mg PO DAILY 04/29/16 11/10/18 Warfarin [Coumadin] 2.5 mg PO DAILY 04/29/16 11/10/18 amLODIPine [Norvasc] 10 mg PO DAILY 04/29/16 11/10/18 Digoxin [Digitek] 125 mcg PO DAILY 06/09/17 11/10/18 tiZANidine [Zanaflex] 2 mg PO HS 06/09/17 11/10/18 Ezetimibe [Zetia] 10 mg PO DAILY 04/12/18 11/10/18 Olmesartan/Hydrochlorothiazide 1 each PO DAILY 04/12/18 11/10/18 [Olmesartan-Hctz 40-25 mg Tab] Review of Systems - Physician Review All systems were reviewed & negative as marked: Yes - Review of Systems Constitutional: absent: Fatigue, Fevers ENT: Other (Removal of nasal packing placed on 01/01/19.). absent: Hearing Changes, Epistaxis Respiratory: absent: SOB, Cough, Wheezing Cardiovascular: absent: Chest Pain, Edema Gastrointestinal: absent: Abdominal Pain Musculoskeletal: absent: Neck Pain Skin: absent: Rash, Laceration Neurological: absent: Dizziness, Facial Droop Psychiatric: absent: Anxiety Physical Exam Vital Signs Reviewed: Yes Vital Signs Temp Pulse Resp BP Pulse Ox 01/03/19 10:32 98.2 F 84 16 150/72 95 Temperature: Afebrile Blood Pressure: Normal Pulse: Regular Respiratory Rate: Normal Appearance: Positive for: Well-Appearing, Non-Toxic, Comfortable Pain Distress: None Mental Status: Positive for: Alert and Oriented X 3 - Systems Exam Head: Present: Atraumatic, Normocephalic Pupils: Present: PERRL. No: Sluggish Extroacular Muscles: Present: EOMI Conjunctiva: Present: Normal Mouth: Present: Moist Mucous Membranes, Dry Nose (External): No: Laceration Nose (Internal): Present: No Active Bleeding, Other (+L nasal packing noted). No: Edematous, Rhinorrhea, Purulent Mucous, Septal Hematoma, Epistaxis Neck: Present: Normal Range of Motion. No: Meningeal Signs Respiratory/Chest: Present: Clear to Auscultation, Good Air Exchange. No: Respiratory Distress, Accessory Muscle Use, Wheezes, Decreased Breath Sounds Cardiovascular: Present: Regular Rate and Rhythm, Normal S1, S2. No: Murmurs Back: Present: Normal Inspection. No: Midline Tenderness Upper Extremity: Present: Normal Inspection, Normal ROM. No: Cyanosis, Edema Lower Extremity: Present: Normal Inspection. No: Edema Neurological: Present: GCS=15, Speech Normal Skin: Present: Warm, Dry, Normal Color. No: Rashes Psychiatric: Present: Alert, Oriented x 3, Normal Insight, Normal Concentration Medical Decision Making ED Course and Treatment: 01/03/19 11:45 Impression: 68 year old female who present to the emergency department for removal of nasal packing. Differential Diagnosis included but are not limited to: Plan: -- Remove nasal packing -- Observe in the ER for re-bleeding -- Reassess and disposition Prior Visits: Notes and results from previous visits were reviewed. Progress Notes: 01/03/19 11:45 Nasal packing removed easily by PA. Will observe the patient in the ER for any further re-bleeding. Patient was observed in the ER for over and hour and there was no active bleedin g, while in the ER. On re-evaluation, patient states that she is ready to go home, feels comfortable following up with Dr. Escalante and with the ENT doctor she is scheduled tp see on the . Advised not to rub her nose, pick her nose, rub her nose as well. Advised to return to the ER at any time for any new or worsening symptoms. - PA / PLYWOOD PATCHER / Resident Statement MD/DO has reviewed & agrees with the documentation as recorded. - Scribe Statement The provider has reviewed the documentation as recorded by the Scribe All medical record entries made by the Scribe were at my direction and personally dictated by me. I have reviewed the chart and agree that the record accurately reflects my personal performance of the history, physical exam, medical decision making, and the department course for this patient. I have also personally directed, reviewed, and agree with the discharge instructions and disposition. Disposition/Present on Arrival - Present on Arrival Any Indicators Present on Arrival: No History of DVT/PE: No History of Uncontrolled Diabetes: No Urinary Catheter: No History of Decub. Ulcer: No History Surgical Site Infection Following: Orthopedic Procedures - Disposition Have Diagnosis and Disposition been Completed?: Yes Diagnosis: Encounter for removal of nasal packing Disposition: HOME/ ROUTINE Disposition Time: 11:45 Patient Plan: Discharge Condition: STABLE Discharge Instructions (ExitCare): Nosebleeds (DC) Additional Instructions: Thank you for letting us take care of you today. You were treated for removal of nasal packing. The emergency medical care you received today was directed at your acute symptoms. It may take several days for your symptoms to resolve. Return to the Emergency Department if your symptoms worsen, do not improve, or if you have any other problems. Please contact your doctor and ENT doctor in 2 days for re-evaluation and follow up. Bring any paperwork you were given at discharge with you along with any medications you are taking to your follow up visit. Our treatment cannot replace ongoing medical care by a primary care provider (PCP) outside of the emergency department. Thank you for allowing the [facility] team to be part of your care today. Referrals: Cathy Escalante MD [Primary Care Provider] - Follow up with primary Forms: [employer] ([place] Islander)
[2019-01-03 12:36] VITALS: BP 140/74; PULSE 81; RESP 17; TEMP 98; O2SAT 96
== END 2019-01-03 12:25 | disposition home or self-care (01) ==
LOC: ED 10:24
DX: Z51.89 Encounter for other specified aftercare (principal)